=== PATIENT | female | born 1960 | race Caucasian/White ===

== ENCOUNTER 2019-02-27 17:27 | Observation (INO) | payer MEDICARE, SELFPAY ==
[2019-02-27] VITALS (9 sets, daily range): BP systolic 131–149; BP diastolic 81–87; PULSE 61–79; RESP 14–16; TEMP 36.6–36.9; O2SAT 95–97; BMI 20.1; BMI 19.7
--- NOTE | 2019-02-27 17:36 | EKG12_ITS ---
Test Reason : CP Blood Pressure : / mmHG Vent. Rate : 077 BPM Atrial Rate : 077 BPM P-R Int : 122 ms QRS Dur : 092 ms QT Int : 400 ms P-R-T Axes : 064 036 064 degrees QTc Int : 452 ms Sinus rhythm with Premature atrial complexes Possible Left atrial enlargement Nonspecific ST abnormality Abnormal ECG Confirmed by VIVIAN KOCH, EVAN ([id number]), loan expeditor ALLYN SEAMAN ([id number]) on 03/02/2019 1:14:00 PM Referred By: DILIP Confirmed By:EVAN PARK MD
--- NOTE | 2019-02-27 17:40 | RAD_ITS ---
STUDY: X-RAY CHEST REASON FOR EXAM: Female, 58 years old. Chest pain. TECHNIQUE: Single frontal view of the chest. COMPARISON: None. FINDINGS: There is no focal consolidation. Sternal cerclage wires are present from a prior sternotomy. The cardiac silhouette is within normal limits. There is a prosthetic cardiac valve in place. Normal mediastinum and jeb. Normal visualized pulmonary arteries. Normal visualized aortic arch and descending thoracic aorta. There is a levoscoliosis of the thoracic spine. Normal visualized ribs, clavicles, and shoulders. There is no demonstrated abnormality of the visualized soft tissue structures of the upper abdomen. RAD/Chest 1 View (Portable) IMPRESSION: No acute cardiopulmonary process. Electronically Signed: Mary Levine MD at 18:39 EDT Tel , Service support ,
--- NOTE | 2019-02-27 17:48 | NURSING ---
NO OLD EKGS
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
[2019-02-27 18:57] LABS: Absolute Lymphocyte Count 1.47 X10^3/ul (0.83-4.51); Absolute Neutrophil Count 3.8 X10^3/uL (2.0-7.7); Basophil# 0.02 X10^3/uL; Basophil% 0.3 % (0-1); Eosinophils% 3.2 % (0-5); Hematocrit 42.1 % (37-47); Lymphocyte # 1.47 X10^3/ul (4.0); Lymphocyte % 23.2 % (19-41); Mean Corp Hgb Conc 33.3 g/gl (32-36); Mean Corpuscular Volume 87.2 fL (81-99); Mean Platelet Vol. 11.2 fl (6.2-12.0); Monocyte% 12.6 % (0-10); Neutrophil # 3.82 X10^3/uL (2.7-7.7); Neutrophil % 60.4 % (47-70); Platelet Count 181 K/mm3 (150-450); Red Blood Count 4.83 M/mm3 (4.2-5.4); White Blood Count 6.3 K/mm3 (4.4-11.0)
[2019-02-27 18:58] LABS: POSITIVE COUNT NO; POSITIVE DIFFERENTIAL NO; POSITIVE MORPHOLOGY NO
--- NOTE | 2019-02-27 19:05 | EKG12_ITS ---
Test Reason : REPEAT Blood Pressure : / mmHG Vent. Rate : 069 BPM Atrial Rate : 069 BPM P-R Int : 130 ms QRS Dur : 090 ms QT Int : 426 ms P-R-T Axes : 063 051 076 degrees QTc Int : 456 ms Normal sinus rhythm with sinus arrhythmia Normal ECG Confirmed by VIVIAN KOCH, EVAN ([id number]), newspaper photo editor ALLYN SEAMAN ([id number]) on 03/02/2019 1:19:13 PM Referred By: DILIP Confirmed By:EVAN PARK MD
[2019-02-27] MEDS: Aspirin 81 MG TAB.CHEW 324 MG PO (19:13)
[2019-02-27] MEDS: Morphine 4 MG/ML Syringe IV (19:43)
[2019-02-27 19:58] LABS: Anion Gap 5 (5-15); BUN 9 mg/dL (7-18); BUN/Creat Ratio 9.1 RATIO (10-20); Calcium,Total 8.4 mg/dL (8.5-10.1); Chloride 109 mmol/L (98-107); Creatinine, Serum 0.99 mg/dL (0.55-1.02); EST Glomerular Filtration Rate 61 mL/min (>60); Est Glom Filt Rate - Afr Amer 74 mL/min (>60); Estimated Creatinine Clearance 54.34 ml/min; Glucose 96 mg/dL (74-106); Potassium 4.1 mmol/L (3.5-5.1); Sodium Level 140 mmol/L (136-145)
--- NOTE | 2019-02-27 20:42 | PCM.HP.STD ---
Problem List (1) Chest pain Status: Acute Qualifiers: Chest pain type: precordial pain Qualified Code(s): R07.2 - Precordial pain History of Present Illness Date of Admission: 02/27/19 Chief Complaint: Chest pain The patient is a 58 year old F seen in the emergency room at [facility] with chief complaint of chest pain in the precordial area that she describes as sharp in nature, she states that it radiated into her mid back area. It started at 3 PM today and was off and on until 4:30 PM at 4:30 PM the patient states it became steady and did not resolve until she came to the emergency room. Patient denies any radiation down her arm or up into her jaw, she denies any nausea, vomiting, or diaphoresis. Patient has a past history of coronary artery disease and had 2 stents placed in March 2018 as well as an artificial aortic valve placement at that time. Patient's gas pipe layer is Dr. Poe in [place] she also has a past history of pulmonic valve replacement. In the emergency room included a chest x-ray which was unremarkable, CBC was unremarkable, EKG showed a normal sinus rhythm with T wave inversions in leads V1 and V2 with nonspecific T wave changes in the limb leads. No old EKGs were available to compare this with. Patient's troponin is unremarkable. Patient will be placed and observation status on PCU, enzymes will be cycled, patient states that if she had to have a cardiac catheterization she would rather have it done in [place] under her gas pipe layer, patient had a stress test done in October 2018 which was negative she states. Past Medical History Allergies naproxen Allergy (Verified 02/27/19 17:30) Swelling Penicillins Allergy (Verified 02/27/19 17:30) Unknown Home Medications: Ambulatory Orders Medication Instructions Recorded Acetaminophen [Acetaminophen Extra 500 mg PO Q6H PRN 02/27/19 Strength] Albuterol Aerosols [Ventolin 2.5 mg INHALATION Q6H PRN PRN 02/27/19 Aerosols] Albuterol IH (ProAir) [Proair Hfa 2 puff INHALATION Q6H PRN PRN 02/27/19 (SP)Vent Pts] Alendronate Sodium [Fosamax] 70 mg PO Q7D@0700 02/27/19 Amitriptyline HCl [Elavil] 10 mg PO QHS 03/30/19 Atorvastatin Calcium [Lipitor] 80 mg PO QHS 02/27/19 Cholecalciferol (Vitamin D3) 2,000 unit PO DAILY 02/27/19 [Vitamin D3] Diltiazem HCl [Diltiazem 24Hr ER] 180 mg PO DAILY 02/27/19 Doxycycline 100 mg PO DAILY 02/27/19 Fluticasone 0.05% [Flonase Nasal 1 spray NASAL DAILY 02/27/19 [place]] Fluticasone/Salmeterol [Advair 1 each IH DAILY 02/27/19 250-50 Diskus] Gabapentin [Neurontin] 300 mg PO BID 02/27/19 Melatonin 10 mg PO QHS 02/27/19 Mirtazapine [Remeron] 30 mg PO QHS 02/27/19 Nitroglycerin [Nitrostat] 0.3 mg SL Q5M PRN 02/27/19 Oxybutynin [Ditropan] 10 mg PO DAILY 02/27/19 Tiotropium [place] [Spiriva] 18 mcg IH DAILY 02/27/19 Warfarin [Coumadin (PBKC)] 5 mg PO DAILY 02/27/19 Surgical History: cataract, total hip arthroplasty - X2, tonsillectomy, - - Aortic and pulmonic valve replacement, patient has mechanical aortic valve, skin grafts, coronary artery stent placement times -March 2018 Psychiatric History: No pertinent psych hx CALIBRATION ENGINEER History: No pertinent CALIBRATION ENGINEER history Lives: Alone Smoking Status: Current every day smoker Tobacco Use: Cigarettes Alcohol: None Drugs: None - *Family History Maternal History Items: Cancer - Lung and bone cancer Paternal History Items: Cancer - Bladder cancer Review of Systems Constitutional: Denies: Anorexia, Chills, Fever, Night Sweats, Malaise, Weakness, Weight Change Eyes: Denies: Conjunctivae Inflammation, Double vision, Drainage HEENT: Denies: Difficulty Swallowing, Dysphasia, Ear Pain, Eye Pain, Hearing Changes, Nasal bleeding, Nasal Congestion, Post Nasal Drip Cardiovascular: Reports: Chest Pain. Denies: Claudication, Chest Pressure, Chest Tightness, Edema, Heaviness, Orthopnea, Palpitations, Paroxysmal Noc. Dyspnea, Syncope Respiratory: Denies: Cough, Hemoptysis, Pleuritic Pain, Shortness of Breath, Shortness of breath at rest, Shortness of breath upon exertion Gastrointestinal: Denies: Abdominal Pain, Constipation, Diarrhea, Hematemesis, Hematochezia, Nausea, Melena, Vomiting Genitourinary: Denies: Dysuria, Frequency, Hematuria, Hesitancy, Urgency Gynecological: Denies: Breast symptoms Musculoskeletal: Denies: Back Pain, Foot Pain, Hand Pain, Joint stiffness, Joint swelling, Joint Tenderness Skin: Denies: Dryness, Jaundice, Pruritis, Rash Neurological: Denies: Blurred vision, Double vision, Change in Speech, Slurred speech, Difficulty swallowing, Focal weakness, Headaches, Incoordination, Numbness, Tingling Psychiatric: Denies: Anxiety, Depression, Homicidal Ideations, Suicidal Ideations Endocrine: Denies: Change in Body Habitus, Heat/ Cold Intolerance, Polydipsia, Polyuria Hematologic/ Lymphatic: Denies: Adenopathy, Anemia, Easy Bruising, Easy Bleeding, Petechiae, Purpura VTE Information - Inpt Only VTE Present on Admission: No VTE Mechan Device Prophylaxis: None VTE Pharm Prophylaxis ordered?: Yes Patient Problems: Active and Suspected Problems Chest pain (Acute) - Physical Exam General: Alert, Oriented x3, Cooperative, No apparent distress, Well developed, Well nourished HEENT: Atraumatic, PERRLA, EOMI, Normocephalic Oral: Moist Mucosa Neck: Supple, No JVD, Negative Carotid Bruits, No Nuchal Rigidity, Trachea Midline, Thyroid Normal Size and Texture Lungs: Clear to auscultation, Normal air movement, No rhonchi, No wheeze, No rales Cardiovascular: Regular rate, Regular Rhythm, No murmurs, - - A metal valvular click is noted over the patient's left sternal border and apex, occasional PACs are noted Abdomen: Bowel Sounds Present, Soft, Non Tender, Non-Distended, No hernias noted Extremities: No edema, Capillary Refill Less than 3 Seconds Skin: No rashes, No breakdown Neurological: Cranial nerves II-XII grossly intact, Neuro grossly intact, Sensory exam intact to light touch and pain, Coordination normal Psych/Mental Status: Normal Affect, Appropriate, Alert and oriented to time, place, person, mood and affect Vital Signs Temp Pulse Resp BP Pulse Ox 98.5 F 71 15 145/81 H 96 02/27/19 17:28 02/27/19 19:34 02/27/19 19:16 02/27/19 19:34 02/27/19 19:16 Oxygen Delivery Method Room Air Weight: 54.9 kg Body Mass Index (BMI) 20.1 Laboratory Tests Past 24 Hrs 02/27/19 02/27/19 18:45 19:15 WBC 6.3 RBC 4.83 Hgb 14.0 Hct 42.1 MCV 87.2 MCH 29.0 MCHC 33.3 RDW 15.0 H RDW Differential 48.0 H Plt Count 181 MPV 11.2 Immature Gran % (Auto) 0.300 Neut % (Auto) 60.4 Lymph % (Auto) 23.2 [place] % (Auto) 12.6 H Eos % (Auto) 3.2 Baso % (Auto) 0.3 Absolute Neuts (auto) 3.8 Absolute Lymphs (auto) 1.47 Total Counted Not Reportable Sodium 140 Potassium 4.1 Chloride 109 H Carbon Dioxide 26.0 Anion Gap 5 BUN 9 Creatinine 0.99 Estim Creat Clear Calc 54.34 Est GFR (MDRD) Af Amer 74 Est GFR (MDRD) Non-Af 61 BUN/Creatinine Ratio 9.1 L Glucose 96 Calcium 8.4 L Troponin I < 0.015 Assessment/Plan All Active Problems Chest pain (Acute) #1 atypical chest pain in a patient with known coronary artery disease-patient will be placed in observation status on PCU, serial enzymes will be checked, if these enzymes remain negative, patient has the option to be discharged home tomorrow (she is in favor of this) to follow-up with her gas pipe layer as an outpatient #2 coronary artery disease-2 stents were placed in March 2018 #3 valvular heart disease with pulmonic valve replacement and mechanical aortic valve #4 chronic use of warfarin due to mechanical aortic valve #5 chronic osteomyelitis of the right hip-patient takes doxycycline twice a day for this #6 chronic insomnia-patient takes gabapentin and amitriptyline for this #7 COPD-patient will be placed on albuterol aerosols as needed Code Visit OBSV E&M: 29324 Initial observation care L3
--- NOTE | 2019-02-27 20:49 | HP.PCM_ITS ---
Problem List (1) Chest pain Status: Acute Qualifiers: Chest pain type: precordial pain Qualified Code(s): R07.2 - Precordial pain History of Present Illness Date of Admission: 02/27/19 Chief Complaint: Chest pain The patient is a 58 year old F seen in the emergency room at [facility] with chief complaint of chest pain in the precordial area that she describes as sharp in nature, she states that it radiated into her mid back area. It started at 3 PM today and was off and on until 4:30 PM at 4:30 PM the patient states it became steady and did not resolve until she came to the emergency room. Patient denies any radiation down her arm or up into her jaw, she denies any nausea, vomiting, or diaphoresis. Patient has a past history of coronary artery disease and had 2 stents placed in March 2018 as well as an artificial aortic valve placement at that time. Patient's human geography instructor is Dr. Poe in [place] she also has a past history of pulmonic valve replacement. In the emergency room included a chest x-ray which was unremarkable, CBC was unremarkable, EKG showed a normal sinus rhythm with T wave inversions in leads V1 and V2 with nonspecific T wave changes in the limb leads. No old EKGs were available to compare this with. Patient's troponin is unremarkable. Patient will be placed and observation status on PCU, enzymes will be cycled, patient states that if she had to have a cardiac catheterization she would rather have it done in [place] under her human geography instructor, patient had a stress test done in October 2018 which was negative she states. Past Medical History Allergies naproxen Allergy (Verified 02/27/19 17:30) Swelling Penicillins Allergy (Verified 02/27/19 17:30) Unknown Home Medications: Ambulatory Orders Medication Instructions Recorded Acetaminophen [Acetaminophen Extra 500 mg PO Q6H PRN 02/27/19 Strength] Albuterol Aerosols [Ventolin 2.5 mg INHALATION Q6H PRN PRN 02/27/19 Aerosols] Albuterol IH (ProAir) [Proair Hfa 2 puff INHALATION Q6H PRN PRN 02/27/19 (SP)Vent Pts] Alendronate Sodium [Fosamax] 70 mg PO Q7D@0700 02/27/19 Amitriptyline HCl [Elavil] 10 mg PO QHS 03/30/19 Atorvastatin Calcium [Lipitor] 80 mg PO QHS 02/27/19 Cholecalciferol (Vitamin D3) 2,000 unit PO DAILY 02/27/19 [Vitamin D3] Diltiazem HCl [Diltiazem 24Hr ER] 180 mg PO DAILY 02/27/19 Doxycycline 100 mg PO DAILY 02/27/19 Fluticasone 0.05% [Flonase Nasal 1 spray NASAL DAILY 02/27/19 [place]] Fluticasone/Salmeterol [Advair 1 each IH DAILY 02/27/19 250-50 Diskus] Gabapentin [Neurontin] 300 mg PO BID 02/27/19 Melatonin 10 mg PO QHS 02/27/19 Mirtazapine [Remeron] 30 mg PO QHS 02/27/19 Nitroglycerin [Nitrostat] 0.3 mg SL Q5M PRN 02/27/19 Oxybutynin [Ditropan] 10 mg PO DAILY 02/27/19 Tiotropium [place] [Spiriva] 18 mcg IH DAILY 02/27/19 Warfarin [Coumadin (PBKC)] 5 mg PO DAILY 02/27/19 Surgical History: cataract, total hip arthroplasty - X2, tonsillectomy, - - Aortic and pulmonic valve replacement, patient has mechanical aortic valve, skin grafts, coronary artery stent placement times -March 2018 Psychiatric History: No pertinent psych hx OTOLARYNGOLOGIST History: No pertinent OTOLARYNGOLOGIST history Lives: Alone Smoking Status: Current every day smoker Tobacco Use: Cigarettes Alcohol: None Drugs: None - *Family History Maternal History Items: Cancer - Lung and bone cancer Paternal History Items: Cancer - Bladder cancer Review of Systems Constitutional: Denies: Anorexia, Chills, Fever, Night Sweats, Malaise, Weakness, Weight Change Eyes: Denies: Conjunctivae Inflammation, Double vision, Drainage HEENT: Denies: Difficulty Swallowing, Dysphasia, Ear Pain, Eye Pain, Hearing Changes, Nasal bleeding, Nasal Congestion, Post Nasal Drip Cardiovascular: Reports: Chest Pain. Denies: Claudication, Chest Pressure, Chest Tightness, Edema, Heaviness, Orthopnea, Palpitations, Paroxysmal Noc. Dyspnea, Syncope Respiratory: Denies: Cough, Hemoptysis, Pleuritic Pain, Shortness of Breath, Shortness of breath at rest, Shortness of breath upon exertion Gastrointestinal: Denies: Abdominal Pain, Constipation, Diarrhea, Hematemesis, Hematochezia, Nausea, Melena, Vomiting Genitourinary: Denies: Dysuria, Frequency, Hematuria, Hesitancy, Urgency Gynecological: Denies: Breast symptoms Musculoskeletal: Denies: Back Pain, Foot Pain, Hand Pain, Joint stiffness, Joint swelling, Joint Tenderness Skin: Denies: Dryness, Jaundice, Pruritis, Rash Neurological: Denies: Blurred vision, Double vision, Change in Speech, Slurred speech, Difficulty swallowing, Focal weakness, Headaches, Incoordination, Numbness, Tingling Psychiatric: Denies: Anxiety, Depression, Homicidal Ideations, Suicidal Ideations Endocrine: Denies: Change in Body Habitus, Heat/ Cold Intolerance, Polydipsia, Polyuria Hematologic/ Lymphatic: Denies: Adenopathy, Anemia, Easy Bruising, Easy Bleeding, Petechiae, Purpura VTE Information - Inpt Only VTE Present on Admission: No VTE Mechan Device Prophylaxis: None VTE Pharm Prophylaxis ordered?: Yes Patient Problems: Active and Suspected Problems Chest pain (Acute) - Physical Exam General: Alert, Oriented x3, Cooperative, No apparent distress, Well developed, Well nourished HEENT: Atraumatic, PERRLA, EOMI, Normocephalic Oral: Moist Mucosa Neck: Supple, No JVD, Negative Carotid Bruits, No Nuchal Rigidity, Trachea Midline, Thyroid Normal Size and Texture Lungs: Clear to auscultation, Normal air movement, No rhonchi, No wheeze, No rales Cardiovascular: Regular rate, Regular Rhythm, No murmurs, - - A metal valvular click is noted over the patient's left sternal border and apex, occasional PACs are noted Abdomen: Bowel Sounds Present, Soft, Non Tender, Non-Distended, No hernias noted Extremities: No edema, Capillary Refill Less than 3 Seconds Skin: No rashes, No breakdown Neurological: Cranial nerves II-XII grossly intact, Neuro grossly intact, Sensory exam intact to light touch and pain, Coordination normal Psych/Mental Status: Normal Affect, Appropriate, Alert and oriented to time, place, person, mood and affect Vital Signs Temp Pulse Resp BP Pulse Ox 98.5 F 71 15 145/81 H 96 02/27/19 17:28 02/27/19 19:34 02/27/19 19:16 02/27/19 19:34 02/27/19 19:16 Oxygen Delivery Method Room Air Weight: 54.9 kg Body Mass Index (BMI) 20.1 Laboratory Tests Past 24 Hrs 02/27/19 02/27/19 18:45 19:15 WBC 6.3 RBC 4.83 Hgb 14.0 Hct 42.1 MCV 87.2 MCH 29.0 MCHC 33.3 RDW 15.0 H RDW Differential 48.0 H Plt Count 181 MPV 11.2 Immature Gran % (Auto) 0.300 Neut % (Auto) 60.4 Lymph % (Auto) 23.2 [place] % (Auto) 12.6 H Eos % (Auto) 3.2 Baso % (Auto) 0.3 Absolute Neuts (auto) 3.8 Absolute Lymphs (auto) 1.47 Total Counted Not Reportable Sodium 140 Potassium 4.1 Chloride 109 H Carbon Dioxide 26.0 Anion Gap 5 BUN 9 Creatinine 0.99 Estim Creat Clear Calc 54.34 Est GFR (MDRD) Af Amer 74 Est GFR (MDRD) Non-Af 61 BUN/Creatinine Ratio 9.1 L Glucose 96 Calcium 8.4 L Troponin I < 0.015 Assessment/Plan All Active Problems Chest pain (Acute) #1 atypical chest pain in a patient with known coronary artery disease-patient will be placed in observation status on PCU, serial enzymes will be checked, if these enzymes remain negative, patient has the option to be discharged home tomorrow (she is in favor of this) to follow-up with her human geography instructor as an outpatient #2 coronary artery disease-2 stents were placed in March 2018 #3 valvular heart disease with pulmonic valve replacement and mechanical aortic valve #4 chronic use of warfarin due to mechanical aortic valve #5 chronic osteomyelitis of the right hip-patient takes doxycycline twice a day for this #6 chronic insomnia-patient takes gabapentin and amitriptyline for this #7 COPD-patient will be placed on albuterol aerosols as needed Code Visit OBSV E&M: 14158 Initial observation care L3
[2019-02-27] MEDS: Amitriptyline 10 MG Tablet PO (23:40)
[2019-02-27] MEDS: MELATONIN 10 MG TABLET PO (23:40)
[2019-02-27] MEDS: Mirtazapine 30 MG Tablet PO (23:41)
[2019-02-27] MEDS: Gabapentin 300 MG Capsule PO (23:41)
[2019-02-27] MEDS: Acetaminophen 325 MG Tablet 650 MG PO (23:41)
[2019-02-27] MEDS: Atorvastatin Calcium 80 MG Tablet PO (23:41)
[2019-02-28 03:07] VITALS: BP 90/54; PULSE 60; RESP 16; TEMP 36.4; O2SAT 94
[2019-02-28 03:09] VITALS: PULSE 60
[2019-02-28 05:07] VITALS: BP 94/58; PULSE 57; RESP 16; TEMP 36.4; O2SAT 94
[2019-02-28] MEDS: Acetaminophen 325 MG Tablet 650 MG PO (06:19)
[2019-02-28 07:05] VITALS: PULSE 60
[2019-02-28 09:18] VITALS: BP 110/67; PULSE 62; RESP 18; TEMP 36.3; O2SAT 95
[2019-02-28] MEDS: Gabapentin 300 MG Capsule PO (09:22)
[2019-02-28] MEDS: Tolterodine Tartrate 2 MG CAP.SA PO (09:22)
[2019-02-28] MEDS: dilTIAZem CD 180 MG Capsule PO (09:22)
[2019-02-28] MEDS: Morphine 2 MG/ML Syringe IV (09:23)
[2019-02-28] MEDS: Doxycycline 100 MG CAPSULE PO (09:23)
--- NOTE | 2019-02-28 11:11 | DCINST_ITS ---
- Discharge Diagnoses Current Active Problems: Current Active and Chronic Problems Chest pain (Acute) You will use the following diet at home:: Cardiac Discharge Activity: Return to Normal Activity Call your doctor if you observe: Shortness of breath, Dizziness, Fainting spells, Chest pain Allergies/Adverse Reactions: Allergies naproxen Allergy (Verified 02/27/19 17:30) Swelling Penicillins Allergy (Verified 02/27/19 17:30) Unknown Medications to take at Discharge Acetaminophen [Acetaminophen Extra Strength] 500 mg PO Q6H PRN 02/27/19 Albuterol Aerosols [Ventolin Aerosols] 2.5 mg INHALATION Q6H PRN PRN 02/27/19 Albuterol IH (ProAir) [Proair Hfa] 2 puff INHALATION Q6H PRN PRN 02/27/19 Alendronate Sodium [Fosamax] 70 mg PO Q7D@0700 02/27/19 Amitriptyline HCl [Elavil] 10 mg PO QHS 02/27/19 Atorvastatin Calcium [Lipitor] 80 mg PO QHS 02/27/19 Cholecalciferol (Vitamin D3) [Vitamin D3] 2,000 unit PO DAILY 02/27/19 Diltiazem HCl [Diltiazem 24Hr ER] 180 mg PO DAILY 02/27/19 Doxycycline 100 mg PO DAILY 02/27/19 Fluticasone 0.05% [Flonase Nasal [place]] 1 spray NASAL DAILY 02/27/19 Fluticasone/Salmeterol [Advair 250-50 Diskus] 1 each IH DAILY 02/27/19 Gabapentin [Neurontin] 300 mg PO BID 02/27/19 Melatonin 10 mg PO QHS 02/27/19 Mirtazapine [Remeron] 30 mg PO QHS 02/27/19 Nitroglycerin [Nitrostat] 0.3 mg SL Q5M PRN 02/27/19 Oxybutynin [Ditropan] 10 mg PO DAILY 02/27/19 Tiotropium [place] [Spiriva] 18 mcg IH DAILY 02/27/19 Warfarin [Coumadin] 5 mg PO DAILY 02/27/19 Primary Care Physician: NOT,DEFINED [NON-STAFF] - Please follow up with your Primary Care Physician in: 1 Week Test Results: Test results from this visit will be discussed in further detail at your follow- up appointment, if applicable. Please Follow Up With: Primary Welfare Interviewer When: Call Friday for soonest available appointment. Proposed Discharge Date: 02/28/19
--- NOTE | 2019-02-28 11:12 | PCM.DC.SUM ---
Discharge Date and Diagnosis Date of Admission: 02/27/19 Date of Discharge: 02/28/19 - Primary Discharge Diagnosis Active and Suspected Problems 1. Chest pain, ACS ruled out 2. CAD status post history of stents 3. Valvular heart disease status post pulmonic valve replacement and mechanical aortic valve 4. Chronic osteomyelitis of the right hip 5. Chronic insomnia 6. Chronic COPD Hospital Course and Treatment Imaging Results: Diagnostic Data Chest X-Ray 02/27/19 17:40 IMPRESSION: No acute cardiopulmonary process. Electronically Signed: Mary Levine MD at 18:39 EDT Tel , Service support , Operations: None Procedures: None Summary of Care Provided: The patient is a 58 year old F admitted 02/27/2019 due to chest pain. 1. Chest pain, ACS ruled out-chest x-ray without acute process. Troponin negative x3. EKG with nonspecific T wave changes. No NSTEMI. She had recent stress test in October which she reports was normal. She declined any further workup at this hospital. She requested discharge home and to follow up with her primary dentist in [place] next week. She was instructed to call tomorrow, Friday03/01/19 to schedule follow up with cardiology as soon as possible. Nursing reports patient complained of chest pain, stabbing in nature, 8/10 however was found to be resting comfortably in bed and fairly drowsy. She was given morphine and shortly after witnessed to be digging through the trash in her room. Suspicious for drug-seeking behavior. Recommend follow-up with primary care physician in 1 week and cardiology as soon as possible as previously noted. 2. CAD status post history of stents-continue statin, Coumadin. Not on beta-kate. 3. Valvular heart disease status post pulmonic valve replacement and mechanical aortic valve-continue Coumadin regimen. 4. Chronic osteomyelitis of the right hip-continue doxycycline regimen. 5. Chronic insomnia-continue home gabapentin and amitriptyline regimen. 6. Chronic COPD-no acute exacerbation. Continue home inhaler regimen. Patient seen and examined prior to discharge. Physical assessment as noted above. Patient is stable for discharge with follow up recommendations as noted above. This patient was seen by POLLO Orona under the supervision of Dr. Gold. - Physical Exam Vital Signs Temp Pulse Resp BP Pulse Ox 97.4 F L 62 18 110/67 95 02/28/19 09:18 02/28/19 09:18 02/28/19 09:18 02/28/19 09:18 02/28/19 09:18 Oxygen Delivery Method Room Air Weight: 118 lb 9.739 oz Body Mass Index (BMI) 19.7 Intake and Output for Last 24 Hours 02/26/19 02/27/19 02/28/19 23:59 23:59 23:59 Intake Total 120 / 120 50 / 50 Output Total 0 / 0 Balance 120 / 120 50 / 50 Laboratory Tests Past 24 Hrs 02/27/19 02/27/19 02/27/19 18:45 19:15 22:30 WBC 6.3 RBC 4.83 Hgb 14.0 Hct 42.1 MCV 87.2 MCH 29.0 MCHC 33.3 RDW 15.0 H RDW Differential 48.0 H Plt Count 181 MPV 11.2 Immature Gran % (Auto) 0.300 Neut % (Auto) 60.4 Lymph % (Auto) 23.2 [place] % (Auto) 12.6 H Eos % (Auto) 3.2 Baso % (Auto) 0.3 Absolute Neuts (auto) 3.8 Absolute Lymphs (auto) 1.47 Total Counted Not Reportable Sodium 140 Potassium 4.1 Chloride 109 H Carbon Dioxide 26.0 Anion Gap 5 BUN 9 Creatinine 0.99 Estim Creat Clear Calc 54.34 Est GFR (MDRD) Af Amer 74 Est GFR (MDRD) Non-Af 61 BUN/Creatinine Ratio 9.1 L Glucose 96 Calcium 8.4 L Troponin I < 0.015 < 0.015 02/28/19 01:13 WBC RBC Hgb Hct MCV MCH MCHC RDW RDW Differential Plt Count MPV Immature Gran % (Auto) Neut % (Auto) Lymph % (Auto) [place] % (Auto) Eos % (Auto) Baso % (Auto) Absolute Neuts (auto) Absolute Lymphs (auto) Total Counted Sodium Potassium Chloride Carbon Dioxide Anion Gap BUN Creatinine Estim Creat Clear Calc Est GFR (MDRD) Af Amer Est GFR (MDRD) Non-Af BUN/Creatinine Ratio Glucose Calcium Troponin I < 0.015 Discharge Diet: Low fat/ Low Cholesterol Discharge Activity: Return to Normal Activity Call your doctor if you observe: Shortness of breath, Dizziness, Fainting spells, Chest pain Home Medications: Medications to take at Discharge Acetaminophen [Acetaminophen Extra Strength] 500 mg PO Q6H PRN 02/27/19 Albuterol Aerosols [Ventolin Aerosols] 2.5 mg INHALATION Q6H PRN PRN 02/27/19 Albuterol IH (ProAir) [Proair Hfa] 2 puff INHALATION Q6H PRN PRN 02/27/19 Alendronate Sodium [Fosamax] 70 mg PO Q7D@0700 02/27/19 Amitriptyline HCl [Elavil] 10 mg PO QHS 02/27/19 Atorvastatin Calcium [Lipitor] 80 mg PO QHS 02/27/19 Cholecalciferol (Vitamin D3) [Vitamin D3] 2,000 unit PO DAILY 02/27/19 Diltiazem HCl [Diltiazem 24Hr ER] 180 mg PO DAILY 02/27/19 Doxycycline 100 mg PO DAILY 02/27/19 Fluticasone 0.05% [Flonase Nasal [place]] 1 spray NASAL DAILY 02/27/19 Fluticasone/Salmeterol [Advair 250-50 Diskus] 1 each IH DAILY 02/27/19 Gabapentin [Neurontin] 300 mg PO BID 02/27/19 Melatonin 10 mg PO QHS 02/27/19 Mirtazapine [Remeron] 30 mg PO QHS 02/27/19 Nitroglycerin [Nitrostat] 0.3 mg SL Q5M PRN 02/27/19 Oxybutynin [Ditropan] 10 mg PO DAILY 02/27/19 Tiotropium [place] [Spiriva] 18 mcg IH DAILY 02/27/19 Warfarin [Coumadin] 5 mg PO DAILY 02/27/19 Primary Care Physician: NOT,DEFINED [NON-STAFF] - Please follow up with your Primary Care Physician in: 1 Week Please Follow Up With: Primary Vacuum Form Operator When: Call Friday for soonest available appointment. Disposition: Home Minutes spent on discharge:: 35 Patient Condition:: Stable Medical Necessity - Tobacco Use Smoking Status: Current every day smoker Tobacco Use: Cigarettes Meaningful Use Info Meaningful Use Diagnoses (Choose all that apply): None applicable
--- NOTE | 2019-02-28 11:22 | DS.PCM_ITS ---
Discharge Date and Diagnosis Date of Admission: 02/27/19 Date of Discharge: 02/28/19 - Primary Discharge Diagnosis Active and Suspected Problems 1. Chest pain, ACS ruled out 2. CAD status post history of stents 3. Valvular heart disease status post pulmonic valve replacement and mechanical aortic valve 4. Chronic osteomyelitis of the right hip 5. Chronic insomnia 6. Chronic COPD Hospital Course and Treatment Imaging Results: Diagnostic Data Chest X-Ray 02/27/19 17:40 IMPRESSION: No acute cardiopulmonary process. Electronically Signed: Mary Levine MD at 18:39 EDT Tel , Service support , Operations: None Procedures: None Summary of Care Provided: The patient is a 58 year old F admitted 02/27/2019 due to chest pain. 1. Chest pain, ACS ruled out-chest x-ray without acute process. Troponin negative x3. EKG with nonspecific T wave changes. No NSTEMI. She had recent stress test in October which she reports was normal. She declined any further workup at this hospital. She requested discharge home and to follow up with her primary gynecological assistant in [place] next week. She was instructed to call tomorrow, Friday03/01/19 to schedule follow up with cardiology as soon as possible. Nursing reports patient complained of chest pain, stabbing in nature, 8/10 however was found to be resting comfortably in bed and fairly drowsy. She was given morphine and shortly after witnessed to be digging through the trash in her room. Suspicious for drug-seeking behavior. Recommend follow-up with primary care physician in 1 week and cardiology as soon as possible as previously noted. 2. CAD status post history of stents-continue statin, Coumadin. Not on beta- kate. 3. Valvular heart disease status post pulmonic valve replacement and mechanical aortic valve-continue Coumadin regimen. 4. Chronic osteomyelitis of the right hip-continue doxycycline regimen. 5. Chronic insomnia-continue home gabapentin and amitriptyline regimen. 6. Chronic COPD-no acute exacerbation. Continue home inhaler regimen. Patient seen and examined prior to discharge. Physical assessment as noted above. Patient is stable for discharge with follow up recommendations as noted above. This patient was seen by POLLO Orona under the supervision of Dr. Whi te. - Physical Exam Vital Signs Temp Pulse Resp BP Pulse Ox 97.4 F L 62 18 110/67 95 02/28/19 09:18 02/28/19 09:18 02/28/19 09:18 02/28/19 09:18 02/28/19 09:18 Oxygen Delivery Method Room Air Weight: 118 lb 9.739 oz Body Mass Index (BMI) 19.7 Intake and Output for Last 24 Hours 02/26/19 02/27/19 02/28/19 23:59 23:59 23:59 Intake Total 120 / 120 50 / 50 Output Total 0 / 0 Balance 120 / 120 50 / 50 Laboratory Tests Past 24 Hrs 02/27/19 02/27/19 02/27/19 18:45 19:15 22:30 WBC 6.3 RBC 4.83 Hgb 14.0 Hct 42.1 MCV 87.2 MCH 29.0 MCHC 33.3 RDW 15.0 H RDW Differential 48.0 H Plt Count 181 MPV 11.2 Immature Gran % (Auto) 0.300 Neut % (Auto) 60.4 Lymph % (Auto) 23.2 [place] % (Auto) 12.6 H Eos % (Auto) 3.2 Baso % (Auto) 0.3 Absolute Neuts (auto) 3.8 Absolute Lymphs (auto) 1.47 Total Counted Not Reportable Sodium 140 Potassium 4.1 Chloride 109 H Carbon Dioxide 26.0 Anion Gap 5 BUN 9 Creatinine 0.99 Estim Creat Clear Calc 54.34 Est GFR (MDRD) Af Amer 74 Est GFR (MDRD) Non-Af 61 BUN/Creatinine Ratio 9.1 L Glucose 96 Calcium 8.4 L Troponin I < 0.015 < 0.015 02/28/19 01:13 WBC RBC Hgb Hct MCV MCH MCHC RDW RDW Differential Plt Count MPV Immature Gran % (Auto) Neut % (Auto) Lymph % (Auto) [place] % (Auto) Eos % (Auto) Baso % (Auto) Absolute Neuts (auto) Absolute Lymphs (auto) Total Counted Sodium Potassium Chloride Carbon Dioxide Anion Gap BUN Creatinine Estim Creat Clear Calc Est GFR (MDRD) Af Amer Est GFR (MDRD) Non-Af BUN/Creatinine Ratio Glucose Calcium Troponin I < 0.015 Discharge Diet: Low fat/ Low Cholesterol Discharge Activity: Return to Normal Activity Call your doctor if you observe: Shortness of breath, Dizziness, Fainting spells, Chest pain Home Medications: Medications to take at Discharge Acetaminophen [Acetaminophen Extra Strength] 500 mg PO Q6H PRN 02/27/19 Albuterol Aerosols [Ventolin Aerosols] 2.5 mg INHALATION Q6H PRN PRN 02/27/19 Albuterol IH (ProAir) [Proair Hfa] 2 puff INHALATION Q6H PRN PRN 02/27/19 Alendronate Sodium [Fosamax] 70 mg PO Q7D@0700 02/27/19 Amitriptyline HCl [Elavil] 10 mg PO QHS 02/27/19 Atorvastatin Calcium [Lipitor] 80 mg PO QHS 02/27/19 Cholecalciferol (Vitamin D3) [Vitamin D3] 2,000 unit PO DAILY 02/27/19 Diltiazem HCl [Diltiazem 24Hr ER] 180 mg PO DAILY 02/27/19 Doxycycline 100 mg PO DAILY 02/27/19 Fluticasone 0.05% [Flonase Nasal [place]] 1 spray NASAL DAILY 02/27/19 Fluticasone/Salmeterol [Advair 250-50 Diskus] 1 each IH DAILY 02/27/19 Gabapentin [Neurontin] 300 mg PO BID 02/27/19 Melatonin 10 mg PO QHS 02/27/19 Mirtazapine [Remeron] 30 mg PO QHS 02/27/19 Nitroglycerin [Nitrostat] 0.3 mg SL Q5M PRN 02/27/19 Oxybutynin [Ditropan] 10 mg PO DAILY 02/27/19 Tiotropium [place] [Spiriva] 18 mcg IH DAILY 02/27/19 Warfarin [Coumadin] 5 mg PO DAILY 02/27/19 Primary Care Physician: NOT,DEFINED [NON-STAFF] - Please follow up with your Primary Care Physician in: 1 Week Please Follow Up With: Primary Blocker And Polisher Gold Wheel When: Call Friday for soonest available appointment. Disposition: Home Minutes spent on discharge:: 35 Patient Condition:: Stable Medical Necessity - Tobacco Use Smoking Status: Current every day smoker Tobacco Use: Cigarettes Meaningful Use Info Meaningful Use Diagnoses (Choose all that apply): None applicable
== END 2019-02-28 11:11 | disposition home or self-care (01) ==
LOC: ED 18:37 → PCU 20:48
PROVIDERS: Admitting Provider Internal Medicine; Emergency Provider Emergency Medicine; Visit Provider Family Medicine
DX: R07.89 Other chest pain (principal); J44.9 Chronic obstructive pulmonary disease, unspecified; I10 Essential (primary) hypertension; E78.00 Pure hypercholesterolemia, unspecified; I25.10 Atherosclerotic heart disease of native coronary artery without angina pectoris; M86.68 Other chronic osteomyelitis, other site; F51.04 Psychophysiologic insomnia; E78.5 Hyperlipidemia, unspecified; G89.29 Other chronic pain; F17.210 Nicotine dependence, cigarettes, uncomplicated; I25.2 Old myocardial infarction; Z95.4 Presence of other heart-valve replacement; Z76.5 Malingerer [conscious simulation]; Z95.5 Presence of coronary angioplasty implant and graft; Z79.899 Other long term (current) drug therapy; Z79.01 Long term (current) use of anticoagulants
CPT/HCPCS: 36415; 71045; 80048; 84484; 85025; 93005; 96374; 96376; 99218; 99285; 99406; A4216; G0378

== ENCOUNTER 2019-03-25 20:41 | Emergency (ER) | payer MEDICARE, SELFPAY ==
[2019-02-27 21:08] VITALS: BMI 19.7
[2019-03-25 20:42] VITALS: BP 151/84; PULSE 67; RESP 16; TEMP 36.8; O2SAT 96; BMI 20.5
--- NOTE | 2019-03-25 20:48 | EKG12_ITS ---
Test Reason : CP Blood Pressure : / mmHG Vent. Rate : 063 BPM Atrial Rate : 063 BPM P-R Int : 148 ms QRS Dur : 078 ms QT Int : 440 ms P-R-T Axes : 075 019 070 degrees QTc Int : 450 ms Normal sinus rhythm Possible Left atrial enlargement Septal infarct (cited on or before 27-FEB-2019), age undetermined Abnormal ECG Confirmed by MAEGAN KOCH, SHARON ([id number]), telegraph editor ALLYN SEAMAN ([id number]) on 03/29/2019 11:38:40 AM Referred By: SOCO Confirmed By:SHARON ISSA MD
[2019-03-25 20:58] VITALS: O2SAT 96
--- NOTE | 2019-03-25 21:15 | RAD_ITS ---
STUDY: X-RAY CHEST REASON FOR EXAM: Female, 58 years old. Chest pain. TECHNIQUE: Single AP portable view of the chest. COMPARISON: February 27, 2019. FINDINGS: The lungs are clear and expanded. There is no demonstrated pleural abnormality. Sternal cerclage wires are present from a prior sternotomy. The heart is normal in size. There appears to be a stent in the main pulmonary artery. There is evidence of cardiac valvuloplasty. Normal visualized aortic arch and descending thoracic aorta. No visualized osseous changes. There is no demonstrated abnormality of the visualized soft tissue structures of the upper abdomen. RAD/Chest 1 View (Portable) IMPRESSION: No acute cardiopulmonary findings or interval change. Electronically Signed: Mejia Minaya DO at 21:28 EDT Tel [phone], Service support ,
--- NOTE | 2019-03-25 21:21 | ED.DCSUM_ITS ---
- ER Visit Summary Date of Service: 03/25/19 Chief Complaint: Chest pain History of Present Illness: The patient is a 58 F substernal left-sided chest pain radiated back while at rest at 4 PM, 5 hours ago. No dyspnea. No nausea. No diaphoresis. Reports 2 stents placed last year [facility]. Fol lowed by Dr. Poe cardiology. Stress test October 2018 from records on discharge report. No cough. COPD history. Tobacco history. She is on warfarin history of mechanical aortic valve for the past 10 years. Reports pain is a 9 and sharp in nature. Reports admitted here a month ago for chest pain symptoms. Complains of lightheaded symptoms. No vomiting or diarrhea Physical Examination: General: Alert and oriented ?3, no acute distress HEENT: Normocephalic, atraumatic. Moist mucosa membranes Neck: supple, nontender. Cardiovascular: Regular rate and rhythm, no murmurs Respiratory: Normal breath sounds, symmetric, no distress Abdomen: Soft, nontender, nondistended Extremities: Nontender, no edema, pulses intact ?4 Neuro: no focal neurological deficits. Test Results: EKG sinus rate of 63, no ST changes. There is T wave inversion V1 V2 and aVL. Hemoglobin 13.4. Creatinine 1.09. Troponin negative. INR 2.3. Chest x-ray is negative. Emergency Department Course and Treatment: Patient cardiac work-up negative. Given morphine for symptom control. In the interim I did evaluate her admission from a month ago, there was negative serial enzymes. From discharge summary reports after being given morphine, she is found going through the trash looking for the morphine files. There was recommendation for patient to see cardiology in the hospital however she declined stating she wanted to see her travel information center supervisor in [place]. She states she did follow-up with Dr. Poe, reports to me that the re would be no recommended At this time. In addition patient is now normally self NR was therapeutic at 2.3. Another hospital for recurrent chronic chest pain seen in [place]. Work-up has been negative during multiple evaluations there. However she does have risk factors but symptoms started at 4 PM. Discussed minimum obtaining a 3-hour troponin with her reported history stating her travel information center supervisor has cleared her without needing additional cath. This to be ordered to be obtained prior to discharge. Patient heart score is 3. CRISTINO score is 2. repeat troponin is negative.Discharge with follow-up with her travel information center supervisor. Treatment Plan: [] Disposition: Discharge Impression: Atypical chest pain This note was generated with i2we dictation software. It may contain incorrect words, spelling, and punctuation that were not noted in review of the chart prior to signing ED Disposition - Plan for ED Patient: Disposition: Home or Assisted Living Diagnosis: Chest pain Instructions: ED Chest Pain Atypical Unkn Cause Referrals: [facility] Doctor,Out of [Primary Care Provider] - Additional Instructions: Follow up with Dr. Poe. Call tomorrow.
[2019-03-25 21:40] LABS: Absolute Lymphocyte Count 1.55 X10^3/ul (0.83-4.51); Absolute Neutrophil Count 4.4 X10^3/uL (2.0-7.7); Basophil# 0.03 X10^3/uL; Basophil% 0.4 % (0-1); Eosinophil# 0.27 X10^3/uL; Eosinophils% 3.9 % (0-5); Hematocrit 39.9 % (37-47); Hemoglobin 13.4 g/dl (12.0-15.0); Lymphocyte # 1.55 X10^3/ul (4.0); Lymphocyte % 22.1 % (19-41); Mean Corp Hgb Conc 33.6 g/gl (32-36); Mean Corpuscular Hgb 29.1 pg (27.0-32.0); Mean Corpuscular Volume 86.6 fL (81-99); Mean Platelet Vol. 11.1 fl (6.2-12.0); Monocyte# 0.74 X10^3/uL; Monocyte% 10.6 % (0-10); Neutrophil % 62.7 % (47-70); POSITIVE COUNT NO; POSITIVE DIFFERENTIAL NO; POSITIVE MORPHOLOGY NO; Platelet Count 228 K/mm3 (150-450); RBC Distribution Width CV 15.5 % (11.6-14.6); RBC Distribution Width SD 49.4 fl (35.1-43.9); Red Blood Count 4.61 M/mm3 (4.2-5.4)
[2019-03-25] MEDS: Morphine 4 MG/ML Syringe IV (21:54)
[2019-03-25 22:13] LABS: Anion Gap 4 (5-15); BUN 16 mg/dL (7-18); BUN/Creat Ratio 14.7 RATIO (10-20); Calcium,Total 8.7 mg/dL (8.5-10.1); Chloride 108 mmol/L (98-107); Creatinine, Serum 1.09 mg/dL (0.55-1.02); EST Glomerular Filtration Rate 55 mL/min (>60); Est Glom Filt Rate - Afr Amer 66 mL/min (>60); Estimated Creatinine Clearance 50.15 ml/min; Glucose 97 mg/dL (74-106); Potassium 4.4 mmol/L (3.5-5.1); Sodium Level 140 mmol/L (136-145)
[2019-03-25 22:14] LABS: International Normalized Ratio 2.3; Prothrombin Time (Protime)PT. 25.2 SECONDS (11.7-14.9)
[2019-03-25 22:52] VITALS: BP 156/99; PULSE 61; RESP 16; O2SAT 98
[2019-03-25 23:33] VITALS: BP 146/85; PULSE 66; RESP 16; O2SAT 95
[2019-03-26] VITALS: BP 153/93; PULSE 66; RESP 16; O2SAT 95
[2019-03-26] MEDS: oxyCODONE 5 MG Tablet PO
[2019-03-26 00:58] VITALS: BP 140/89; PULSE 63; RESP 16; O2SAT 98
== END 2019-03-26 01:02 | disposition home or self-care (01) ==
PROVIDERS: Emergency Provider Emergency Medicine
DX: R07.89 Other chest pain (principal); I10 Essential (primary) hypertension; J44.9 Chronic obstructive pulmonary disease, unspecified; Z72.0 Tobacco use; Z95.5 Presence of coronary angioplasty implant and graft; Z79.01 Long term (current) use of anticoagulants
CPT/HCPCS: 71045; 80048; 84484; 85025; 85610; 93005; 96374; 99285; A4216

== ENCOUNTER 2019-04-17 16:49 | Emergency (ER) | payer MEDICARE, SELFPAY ==
[2019-04-17 16:53] VITALS: BP 166/85; PULSE 84; RESP 19; TEMP 36.1; O2SAT 96; BMI 19.4
--- NOTE | 2019-04-17 17:03 | EKG12_ITS ---
Test Reason : CP Blood Pressure : / mmHG Vent. Rate : 074 BPM Atrial Rate : 074 BPM P-R Int : 142 ms QRS Dur : 086 ms QT Int : 392 ms P-R-T Axes : 064 034 076 degrees QTc Int : 435 ms Normal sinus rhythm Septal infarct , age undetermined Abnormal ECG Confirmed by VIVIAN KOCH, EVAN ([id number]), scientific publications editor SINDY AVILES ([id number]) on 04/19/2019 3:45:35 PM Referred By: CANDI Confirmed By:EVAN PARK MD
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
--- NOTE | 2019-04-17 17:10 | RAD_ITS ---
STUDY: X-RAY CHEST REASON FOR EXAM: Female, 58 years old. Chest pain TECHNIQUE: Frontal view of the chest COMPARISON: 03/25/2019 FINDINGS: The lungs are clear. There are no pleural effusions. There is no pneumothorax. The heart is normal in size. There are stable postsurgical changes from a sternotomy with prosthetic cardiac valves in place. The visualized osseous structures are within normal limits. RAD/Chest 1 View (Portable) IMPRESSION: No acute thoracic pathology. Electronically Signed: Mamadou Snyder, at 17:19 EDT Tel , Service support ,
[2019-04-17 17:50] VITALS: BP 139/86; PULSE 69; RESP 16; O2SAT 98
[2019-04-17 17:50] LABS: Absolute Lymphocyte Count 1.18 X10^3/ul (0.83-4.51); Absolute Neutrophil Count 4.7 X10^3/uL (2.0-7.7); Basophil# 0.02 X10^3/uL; Basophil% 0.3 % (0-1); Eosinophil# 0.17 X10^3/uL; Eosinophils% 2.5 % (0-5); Hematocrit 38.8 % (37-47); Hemoglobin 13.1 g/dl (12.0-15.0); Lymphocyte # 1.18 X10^3/ul (4.0); Lymphocyte % 17.2 % (19-41); Mean Corp Hgb Conc 33.8 g/gl (32-36); Mean Corpuscular Hgb 28.9 pg (27.0-32.0); Mean Corpuscular Volume 85.7 fL (81-99); Mean Platelet Vol. 10.8 fl (6.2-12.0); Monocyte# 0.78 X10^3/uL; Monocyte% 11.4 % (0-10); Neutrophil # 4.69 X10^3/uL (2.7-7.7); Neutrophil % 68.5 % (47-70); POSITIVE COUNT NO; POSITIVE DIFFERENTIAL NO; POSITIVE MORPHOLOGY NO; Platelet Count 248 K/mm3 (150-450); RBC Distribution Width CV 15.1 % (11.6-14.6); RBC Distribution Width SD 47.4 fl (35.1-43.9); Red Blood Count 4.53 M/mm3 (4.2-5.4); White Blood Count 6.9 K/mm3 (4.4-11.0)
[2019-04-17 17:54] LABS: International Normalized Ratio 2.5; Prothrombin Time (Protime)PT. 26.9 SECONDS (11.7-14.9)
[2019-04-17 18:00] VITALS: BP 136/86; PULSE 65; RESP 16; O2SAT 95
[2019-04-17 18:08] LABS: Anion Gap 6 (5-15); BUN 10 mg/dL (7-18); Chloride 108 mmol/L (98-107); EST Glomerular Filtration Rate 61 mL/min (>60); Est Glom Filt Rate - Afr Amer 73 mL/min (>60); Estimated Creatinine Clearance 51.83 ml/min; Glucose 99 mg/dL (74-106); Potassium 3.8 mmol/L (3.5-5.1); Sodium Level 141 mmol/L (136-145)
[2019-04-17] MEDS: Morphine 2 MG/ML Syringe IV (18:08)
[2019-04-17 20:41] VITALS: BP 144/89; PULSE 63; RESP 15; O2SAT 95
[2019-04-17 21:04] VITALS: BP 149/89; PULSE 66; RESP 14; O2SAT 96
== END 2019-04-17 21:05 | disposition home or self-care (01) ==
PROVIDERS: Emergency Provider Emergency Medicine
DX: R07.89 Other chest pain (principal); E78.00 Pure hypercholesterolemia, unspecified; I10 Essential (primary) hypertension; I25.10 Atherosclerotic heart disease of native coronary artery without angina pectoris; I25.2 Old myocardial infarction; F17.200 Nicotine dependence, unspecified, uncomplicated; Z79.01 Long term (current) use of anticoagulants; Z79.899 Other long term (current) drug therapy
CPT/HCPCS: 36415; 71045; 80048; 84484; 85025; 85610; 93005; 96374; 99285; A4216

== ENCOUNTER 2019-05-10 08:41 | Emergency (ER) | payer MEDICARE, SELFPAY ==
[2019-05-10] VITALS (7 sets, daily range): BP systolic 137–171; BP diastolic 62–89; PULSE 69–74; RESP 14–18; TEMP 36.6; O2SAT 96–99; BMI 21.9
--- NOTE | 2019-05-10 08:51 | EKG12_ITS ---
Test Reason : CP Blood Pressure : / mmHG Vent. Rate : 070 BPM Atrial Rate : 070 BPM P-R Int : 134 ms QRS Dur : 088 ms QT Int : 416 ms P-R-T Axes : 049 038 066 degrees QTc Int : 449 ms Normal sinus rhythm Nonspecific ST abnormality Septal IA, Age Undeterminent, Cannot be excluded Abnormal ECG Confirmed by MAEGAN KOCH, SHARON ([id number]), brands editor KAHLIL ALFRED ([id number]) on 05/12/2019 10:55:33 AM Referred By: GEOVANY Confirmed By:SHARON ISSA MD
--- NOTE | 2019-05-10 08:51 | RAD_ITS ---
STUDY: X-RAY CHEST REASON FOR EXAM: Female, 58 years old. Chest pain. TECHNIQUE: Single AP portable view of the chest. COMPARISON: Comparison is made with prior study dated April 17, 2019. FINDINGS: EKG leads are seen. Hyperinflation. The lungs are clear. There is no demonstrated pleural abnormality. Sternal cerclage wires are present from a prior sternotomy. Prior aortic valve replacement. A vascular stent is seen in the region of the mitral valve. Normal mediastinum and jeb. Normal visualized pulmonary arteries. Normal visualized aortic arch and descending thoracic aorta. Normal visualized thoracic spine. Normal visualized ribs, clavicles, and shoulders. There is no demonstrated abnormality of the visualized soft tissue structures of the upper abdomen. RAD/Chest 1 View (Portable) IMPRESSION: No acute abnormality is seen. Electronically Signed: Az Miner, at 9:19 EDT , Service support ,
[2019-05-10] MEDS: Ipratropium/Albuterol Sulfate 3 ML AMPUL.NEB INHALATION (09:05)
[2019-05-10] MEDS: 0.9% Normal Saline 1,000 ML 150 ML IV (09:17)
[2019-05-10] MEDS: Ondansetron 4 MG/2 ML Vial IV (09:17)
[2019-05-10] MEDS: Morphine 4 MG/ML Syringe IV ×2 (09:17→11:42)
[2019-05-10 10:43] LABS: Anion Gap 11 (5-15); BUN 11 mg/dL (7-18); BUN/Creat Ratio 13.7 RATIO (10-20); Calcium,Total 8.1 mg/dL (8.5-10.1); Chloride 113 mmol/L (98-107); EST Glomerular Filtration Rate 78 mL/min (>60); Est Glom Filt Rate - Afr Amer 94 mL/min (>60); Estimated Creatinine Clearance 69.82 ml/min; Glucose 106 mg/dL (74-106); Potassium 4.4 mmol/L (3.5-5.1); Sodium Level 141 mmol/L (136-145)
--- NOTE | 2019-05-10 10:45 | NURSING ---
TROP NEEDS REDRAWN. LAB INFORMED THEY KAHLIL IT. THEY PRINTED LABELS IN ER
[2019-05-10 11:29] LABS: Absolute Lymphocyte Count 0.72 X10^3/ul (0.83-4.51); Absolute Neutrophil Count 13.8 X10^3/uL (2.0-7.7); Basophil# 0.02 X10^3/uL; Basophil% 0.1 % (0-1); Eosinophil# 0.03 X10^3/uL; Eosinophils% 0.2 % (0-5); Hematocrit 39.3 % (37-47); Hemoglobin 12.9 g/dl (12.0-15.0); Lymphocyte # 0.72 X10^3/ul (4.0); Lymphocyte % 4.7 % (19-41); Mean Corp Hgb Conc 32.8 g/gl (32-36); Mean Corpuscular Hgb 28.9 pg (27.0-32.0); Mean Corpuscular Volume 88.1 fL (81-99); Mean Platelet Vol. 10.2 fl (6.2-12.0); Monocyte# 0.73 X10^3/uL; Monocyte% 4.7 % (0-10); Neutrophil # 13.78 X10^3/uL (2.7-7.7); Neutrophil % 89.4 % (47-70); Platelet Count 227 K/mm3 (150-450); RBC Distribution Width CV 15.6 % (11.6-14.6); RBC Distribution Width SD 49.8 fl (35.1-43.9); Red Blood Count 4.46 M/mm3 (4.2-5.4); White Blood Count 15.4 K/mm3 (4.4-11.0)
[2019-05-10 11:30] LABS: POSITIVE COUNT NO; POSITIVE DIFFERENTIAL NO; POSITIVE MORPHOLOGY NO
[2019-05-10] MEDS: proMETHazine 25 MG/ML Syringe 6.25 MG IV (11:36)
[2019-05-10 11:52] LABS: Prothrombin Time (Protime)PT. 43.8 SECONDS (11.7-14.9)
[2019-05-10 11:55] LABS: International Normalized Ratio 4.6
[2019-05-10] MEDS: Albuterol 2.5 MG/3 ML VIAL.NEB. INHALATION (12:22)
--- NOTE | 2019-05-10 13:18 | ED.VISSUMM ---
- ER Visit Summary Date of Service: 05/10/19 Chief Complaint: Chest pain History of Present Illness: The patient is a 58 F who presents with chest pain that started at 5 AM this morning. She states it woke her from sleep. She describes it as sharp on the left sternal border. She does report more shortness of breath and normal. She is underlying COPD. She states she had recent URI symptoms with wheezing and was treated with prednisone. 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 Physical Examination: Blood pressure is 151/84, otherwise vitals normal. Patient sitting upright in bed no acute distress. Head and neck examination unremarkable. Heart is regular rate and rhythm. Lung sounds with expiratory wheezes throughout. Abdomen soft nontender. Test Results: Verbal chest x-ray shows no acute abnormality. EKG is sinus at [address] depression laterally. This is unchanged compared to prior EKG from March of this year. CBC was white count of 15.4 with 89% neutrophils. This likely from her prednisone use. Chemistry studies significant for bicarb of 17. INR is supratherapeutic at 4.6. Troponin is less than 0.015. Emergency Department Course and Treatment: Patient has an allergy to aspirin therefore was not given. She was given morphine and Zofran along with a DuoNeb treatment. On repeat evaluation she is resting more comfortably. She has a small amount of remaining wheezing, but overall improved air movement throughout. She is given an additional albuterol treatment, Solu-Medrol, and a dose of Zithromax. Patient has had more than 6 hours of chest pain with negative troponin. She will be treated with a course of Zithromax as well as another steroid taper. She is advised to hold her Coumadin for the next 3 days and have her INR rechecked at the end of the week. Treatment Plan: [] Disposition: Discharge Impression: 1. COPD exacerbation 2. Atypical chest pain 3. Supratherapeutic INR This note was generated with [employer] dictation software. It may contain incorrect words, spelling, and punctuation that were not noted in review of the chart prior to signing ED Disposition - Plan for ED Patient: Disposition: Home or Assisted Living Instructions: ED COPD Flare, ED Chest Pain Atypical Unkn Cause Prescriptions: Azithromycin [Zithromax] 250 mg PO DAILY #4 tablet Prednisone 10 mg PO UD #33 tablet Referrals: [facility] Doctor,Out of [Primary Care Provider] - Additional Instructions: Hold your Coumadin for the next 3 days - have your INR rechecked later this week.
[2019-05-10] MEDS: Azithromycin 250 MG Tablet 500 MG PO (13:42)
[2019-05-10] MEDS: MethylPREDNISolone 125 MG/2 ML Vial 60 MG IV (13:42)
== END 2019-05-10 13:50 | disposition home or self-care (01) ==
PROVIDERS: Emergency Provider Emergency Medicine
DX: J44.1 Chronic obstructive pulmonary disease with (acute) exacerbation (principal); R07.89 Other chest pain; R79.1 Abnormal coagulation profile; I25.10 Atherosclerotic heart disease of native coronary artery without angina pectoris; I10 Essential (primary) hypertension; I25.2 Old myocardial infarction; E78.00 Pure hypercholesterolemia, unspecified; Z72.0 Tobacco use; Z79.51 Long term (current) use of inhaled steroids; Z79.01 Long term (current) use of anticoagulants; Z79.899 Other long term (current) drug therapy
CPT/HCPCS: 36415; 71045; 80048; 84484; 85025; 85610; 93005; 94640; 96361; 96374; 96375; 96376; 99285; J7030; A4216; J2405

== ENCOUNTER 2019-05-26 09:00 | Emergency (ER) | payer MEDICARE, SELFPAY ==
[2019-05-10 08:42] VITALS: BMI 21.9
[2019-05-26 09:01] VITALS: BP 133/84; PULSE 72; RESP 11; TEMP 36.8; O2SAT 98; BMI 20.7
--- NOTE | 2019-05-26 09:09 | EKG12_ITS ---
Test Reason : CP Blood Pressure : / mmHG Vent. Rate : 071 BPM Atrial Rate : 071 BPM P-R Int : 148 ms QRS Dur : 082 ms QT Int : 408 ms P-R-T Axes : 053 018 074 degrees QTc Int : 443 ms Normal sinus rhythm with sinus arrhythmia Septal infarct , age undetermined Abnormal ECG Confirmed by MARY KOCH, JOSE ([id number]), manager editorial KAHLIL ALFRED ([id number]) on 05/28/2019 10:37:18 AM Referred By: Confirmed By:DEV HERNANDEZ MD
--- NOTE | 2019-05-26 09:09 | CT_ITS ---
STUDY: CTA CHEST REASON FOR EXAM: Female, 58 years old. RADIATION DOSAGE (If Supplied By Facility): CTDIvol = ( 10.37 ) mGy, DLP = ( 152.31 ) mGycm TECHNIQUE: The examination was performed with the intravenous administration of 75 IV Isovue 370. Post-processing of the angiographic images was performed, with multiplanar reformation and 3D reconstruction. Individualized dose optimization techniques were used for this CT. COMPARISON: None. FINDINGS: Normal enhancement of the main pulmonary artery and right and left pulmonary arteries. Normal enhancement of the bilateral peripheral pulmonary arteries. There is no demonstrated pulmonary embolism. Normal thoracic aorta and visualized great vessels. There is no demonstrated aortic dissection. Normal heart and pericardium. Normal mediastinum. Normal hilar regions. Normal visualized trachea and bronchi except to note significant calcification of the tracheal and bronchial cartilages. The lungs are well expanded. Normal pulmonary parenchyma. Normal pleura. Normal chest wall structures. Normal osseous structures. Normal visualized upper abdomen. CT/CTA Chest W/WO Contrast IMPRESSION: Normal CTA chest examination, without a demonstrated pulmonary embolism or arterial dissection. Electronically Signed: Hannah Gaytan, at 14:13 EDT Tel , Service support ,
--- NOTE | 2019-05-26 09:12 | ED.DCSUM_ITS ---
History of Present Illness Chief Complaint: Chest Pain Informant: Patient Onset: Today, Hours - 2 Activity at onset: Sleep - it woke me up Timing: Continuous Quality: Sharp, Stabbing - but not tearing Location: Left Chest Current Severity: Moderate Maximum Severity: Moderate Worsened By: Not Worsened By: Exertion, Movement of Arm, Movement of Torso, Palpation, Breathing, Coughing Relieved By: Nothing Associated Symptoms: Lightheadedness. Negative for: Nausea, Vomiting, Diaphoresis, Dyspnea, Cough, Fever, Acid Reflux, Palpitations Narrative: Patient with known coronary disease and 2 stents along with mechanical aortic valve, a pulmonary valve replacement, on Coumadin. She has been seen here within the past month for the symptoms but testing was unremarkable. She states the pain radiates into her left upper back. No jaw, neck, arm discomfort or any other radiation. It is nonpleuritic. No recent leg pain or swelling or history of DVT/PE. When she had this discomfort before, her INR was 4.6 and she was advised to hold her Coumadin for a couple days. Prior Similar Symptoms: Yes - but unk what causing Recent Illness/Hospitalization: Yes - upper resp sx, resolved now; no hos pitalization - Past Medical History (1) Myocardial infarct Status: Chronic (2) CAD (coronary artery disease), [place] coronary artery Status: Chronic (3) COPD (chronic obstructive pulmonary disease) Status: Chronic (4) Hyperlipidemia Status: Chronic (5) HTN (hypertension) Status: Chronic Past Medical History - Allergies and Home Meds Allergies/Adverse Reactions: Allergies naproxen Allergy (Verified 05/10/19 08:45) Swelling Penicillins Allergy (Verified 05/10/19 08:45) Unknown aspirin Adverse Reaction (Verified 05/10/19 08:45) Other on warfarin ibuprofen [From Motrin] Adverse Reaction (Verified 05/10/19 08:45) Other on warfarin Primary Care Physician: [facility] Doctor,Out of [Primary Care Provider] - Surgical History: cataract, hysterectomy, total hip arthroplasty - X2, tonsillectomy, - - Aortic and pulmonic valve replacement, patient has mechanical aortic valve, skin grafts, coronary artery stent placement times 2 -March 2018 Smoking Status: Current every day smoker Drugs: None - Family History Maternal Family History: Reports: Cancer - Lung and bone cancer Paternal Family History: Reports: Cancer - Bladder cancer Review of Systems General: Denies: Chills, Fever, Sweats Eyes: Denies: Visual changes - bilaterally, Diplopia ENT: Denies: Rhinorrhea, Sore throat Cardiovascular: Reports: Chest pain. Denies: Palpitations Respiratory: Denies: Dyspnea, Cough, Dyspnea on exertion Gastrointestinal: Denies: Abdominal pain, Nausea, Vomiting, Diarrhea, Melena, Hematochezia Genitourinary: Denies: Dysuria, Hematuria, Frequency Musculoskeletal: Reports: Back pain. Denies: Swelling, Extremity Pain Skin: Denies: Rash, Wounds Neurological: Denies: Headache, Weakness, Numbness Physical Exam Vital Signs/Narrative: Vital Signs Temp Pulse Resp BP Pulse Ox 05/26/19 09:01 98.2 F 72 11 L 133/84 H 98 Inital Vital Signs reviewed: Yes General: Well nourished, Well developed, No Acute Distress Head: Normocephalic, Atraumatic Eyes: Perrl, EOMI ENT: Moist mucous membranes, No rhinorrhea Neck: Supple, Nontender Cardiovascular: Regular rate, Regular rhythm, No murmurs - but mechanical audible click present Respiratory: No distress, CTA bilaterally, Chest nontender Abdomen: Soft, Nontender, Nondistended, Normal bowel sounds Back: Nontender, Normal Inspection Extremities: Nontender, No edema. Negative for: Calf Tenderness Skin: Normal color, No rash, No Trauma Neurological: Alert, Oriented x3, Cranial nerves II-XII grossly intact, Normal Strength, Normal Sensation Psychological: Normal affect, Normal Mood Diagnostic/Tx/Re-eval Clinical Impression(s) from Imaging Studies Chest CTA 05/26/19 09:09 IMPRESSION: Normal CTA chest examination, without a demonstrated pulmonary embolism or arterial dissection. Electronically Signed: Hannah Gaytan, at 14:13 EDT Tel , Service support , - Rhythm Strip Rhythm Strip: Sinus Rhythm Rate: 71 Ectopy: None - EKG Initial EKG Interpretation: Sinus Rhythm, No Acute Injury Pattern, - - old ant-sept [place] Prior: Unchanged Treatment: Morphine Repeat Eval: Pain Free CRISTINO Risk: >/= 3RF, H/O CAD Score: 2 - Medical Decision Making Morphine helped her chest discomfort. Her initial EKG showed no evidence of acute injury or unstable angina, although she has evidence of an old [place]. Unchanged compared with old EKG. Troponin came back negative, however she states she had an abnormal CT of the chest sometime but she does not know what it showed. With her symptoms being sharp and radiating through her back, I thought it prudent to obtain CT angiography of her aorta to rule out dissection. Her stay in the ED was significantly delayed because of difficulty getting IV access for CT angiography. Eventually we were able to obtain access and performed a CT scan, and it was unremarkable, showing no dissection or pulmonary embolism. We treated her again for recurrent chest discomfort with a GI cocktail morphine, she feels well. I did a repeat troponin which was longer than a [id number], and it again was negative. She is reassured and discharged to follow-up and referred to a primary care physician. ED Disposition - Plan for ED Patient: Disposition: Home or Assisted Living Diagnosis: Atypical chest pain Instructions: CHEST PAIN, Uncertain Cause Referrals: Traci Vanegas MD [STAFF PHYSICIAN] - As soon as possible
[2019-05-26 09:54] LABS: Absolute Lymphocyte Count 0.87 X10^3/ul (0.83-4.51); Absolute Neutrophil Count 4.4 X10^3/uL (2.0-7.7); Basophil# 0.01 X10^3/uL; Basophil% 0.2 % (0-1); Eosinophil# 0.17 X10^3/uL; Eosinophils% 2.7 % (0-5); Hematocrit 37.5 % (37-47); Hemoglobin 12.4 g/dl (12.0-15.0); Lymphocyte # 0.87 X10^3/ul (4.0); Lymphocyte % 13.9 % (19-41); Mean Corp Hgb Conc 33.1 g/gl (32-36); Mean Corpuscular Hgb 28.4 pg (27.0-32.0); Mean Platelet Vol. 10.1 fl (6.2-12.0); Monocyte# 0.75 X10^3/uL; Neutrophil # 4.44 X10^3/uL (2.7-7.7); Platelet Count 264 K/mm3 (150-450); RBC Distribution Width CV 15.5 % (11.6-14.6); RBC Distribution Width SD 49.2 fl (35.1-43.9); Red Blood Count 4.36 M/mm3 (4.2-5.4); White Blood Count 6.3 K/mm3 (4.4-11.0)
[2019-05-26 09:55] LABS: POSITIVE COUNT NO; POSITIVE DIFFERENTIAL NO; POSITIVE MORPHOLOGY NO
[2019-05-26 10:00] LABS: International Normalized Ratio 3.2
[2019-05-26] MEDS: Morphine 4 MG/ML Syringe IV ×2 (10:02→12:55)
[2019-05-26 10:08] LABS: Anion Gap 2 (5-15); BUN 11 mg/dL (7-18); Calcium,Total 8.7 mg/dL (8.5-10.1); Chloride 109 mmol/L (98-107); Creatinine, Serum 0.84 mg/dL (0.55-1.02); EST Glomerular Filtration Rate 74 mL/min (>60); Est Glom Filt Rate - Afr Amer 89 mL/min (>60); Estimated Creatinine Clearance 66.14 ml/min; Glucose 98 mg/dL (74-106); Potassium 4.1 mmol/L (3.5-5.1); Sodium Level 139 mmol/L (136-145)
[2019-05-26 10:19] VITALS: BP 136/79; PULSE 69; RESP 17; O2SAT 96
[2019-05-26 13:16] VITALS: PULSE 66; RESP 17
[2019-05-26] MEDS: Ondansetron 4 MG/2 ML Vial IV (14:50)
[2019-05-26] MEDS: Mag Hydrox/Al Hydrox/Simeth 30 ML UDC PO (14:50)
[2019-05-26 15:00] VITALS: BP 113/73; PULSE 71; RESP 16; O2SAT 96
[2019-05-26 16:38] VITALS: BP 122/75; PULSE 67; RESP 12; RESP 18; O2SAT 95
== END 2019-05-26 16:41 | disposition home or self-care (01) ==
PROVIDERS: Emergency Provider Emergency Medicine
DX: R07.89 Other chest pain (principal); I25.10 Atherosclerotic heart disease of native coronary artery without angina pectoris; I25.2 Old myocardial infarction; J44.9 Chronic obstructive pulmonary disease, unspecified; I10 Essential (primary) hypertension; F17.200 Nicotine dependence, unspecified, uncomplicated; E78.5 Hyperlipidemia, unspecified; Z95.2 Presence of prosthetic heart valve; Z95.5 Presence of coronary angioplasty implant and graft; Z79.01 Long term (current) use of anticoagulants; Z79.51 Long term (current) use of inhaled steroids; Z79.899 Other long term (current) drug therapy
CPT/HCPCS: 71275; 80048; 84484; 85025; 85610; 93005; 96361; 96374; 96375; 96376; 99285; J7030; Q9967; A4216; J2405

== ENCOUNTER 2019-06-08 18:25 | Emergency (ER) | payer MEDICARE, SELFPAY ==
[2019-06-08 18:26] VITALS: BP 125/73; PULSE 81; RESP 14; TEMP 36.8; O2SAT 94; BMI 20.7
--- NOTE | 2019-06-08 18:48 | CT_ITS ---
STUDY: CT ABDOMEN AND PELVIS WITHOUT CONTRAST REASON FOR EXAM: Female, 58 years old. Left lower quadrant pain started today RADIATION DOSAGE (If Supplied By Facility): CTDIvol = ( 6.22 ) mGy, DLP = ( 275.10 ) mGycm TECHNIQUE: Transaxial images were obtained from the dome of the diaphragm to the symphysis pubis without oral contrast, and without intravenous contrast. Sagittal and coronal images were reconstructed. Individualized dose optimization techniques were used for this CT. COMPARISON: None. FINDINGS: The visualized lung bases are unremarkable. The visualized portions of the heart are within normal limits. Normal liver. Normal gallbladder and extrahepatic biliary system. Normal spleen. Normal pancreas. Normal bilateral adrenal glands. Normal right kidney. 1 mm nonobstructing left renal stone. Normal visualized stomach. Normal small intestine. Normal colon. There is non-visualization of the appendix. Normal abdominal aorta. Normal inferior vena cava. Normal retroperitoneum. Normal urinary bladder. Normal abdominal wall. Right hip arthroplasty. CT/Abdomen/Pelvis without Cont IMPRESSION: No evidence of acute intestinal pathology or acute obstructive uropathy. Electronically Signed: Francesco Aranda MD at 19:59 EDT Tel , Service support ,
--- NOTE | 2019-06-08 18:49 | ED.DCSUM_ITS ---
- ER Visit Summary Date of Service: 06/08/19 Chief Complaint: Left lower quadrant abdominal pain History of Present Illness: The patient is a 58 F who presents with left lower quadrant abdominal pain that began this morning. Patient states the pain is gradually gotten worse throughout the day. Patient describes the pain is sharp. Patient states pain is localized to the left lower quadrant. Patient states her pain is worse with any movement. Patient states she has been taking Tylenol at home with no relief. Patient denies any nausea or vomiting. Patient denies any diarrhea, melena, or hematochezia. Patient denies any dysuria or hematuria. Physical Examination: Vital signs are stable. Patient is afebrile. Patient is in no acute distress. Oral mucosa is pink and moist. Neck is supple. Trachea is midline. There is no JVD noted. Heart was regular rate and rhythm. Lungs are clear and equal bilaterally. Abdomen is soft. Bowel sounds are normal. There is left lower quadrant tenderness. There is no rebound or guarding noted. Cranial nerves II through XII are intact. There are no focal motor or sensory deficits noted. Test Results: CBC and conference of metabolic profile within normal limits. Urinalysis showed leukocyte esterase of 100 with 10-25 white blood cells. Urine culture was ordered. CT scan of the abdomen pelvis was obtained and was normal. Emergency Department Course and Treatment: Patient was given IV fluids. Patient was given morphine and Zofran. Patient felt better on reevaluation. Patient was given a prescription for Macrobid. Patient was given her first dose here. Patient was instructed to follow-up with her primary care physician in 5 to 7 days. Patient understood and was agreeable with the plan. All questions were answered. Disposition: Discharge home Impression: 1. Urinary tract infection 2. Abdominal pain This note was generated with [employer] dictation software. It may contain incorrect words, spelling, and punctuation that were not noted in review of the chart prior to signing ED Disposition - Plan for ED Patient: Disposition: Home or Assisted Living Diagnosis: Urinary tract infection, Abdominal pain in female Instructions: ABDOMINAL PAIN, Unknown Cause, (Female), Bladder Infection, Female (Adult) Prescriptions: Nitrofurantoin Macrocrystals [Macrobid] 100 mg PO Q12 #10 cap Prescription Printed Referrals: [facility] Doctor,Out of [NON-STAFF] - 5-7 Days
[2019-06-08] MEDS: 0.9% Normal Saline 1,000 ML 1000 ML IV (19:10)
[2019-06-08] MEDS: Morphine 4 MG/ML Syringe IV (19:10)
[2019-06-08] MEDS: Ondansetron 4 MG/2 ML Vial IV (19:11)
[2019-06-08 19:18] LABS: Bacteria 0 SEEN /hpf (None Seen); Mucous, Urine 0 SEEN /hpf (<or=2+); Red Blood Cells-Urine 0 SEEN /hpf (0-5)
[2019-06-08 19:21] LABS: Color, Urine Yellow (Yellow); Glucose, Dipstick Normal (Normal); Ketone-Dipstick 5 mg/dl (Negative); Leukocyte Esterase-Dipstick 100 /ul (Negative); Nitrite-Dipstick Negative (Negative); Occult Blood-Urine Negative /ul (Negative); Protein-Dipstick 15 mg/dl (Negative); Urine Bilirubin Dipstick Negative (Negative); Urine Clarity Sl. Cloudy (Clear); Urine Urobilinogen 1 mg/dl (Normal)
[2019-06-08 19:33] LABS: Squamous Epithelial Cells - UA 0-5 SEEN /hpf (5-10); White Blood Cells 10-25 SEEN /hpf (0-5)
[2019-06-08 19:34] LABS: Amorphous Sediment 1+ PHOS
[2019-06-08 19:36] LABS: AST(SGOT) 24 U/L (15-37); Absolute Lymphocyte Count 1.21 X10^3/ul (0.83-4.51); Absolute Neutrophil Count 4.2 X10^3/uL (2.0-7.7); Alanine Aminotransfer ALT/SGPT 18 U/L (13-56); Albumin, Serum 3.5 g/dL (3.2-5.0); Alkaline Phosphatase 137 U/L (45-117); Anion Gap 7 (5-15); BUN 10 mg/dL (7-18); BUN/Creat Ratio 9.4 RATIO (10-20); Basophil# 0.02 X10^3/uL; Basophil% 0.3 % (0-1); Calcium,Total 8.5 mg/dL (8.5-10.1); Chloride 105 mmol/L (98-107); Creatinine, Serum 1.06 mg/dL (0.55-1.02); EST Glomerular Filtration Rate 57 mL/min (>60); Eosinophil# 0.25 X10^3/uL; Eosinophils% 3.9 % (0-5); Est Glom Filt Rate - Afr Amer 69 mL/min (>60); Estimated Creatinine Clearance 52.41 ml/min; Globulin 3.6 g/dL (2.2-4.2); Glucose 124 mg/dL (74-106); Hemoglobin 13.9 g/dl (12.0-15.0); Lipase 65 U/L (73-393); Lymphocyte # 1.21 X10^3/ul (4.0); Lymphocyte % 18.6 % (19-41); Mean Corp Hgb Conc 33.9 g/gl (32-36); Mean Corpuscular Hgb 28.7 pg (27.0-32.0); Mean Corpuscular Volume 84.7 fL (81-99); Mean Platelet Vol. 10.5 fl (6.2-12.0); Monocyte# 0.84 X10^3/uL; Monocyte% 12.9 % (0-10); Neutrophil # 4.15 X10^3/uL (2.7-7.7); Platelet Count 275 K/mm3 (150-450); Potassium 3.7 mmol/L (3.5-5.1); Protein, Total 7.1 g/dL (6.4-8.2); RBC Distribution Width CV 14.7 % (11.6-14.6); Red Blood Count 4.84 M/mm3 (4.2-5.4); Sodium Level 139 mmol/L (136-145); White Blood Count 6.5 K/mm3 (4.4-11.0)
[2019-06-08 19:40] LABS: POSITIVE COUNT NO; POSITIVE DIFFERENTIAL NO; POSITIVE MORPHOLOGY NO
[2019-06-08 21:20] VITALS: BP 131/71; PULSE 82; RESP 14; O2SAT 97
--- NOTE | 2019-06-08 21:20 | ED.RN ---
apologized to pt for the wait.
[2019-06-08] MEDS: Nitrofurantoin Macrocrystals 100 MG Capsule PO (22:11)
[2019-06-08 22:15] VITALS: BP 135/82; PULSE 89
== END 2019-06-08 22:16 | disposition home or self-care (01) ==
PROVIDERS: Emergency Provider Emergency Medicine
DX: N39.0 Urinary tract infection, site not specified (principal); R10.32 Left lower quadrant pain; J45.909 Unspecified asthma, uncomplicated; J44.9 Chronic obstructive pulmonary disease, unspecified; I12.9 Hypertensive chronic kidney disease with stage 1 through stage 4 chronic kidney disease, or unspecified chronic kidney disease; N18.9 Chronic kidney disease, unspecified; I34.1 Nonrheumatic mitral (valve) prolapse; Z72.0 Tobacco use; Z79.51 Long term (current) use of inhaled steroids; Z79.01 Long term (current) use of anticoagulants; Z79.899 Other long term (current) drug therapy
CPT/HCPCS: 74176; 80053; 81001; 83690; 85025; 87086; 87088; 96361; 96374; 96375; 99284; J7030; A4216; J2405

== ENCOUNTER 2019-06-24 19:46 | Emergency (ER) | payer MEDICARE, SELFPAY ==
[2019-06-24 19:47] VITALS: BP 139/85; PULSE 75; RESP 20; TEMP 36.7; O2SAT 97; BMI 20.1
--- NOTE | 2019-06-24 19:54 | EKG12_ITS ---
Test Reason : CP Blood Pressure : / mmHG Vent. Rate : 074 BPM Atrial Rate : 074 BPM P-R Int : 140 ms QRS Dur : 088 ms QT Int : 412 ms P-R-T Axes : 069 034 073 degrees QTc Int : 457 ms Normal sinus rhythm Normal ECG Confirmed by MARY KOCH, JOSE ([id number]), supervising film or videotape editor ALLYN SEAMAN ([id number]) on 06/28/2019 2:09:28 PM Referred By: EDPHYSICIAN Confirmed By:DEV HERNANDEZ MD
--- NOTE | 2019-06-24 19:55 | RAD_ITS ---
STUDY: X-RAY CHEST REASON FOR EXAM: Female, 58 years old. Chest pain. TECHNIQUE: Single frontal view of the chest. COMPARISON: May 10, 2019 FINDINGS: There is no new focal consolidation. Sternal cerclage wires are present from a prior sternotomy. Cardiac silhouette is within normal limits. There is a mitral valve replacement in place. There is a stent noted within the region of the pulmonary artery. Normal mediastinum and jeb. Normal visualized pulmonary arteries. Normal visualized aortic arch and descending thoracic aorta. Normal visualized thoracic spine. Normal visualized ribs, clavicles, and shoulders. There is no demonstrated abnormality of the visualized soft tissue structures of the upper abdomen. RAD/Chest 1 View (Portable) IMPRESSION: No acute cardiopulmonary process. Electronically Signed: Mary Levine MD at 20:10 EDT Tel , Service support ,
[2019-06-24 20:04] LABS: Absolute Lymphocyte Count 1.41 X10^3/uL (0.83-4.51); Basophil# 0.03 X10^3/uL; Basophil% 0.3 % (0-1); Eosinophil# 0.21 X10^3/uL; Eosinophils% 2.2 % (0-5); Hematocrit 41.1 % (37-47); Hemoglobin 13.7 g/dL (12.0-15.0); Lymphocyte # 1.41 X10^3/ul (4.0); Lymphocyte % 14.9 % (19-41); Mean Corp Hgb Conc 33.3 g/dL (32-36); Mean Corpuscular Hgb 28.8 pg (27.0-32.0); Mean Corpuscular Volume 86.5 fL (81-99); Monocyte# 0.82 X10^3/uL; Monocyte% 8.6 % (0-10); NRBC Flagged by Analyzer 0 % (0-5); Neutrophil # 6.96 X10^3/uL (2.7-7.7); Neutrophil % 73.5 % (47-70); Platelet Count 267 K/mm3 (150-450); RBC Distribution Width CV 14.5 % (11.6-14.6); RBC Distribution Width SD 46.1 fl (35.1-43.9); Red Blood Count 4.75 M/mm3 (4.2-5.4); White Blood Count 9.5 K/mm3 (4.4-11.0)
[2019-06-24 20:11] LABS: International Normalized Ratio 2.3; Prothrombin Time (Protime)PT. 25.2 SECONDS (11.7-14.9)
[2019-06-24 20:20] LABS: Anion Gap 5 (5-15); BUN 9 mg/dL (7-18); BUN/Creat Ratio 7.4 RATIO (10-20); Calcium,Total 8.9 mg/dL (8.5-10.1); Chloride 106 mmol/L (98-107); Creatinine, Serum 1.22 mg/dL (0.55-1.02); EST Glomerular Filtration Rate 48 mL/min (>60); Est Glom Filt Rate - Afr Amer 58 mL/min (>60); Estimated Creatinine Clearance 44.17 ml/min; Glucose 108 mg/dL (74-106); Potassium 4.3 mmol/L (3.5-5.1); Sodium Level 138 mmol/L (136-145)
[2019-06-24 20:46] VITALS: BP 135/76; PULSE 75; RESP 16; O2SAT 94
[2019-06-24 21:00] VITALS: BP 138/80; PULSE 69; RESP 16; O2SAT 94
[2019-06-24] MEDS: Aspirin 325 MG Tablet PO (21:18)
[2019-06-24] MEDS: Morphine 4 MG/ML Syringe IV (21:18)
[2019-06-24] MEDS: Ondansetron 4 MG/2 ML Vial IV (21:18)
[2019-06-24 23:00] VITALS: BP 135/82; PULSE 66; RESP 12; O2SAT 94
--- NOTE | 2019-06-24 23:18 | ED.RN ---
bedside report given to bryon nj
[2019-06-25 00:13] VITALS: BP 129/81; PULSE 70; RESP 13; O2SAT 93
[2019-06-25] MEDS: Morphine 4 MG/ML Syringe IV (00:20)
--- NOTE | 2019-06-25 01:13 | ED.VISSUMM ---
- ER Visit Summary Date of Service: 06/25/19 Chief Complaint: Chest pain History of Present Illness: The patient is a 58 F presenting with chest pain. She states this started this morning. She states pain was initially intermittent and since 4 PM has been constant sharp pain. She states she tried Tylenol at home with minimal improvement. She has mild shortness of breath. She states she had a stress test October 2018 which was normal. [facility] also [facility]. She is a smoker. She denies fever or cough. Denies PE/DVT risk factors. Denies other complaints. Physical Examination: Vitals are stable. Patient is afebrile. Alert no acute distress. HEENT exam is unremarkable. Neck is supple. Lungs are clear and equal bilaterally. Heart is regular rate and rhythm. Abdomen is soft nontender nondistended. Extremities are unremarkable. Skin is warm and dry. No focal neurologic deficit. Remainder of exam is unremarkable. Emergency Department Course and Treatment: EKG is sinus rate is 74, unchanged from previous. Chest x-ray shows no acute process. CBC, chemistries unremarkable other than creatinine 1.22. INR is 2.3. Troponin is negative. Repeat troponin is also negative. Patient is resting comfortably on reevaluation. She is advised to follow-up with her primary care physician. Advised return to ED for worsening complaints. Disposition: Discharge home Impression: Atypical chest pain This note was generated with [employer] dictation software. It may contain incorrect words, spelling, and punctuation that were not noted in review of the chart prior to signing ED Disposition - Plan for ED Patient: Instructions: CHEST PAIN, Uncertain Cause Referrals: YOBANI BROWN [Other]
[2019-06-25 01:32] VITALS: BP 112/99; PULSE 78; RESP 14; O2SAT 98
== END 2019-06-25 01:33 | disposition home or self-care (01) ==
LOC: ED 20:39
PROVIDERS: Emergency Provider Emergency Medicine
DX: R07.89 Other chest pain (principal); F17.200 Nicotine dependence, unspecified, uncomplicated; I25.10 Atherosclerotic heart disease of native coronary artery without angina pectoris; I25.2 Old myocardial infarction; J45.909 Unspecified asthma, uncomplicated; J44.9 Chronic obstructive pulmonary disease, unspecified; I10 Essential (primary) hypertension; E78.00 Pure hypercholesterolemia, unspecified; Z79.51 Long term (current) use of inhaled steroids; Z79.01 Long term (current) use of anticoagulants; Z79.899 Other long term (current) drug therapy
CPT/HCPCS: 36415; 71045; 80048; 84484; 85025; 85610; 93005; 96374; 96375; 96376; 99284; A4216; J2405

== ENCOUNTER 2019-07-04 17:15 | Emergency (ER) | payer MEDICARE, SELFPAY ==
[2019-07-04 17:16] VITALS: BP 144/81; PULSE 90; RESP 18; TEMP 36.7; O2SAT 96
--- NOTE | 2019-07-04 17:36 | RAD_ITS ---
STUDY: X-RAY - PELVIS AND RIGHT HIP REASON FOR EXAM: Female, 58 years old. Trauma TECHNIQUE: 3 views of the pelvis and hip. COMPARISON: None. FINDINGS: There is a non-specific bowel gas pattern. There is heterotopic bone superior to the right hip. Normal bilateral iliac wings, sacroiliac joints and visualized sacrum. Normal bilateral superior and inferior pubic rami. Normal pubic symphysis. Normal bilateral ischial tuberosities. Status post total right hip replacement changes are noted with implants appearing in good position. There is no evidence of implant loosening or new associated fracture or dislocation. RAD/HIP, UNI W/ Pelvis 2-3 Views IMPRESSION: Status post total right hip replacement changes noted with implants appearing in good position. There is no evidence of implant loosening or new associated fracture or dislocation. There is heterotopic bone superior to the right hip. There is no evidence of fracture of the bony pelvis or left hip. Electronically Signed: Lyle Peterson MD at 18:07 EDT , Service support ,
--- NOTE | 2019-07-04 17:44 | ED.VIS.GEN ---
History of Present Illness Chief Complaint: Fall Detail of Chief Complaint: Left hip pain Informant: Patient Onset: Yesterday Timing: Waxes and wanes Current Severity: Mild Maximum Severity: Moderate Worsened by: Movement, palpation Narrative: Patient states she was trying to help her son move furniture yesterday. They had moved a dresser out of storage and she was trying to slide it up her porch steps. She lost her balance and fell striking her right lateral hip against the porch steps. She has had prior hip replacement. She is also on Coumadin because of a mechanical heart valve. She denies bruising to the area. She is able to ambulate. She denies any other injury from the fall. - Past Medical History (1) History of hypercholesterolemia Status: Chronic (2) History of hypertension Status: Chronic (3) History of myocardial infarction Status: Chronic (4) CAD (coronary artery disease), [place] coronary artery Status: Chronic (5) COPD (chronic obstructive pulmonary disease) Status: Chronic Past Medical History - Allergies and Home Meds Allergies/Adverse Reactions: Allergies naproxen Allergy (Verified 07/04/19 17:15) Swelling Penicillins Allergy (Verified 07/04/19 17:15) Unknown aspirin Adverse Reaction (Verified 07/04/19 17:15) Other on warfarin ibuprofen [From Motrin] Adverse Reaction (Verified 07/04/19 17:15) Other on warfarin Primary Care Physician: Juanita Joy,Out of [Primary Care Provider] - Surgical History: cataract, hysterectomy, total hip arthroplasty - X2, tonsillectomy, - - Aortic and pulmonic valve replacement, patient has mechanical aortic valve, skin grafts, coronary artery stent placement times 2 -March 2018 Smoking Status: Current every day smoker - Family History Maternal Family History: Reports: Cancer - Lung and bone cancer Paternal Family History: Reports: Cancer - Bladder cancer Review of Systems General: Denies: Chills, Fever Eyes: Denies: Visual changes - bilaterally ENT: Denies: Bilateral ear pain Cardiovascular: Denies: Chest pain Respiratory: Denies: Dyspnea, Cough Gastrointestinal: Denies: Abdominal pain, Nausea, Vomiting, Diarrhea Genitourinary: Denies: Dysuria Musculoskeletal: Reports: Arthralgias Skin: Denies: Rash, Wounds Neurological: Denies: Headache, Weakness Endocrine: Denies: Polyuria, Polydipsia Allergy: Denies: Uticaria Physical Exam Vital Signs/Narrative: Vital Signs Temp Pulse Resp BP Pulse Ox 07/04/19 17:16 98.0 F 90 18 144/81 H 96 Inital Vital Signs reviewed: Yes General: Well nourished Head: Normocephalic ENT: Moist mucous membranes Neck: Supple, Nontender Cardiovascular: Regular rate, Regular rhythm - Chemical heart valve click noted Respiratory: No distress, CTA bilaterally Abdomen: Soft, Nontender Back: Nontender Extremities: Tenderness - Tenderness palpation over the lateral right hip and greater trochanter. No ecchymosis or abrasions noted. Skin: Normal color Neurological: Alert, Oriented x3, Normal Strength, Normal Sensation Psychological: Normal affect Diagnostic/Tx/Re-eval Impressions Hip/Pelvis X-Ray 07/04/19 17:36 IMPRESSION: Status post total right hip replacement changes noted with implants appearing in good position. There is no evidence of implant loosening or new associated fracture or dislocation. There is heterotopic bone superior to the right hip. There is no evidence of fracture of the bony pelvis or left hip. Electronically Signed: Lyle Peterson MD at 18:07 EDT , Service support , 07/04/19 17:36 HIP, UNI W/ Pelvis 2-3 Views [RAD] Stat - Medical Decision Making Patient was given oxycodone for pain. She does have an allergy to NSAIDs and is on Coumadin. X-ray results are reviewed with her. She will be given a short course of Percocet for home. She will contact her surgeon in [place] for any further continued problems with her hip. ED Disposition - Plan for ED Patient: Disposition: Home or Assisted Living Diagnosis: Contusion, hip Instructions: CONTUSION, Lower Extremity Prescriptions: Oxycodone HCl/Acetaminophen [Percocet 5/325] 1 tablet PO Q6H PRN PRN 3 Days #12 tablet PRN Reason: Pain Referrals: [facility] Doctor,Out of [Primary Care Provider] -
[2019-07-04] MEDS: oxyCODONE 5 MG Tablet PO (17:47)
== END 2019-07-04 18:48 | disposition home or self-care (01) ==
PROVIDERS: Emergency Provider Emergency Medicine
DX: S70.02XA Contusion of left hip, initial encounter (principal); I10 Essential (primary) hypertension; I25.10 Atherosclerotic heart disease of native coronary artery without angina pectoris; J44.9 Chronic obstructive pulmonary disease, unspecified; I25.2 Old myocardial infarction; F17.200 Nicotine dependence, unspecified, uncomplicated; Z95.2 Presence of prosthetic heart valve; Z79.01 Long term (current) use of anticoagulants; X50.0XXA Overexertion from strenuous movement or load, initial encounter; X50.1XXA Overexertion from prolonged static or awkward postures, initial encounter; Y93.89 Activity, other specified; Y92.008 Other place in unspecified non-institutional (private) residence as the place of occurrence of the external cause; Y99.8 Other external cause status
CPT/HCPCS: 73502; 99283

== ENCOUNTER 2019-07-11 18:56 | Observation (INO) | payer MEDICARE, SELFPAY ==
[2019-07-11 18:57] VITALS: BP 149/80; PULSE 70; RESP 13; TEMP 37; O2SAT 97; BMI 20.5
--- NOTE | 2019-07-11 19:07 | EKG12_ITS ---
Test Reason : Blood Pressure : / mmHG Vent. Rate : 066 BPM Atrial Rate : 066 BPM P-R Int : 140 ms QRS Dur : 086 ms QT Int : 426 ms P-R-T Axes : 071 042 078 degrees QTc Int : 446 ms Normal sinus rhythm Septal ME, age undetermined, cannot be excluded Confirmed by MAEGAN KOCH, SHARON ([id number]), non linear editor ALLYN SEAMAN ([id number]) on 07/13/2019 12:59:11 PM Referred By: Stuart Sims Confirmed By:SHARON ISSA MD
--- NOTE | 2019-07-11 19:10 | RAD_ITS ---
STUDY: X-RAY CHEST REASON FOR EXAM: Female, 58 years old. Chest pain. TECHNIQUE: Single AP portable view of the chest. COMPARISON: 24 June 2019. FINDINGS: Sternotomy wires are midline. Mitral valve prosthesis in place. Likely pulmonary artery stent is also present. The lungs are clear and expanded. There is no demonstrated pleural abnormality. Normal size heart. Normal mediastinum and jeb. Normal visualized pulmonary arteries. Normal visualized aortic arch and descending thoracic aorta. Normal visualized thoracic spine. Normal visualized ribs, clavicles, and shoulders. There is no demonstrated abnormality of the visualized soft tissue structures of the upper abdomen. RAD/Chest 1 View (Portable) IMPRESSION: Stable exam with no evidence of acute cardiopulmonary process. Electronically Signed: Miguel Quigley DO at 19:22 EDT , Service support ,
[2019-07-11 19:22] LABS: Absolute Lymphocyte Count 1.35 X10^3/uL (0.83-4.51); Absolute Neutrophil Count 6.1 X10^3/uL (2.0-7.7); Basophil# 0.03 X10^3/uL; Basophil% 0.4 % (0-1); Eosinophil# 0.28 X10^3/uL; Eosinophils% 3.3 % (0-5); Hematocrit 39.7 % (37-47); Hemoglobin 13.2 g/dL (12.0-15.0); Lymphocyte # 1.35 X10^3/ul (4.0); Lymphocyte % 15.8 % (19-41); Mean Corp Hgb Conc 33.2 g/dL (32-36); Mean Corpuscular Volume 87.3 fL (81-99); Mean Platelet Vol. 10.8 fl (6.2-12.0); Monocyte# 0.76 X10^3/uL; Monocyte% 8.9 % (0-10); NRBC Flagged by Analyzer 0 % (0-5); Neutrophil # 6.08 X10^3/uL (2.7-7.7); Neutrophil % 71.1 % (47-70); Platelet Count 266 K/mm3 (150-450); RBC Distribution Width SD 48.4 fl (35.1-43.9); Red Blood Count 4.55 M/mm3 (4.2-5.4); White Blood Count 8.5 K/mm3 (4.4-11.0)
[2019-07-11 19:26] VITALS: O2SAT 98
[2019-07-11 19:27] LABS: International Normalized Ratio 2.8; Prothrombin Time (Protime)PT. 29.4 SECONDS (11.7-14.9)
--- NOTE | 2019-07-11 19:29 | ED.RN ---
PT HARD STICK.BLOOD WORK OBTAINED. UNABLE TO OBTAIN IV. DR. EVANS INFORMED. NO NEW ORDERS AT THIS TIME. WILL CONTINUE TO MONITOR.
[2019-07-11 19:42] LABS: Anion Gap 3 (5-15); BUN 13 mg/dL (7-18); BUN/Creat Ratio 12.7 RATIO (10-20); Calcium,Total 8.7 mg/dL (8.5-10.1); Chloride 108 mmol/L (98-107); Creatinine, Serum 1.02 mg/dL (0.55-1.02); EST Glomerular Filtration Rate 59 mL/min (>60); Est Glom Filt Rate - Afr Amer 72 mL/min (>60); Glucose 117 mg/dL (74-106); Potassium 4.9 mmol/L (3.5-5.1); Sodium Level 138 mmol/L (136-145)
--- NOTE | 2019-07-11 19:43 | ED.RN ---
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
[2019-07-11 20:00] VITALS: BP 143/86; PULSE 72; RESP 18; O2SAT 99
[2019-07-11] MEDS: Nitroglycerin SL (ED/IMG/CATH) 0.4 MG TABLET SUBLINGUAL (20:00)
[2019-07-11] MEDS: 0.9% Normal Saline 1,000 ML 150 ML IV (20:02)
[2019-07-11] MEDS: Morphine 4 MG/ML Syringe IV (20:02)
[2019-07-11] MEDS: Ondansetron 4 MG/2 ML Vial IV (20:02)
--- NOTE | 2019-07-11 20:12 | ED.DCSUM_ITS ---
- ER Visit Summary Date of Service: 07/11/19 Chief Complaint: [Chest pain] History of Present Illness: The patient is a 58 F [presents to the emergency room complaint chest pain at around 2 PM today. Patient states the pain is in the left side of her chest and radiates through to her back and she described as sharp. Patient states that she took a nitro series at home without any relief. Patient denies recent travel or surgery. Patient does have a history of coronary artery disease with 2 stents placed about a year ago. Patient also has a mechanical heart valve. Patient also has history of COPD as well as hypertension high cholesterol. Patient states the pain is similar to what she had when she had her heart issue that required stents.] Physical Examination: [HEENT-PERRLA, EOMI. Cranial nerves II through XII grossly intact. TMs clear. Mucous membranes moist. No adenopathy. Cardiovascular-regular rate and rhythm without murmur or ectopy Lungs-clear to auscultation, chest wall stable without crepitus or subcu emphysema Abdomen-normoactive bowel sounds, soft, nontender, no rebound or rigidity, no peritoneal signs. Extremities-intact ?4, normal range of motion, normal pulses, atraumatic] Test Results: [EKG obtained arrival shows sinus rhythm with a ventricular rate of 70 bpm with old septal infarct noted. CBC with differential was unremarkable. Troponin is less than 0.015. Chemistries unremarkable. Chest x- ray showed nothing acute.] INR was therapeutic. Emergency Department Course and Treatment: [Patient had to have an IV established in her right external jugular vein as she was a very difficult IV stick. Patient was given 4 mill grams of morphine.] Treatment Plan: [Admit for further work-up and evaluation of her chest pain] Disposition: [Admit] Impression: [Chest pain-rule out acute current syndrome] This note was generated with [facility] dictation software. It may contain incorrect words, spelling, and punctuation that were not noted in review of the chart prior to signing ED Disposition - Plan for ED Patient: Referrals: YOBANI BROWN [Other]
--- NOTE | 2019-07-11 20:16 | ED.RN ---
PT'S CHEST PAIN DOWN TO 8. BP 134/81. NEXT DOSE OF NITRO GIVEN.
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
[2019-07-11] MEDS: Clopidogrel Bisulfate 75 MG Tablet PO (20:48)
[2019-07-11 21:18] VITALS: BP 152/87; PULSE 70; RESP 18; TEMP 36.7; O2SAT 96
[2019-07-11 21:19] VITALS: BMI 19.9
[2019-07-11 21:20] VITALS: PULSE 72
--- NOTE | 2019-07-11 22:00 | EKG12_ITS ---
Test Reason : Blood Pressure : / mmHG Vent. Rate : 066 BPM Atrial Rate : 066 BPM P-R Int : 138 ms QRS Dur : 080 ms QT Int : 420 ms P-R-T Axes : 058 045 071 degrees QTc Int : 440 ms Normal sinus rhythm with sinus arrhythmia Septal CA, age undetermined, cannot be excluded Confirmed by MAEGAN KOCH, SHARON ([id number]), acquisition editor ALLYN SEAMAN ([id number]) on 07/13/2019 12:59:39 PM Referred By: Stuart Sims Confirmed By:SHARON ISSA MD
[2019-07-11] MEDS: Mirtazapine 30 MG Tablet PO (22:47)
[2019-07-11] MEDS: Amitriptyline 10 MG Tablet PO (22:47)
[2019-07-11] MEDS: MELATONIN 10 MG TABLET PO (22:47)
[2019-07-11] MEDS: Atorvastatin Calcium 80 MG Tablet PO (22:47)
[2019-07-11 23:21] VITALS: PULSE 78
[2019-07-11] MEDS: Morphine 2 MG/ML Syringe IV (23:54)
[2019-07-11] MEDS: 0.9% NaCl Peripheral Flush Adult/Peds IV (23:54)
[2019-07-12 03:00] VITALS: PULSE 67
[2019-07-12 03:15] VITALS: BP 104/63; PULSE 69; RESP 18; TEMP 36.5; O2SAT 95
[2019-07-12] MEDS: 0.9% NaCl Peripheral Flush Adult/Peds IV ×2 (03:26→09:45)
[2019-07-12] MEDS: Morphine 2 MG/ML Syringe IV ×2 (03:26→09:45)
[2019-07-12 05:30] VITALS: PULSE 68; RESP 16
[2019-07-12] MEDS: Ipratropium/Albuterol Sulfate 3 ML AMPUL.NEB INHALATION (05:30)
[2019-07-12 05:44] LABS: Cholesterol 136 mg/dL (200); High Density Lipoprotein 45 mg/dL; Triglycerides 194 mg/dL; Very Low Density Lipoprotein 39 mg/dL (5-40)
--- NOTE | 2019-07-12 05:55 | EKG12_ITS ---
Test Reason : CP Blood Pressure : / mmHG Vent. Rate : 070 BPM Atrial Rate : 070 BPM P-R Int : 148 ms QRS Dur : 078 ms QT Int : 404 ms P-R-T Axes : 061 016 064 degrees QTc Int : 436 ms Normal sinus rhythm Septal infarct , age undetermined Abnormal ECG Confirmed by MARY KOCH, JOSE ([id number]), science editor KAHLIL ALFRED ([id number]) on 07/19/2019 1:28:04 PM Referred By: Stuart Sims Confirmed By:DEV HERNANDEZ MD
--- NOTE | 2019-07-12 07:34 | PN_ITS ---
Patient Problems: Active and Suspected Problems Chest pain at rest (Acute) Subjective: The patient was seen independently and in conjunction with ANDREY Rodriguez. She is a 58-year-old female with history of hypertension, tobacco dependence, coronary artery disease with PCI and 2 coronary stents, hyperlipidemia, osteoporosis, chronic kidney disease stage III, pulmonary valve replacement, mechanical aortic valve replacement, depression and chronic anticoagulation with warfarin who presented to the emergency department at [facility] on 07/11/2019 complaining of left-sided chest pain that radiated to her back. The pain started at rest while she was watching TV but increased with exertion. She took nitroglycerin at home but it did not help. She reportedly had a stress test in October 2018 that was negative for ischemia. She was admitted to a monitored bed on PCU and serial cardiac enzymes were negative. LDL is well controlled at 52 and her HDL is 45. INR was therapeutic at 2.8. - Physical Exam Vital Signs Temp Pulse Resp BP Pulse Ox 97.7 F L 68 16 104/63 95 07/12/19 03:15 07/12/19 05:30 07/12/19 05:30 07/12/19 03:15 07/12/19 03:15 Oxygen Delivery Method Room Air Weight: 119 lb 14.903 oz Body Mass Index (BMI) 19.9 Intake and Output for Last 24 Hours 07/10/19 07/11/19 07/12/19 23:59 23:59 23:59 Intake Total 240 / 240 Balance 240 / 240 Laboratory Tests Past 24 Hrs 07/11/19 07/11/19 07/11/19 19:09 19:09 19:09 WBC 8.5 RBC 4.55 Hgb 13.2 Hct 39.7 MCV 87.3 MCH 29.0 MCHC 33.2 RDW Std Deviation 48.4 H RDW Coeff of [place] 15.0 H Plt Count 266 MPV 10.8 Immature Gran % (Auto) 0.500 Neut % (Auto) 71.1 H Lymph % (Auto) 15.8 L [place] % (Auto) 8.9 Eos % (Auto) 3.3 Baso % (Auto) 0.4 Absolute Neuts (auto) 6.1 Absolute Lymphs (auto) 1.35 Nucleated RBC % 0 PT 29.4 H INR 2.8 Sodium 138 Potassium 4.9 Chloride 108 H Carbon Dioxide 27.0 Anion Gap 3 L BUN 13 Creatinine 1.02 Estim Creat Clear Calc 53.80 Est GFR (MDRD) Af Amer 72 Est GFR (MDRD) Non-Af 59 L BUN/Creatinine Ratio 12.7 Glucose 117 H Calcium 8.7 Troponin I < 0.015 Triglycerides Cholesterol LDL Cholesterol VLDL Cholesterol HDL Cholesterol 07/11/19 07/12/19 07/12/19 22:30 01:15 05:15 WBC RBC Hgb Hct MCV MCH MCHC RDW Std Deviation RDW Coeff of [place] Plt Count MPV Immature Gran % (Auto) Neut % (Auto) Lymph % (Auto) [place] % (Auto) Eos % (Auto) Baso % (Auto) Absolute Neuts (auto) Absolute Lymphs (auto) Nucleated RBC % PT INR Sodium Potassium Chloride Carbon Dioxide Anion Gap BUN Creatinine Estim Creat Clear Calc Est GFR (MDRD) Af Amer Est GFR (MDRD) Non-Af BUN/Creatinine Ratio Glucose Calcium Troponin I < 0.015 < 0.015 < 0.015 Triglycerides 194 Cholesterol 136 LDL Cholesterol 52 VLDL Cholesterol 39 HDL Cholesterol 45 Medical Necessity - Tobacco Use Smoking Status: Current every day smoker Tobacco Use: Cigarettes Assessment/Plan All Active Problems Chest pain at rest (Acute) Chest pain (Acute)
[2019-07-12 09:45] VITALS: BP 131/83; PULSE 75; RESP 18; TEMP 36.7; O2SAT 100
[2019-07-12 09:47] VITALS: PULSE 71
[2019-07-12] MEDS: dilTIAZem CD 180 MG Capsule PO (09:52)
[2019-07-12] MEDS: Tolterodine Tartrate 2 MG CAP.SA PO (09:52)
[2019-07-12] MEDS: Gabapentin 300 MG Capsule PO (09:53)
[2019-07-12] MEDS: Clopidogrel Bisulfate 75 MG Tablet PO (09:54)
--- NOTE | 2019-07-12 10:19 | STRESSREP_ITS ---
Stress Test Report Date: 07/12/2019 Procedure: Pharmacologic stress nuclear imaging study Indications: Chest pain Consent: Per the patient Procedure: The patient underwent pharmacologic (Regadenoson) evaluation with a peak heart rate of 100 beats per minute (61 %predicted maximal heart rate) and a peak blood pressure of 128/82 mmHg. The baseline ECG demonstrated normal sinus rhythm, nonspecific ST-T changes, prior anterior VT. EKG during lexiscan infusion revealed no significant ischemic changes. EKG post infusion revealed no significant ischemic changes [There were no cardiac dysrhythmias pretest, during pharmacologic infusion, or recovery]. Patient had chest pain prior to the stress test which did not worsen with Lexiscan infusion. Patient had nausea with Lexiscan infusion. The examination was discontinued secondary to completion of protocol. Impression: 1. Lexiscan stress test test is negative for Lexiscan infusion induced EKG changes of ischemia. 2. Lexiscan stress test test is negative for Lexiscan infusion induced chest pain. 3. Results of the nuclear portion of the test is as below Myocardial perfusion imaging study: Technique: The patient was injected with [] millicuries of technetium 99m Cardiolite and subsequently rest SPECT Cardiolite nuclear imaging was obtained in the horizontal long, vertical long, and short axis views. The patient underwent pharmacologic (Regadenoson) evaluation. Please see above for details. The patient was injected with [] millicuries of technetium 99m Cardiolite and subsequently stress SPECT Cardiolite nuclear imaging was obtained in the horizontal long, vertical long, and short axis views. A gated Cardiolite study at peak stress was obtained. Interpretation: Rest and stress SPECT Cardiolite nuclear imaging status post realignment, normalization, and attenuation correction demonstrate overall normal myocardial radioisotope uptake in both the rest and stress images. Gated images reveal no significant regional wall motion abnormalities. The reported LVEF is greater than 70 %. Impression: 1. There is no evidence of significant ischemia or infarction. 2. Estimated ejection fraction is greater than 70%. This note was generated with [employer] software. It may contain incorrect words, spelling, and punctuation that were not noted in checking the note before signing.
[2019-07-12] MEDS: Acetaminophen 325 MG Tablet 650 MG PO (13:11)
--- NOTE | 2019-07-12 13:30 | DCINST_ITS ---
- Discharge Diagnoses Current Active Problems: Current Active and Chronic Problems Chest pain at rest (Acute) You will use the following diet at home:: Cardiac Your food should be the consistency of: Regular Your liquids should be the consistency of: Regular/Thin Discharge Activity: Return to Normal Activity Allergies/Adverse Reactions: Allergies naproxen Allergy (Verified 07/11/19 18:57) Swelling Penicillins Allergy (Verified 07/11/19 18:57) Unknown aspirin Adverse Reaction (Verified 07/11/19 18:57) Other on warfarin ibuprofen [From Motrin] Adverse Reaction (Verified 07/11/19 18:57) Other on warfarin Medications to take at Discharge Acetaminophen [Acetaminophen Extra Strength] 500 mg PO Q6H PRN 02/27/19 Albuterol Aerosols [Ventolin Aerosols] 2.5 mg INHALATION Q6H PRN PRN 02/27/19 Albuterol IH (ProAir) [Proair Hfa] 2 puff INHALATION Q6H PRN PRN 02/27/19 Alendronate Sodium [Fosamax] 70 mg PO Q7D@0700 02/27/19 Amitriptyline HCl [Elavil] 10 mg PO QHS 02/27/19 Atorvastatin Calcium [Lipitor] 80 mg PO QHS 02/27/19 Cholecalciferol (Vitamin D3) [Vitamin D3] 2,000 unit PO DAILY 02/27/19 Diltiazem HCl [Diltiazem 24Hr ER (Cd)] 180 mg PO DAILY 02/27/19 Fluticasone 0.05% [Flonase Nasal [place]] 1 spray NASAL PRN PRN 02/27/19 Fluticasone/Salmeterol [Advair 250-50 Diskus] 1 each IH BID 02/27/19 Gabapentin [Neurontin] 300 mg PO BID 02/27/19 Melatonin 10 mg PO QHS 02/27/19 Mirtazapine [Remeron] 30 mg PO QHS 02/27/19 Nitroglycerin [Nitrostat] 0.3 mg SL Q5M PRN 02/27/19 Oxybutynin [Ditropan] 10 mg PO DAILY 02/27/19 Tiotropium [place] [Spiriva] 18 mcg IH DAILY 02/27/19 Warfarin [Coumadin] 5 mg PO DAILY 02/27/19 Nicotine [Nicoderm Cq] 21 mg TRANSDERM. DAILY #30 patch 07/12/19 The following prescriptions were given: Nicotine [Nicoderm Cq] 21 mg TRANSDERM. DAILY #30 patch Transmission Status: Pending to [facility] Primary Care Physician: YOBANI BROWN [Other] Please follow up with your Primary Care Physician in: 1-2 weeks Test Results: Test results from this visit will be discussed in further detail at your follow- up appointment, if applicable. Please Follow Up With: Your stripper shovel operator When: 1-2 weeks Proposed Discharge Date: 07/12/19
--- NOTE | 2019-07-12 13:32 | DS.PCM_ITS ---
Discharge Date and Diagnosis - Problem List Patient Problems: Active and Suspected Problems Chest pain at rest (Acute) Date of Admission: 07/11/19 - Primary Discharge Diagnosis Active and Suspected Problems Chest pain - musculoskeletal CAD prior stents HTN HLD Ongoing tobacco abuse COPD - Secondary Discharge Diagnosis Chronic Problems History of myocardial infarction (Chronic) History of hypertension (Chronic) History of hypercholesterolemia (Chronic) History of tobacco use (Chronic) Myocardial infarct (Chronic) CAD (coronary artery disease), [place] coronary artery (Chronic) COPD (chronic obstructive pulmonary disease) (Chronic) Hyperlipidemia (Chronic) HTN (hypertension) (Chronic) Hospital Course and Treatment Imaging Results: 07/12/19 05:55 Nuclear Stress Test - Chemical [NM] AM (NON MEDS) Operations: None Procedures: Stress test Summary of Care Provided: Hospital course: The patient is a 58 year old F with past medical history of CAD with 2 prior stents, recently stented approximately [address] Poe at [facility], also with a history of SD, COPD, ongoing nicotine abuse, hypertension, hyperlipidemia, drug-seeking behavior, who presented to the emergency room with complaints of chest pain. This is the seventh presentation this year for chest pain to the emergency room. The patient did have a stress test that was negative in October of this past year. She complained of severe left-sided stabbing pain radiating to her back. She had negative troponin, negative EKG, negative chest x-ray. She was admitted to the PCU for chest pain work-up placed on telemetry. Troponin was repeated x3 which remained negative. She had no ev ents on telemetry overnight. She underwent a stress test the following morning which was negative. Despite all this she continued to have chest pain requiring morphine. We discussed with her that for definitive diagnosis she would need to undergo heart catheterization. She was not interested in pursuing this at this time. She was discharged home in stable condition and strongly advised to follow-up with her own tennis ball coverer hand in 1 to 2 weeks, she should follow-up with her PCP in 1 to 2 weeks. Also of note she does desire to quit smoking and has recently cut down to half a pack per day, and has requested a prescription for nicotine patches-I provided this to her for the initial first month of treatment. This patient was seen by Kvng Olson PA-C under the supervision of Doctor Torres. [] Patient Problems: Active and Suspected Problems Chest pain at rest (Acute) - Physical Exam General: Alert, Oriented x3, Cooperative HEENT: Atraumatic, PERRLA, EOMI, Normocephalic Neck: Supple, No JVD, Negative Carotid Bruits Lungs: Clear to auscultation, Normal air movement Cardiovascular: Regular rate, No murmurs Abdomen: Bowel Sounds Present, Soft, Non Tender Extremities: No edema, Capillary Refill Less than 3 Seconds Skin: No rashes, No breakdown Musculoskeletal: No Tenderness to Palpation of Joints or Extremities Neurological: Cranial nerves II-XII grossly intact Psych/Mental Status: Normal Affect, Appropriate Vital Signs Temp Pulse Resp BP Pulse Ox 98.1 F 71 18 131/83 H 100 07/12/19 09:45 07/12/19 09:47 07/12/19 09:45 07/12/19 09:45 07/12/19 09:45 Oxygen Delivery Method Room Air Weight: 119 lb 14.903 oz Body Mass Index (BMI) 19.9 Intake and Output for Last 24 Hours 07/10/19 07/11/19 07/12/19 23:59 23:59 23:59 Intake Total 240 / 240 0 / 0 Balance 240 / 240 0 / 0 Laboratory Tests Past 24 Hrs 07/11/19 07/11/19 07/11/19 19:09 19:09 19:09 WBC 8.5 RBC 4.55 Hgb 13.2 Hct 39.7 MCV 87.3 MCH 29.0 MCHC 33.2 RDW Std Deviation 48.4 H RDW Coeff of [place] 15.0 H Plt Count 266 MPV 10.8 Immature Gran % (Auto) 0.500 Neut % (Auto) 71.1 H Lymph % (Auto) 15.8 L [place] % (Auto) 8.9 Eos % (Auto) 3.3 Baso % (Auto) 0.4 Absolute Neuts (auto) 6.1 Absolute Lymphs (auto) 1.35 Nucleated RBC % 0 PT 29.4 H INR 2.8 Sodium 138 Potassium 4.9 Chloride 108 H Carbon Dioxide 27.0 Anion Gap 3 L BUN 13 Creatinine 1.02 Estim Creat Clear Calc 53.80 Est GFR (MDRD) Af Amer 72 Est GFR (MDRD) Non-Af 59 L BUN/Creatinine Ratio 12.7 Glucose 117 H Calcium 8.7 Troponin I < 0.015 Triglycerides Cholesterol LDL Cholesterol VLDL Cholesterol HDL Cholesterol 07/11/19 07/12/19 07/12/19 22:30 01:15 05:15 WBC RBC Hgb Hct MCV MCH MCHC RDW Std Deviation RDW Coeff of [place] Plt Count MPV Immature Gran % (Auto) Neut % (Auto) Lymph % (Auto) [place]da % (Auto) Eos % (Auto) Baso % (Auto) Absolute Neuts (auto) Absolute Lymphs (auto) Nucleated RBC % PT INR Sodium Potassium Chloride Carbon Dioxide Anion Gap BUN Creatinine Estim Creat Clear Calc Est GFR (MDRD) Af Amer Est GFR (MDRD) Non-Af BUN/Creatinine Ratio Glucose Calcium Troponin I < 0.015 < 0.015 < 0.015 Triglycerides 194 Cholesterol 136 LDL Cholesterol 52 VLDL Cholesterol 39 HDL Cholesterol 45 Discharge Diet: Low fat/ Low Cholesterol, 2000 mg Sodium Diet Discharge Activity: Return to Normal Activity Home Medications: Medications to take at Discharge Acetaminophen [Acetaminophen Extra Strength] 500 mg PO Q6H PRN 02/27/19 Albuterol Aerosols [Ventolin Aerosols] 2.5 mg INHALATION Q6H PRN PRN 02/27/19 Albuterol IH (ProAir) [Proair Hfa] 2 puff INHALATION Q6H PRN PRN 02/27/19 Alendronate Sodium [Fosamax] 70 mg PO Q7D@0700 02/27/19 Amitriptyline HCl [Elavil] 10 mg PO QHS 02/27/19 Atorvastatin Calcium [Lipitor] 80 mg PO QHS 02/27/19 Cholecalciferol (Vitamin D3) [Vitamin D3] 2,000 unit PO DAILY 02/27/19 Diltiazem HCl [Diltiazem 24Hr ER (Cd)] 180 mg PO DAILY 02/27/19 Fluticasone 0.05% [Flonase Nasal [place]] 1 spray NASAL PRN PRN 02/27/19 Fluticasone/Salmeterol [Advair 250-50 Diskus] 1 each IH BID 02/27/19 Gabapentin [Neurontin] 300 mg PO BID 02/27/19 Melatonin 10 mg PO QHS 02/27/19 Mirtazapine [Remeron] 30 mg PO QHS 02/27/19 Nitroglycerin [Nitrostat] 0.3 mg SL Q5M PRN 02/27/19 Oxybutynin [Ditropan] 10 mg PO DAILY 02/27/19 Tiotropium [place] [Spiriva] 18 mcg IH DAILY 02/27/19 Warfarin [Coumadin] 5 mg PO DAILY 02/27/19 Nicotine [Nicoderm Cq] 21 mg TRANSDERM. DAILY #30 patch 07/12/19 Following Prescrptions Were Given to Patient: Nicotine [Nicoderm Cq] 21 mg TRANSDERM. DAILY #30 patch Transmission Status: Received by [facility] Primary Care Physician: YOBANI BROWN [Other] Please follow up with your Primary Care Physician in: 1-2 weeks Please Follow Up With: Your tennis ball coverer hand When: 1-2 weeks Disposition: Home Minutes spent on discharge:: 35 Patient Condition:: Stable Medical Necessity - Tobacco Use Smoking Status: Current every day smoker Tobacco Use: Cigarettes Meaningful Use Info Meaningful Use Diagnoses (Choose all that apply): None applicable
--- NOTE | 2019-07-12 14:19 | PHA.DC.COU ---
Pharmacy Services has performed discharge medication counseling for this patient. The patient was counseled on the following discharge medications and changes in medications for homegoing review. 1. NICOTINE 21MG PATCH: Apply 1 patch topically once daily The Reason for Use, instructions for use, and potential side effects were reviewed for all new medications. The patient's questions regarding all of their medications were answered. The patient demonstrated some understanding but would benefit from further education and reinforcement.
--- NOTE | 2019-07-12 15:11 | PCM.CONS.C ---
Problem List (1) Chest pain Status: Acute Qualifiers: Chest pain type: precordial pain Qualified Code(s): R07.2 - Precordial pain Reason for Consult Date of Consultation: 07/12/19 History of Present Illness: The patient is a 58 year old F [with past medical history of coronary artery disease status post stents x2 in March 2018, mechanical aortic valve replacement about 11 years ago according to the patient coming to [facility] because of sharp left-sided chest pain. Patient also states that she had work done to her pulmonary valve in March 2018. She says it was not balloon valvuloplasty but states that it was done through her groin. She did have sternotomy about 11 years ago but not last year. Her surgery for aortic valve replacement was done at [facility]. Her stents were not done here. She has had prior admissions for this chest pain in January of this year and also May of this year. During [address] angiogram was done to rule out PE and aortic dissection. Her chest pain started at around 2:00 yesterday afternoon and was constant until this morning. Now the pain is on and off. No clear aggravating or relieving factors. She underwent stress testing this morning which was negative for ischemia. Patient has some dyspnea with exertion. Review of systems: All systems reviewed. All else is negative except that in the HPI.] Past Medical History Allergies/Adverse Reactions: Allergies naproxen Allergy (Verified 07/11/19 18:57) Swelling Penicillins Allergy (Verified 07/11/19 18:57) Unknown aspirin Adverse Reaction (Verified 07/11/19 18:57) Other on warfarin ibuprofen [From Motrin] Adverse Reaction (Verified 07/11/19 18:57) Other on warfarin Home Medications: Ambulatory Orders Medication Instructions Recorded Acetaminophen [Acetaminophen Extra 500 mg PO Q6H PRN 02/27/19 Strength] Albuterol Aerosols [Ventolin 2.5 mg INHALATION Q6H PRN PRN 02/27/19 Aerosols] Albuterol IH (ProAir) [Proair Hfa] 2 puff INHALATION Q6H PRN PRN 02/27/19 Alendronate Sodium [Fosamax] 70 mg PO Q7D@0700 02/27/19 Amitriptyline HCl [Elavil] 10 mg PO QHS 02/27/19 Atorvastatin Calcium [Lipitor] 80 mg PO QHS 02/27/19 Cholecalciferol (Vitamin D3) 2,000 unit PO DAILY 02/27/19 [Vitamin D3] Diltiazem HCl [Diltiazem 24Hr ER 180 mg PO DAILY 02/27/19 (Cd)] Fluticasone 0.05% [Flonase Nasal 1 spray NASAL PRN PRN 02/27/[address]] Fluticasone/Salmeterol [Advair 1 each IH BID 02/27/19 250-50 Diskus] Gabapentin [Neurontin] 300 mg PO BID 02/27/19 Melatonin 10 mg PO QHS 02/27/19 Mirtazapine [Remeron] 30 mg PO QHS 02/27/19 Nitroglycerin [Nitrostat] 0.3 mg SL Q5M PRN 02/27/19 Oxybutynin [Ditropan] 10 mg PO DAILY 02/27/19 Tiotropium [place] [Spiriva] 18 mcg IH DAILY 02/27/19 Warfarin [Coumadin] 5 mg PO DAILY 02/27/19 Nicotine [Nicoderm Cq] 21 mg TRANSDERM. DAILY #30 patch 07/12/19 Past Medical History (Chronic Problems): Chronic Problems History of myocardial infarction (Chronic) History of hypertension (Chronic) History of hypercholesterolemia (Chronic) History of tobacco use (Chronic) Myocardial infarct (Chronic) CAD (coronary artery disease), [place] coronary artery (Chronic) COPD (chronic obstructive pulmonary disease) (Chronic) Hyperlipidemia (Chronic) HTN (hypertension) (Chronic) Surgical History: cataract, hysterectomy, total hip arthroplasty - X2, tonsillectomy, - - Aortic and pulmonic valve replacement, patient has mechanical aortic valve, skin grafts, coronary artery stent placement times 2 -March 2018 Psychiatric History: No pertinent psych hx NEON SIGN ERECTOR History: No pertinent NEON SIGN ERECTOR history - *Family History Maternal History Items: Cancer - Lung and bone cancer Paternal History Items: Cancer - Bladder cancer Lives: With Family Smoking Status: Current every day smoker Tobacco Use: Cigarettes Objective: Vital Signs Temp Pulse Resp BP Pulse Ox 98.1 F 71 18 131/83 H 100 07/12/19 09:45 07/12/19 09:47 07/12/19 09:45 07/12/19 09:45 07/12/19 09:45 Oxygen Delivery Method Room Air Weight: 119 lb 14.903 oz Body Mass Index (BMI) 19.9 Intake and Output for Last 24 Hours 07/10/19 07/11/19 07/12/19 23:59 23:59 23:59 Intake Total 240 / 240 0 / 0 Balance 240 / 240 0 / 0 General: Awake, Alert, Oriented x 3 HEENT: Atraumatic Oral: Moist Mucosa Neck: Supple Chest Wall: Midline Sternotomy Incision Lungs: Clear to auscultation Cardiovascular: Regular Rhythm - Prosthetic valve click heard. Extremities: No edema Skin: No Rashes Psych/Mental Status: Appropriate 07/11/19 19:09: WBC 8.5, RBC 4.55, Hgb 13.2, Hct 39.7, MCV 87.3, MCH 29.0, MCHC 33.2, Plt Count 266, MPV 10.8, Immature Gran % (Auto) 0.500, Neut % (Auto) 71.1 H, Lymph % (Auto) 15.8 L, [place] % (Auto) 8.9, Eos % (Auto) 3.3, Baso % (Auto) 0.4, Absolute Neuts (auto) 6.1, Nucleated RBC % 0 07/11/19 19:09: PT 29.4 H, INR 2.8 07/11/19 19:09: Sodium 138, Potassium 4.9, Chloride 108 H, Carbon Dioxide 27.0, Anion Gap 3 L, BUN 13, Creatinine 1.02, Est GFR (MDRD) Af Amer 72, Est GFR (MDRD) Non-Af 59 L, BUN/Creatinine Ratio 12.7, Glucose 117 H, Calcium 8.7, Troponin I < 0.015 07/11/19 22:30: Troponin I < 0.015 07/12/19 01:15: Troponin I < 0.015 07/12/19 05:15: Troponin I < 0.015, Triglycerides 194, Cholesterol 136, LDL Cholesterol 52, VLDL Cholesterol 39, HDL Cholesterol 45 Rhythm: EKG: ECHO: Stress Test: Cardiac Cath: PCI: CT Surgery: Holter monitor: EPS: PPM: CXR: Chest CT Scan: Assessment/Plan 1. Chest pain: Atypical by history. However patient keeps coming back with this chest pain and states that it was similar to the chest pain she had at the time she had her stents. I discussed treatment options including coronary angiography with the patient in detail. Patient prefers to have this done by her primary supervisor ovens who is in [place]. I think this is very reasonable at this point. Her stress test was negative for significant ischemia. She can be discharged home from a cardiac standpoint. She can follow with her primary supervisor ovens. She said she will call him today and will probably be able to see him next week. 2. Status post AVR: She follows with her primary supervisor ovens for this. No evidence of significant aortic regurgitation on physical exam.
== END 2019-07-12 13:31 | disposition home or self-care (01) ==
LOC: ED 20:41 → PCU 20:49
PROVIDERS: Admitting Provider Hospitalist; Emergency Provider Emergency Medicine; Referring Provider Hospitalist; Visit Provider Internal Medicine
DX: R07.89 Other chest pain (principal); I25.10 Atherosclerotic heart disease of native coronary artery without angina pectoris; J44.9 Chronic obstructive pulmonary disease, unspecified; E78.5 Hyperlipidemia, unspecified; I12.9 Hypertensive chronic kidney disease with stage 1 through stage 4 chronic kidney disease, or unspecified chronic kidney disease; N18.3 Chronic kidney disease, stage 3 (moderate); M81.0 Age-related osteoporosis without current pathological fracture; F17.210 Nicotine dependence, cigarettes, uncomplicated; I25.2 Old myocardial infarction; N32.81 Overactive bladder; G62.9 Polyneuropathy, unspecified; R06.09 Other forms of dyspnea; F32.9 Major depressive disorder, single episode, unspecified; Z79.899 Other long term (current) drug therapy; Z79.01 Long term (current) use of anticoagulants; Z95.5 Presence of coronary angioplasty implant and graft; Z95.2 Presence of prosthetic heart valve
CPT/HCPCS: 36415; 71045; 78452; 80048; 80061; 84484; 85025; 85610; 93005; 93017; 94640; 96374; 96375; 96376; 99218; 99285; A9500; J7030; A4216; G0378; J2405; J2785

== ENCOUNTER 2019-07-29 10:39 | Emergency (ER) | payer MEDICARE, SELFPAY ==
[2019-07-29 10:39] VITALS: BP 136/86; PULSE 72; RESP 16; TEMP 36.4; O2SAT 97; BMI 20.2
--- NOTE | 2019-07-29 10:46 | EKG12_ITS ---
Test Reason : CP Blood Pressure : / mmHG Vent. Rate : 071 BPM Atrial Rate : 071 BPM P-R Int : 140 ms QRS Dur : 082 ms QT Int : 408 ms P-R-T Axes : 029 022 068 degrees QTc Int : 443 ms Sinus rhythm with marked sinus arrhythmia Septal infarct , age undetermined Abnormal ECG Confirmed by MARY KOCH, JOSE ([id number]), assignment editor KAHLIL ALFRED ([id number]) on 08/03/2019 10:27:00 AM Referred By: GO/JERSEY Confirmed By:DEV HERNANDEZ MD
--- NOTE | 2019-07-29 10:46 | RAD_ITS ---
STUDY: X-RAY CHEST REASON FOR EXAM: Female, 58 years old. Valve replacement. TECHNIQUE: Single AP portable view of the chest. COMPARISON: Comparison is made with prior study dated July 11, 2019. FINDINGS: EKG electrodes are seen. The lungs are clear and expanded. There is no demonstrated pleural abnormality. A prosthetic aortic valve is seen. A stent is seen overlying the proximal aorta. Normal mediastinum and jeb. Normal visualized pulmonary arteries. Normal visualized aortic arch and descending thoracic aorta. Normal visualized thoracic spine. Normal visualized ribs, clavicles, and shoulders. There is no demonstrated abnormality of the visualized soft tissue structures of the upper abdomen. RAD/Chest 1 View (Portable) IMPRESSION: Stable examination. Electronically Signed: Az Miner, at 11:24 EDT , Service support ,
--- NOTE | 2019-07-29 11:00 | ED.DCSUM_ITS ---
History of Present Illness Chief Complaint: Chest Pain Informant: Patient Onset: Days Current Severity: Mild Narrative: Patient complains of a sharp stabbing pain to the left pectoral area for the last few days she has a history of aortic valve replacement, history of 2 cardiac stents placed by [facility] few years ago. She is followed by Dr. Lui Lemus cardiology her cardiovascular status has been stable, she indicates the etiology of the sharp stabbing pain is unclear but reports she has been using a lot of Clorox to clean her trailer and she thought that contributed to it. She does not experience exertional chest pain she had no fever no cough no abdominal discomfort Past Medical History - Allergies and Home Meds Allergies/Adverse Reactions: Allergies naproxen Allergy (Verified 07/11/19 18:57) Swelling Penicillins Allergy (Verified 07/11/19 18:57) Unknown aspirin Adverse Reaction (Verified 07/11/19 18:57) Other on warfarin ibuprofen [From Motrin] Adverse Reaction (Verified 07/11/19 18:57) Other on warfarin Primary Care Physician: YOBANI BROWN [Other] Past Medical History: - - As above Surgical History: cataract, hysterectomy, total hip arthroplasty - X2, tonsillectomy, - - Aortic and pulmonic valve replacement, patient has mechanical aortic valve, skin grafts, coronary artery stent placement times -March 2018 Smoking Status: Current every day smoker - Family History Maternal Family History: Reports: Cancer - Lung and bone cancer Paternal Family History: Reports: Cancer - Bladder cancer Review of Systems General: Denies: Chills, Fever, Sweats Eyes: Denies: Visual changes - bilaterally, Diplopia ENT: Denies: Rhinorrhea, Sore throat Cardiovascular: Reports: Chest pain. Denies: Palpitations Respiratory: Denies: Dyspnea, Cough, Dyspnea on exertion Gastrointestinal: Denies: Abdominal pain, Nausea, Vomiting, Diarrhea, Melena, Hematochezia Genitourinary: Denies: Dysuria, Hematuria, Frequency Musculoskeletal: Denies: Back pain, Extremity Pain Skin: Denies: Rash, Wounds Neurological: Denies: Headache, Weakness, Numbness Physical Exam Vital Signs/Narrative: Vital Signs Temp Pulse Resp BP Pulse Ox 07/29/19 10:39 97.5 F L 72 16 136/86 H 97 General: Well nourished, Well developed, No Acute Distress Head: Normocephalic, Atraumatic Eyes: Perrl, EOMI ENT: Moist mucous membranes, No rhinorrhea Neck: Supple, Nontender Cardiovascular: Regular rate, Regular rhythm, No murmurs Respiratory: No distress, CTA bilaterally, Chest nontender Abdomen: Soft, Nontender, Nondistended, Normal bowel sounds Back: Nontender, Normal Inspection Extremities: Nontender, No edema Skin: Normal color, No rash Neurological: Alert, Oriented x3, Cranial nerves II-XII grossly intact, Normal Strength, Normal Sensation Psychological: Normal affect, Normal Mood Diagnostic/Tx/Re-eval - Medical Decision Making Physical exam is unremarkable she indicates the pain is a sharp stabbing pain to the left chest it seems to come and go but it has been bothering her a consistent type basis for the last few days, she has tried to avoid the Clorox activity she presents for this evaluation her cardiovascular status she indicates is been stable she has no signs of any type of a chemical pneumonitis she is not coughing she denies being short of breath she points directly to the left upper pectoral area palpation of this area and moving her arm did not result in any symptoms fact we cannot reproduce her symptoms her left upper extremity exam is entirely unremarkable pulses are symmetric bilaterally neurovascular function normal all the above screening labs pain management His EKG shows a sinus rhythm rate 71 some very subtle nonspecific changes in V2 V3 there is no obvious acute injury pattern intervals are unremarkable, her screening labs CBC chemistry troponin are all negative and generally unremarkable see those reports, the chest x-ray per radiology shows nothing acute, on reevaluation she is resting comfortably bed her symptoms are resolved we discussed the differential we discussed inpatient and outpatient management the fact that she will require further management, she does not wish to be admitted she wants to go home she would prefer to follow-up with her outpatient automotive mechanical engineer other providers she does agrees to all of her medications and return for symptoms change or intensified and she assures me she does not normally experience exertional chest pain, her cardiac status has been stable and she will return in follow-up Home stable declined admission Final impression Sharp left-sided chest pain, history of cardiac stents, history of aortic valve replacement ED Disposition - Plan for ED Patient: Diagnosis: Chest pain, CAD (coronary artery disease), [place] coronary artery Instructions: CHEST PAIN, Uncertain Cause Referrals: YOBANI BROWN [Other] Additional Instructions: Follow-up with your automotive mechanical engineer and other outpatient providers as soon as possible return for change in symptoms
[2019-07-29 11:17] LABS: Absolute Lymphocyte Count 1.04 X10^3/uL (0.83-4.51); Absolute Neutrophil Count 7.6 X10^3/uL (2.0-7.7); Basophil# 0.03 X10^3/uL; Basophil% 0.3 % (0-1); Eosinophils% 2.1 % (0-5); Hematocrit 45.4 % (37-47); Hemoglobin 14.5 g/dL (12.0-15.0); Lymphocyte # 1.04 X10^3/ul (4.0); Lymphocyte % 10.7 % (19-41); Mean Corp Hgb Conc 31.9 g/dL (32-36); Mean Corpuscular Hgb 27.9 pg (27.0-32.0); Mean Corpuscular Volume 87.5 fL (81-99); Mean Platelet Vol. 10.6 fl (6.2-12.0); Monocyte# 0.86 X10^3/uL; Monocyte% 8.8 % (0-10); NRBC Flagged by Analyzer 0 % (0-5); Neutrophil # 7.58 X10^3/uL (2.7-7.7); Neutrophil % 77.7 % (47-70); Platelet Count 263 K/mm3 (150-450); RBC Distribution Width CV 15.2 % (11.6-14.6); RBC Distribution Width SD 49.1 fl (35.1-43.9); Red Blood Count 5.19 M/mm3 (4.2-5.4); White Blood Count 9.8 K/mm3 (4.4-11.0)
[2019-07-29] MEDS: morphine 8 MG/ML Syringe IV (11:26)
[2019-07-29] MEDS: 0.9% Normal Saline 1,000 ML 150 ML IV (11:26)
[2019-07-29] MEDS: Ondansetron 4 MG/2 ML Vial IV (11:26)
[2019-07-29 11:31] VITALS: O2SAT 94
[2019-07-29 11:35] LABS: Anion Gap 8 (5-15); BUN 8 mg/dL (7-18); BUN/Creat Ratio 7.9 RATIO (10-20); Calcium,Total 9.1 mg/dL (8.5-10.1); Chloride 107 mmol/L (98-107); Creatinine, Serum 1.01 mg/dL (0.55-1.02); EST Glomerular Filtration Rate 60 mL/min (>60); Est Glom Filt Rate - Afr Amer 72 mL/min (>60); Estimated Creatinine Clearance 53.69 ml/min; Glucose 90 mg/dL (74-106); Potassium 4.2 mmol/L (3.5-5.1); Sodium Level 142 mmol/L (136-145)
[2019-07-29] MEDS: Ipratropium/Albuterol Sulfate 3 ML AMPUL.NEB INHALATION (11:43)
[2019-07-29 11:45] VITALS: PULSE 74; RESP 16
[2019-07-29 12:29] VITALS: PULSE 69; RESP 11; O2SAT 94
[2019-07-29 13:17] VITALS: PULSE 70; RESP 18
== END 2019-07-29 13:18 | disposition home or self-care (01) ==
LOC: ED 11:26
PROVIDERS: Emergency Provider Emergency Medicine
DX: R07.89 Other chest pain (principal); I25.10 Atherosclerotic heart disease of native coronary artery without angina pectoris; F17.200 Nicotine dependence, unspecified, uncomplicated; Z95.2 Presence of prosthetic heart valve; Z95.5 Presence of coronary angioplasty implant and graft; Z79.01 Long term (current) use of anticoagulants
CPT/HCPCS: 71045; 80048; 84484; 85025; 93005; 94640; 96361; 96374; 96375; 99284; J7030; J2405

== ENCOUNTER 2019-08-05 23:04 | Emergency (ER) | payer MEDICARE, SELFPAY ==
[2019-08-05 23:05] VITALS: BP 151/92; PULSE 86; RESP 17; TEMP 36.7; O2SAT 93
--- NOTE | 2019-08-05 23:24 | EKG12_ITS ---
Test Reason : SOB/PAIN Blood Pressure : / mmHG Vent. Rate : 080 BPM Atrial Rate : 080 BPM P-R Int : 136 ms QRS Dur : 068 ms QT Int : 388 ms P-R-T Axes : 049 049 072 degrees QTc Int : 447 ms Normal sinus rhythm with sinus arrhythmia Septal infarct (cited on or before 29-JUL-2019) Abnormal ECG Confirmed by ERA SAM ([id number]), desk editor KAHLIL ALFRED ([id number]) on 08/09/2019 2:33:47 PM Referred By: CANDI Confirmed By:ERA SAM
[2019-08-05 23:35] VITALS: PULSE 94; RESP 28
[2019-08-05] MEDS: Ipratropium/Albuterol Sulfate 3 ML AMPUL.NEB INHALATION (23:35)
[2019-08-05] MEDS: Albuterol 2.5 MG/3 ML VIAL.NEB. INHALATION ×2 (23:42→23:50)
[2019-08-05 23:54] VITALS: O2SAT 91
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
[2019-08-06 00:41] LABS: Absolute Lymphocyte Count 0.99 X10^3/uL (0.83-4.51); Absolute Neutrophil Count 13.8 X10^3/uL (2.0-7.7); Basophil# 0.04 X10^3/uL; Basophil% 0.2 % (0-1); Eosinophil# 0.02 X10^3/uL; Eosinophils% 0.1 % (0-5); Hematocrit 42.9 % (37-47); Hemoglobin 14.2 g/dL (12.0-15.0); Lymphocyte # 0.99 X10^3/ul (4.0); Mean Corp Hgb Conc 33.1 g/dL (32-36); Mean Corpuscular Hgb 28.6 pg (27.0-32.0); Mean Corpuscular Volume 86.5 fL (81-99); Mean Platelet Vol. 10.2 fl (6.2-12.0); Monocyte# 1.52 X10^3/uL; Monocyte% 9.2 % (0-10); NRBC Flagged by Analyzer 0 % (0-5); Neutrophil # 13.78 X10^3/uL (2.7-7.7); Neutrophil % 83.7 % (47-70); POSITIVE DIFFERENTIAL YES; Platelet Count 277 K/mm3 (150-450); RBC Distribution Width CV 15.5 % (11.6-14.6); RBC Distribution Width SD 48.8 fl (35.1-43.9); Red Blood Count 4.96 M/mm3 (4.2-5.4); White Blood Count 16.5 K/mm3 (4.4-11.0)
[2019-08-06 00:51] LABS: Differential Indicated SCAN CRITERIA MET
[2019-08-06 00:52] LABS: Anion Gap 3 (5-15); BUN 11 mg/dL (7-18); BUN/Creat Ratio 10.8 RATIO (10-20); Calcium,Total 8.3 mg/dL (8.5-10.1); Chloride 110 mmol/L (98-107); Creatinine, Serum 1.02 mg/dL (0.55-1.02); EST Glomerular Filtration Rate 59 mL/min (>60); Est Glom Filt Rate - Afr Amer 72 mL/min (>60); Estimated Creatinine Clearance 52.64 ml/min; Glucose 121 mg/dL (74-106); Potassium 4.4 mmol/L (3.5-5.1); Sodium Level 132 mmol/L (136-145)
--- NOTE | 2019-08-06 01:00 | RAD_ITS ---
STUDY: X-RAY CHEST REASON FOR EXAM: Female, 58 years old. Cough. Short of breath. Back and chest pain. TECHNIQUE: PA and lateral CXR. COMPARISON: 07/29/2019 CXR FINDINGS: No evidence of pneumonia, pulmonary edema, pneumothorax or pleural effusion. Emphysematous changes within the lungs. Cardiac silhouette, hilar and mediastinal contours with no acute findings. Previous sternotomy and evidence of remote repair of transposition of the great vessels. Degenerative osseous changes with no acute osseous abnormality. Left scoliosis lower thoracic spine. RAD/Chest PA and Lateral IMPRESSION: No acute findings. Emphysema. Chronic postsurgical changes of the heart. Electronically Signed: Lyle Lopez, at 1:26 EDT Tel , Service support ,
[2019-08-06 01:08] LABS: Differential Comment SCANNED
[2019-08-06 01:20] VITALS: BP 134/80; PULSE 89; RESP 18; O2SAT 92
[2019-08-06] MEDS: Doxycycline 100 MG CAPSULE PO (01:20)
[2019-08-06] MEDS: Ondansetron ODT 4 MG Tablet PO (01:20)
[2019-08-06 01:55] VITALS: BP 145/97; PULSE 73; RESP 22; O2SAT 95
--- NOTE | 2019-08-06 01:56 | ED.RN ---
THIS NURSE REVIEWED D/C INSTRUCTIONS WITH PT. PT VERBALIZED UNDERSTANDING OF INSTRUCTIONS. PT DENIES FURTHER NEEDS OR QUESTIONS AT THIS TIME
[2019-08-09 13:23] LABS: Pathologist Review Reviewed
== END 2019-08-06 01:56 | disposition home or self-care (01) ==
PROVIDERS: Emergency Provider Emergency Medicine
DX: J44.1 Chronic obstructive pulmonary disease with (acute) exacerbation (principal); I34.1 Nonrheumatic mitral (valve) prolapse; I25.10 Atherosclerotic heart disease of native coronary artery without angina pectoris; I10 Essential (primary) hypertension; E78.00 Pure hypercholesterolemia, unspecified; I25.2 Old myocardial infarction; F17.200 Nicotine dependence, unspecified, uncomplicated; Z95.2 Presence of prosthetic heart valve; Z79.01 Long term (current) use of anticoagulants; Z79.899 Other long term (current) drug therapy
CPT/HCPCS: 36415; 71046; 80048; 85025; 93005; 94640; 99284; A4216

== ENCOUNTER 2019-09-23 17:12 | Emergency (ER) | payer MEDICARE, SELFPAY ==
[2019-09-23 17:14] VITALS: BP 128/79; PULSE 75; RESP 16; TEMP 36.8; O2SAT 95; BMI 20.1
--- NOTE | 2019-09-23 17:38 | CT_ITS ---
STUDY: CT BRAIN WITHOUT CONTRAST REASON FOR EXAM: Female, 58 years old. Fall, on Coumadin. RADIATION DOSAGE (If Supplied By Facility): CTDIvol = ( 44.99 ) mGy, DLP = ( 779.24 ) mGycm TECHNIQUE: Transaxial CT imaging of the brain was performed without administration of intravenous contrast material. Individualized dose optimization techniques were used for this CT. COMPARISON: No relevant priors. FINDINGS: Normal soft tissue structures. Normal calvarium. Normal size ventricles and extra-axial spaces for the patient's age. Normal white matter tracts of the cerebral hemispheres. Normal basal ganglia and thalami. Normal brainstem. Normal cerebellum. There is no intracranial hemorrhage. There are no findings of an acute ischemic infarction. Normal visualized paranasal sinuses. CT/Brain/Head without Contrast IMPRESSION: Normal unenhanced CT scan of the brain. Electronically Signed: Dede Gomez MD at 18:24 EDT Tel , Service support ,
--- NOTE | 2019-09-23 17:39 | RAD_ITS ---
STUDY: X-RAY - PELVIS AND RIGHT HIP REASON FOR EXAM: Female, 58 years old. Fall, right hip pain. TECHNIQUE: 3 views of the pelvis and hip. COMPARISON: 07/04/2019. FINDINGS: Nonobstructive bowel gas pattern. Right hip replacement. Acetabular and femoral components are in situ. No fracture or dislocation. No periprosthetic fracture. No radiographic evidence of loosening. Normal bilateral iliac wings, sacroiliac joints and visualized sacrum. Normal bilateral superior and inferior pubic rami. Normal pubic symphysis. Normal bilateral ischial tuberosities. RAD/HIP, UNI W/ Pelvis 2-3 Views IMPRESSION: Normal x-ray examination of the pelvis and hip. Electronically Signed: Dede Gomez MD at 18:46 EDT Tel , Service support ,
[2019-09-23 17:49] VITALS: O2SAT 98
[2019-09-23 18:08] LABS: International Normalized Ratio 3.2; Prothrombin Time (Protime)PT. 32.8 SECONDS (11.7-14.9)
--- NOTE | 2019-09-23 18:10 | RAD_ITS ---
STUDY: X-RAY - RIGHT ELBOW REASON FOR EXAM: Female, 58 years old. Elbow pain status post fall. TECHNIQUE: 3 view(s) of the elbow. COMPARISON: None. FINDINGS: No acute fracture or dislocation. There is a well-corticated old fracture fragment anterior to the distal humerus. No elevation of the anterior or posterior fat pads. There is minimal spurring of the ulnar coronoid process. Soft tissues and bony structures are otherwise unremarkable. RAD/Elbow min 3 Views IMPRESSION: 1. No acute fracture. 2. Chronic fracture fragment anterior to the distal humerus. Electronically Signed: Dede Gomez MD at 18:42 EDT Tel , Service support ,
[2019-09-23] MEDS: HYDROcodone Bitartrate/Apap 5/325 Tablet PO (18:59)
--- NOTE | 2019-09-23 19:01 | ED.DCSUM_ITS ---
- ER Visit Summary Date of Service: 09/23/19 Chief Complaint: [Fall with head injury and right hip and right elbow injury] History of Present Illness: The patient is a 58 F [presents to the emergency department after sustaining a fall yesterday. Patient states that she was going on the porch steps when she fell and struck her head on the ground. No loss of consciousness. Patient complains of pain to her right elbow and right hip. Patient has been ambulatory. She does describe a headache. She denies any neck pain. She denies numbness or tingling in extremities. Patient has history of coronary artery disease, COPD, hypertension, high cholesterol. She has had an aortic valve placed and is on Coumadin.] Physical Examination: [HEENT-PERRLA, EOMI. Cranial nerves II through XII grossly intact. TMs clear. Mucous membranes moist. No adenopathy. No evidence of trauma to her head. No C-spine tenderness on palpation. No bony step-offs. Cardiovascular-regular rate and rhythm without murmur or ectopy Lungs-clear to auscultation, chest wall stable without crepitus or subcu emphysema Abdomen-normoactive bowel sounds, soft, nontender, no rebound or rigidity, no peritoneal signs. Extremities-intact ?4, normal range of motion, normal pulses. Right elbow- patient has some ecchymosis and bruising to the posterior olecranon. No obvious deformity. She has good range of motion flexion extension however somewhat painful. No pain with pronation and supination. Evaluation of the right hip reveals some mild diffuse tenderness over the hip joint itself. No shortening or rotational deformity noted. She is neurovascular intact distally. Test Results: [CT scan of the brain without contrast showed nothing acute. X- rays of the right elbow showed no acute fractures however she had an old fracture fragment anterior to distal humerus. X-ray of the right hip showed no fractures. His INR was 3.2.] Emergency Department Course and Treatment: [She was given a sling. Patient was given a [place] for pain.] Treatment Plan: Follow-up up with primary care physician in 5 to 7 days.] Disposition: [Discharged home in stable condition.] Impression: [Mechanical fall Closed head injury Coumadin coagulopathy Right elbow contusion Right hip contusion] This note was generated with [employer] software. It may contain incorrect words, spelling, and punctuation that were not noted in review of the chart prior to signing ED Disposition - Plan for ED Patient: Referrals: [facility],Out of [Primary Care Provider] -
[2019-09-23 19:03] VITALS: PULSE 70; RESP 15; O2SAT 98
--- NOTE | 2019-09-23 19:04 | DCINST.ED_ITS ---
ED Disposition - Plan for ED Patient: Instructions: FALL, Mechanical, HEAD INJURY, No Wake-Up (Adult), CONTUSION, Elbow, CONTUSION, Lower Extremity Prescriptions: Hydrocodone Bitart/Apap 5-325 [[place] 5MG-325MG] 1 tab PO Q4H PRN PRN 2 Days #10 tab PRN Reason: Pain Prescription Printed Referrals: [facility],Out of [Primary Care Provider] - 3-5 Days
== END 2019-09-23 19:12 | disposition home or self-care (01) ==
LOC: ED 17:56
PROVIDERS: Emergency Provider Emergency Medicine
DX: S09.90XA Unspecified injury of head, initial encounter (principal); S50.01XA Contusion of right elbow, initial encounter; S70.01XA Contusion of right hip, initial encounter; I25.10 Atherosclerotic heart disease of native coronary artery without angina pectoris; I10 Essential (primary) hypertension; E78.00 Pure hypercholesterolemia, unspecified; I25.2 Old myocardial infarction; Z95.2 Presence of prosthetic heart valve; Z79.01 Long term (current) use of anticoagulants; Z72.0 Tobacco use; Z79.899 Other long term (current) drug therapy; W10.8XXA Fall (on) (from) other stairs and steps, initial encounter; Y93.01 Activity, walking, marching and hiking; Y92.89 Other specified places as the place of occurrence of the external cause; Y99.8 Other external cause status
CPT/HCPCS: 70450; 73080; 73502; 85610; 99284; A4216

== ENCOUNTER 2019-10-18 11:57 | Observation (INO) | payer MEDICARE, SELFPAY ==
[2019-10-18] VITALS (10 sets, daily range): BP systolic 118–181; BP diastolic 72–104; PULSE 62–87; RESP 12–18; TEMP 36.4–36.8; O2SAT 95–98; BMI 19.4
--- NOTE | 2019-10-18 12:16 | EKG12_ITS ---
Test Reason : AM EKG Blood Pressure : / mmHG Vent. Rate : 066 BPM Atrial Rate : 066 BPM P-R Int : 150 ms QRS Dur : 094 ms QT Int : 436 ms P-R-T Axes : 053 037 074 degrees QTc Int : 457 ms Sinus rhythm with marked sinus arrhythmia Otherwise normal ECG When compared with ECG of 18-OCT-2019 11:58, MANUAL COMPARISON REQUIRED, DATA IS UNCONFIRMED Confirmed by ERA SAM ([id number]), book or script editor KAHLIL ALFRED ([id number]) on 10/26/2019 10:20:58 AM Referred By: Rj Ruffin Confirmed By:ERA SAM
--- NOTE | 2019-10-18 12:20 | RAD_ITS ---
STUDY: X-RAY CHEST REASON FOR EXAM: Female, 59 years old. Chest pain. TECHNIQUE: Single AP portable view of the chest. COMPARISON: Comparison is made with prior study dated August 06, 2019. FINDINGS: EKG electrodes are seen. The lungs are clear and expanded. There is no demonstrated pleural abnormality. Sternal cerclage wires are present from a prior sternotomy. Prior aortic valve replacement. Endoluminal stent grafting is seen in the left infrahilar region. Normal mediastinum and jeb. Normal visualized pulmonary arteries. There is atherosclerotic calcification of the aortic arch with tortuosity. There is a levoscoliosis of the thoracic spine. Normal visualized ribs, clavicles, and shoulders. There is no demonstrated abnormality of the visualized soft tissue structures of the upper abdomen. RAD/Chest 1 View (Portable) IMPRESSION: Stable examination. No acute abnormality is seen. Electronically Signed: Az Miner, at 12:42 EST , Service support ,
[2019-10-18] MEDS: Aspirin 81 MG TAB.CHEW 324 MG PO (12:40)
[2019-10-18 12:46] LABS: Basophil# 0.03 X10^3/uL; Basophil% 0.4 % (0-1); Eosinophil# 0.14 X10^3/uL; Eosinophils% 2.1 % (0-5); Hematocrit 41.3 % (37-47); Hemoglobin 13.6 g/dL (12.0-15.0); Lymphocyte % 14.8 % (19-41); Mean Corp Hgb Conc 32.9 g/dL (32-36); Mean Corpuscular Hgb 28.5 pg (27.0-32.0); Mean Corpuscular Volume 86.6 fL (81-99); Mean Platelet Vol. 11.3 fl (6.2-12.0); Monocyte% 8.9 % (0-10); NRBC Flagged by Analyzer 0 % (0-5); Neutrophil # 4.97 X10^3/uL (2.7-7.7); Neutrophil % 73.5 % (47-70); Platelet Count 203 K/mm3 (150-450); RBC Distribution Width CV 15.8 % (11.6-14.6); RBC Distribution Width SD 50.2 fl (35.1-43.9); Red Blood Count 4.77 M/mm3 (4.2-5.4); White Blood Count 6.8 K/mm3 (4.4-11.0)
[2019-10-18] MEDS: oxyCODONE 5 MG Tablet PO (13:34)
[2019-10-18 14:26] LABS: Anion Gap 6 (5-15); BUN 15 mg/dL (7-18); BUN/Creat Ratio 14.4 RATIO (10-20); Calcium,Total 8.2 mg/dL (8.5-10.1); Chloride 109 mmol/L (98-107); Creatinine, Serum 1.04 mg/dL (0.55-1.02); EST Glomerular Filtration Rate 58 mL/min (>60); Est Glom Filt Rate - Afr Amer 70 mL/min (>60); Estimated Creatinine Clearance 50.92 ml/min; Glucose 92 mg/dL (74-106); Potassium 4.2 mmol/L (3.5-5.1); Sodium Level 141 mmol/L (136-145)
--- NOTE | 2019-10-18 15:33 | ED.DCSUM_ITS ---
History of Present Illness Chief Complaint: Chest Pain Informant: Patient Onset: Today Current Severity: Moderate Maximum Severity: Moderate Narrative: Patient presents with chest pain. It is sharp and stabbing and started prior to arrival. She has no fever chills cough congestion. She does have a history of cardiac disease and stents she was recently admitted a few months ago but she refused catheterization when interventional cardiology saw her. She did have a normal stress test at that time. Past Medical History - Allergies and Home Meds Allergies/Adverse Reactions: Allergies naproxen Allergy (Verified 10/18/19 12:02) Swelling Penicillins Allergy (Verified 10/18/19 12:02) Unknown aspirin Adverse Reaction (Verified 10/18/19 12:02) Other on warfarin ibuprofen [From Motrin] Adverse Reaction (Verified 10/18/19 12:02) Other on warfarin Primary Care Physician: YOBANI BROWN [Other] Past Medical History: - - Hypertension hypercholesterolemia, smoker, prior [place] Surgical History: cataract, hysterectomy, total hip arthroplasty - X2, tonsill ectomy, - - Aortic and pulmonic valve replacement, patient has mechanical aortic valve, skin grafts, coronary artery stent placement times 2 -March 2018 Smoking Status: Current every day smoker - Family History Maternal Family History: Reports: Cancer - Lung and bone cancer Paternal Family History: Reports: Cancer - Bladder cancer Review of Systems General: Denies: Fever Cardiovascular: Reports: Chest pain Respiratory: Denies: Dyspnea, Cough Gastrointestinal: Denies: Abdominal pain Musculoskeletal: Denies: Myalgias Skin: Denies: Rash Neurological: Denies: Headache, Weakness Psych: Denies: Depression Endocrine: Denies: Polyuria Hematologic: Denies: Easy bruising Physical Exam Vital Signs/Narrative: Vital Signs Temp Pulse Resp BP Pulse Ox 10/18/19 15:01 62 14 122/104 H 97 10/18/19 13:34 65 12 141/87 H 98 10/18/19 12:41 97 10/18/19 11:58 98.2 F 74 15 181/102 H 98 General: Well nourished, - - Appears chronically ill Head: Normocephalic ENT: Moist mucous membranes Neck: Supple Cardiovascular: Regular rate Respiratory: No distress Abdomen: Soft, Nontender Back: Nontender, Normal Inspection Extremities: No edema Skin: Normal color Neurological: Alert, Oriented x3 Diagnostic/Tx/Re-eval - Rhythm Strip Rhythm Strip: Sinus Rhythm Rate: 74 Ectopy: None - EKG Initial EKG Interpretation: Sinus Rhythm, - - Normal [place] and QTc intervals. Nonspecific ST abnormality throughout. - Medical Decision Making Patient has a heart score of 6. She has a negative work-up but because of her prior history I will admit ED Disposition - Plan for ED Patient: Disposition: Acute Care Hospital [facility] Diagnosis: Chest pain Referrals: YOBANI BROWN [Other]
--- NOTE | 2019-10-18 16:04 | HP.PCM_ITS ---
<Kvng Olson - Last Filed: 10/18/19 16:04> Problem List (1) Chest pain Status: Acute Qualifiers: Chest pain type: precordial pain Qualified Code(s): R07.2 - Precordial pain (2) Nicotine abuse Status: Chronic (3) CAD (coronary artery disease), [place] coronary artery Status: Chronic (4) COPD (chronic obstructive pulmonary disease) Status: Chronic (5) HTN (hypertension) Status: Chronic (6) Hyperlipidemia Status: Chronic History of Present Illness Date of Admission: 10/18/19 Chief Complaint: chest pain The patient is a 59 year old F with pmhx of CAD with 2 prior stents about [address] Poe at [facility], mechanical aortic valve on warfarin, also with ongoing nicotine abuse smoking 1/2 ppd down from 3ppd, COPD, HTN, HLD, who presents to the ER with c/o chest pain that began this AM. It was a 9/10 constant left to midsternal stabbing pain that radiated into the back. No diaphoresis or SOB. She took nitro with no relief. In the ER she received oxycodone with some relief. In July of this year she was in the hospital for her 7th time in a year with chest pain described similarly. At that time she had a stress test which was negative, and Dr. Bowling discussed a heart cath with her however she declined. Since then she has been to the ER twice with complaints of chest pain. Today she reports that she wants to have a heart cath done. EKG and troponin are negative at this time and pain is still present at 7/10. [] Past Medical History Past Medical History (Chronic Problems): Chronic Problems History of myocardial infarction (Chronic) History of hypertension (Chronic) History of hypercholesterolemia (Chronic) History of tobacco use (Chronic) Myocardial infarct (Chronic) CAD (coronary artery disease), [place] coronary artery (Chronic) COPD (chronic obstructive pulmonary disease) (Chronic) Hyperlipidemia (Chronic) HTN (hypertension) (Chronic) Nicotine abuse (Chronic) Allergies naproxen Allergy (Verified 10/18/19 12:02) Swelling Penicillins Allergy (Verified 10/18/19 12:02) Unknown aspirin Adverse Reaction (Verified 10/18/19 12:02) Other on warfarin ibuprofen [From Motrin] Adverse Reaction (Verified 10/18/19 12:02) Other on warfarin Home Medications: Ambulatory Orders Medication Instructions Recorded Acetaminophen [Acetaminophen Extra 500 mg PO Q6H PRN 02/27/19 Strength] Albuterol Aerosols [Ventolin 2.5 mg INHALATION Q6H PRN PRN 02/27/19 Aerosols] Albuterol IH (ProAir) [Proair Hfa] 2 puff INHALATION Q6H PRN PRN 02/27/19 Alendronate Sodium [Fosamax] 70 mg PO BARRETO 02/27/19 Atorvastatin Calcium [Lipitor] 80 mg PO QHS 02/27/19 Cholecalciferol (Vitamin D3) 2,000 unit PO DAILY 02/27/19 [Vitamin D3] Fluticasone 0.05% [Flonase Nasal 1 spray NASAL PRN PRN 02/27/19 [place]] Fluticasone/Salmeterol [Advair 1 each IH BID 02/27/19 250-50 Diskus] Gabapentin [Neurontin] 300 mg PO BID 02/27/19 Melatonin 10 mg PO QHS 02/27/19 Mirtazapine [Remeron] 30 mg PO QHS 02/27/19 Nitroglycerin [Nitrostat] 0.3 mg SL Q5M PRN 02/27/19 Oxybutynin [Ditropan] 10 mg PO DAILY 02/27/19 Tiotropium [place] [Spiriva] 18 mcg IH DAILY 02/27/19 Warfarin [Coumadin] 5 mg PO DAILY 02/27/19 Doxycycline Hyclate 100 mg PO BID 08/06/19 Loratadine 10 mg PO DAILY 08/06/19 Amitriptyline HCl 25 mg PO QHS 10/18/19 Surgical History: cataract, hysterectomy, total hip arthroplasty - X2, tonsillectomy, - - Aortic and pulmonic valve replacement, patient has mechanical aortic valve, skin grafts, coronary artery stent placement times 2 -March 2018 Psychiatric History: No pertinent psych hx 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 Denies: Chest Pressure, Chest Tightness, Edema, Heaviness, Light Headedness, Palpitations Respiratory: Denies: Cough, Shortness of Breath, Shortness of breath at rest, Shortness of breath upon exertion, Sputum production Gastrointestinal: Denies: Abdominal Pain, Nausea, Vomiting Genitourinary: Denies: Dysuria, Hematuria, Urgency Musculoskeletal: Denies: Joint Pain, Joint Tenderness, Muscle pain Skin: Denies: Lesions, Rash, Wounds Neurological: Denies: Numbness, Tingling, Focal weakness Psychiatric: Denies: Anxiety, Depression, Homicidal Ideations, Suicidal Ideations Hematologic/ Lymphatic: Denies: Easy Bruising, Easy Bleeding VTE Information - Inpt Only VTE Present on Admission: No VTE Mechan Device Prophylaxis: None VTE Pharm Prophylaxis ordered?: Yes Patient Problems: Active and Suspected Problems Chest pain (Acute) - Physical Exam Vitals/I&O's: Vital Signs Temp Pulse Resp BP Pulse Ox 98.2 F 62 14 122/104 H 97 10/18/19 11:58 10/18/19 15:01 10/18/19 15:01 10/18/19 15:01 10/18/19 15:01 Oxygen Delivery Method Room Air Weight: 120 lb 9.486 oz Body Mass Index (BMI) 20.0 General: Alert, Oriented x3, Cooperative HEENT: Atraumatic, PERRLA, EOMI, Normocephalic Neck: Supple, No JVD, Negative Carotid Bruits Lungs: Clear to auscultation, Normal air movement Cardiovascular: Regular rate, No murmurs Abdomen: Bowel Sounds Present, Soft, Non Tender Extremities: No edema, Capillary Refill Less than 3 Seconds Skin: No rashes, No breakdown Musculoskeletal: No Tenderness to Palpation of Joints or Extremities Neurological: Cranial nerves II-XII grossly intact Psych/Mental Status: Anxious, Alert and oriented to time, place, person, mood and affect Laboratory Results 10/18/19 12:35: WBC 6.8, RBC 4.77, Hgb 13.6, Hct 41.3, MCV 86.6, MCH 28.5, MCHC 32.9, RDW Std Deviation 50.2 H, RDW Coeff of [place] 15.8 H, Plt Count 203, MPV 11.3, Immature Gran % (Auto) 0.300, Neut % (Auto) 73.5 H, Lymph % (Auto) 14.8 L, [place] % (Auto) 8.9, Eos % (Auto) 2.1, Baso % (Auto) 0.4, Absolute Neuts (auto) 5.0, Absolute Lymphs (auto) 1.00, Nucleated RBC % 0 10/18/19 12:35: Sodium Cancelled, Potassium Cancelled, Chloride Cancelled, Car bon Dioxide Cancelled, Anion Gap Cancelled, BUN Cancelled, Creatinine Cancelled, Estim Creat Clear Calc Cancelled, Est GFR (MDRD) Af Amer Cancelled, Est GFR (MDRD) Non-Af Cancelled, BUN/Creatinine Ratio Cancelled, Glucose Cancelled, Calcium Cancelled, Troponin I Cancelled 10/18/19 13:05: Sodium 141, Potassium 4.2, Chloride 109 H, Carbon Dioxide 26.0, Anion Gap 6, BUN 15, Creatinine 1.04 H, Estim Creat Clear Calc 50.92, Est GFR (MDRD) Af Amer 70, Est GFR (MDRD) Non-Af 58 L, BUN/Creatinine Ratio 14.4, Glucose 92, Calcium 8.2 L, Troponin I < 0.015 Assessment/Plan All Active Problems Chest pain at rest (Acute) Chest pain (Acute) 1. Recurrent chest pain - hx CAD/HTN/HLD 2 prior stents about [address] Poe. EKG non acute. Trop neg. CXR neg. Ongoing nicotine abuse 1/2 ppd. No relief with nitro, relieved with oxycodone. Pain stabbing in quality radiates to back. -Consult cardiology for probably cath - refused last admission after negative stress. -cycle enzymes, serial EKGs -allergic to aspirin -continue statin 2. Mechanical aortic valve - INR pending. continue warfarin 3. COPD - stable no wheezing/hypoxia. 4. Nicotine abuse - patch DVT ppx warfarin This patient was seen by Kvng Olson PA-C under the supervision of Dr. Ruffin <Rj Ruffin - Last Filed: 10/18/19 16:28> History of Present Illness The patient is a 59 year old F [] Past Medical History Allergies naproxen Allergy (Verified 10/18/19 12:02) Swelling Penicillins Allergy (Verified 10/18/19 12:02) Unknown aspirin Adverse Reaction (Verified 10/18/19 12:02) Other on warfarin ibuprofen [From Motrin] Adverse Reaction (Verified 10/18/19 12:02) Other on warfarin - Physical Exam Vitals/I&O's: Vital Signs Temp Pulse Resp BP Pulse Ox 98.2 F 62 14 122/104 H 97 10/18/19 11:58 10/18/19 15:01 10/18/19 15:01 10/18/19 15:01 10/18/19 15:01 Oxygen Delivery Method Room Air Weight: 54.7 kg Body Mass Index (BMI) 20.0 Laboratory Results 10/18/19 12:35: WBC 6.8, RBC 4.77, Hgb 13.6, Hct 41.3, MCV 86.6, MCH 28.5, MCHC 32.9, RDW Std Deviation 50.2 H, RDW Coeff of [place] 15.8 H, Plt Count 203, MPV 11.3, Immature Gran % (Auto) 0.300, Neut % (Auto) 73.5 H, Lymph % (Auto) 14.8 L, [place] % (Auto) 8.9, Eos % (Auto) 2.1, Baso % (Auto) 0.4, Absolute Neuts (auto) 5.0, Absolute Lymphs (auto) 1.00, Nucleated RBC % 0 10/18/19 12:35: Sodium Cancelled, Potassium Cancelled, Chloride Cancelled, Carbon Dioxide Cancelled, Anion Gap Cancelled, BUN Cancelled, Creatinine Cancelled, Estim Creat Clear Calc Cancelled, Est GFR (MDRD) Af Amer Cancelled, Est GFR (MDRD) Non-Af Cancelled, BUN/Creatinine Ratio Cancelled, Glucose Cancelled, Calcium Cancelled, Troponin I Cancelled 10/18/19 12:35: PT Pending, INR Pending 10/18/19 13:05: Sodium 141, Potassium 4.2, Chloride 109 H, Carbon Dioxide 26.0, Anion Gap 6, BUN 15, Creatinine 1.04 H, Estim Creat Clear Calc 50.92, Est GFR (MDRD) Af Amer 70, Est GFR (MDRD) Non-Af 58 L, BUN/Creatinine Ratio 14.4, Glucose 92, Calcium 8.2 L, Troponin I < 0.015 Assessment/Plan This patient was seen in conjunction with Kvng Wesley PA-C . I have independently interviewed and examined the patient and reviewed pertinent historical, laboratory, and other data. Please refer to Kvng Olson PA-C note for details of this patient's presentation, findings, and recommendations. I have reviewed Kvng Olson PA-C note and concur with documented findings. In brief, patient is a 59-year-old lady with history of coronary artery disease with previous stent placement admitted with exertional chest pain. Patient had a similar presentation in July 2019 underwent a nuclear stress test which was negative for stress-induced ischemia however given the recurrent nature of his symptoms she was offered a left heart catheterization which she apparently refused. She is however agreeable to undergo the procedure at this time if so determined by cardiology Physical Examination: GENERAL: cooperative HEENT: Atraumatic; EYES; Anicteric, Normal Conjunctiva NECK; supple, normal thyroid, RESPIRATORY: Diminished to auscultation CARDIOVASCULAR: Regular S1 S2, GI: soft, normoactive bowel sounds, : No Renal angle tenderness; EXTREMITIES: No edema, no clubbing, MUSCULOSKELETAL: no muscle waisting NEURO: Awake; no lateralizing signs. SKIN: No Rash PSYCH; Flat affect Assessment: 1. Unstable angina 2. Coronary artery disease with previous stent placement 3. Mechanical aortic valve on systemic anticoagulation with Coumadin 4. Dyslipidemia 5. Essential hypertension 6. COPD 7. Tobacco dependence 8. DVT prophylaxis patient is already on systemic anticoagulation with Coumadin Recommendations: 1. I have discussed the results of my overview and impressions with the patient 2. Options for management were reviewed Code Visit OBSV E&M: 00029 Initial observation care L3
[2019-10-18 17:19] LABS: International Normalized Ratio 2.4; Prothrombin Time (Protime)PT. 26.1 SECONDS (11.7-14.9)
[2019-10-18] MEDS: oxyCODONE 5 MG Tablet 10 MG PO (17:45)
[2019-10-18] MEDS: guaiFENesin 10 ML UDC (200MG/10ML) 20 ML PO (17:46)
[2019-10-18] MEDS: Acetaminophen 325 MG Tablet 650 MG PO (17:46)
--- NOTE | 2019-10-18 18:57 | CON.PCM_ITS ---
Reason for Consult Date of Consultation: 10/18/19 Reason for Consultation: Chest pain History of Present Illness: The patient is a 59 year old F with a past medical history significant for coronary artery disease status post previous angioplasty and stenting in March 2018 at [facility]. She also has a history of hypertension, aortic valve replacement with a mechanical valve over 11 years ago. She has had numerous admissions to the hospital with chest pain which she describes as sharp nonradiating but similar to what she had when she had a previous stent. She was last seen last month by 1 of my colleagues. At that time she underwent stress testing which was negative for ischemia. It was however determined that because of her recurrent presentation she should consider a coronary angiogram. She preferred to have this done at [facility] elsewhere but now comes back with this discomfort and is agreeable to having it done here. [] Past Medical History Allergies/Adverse Reactions: Allergies naproxen Allergy (Verified 10/18/19 12:02) Swelling Penicillins Allergy (Verified 10/18/19 12:02) Unknown aspirin Adverse Reaction (Verified 10/18/19 12:02) Other on warfarin ibuprofen [From Motrin] Adverse Reaction (Verified 10/18/19 12:02) Other on warfarin Home Medications: Ambulatory Orders Medication Instructions Recorded Acetaminophen [Acetaminophen Extra 500 mg PO Q6H PRN 02/27/19 Strength] Albuterol Aerosols [Ventolin 2.5 mg INHALATION Q6H PRN PRN 02/27/19 Aerosols] Albuterol IH (ProAir) [Proair Hfa] 2 puff INHALATION Q6H PRN PRN 02/27/19 Alendronate Sodium [Fosamax] 70 mg PO BARRETO 02/27/19 Atorvastatin Calcium [Lipitor] 80 mg PO QHS 02/27/19 Cholecalciferol (Vitamin D3) 2,000 unit PO DAILY 02/27/19 [Vitamin D3] Fluticasone 0.05% [Flonase Nasal 1 spray NASAL PRN PRN 02/27/19 [place]] Fluticasone/Salmeterol [Advair 1 each IH BID 02/27/19 250-50 Diskus] Gabapentin [Neurontin] 300 mg PO BID 02/27/19 Melatonin 10 mg PO QHS 02/27/19 Mirtazapine [Remeron] 30 mg PO QHS 02/27/19 Nitroglycerin [Nitrostat] 0.3 mg SL Q5M PRN 02/27/19 Oxybutynin [Ditropan] 10 mg PO DAILY 02/27/19 Tiotropium [place] [Spiriva] 18 mcg IH DAILY 02/27/19 Warfarin [Coumadin] 5 mg PO DAILY 02/27/19 Doxycycline Hyclate 100 mg PO BID 08/06/19 Loratadine 10 mg PO DAILY 08/06/19 Amitriptyline HCl 25 mg PO QHS 10/18/19 Past Medical History (Chronic Problems): Chronic Problems History of myocardial infarction (Chronic) History of hypertension (Chronic) History of hypercholesterolemia (Chronic) History of tobacco use (Chronic) Myocardial infarct (Chronic) CAD (coronary artery disease), [place] coronary artery (Chronic) COPD (chronic obstructive pulmonary disease) (Chronic) Hyperlipidemia (Chronic) HTN (hypertension) (Chronic) Nicotine abuse (Chronic) Surgical History: cataract, hysterectomy, total hip arthroplasty - X2, tonsillectomy, - - Aortic and pulmonic valve replacement, patient has mechanical aortic valve, skin grafts, coronary artery stent placement times -March 2018 Psychiatric History: No pertinent psych hx ONCOLOGIST History: No pertinent ONCOLOGIST history - *Family History Maternal History Items: Cancer - Lung and bone cancer Paternal History Items: Cancer - Bladder cancer Lives: Alone Smoking Status: Current every day smoker Tobacco Use: Cigarettes Alcohol: None Drugs: None Review of Systems - Review of Systems General: Denies: Fever, Night Sweats, Fatigue HEENT: Denies: Vision Change Cardiovascular: Reports: Chest Discomfort, Chest Discomfort at Rest. Denies: Shortness of Breath, Orthopnea, PND, Peripheral Edema, Palpitations, Lightheadedness, Dizziness, Near Syncope, Syncope Respiratory: Denies: Cough, Sputum Production, Hemoptysis Gastrointestinal: Denies: Hematemesis, Hematochezia, Melena Genitourinary: Denies: Dysuria, Hematuria Skin: Denies: Rash Psychiatric: Reports: Anxiety Endocrine: Denies: Heat Intolerance Hematologic/ Lymphatic: Denies: Lymph Node Enlargement Subjectve: Middle-aged lady in no distress Objective: Vital Signs Temp Pulse Resp BP Pulse Ox 98.1 F 65 18 149/83 H 97 10/18/19 17:21 10/18/19 18:21 10/18/19 17:21 10/18/19 17:21 10/18/19 17:21 Oxygen Delivery Method Room Air Weight: 116 lb 13.52 oz Body Mass Index (BMI) 19.4 General: Awake, Alert, Oriented x 3 HEENT: PERRL, EOMI, Sclera Non Icteric Neck: Supple, Good ROM, No Lymph Node Enlargement Lungs: Clear to auscultation Cardiovascular: Regular Rhythm, Normal S1, Normal S2, No Rubs, No Gallops, [place] Prosthetic S1 Vascular: No Carotid Bruits, Normal Femoral Pulses, Normal Radial Pulses, Normal Dorsalis Pedal Pulse, Normal Posterior Tibial Pulses Abdomen: Bowel Sounds Present, Soft, Non Tender, No HSM, No Organomegaly Extremities: No Cyanosis, No Clubbing, No edema Musculoskeletal: No Erythema Skin: No Rashes Lymphatic: No Lymph Node Enlargement Neurological: No Focal Motor or Sensory Deficit Psych/Mental Status: Appropriate 10/18/19 12:35: WBC 6.8, RBC 4.77, Hgb 13.6, Hct 41.3, MCV 86.6, MCH 28.5, MCHC 32.9, Plt Count 203, MPV 11.3, Immature Gran % (Auto) 0.300, Neut % (Auto) 73.5 H, Lymph % (Auto) 14.8 L, [place] % (Auto) 8.9, Eos % (Auto) 2.1, Baso % (Auto) 0.4, Absolute Neuts (auto) 5.0, Nucleated RBC % 0 10/18/19 12:35: Sodium Cancelled, Potassium Cancelled, Chloride Cancelled, Carbon Dioxide Cancelled, Anion Gap Cancelled, BUN Cancelled, Creatinine Cancelled, Est GFR (MDRD) Af Amer Cancelled, Est GFR (MDRD) Non-Af Cancelled, BUN/Creatinine Ratio Cancelled, Glucose Cancelled, Calcium Cancelled, Troponin I Cancelled 10/18/19 12:35: PT 26.1 H, INR 2.4 10/18/19 13:05: Sodium 141, Potassium 4.2, Chloride 109 H, Carbon Dioxide 26.0, Anion Gap 6, BUN 15, Creatinine 1.04 H, Est GFR (MDRD) Af Amer 70, Est GFR (MDRD) Non-Af 58 L, BUN/Creatinine Ratio 14.4, Glucose 92, Calcium 8.2 L, Troponin I < 0.015 10/18/19 17:00: Troponin I < 0.015 Rhythm: EKG: Normal sinus rhythm with no acute changes ECHO: Stress Test: Cardiac Cath: PCI: CT Surgery: Holter monitor: EPS: PPM: CXR: Chest CT Scan: Assessment/Plan 1. Chest pain * She presents with recurrent atypical chest pain. She has been evaluated with a stress test recently as well as a CT scan both of which have not demonstrated any significant abnormalities. * At this time as per her previous discussion it may be prudent to assess her coronary anatomy and definitively exclude coronary artery disease. Due to her skin lesions and bobby it may be prudent to approach this from the groin. We discussed this further with my colleague. * Would recommend holding Coumadin tonight * 2. Post aortic valve replacement * Would recommend echocardiogram to assess aortic valve integrity. * Would recommend antibiotic prophylaxis * Continue Coumadin on discharge with a target INR of 2.5-3.5 * * Thank you for allowing me to participate in the care of your patient. Please don't hesitate to call if any issues arise
[2019-10-18] MEDS: Ondansetron 4 MG/2 ML Vial IV (18:59)
[2019-10-18] MEDS: 0.9% Saline Lock 10 ML Syringe IV ×2 (18:59→20:37)
--- NOTE | 2019-10-18 19:03 | ECHOD_ITS ---
Reason For Study: CAD/ASHD Procedure This was a 2D Doppler, Color Flow transthoracic echocardiogram. The study was technically difficult. Exam performed portable in patient room. Left Ventricle Normal LV size. Left ventricular systolic function is normal. The estimated ejection fraction is 60 %. No regional wall motion abnormalities noted. Right Ventricle Normal RV size. Normal systolic function. Atria Normal left atrium. Normal right atrium. Mitral Valve Normal mitral valve. Mild (1+) mitral valve insufficiency. Tricuspid Valve Normal tricuspid valve. Mild (1+) tricuspid valve insufficiency. Pulmonary artery systolic pressure is 38 mmHg. Aortic Valve The aortic valve is not well visualized. Peak aortic valve gradient 20 mmHg. Mean aortic valve gradient 10 mmHg. Mild (1+) aortic valve insufficiency. Pulmonic Valve Normal pulmonic valve. Great Vessels Normal aortic root. The pulmonary artery is normal size. Normal inferior vena cava. Pericardium/Pleural No pericardial effusion. MMode/2D Measurements & Calculations LVIDd: 3.0 cm IVSd: 1.3 cm LVOT diam: 2.0 cm LVIDs: 2.0 cm LVPWd: 1.1 cm LVOT area: 3.2 cm2 RVDd: 3.3 cm FS: 32.6 % LAV(MOD-bp): 38.8 ml LA A4 area: 15.0 cm2 RA A4 area: 14.1 cm2 LAV(MOD-bp) Indexed: 24.7 ml/m2 LAV(MOD-sp2): 43.9 ml LAV(MOD-sp4): 31.9 ml Time Measurements MV dec time: 0.25 sec Doppler Measurements & Calculations MV E max miguel: 89.8 cm/sec Lat Peak E' Miguel: 9.1 cm/sec Med Peak E' Miguel: 5.4 cm/sec MV A max miguel: 70.6 cm/sec E/E' lat: 9.9 E/E' med: 16.8 MV E/A: 1.3 MV V2 max: 100.2 cm/sec MV P1/2t max miguel: 102.1 cm/sec Ao V2 max: 225.4 cm/sec MV max P.0 mmHg MV P1/2t: 143.4 msec Ao max P.3 mmHg MV V2 mean: 57.6 cm/sec MV dec slope: 208.5 cm/sec2 Ao V2 mean: 149.9 cm/sec MV mean P.6 mmHg MVA(P1/2t): 1.5 cm2 Ao mean P.4 mmHg MV V2 VTI: 35.6 cm Ao V2 VTI: 43.2 cm MVA(VTI): 2.0 cm2 JULIANE(I,D): 1.6 cm2 JULIANE(V,D): 1.7 cm2 AI max miguel: 457.2 cm/sec LV V1 max: 115.6 cm/sec MR max miguel: 489.2 cm/sec AI max P.6 mmHg LV V1 max P.3 mmHg MR max P.7 mmHg LV V1 mean P.3 mmHg AI dec slope: 257.8 cm/sec2 LV V1 mean: 69.1 cm/sec AI P1/2t: 519.4 msec LV V1 VTI: 21.8 cm SV(LVOT): 70.8 ml PA V2 max: 172.1 cm/sec TR max miguel: 293.0 cm/sec TR max P.3 mmHg Interpretation Summary Normal LV size. Left ventricular systolic function is normal. The estimated ejection fraction is 60 %. Mild (1+) tricuspid valve insufficiency. Mild (1+) mitral valve insufficiency. Mild (1+) aortic valve insufficiency. Ordering Physician: Alberto Camacho Referring Physician: Rj Ruffin Performed By: Mina Childs RCS
[2019-10-18] MEDS: proMETHazine 25 MG/ML Syringe IM (21:39)
[2019-10-18] MEDS: Gabapentin 300 MG Capsule PO (21:44)
[2019-10-18] MEDS: Atorvastatin Calcium 80 MG Tablet PO (21:44)
[2019-10-18] MEDS: Amitriptyline 10 MG Tablet PO (21:45)
[2019-10-18] MEDS: Mirtazapine 30 MG Tablet PO (21:45)
[2019-10-19] VITALS (16 sets, daily range): BP systolic 97–142; BP diastolic 54–82; PULSE 57–74; RESP 12–18; TEMP 36.4–37; O2SAT 90–98
[2019-10-19] MEDS: oxyCODONE 5 MG Tablet 10 MG PO ×3 (01:50→23:58)
[2019-10-19 05:44] LABS: Absolute Lymphocyte Count 1.33 X10^3/uL (0.83-4.51); Absolute Neutrophil Count 5.5 X10^3/uL (2.0-7.7); Basophil# 0.04 X10^3/uL; Basophil% 0.5 % (0-1); Eosinophil# 0.18 X10^3/uL; Eosinophils% 2.3 % (0-5); Hematocrit 42.4 % (37-47); Hemoglobin 13.6 g/dL (12.0-15.0); Lymphocyte # 1.33 X10^3/ul (4.0); Lymphocyte % 17.3 % (19-41); Mean Corp Hgb Conc 32.1 g/dL (32-36); Mean Corpuscular Hgb 28.1 pg (27.0-32.0); Mean Corpuscular Volume 87.6 fL (81-99); Mean Platelet Vol. 11.4 fl (6.2-12.0); Monocyte# 0.66 X10^3/uL; Monocyte% 8.6 % (0-10); NRBC Flagged by Analyzer 0 % (0-5); Neutrophil # 5.47 X10^3/uL (2.7-7.7); Platelet Count 206 K/mm3 (150-450); RBC Distribution Width CV 15.9 % (11.6-14.6); RBC Distribution Width SD 50.6 fl (35.1-43.9); Red Blood Count 4.84 M/mm3 (4.2-5.4); White Blood Count 7.7 K/mm3 (4.4-11.0)
--- NOTE | 2019-10-19 05:55 | EKG12_ITS ---
Test Reason : CP Blood Pressure : / mmHG Vent. Rate : 074 BPM Atrial Rate : 074 BPM P-R Int : 150 ms QRS Dur : 092 ms QT Int : 408 ms P-R-T Axes : 026 017 070 degrees QTc Int : 452 ms Sinus rhythm with Premature atrial complexes Nonspecific ST abnormality Abnormal ECG Confirmed by VIVIAN KOCH, EVAN ([id number]), book editor SINDY AVILES ([id number]) on 11/01/2019 1:54:25 PM Referred By: Rj Ruffin Confirmed By:EVAN PARK MD
[2019-10-19 06:27] LABS: Anion Gap 6 (5-15); BUN 14 mg/dL (7-18); BUN/Creat Ratio 15.8 RATIO (10-20); Calcium,Total 8.3 mg/dL (8.5-10.1); Chloride 105 mmol/L (98-107); Creatinine, Serum 0.89 mg/dL (0.55-1.02); EST Glomerular Filtration Rate 69 mL/min (>60); Est Glom Filt Rate - Afr Amer 84 mL/min (>60); Estimated Creatinine Clearance 57.65 ml/min; Glucose 100 mg/dL (74-106); International Normalized Ratio 2.5; Potassium 3.7 mmol/L (3.5-5.1); Prothrombin Time (Protime)PT. 26.7 SECONDS (11.7-14.9); Sodium Level 139 mmol/L (136-145)
[2019-10-19] MEDS: Budesonide Respules 0.5 MG/2 ML AMPUL.NEB. INHALATION (06:42)
[2019-10-19] MEDS: Ipratropium/Albuterol Sulfate 3 ML AMPUL.NEB 2.5 ML INHALATION (06:42)
--- NOTE | 2019-10-19 09:33 | CASEMGMT ---
According to the [facility] website, the following are in-network tertiary facilities: [facility], [place], [facility], [facility], [facility], and . [place] [facility] [facility]
[2019-10-19] MEDS: 0.9% Saline Lock 10 ML Syringe IV ×2 (10:00→21:09)
[2019-10-19] MEDS: Ondansetron 4 MG/2 ML Vial IV (10:00)
[2019-10-19] MEDS: Loratadine 10 MG Tablet PO (10:11)
[2019-10-19] MEDS: Gabapentin 300 MG Capsule PO ×2 (10:11→21:05)
[2019-10-19] MEDS: Tolterodine Tartrate 2 MG CAP.SA PO (10:11)
[2019-10-19] MEDS: dilTIAZem CD 180 MG Capsule PO (10:11)
[2019-10-19] MEDS: Acetaminophen 325 MG Tablet 650 MG PO ×2 (10:17→16:20)
--- NOTE | 2019-10-19 10:53 | PN_ITS ---
<Kvng Olson - Last Filed: 10/19/19 10:53> Patient Problems: Active and Suspected Problems Chest pain (Acute) Subjective: Ongoing chest pain. 8/10 sharp pain mid to left sternal radiating into back and left shoulder. No SOB/palp/LH/dizziness. No significant improvement since last night. - Physical Exam Vitals/I&O's: Vital Signs Temp Pulse Resp BP Pulse Ox 97.6 F L 74 16 142/82 H 92 10/19/19 10:09 10/19/19 10:09 10/19/19 10:09 10/19/19 10:09 10/19/19 10:09 Oxygen Delivery Method Room Air Weight: 116 lb 13.52 oz Body Mass Index (BMI) 19.4 Intake and Output for Last 24 Hours 10/17/19 10/18/19 10/19/19 23:59 23:59 23:59 Intake Total 220 / 220 40 / 40 Balance 220 / 220 40 / 40 General: Alert, Oriented x3, Cooperative HEENT: Atraumatic, PERRLA, EOMI, Normocephalic Neck: Supple, No JVD, Negative Carotid Bruits Lungs: Clear to auscultation, Normal air movement Cardiovascular: Regular rate, Murmur - 3/6 systolic murmur best heard at LSB 2nd ICS. Abdomen: Bowel Sounds Present, Soft, Non Tender Extremities: No edema, Capillary Refill Less than 3 Seconds Skin: No rashes, No breakdown Musculoskeletal: No Tenderness to Palpation of Joints or Extremities Neurological: Cranial nerves II-XII grossly intact Psych/Mental Status: Normal Affect, Appropriate, Alert and oriented to time, place, person, mood and affect Laboratory Results 10/18/19 12:35: WBC 6.8, RBC 4.77, Hgb 13.6, Hct 41.3, MCV 86.6, MCH 28.5, MCHC 32.9, RDW Std Deviation 50.2 H, RDW Coeff of [place] 15.8 H, Plt Count 203, MPV 11.3, Immature Gran % (Auto) 0.300, Neut % (Auto) 73.5 H, Lymph % (Auto) 14.8 L, [place] % (Auto) 8.9, Eos % (Auto) 2.1, Baso % (Auto) 0.4, Absolute Neuts (auto) 5.0, Absolute Lymphs (auto) 1.00, Nucleated RBC % 0 10/18/19 12:35: Sodium Cancelled, Potassium Cancelled, Chloride Cancelled, Carbon Dioxide Cancelled, Anion Gap Cancelled, BUN Cancelled, Creatinine Cancelled, Estim Creat Clear Calc Cancelled, Est GFR (MDRD) Af Amer Cancelled, Est GFR (MDRD) Non-Af Cancelled, BUN/Creatinine Ratio Cancelled, Glucose Cancelled, Calcium Cancelled, Troponin I Cancelled 10/18/19 12:35: PT 26.1 H, INR 2.4 10/18/19 13:05: Sodium 141, Potassium 4.2, Chloride 109 H, Carbon Dioxide 26.0, Anion Gap 6, BUN 15, Creatinine 1.04 H, Estim Creat Clear Calc 50.92, Est GFR (MDRD) Af Amer 70, Est GFR (MDRD) Non-Af 58 L, BUN/Creatinine Ratio 14.4, Glucose 92, Calcium 8.2 L, Troponin I < 0.015 10/18/19 17:00: Troponin I < 0.015 10/18/19 20:45: Troponin I < 0.015 10/19/19 05:10: WBC 7.7, RBC 4.84, Hgb 13.6, Hct 42.4, MCV 87.6, MCH 28.1, MCHC 32.1, RDW Std Deviation 50.6 H, RDW Coeff of [place] 15.9 H, Plt Count 206, MPV 11.4, Immature Gran % (Auto) 0.300, Neut % (Auto) 71.0 H, Lymph % (Auto) 17.3 L, [place] % (Auto) 8.6, Eos % (Auto) 2.3, Baso % (Auto) 0.5, Absolute Neuts (auto) 5.5, Absolute Lymphs (auto) 1.33, Nucleated RBC % 0 10/19/19 05:10: PT 26.7 H, INR 2.5 10/19/19 05:10: Sodium 139, Potassium 3.7, Chloride 105, Carbon Dioxide 28.0, Anion Gap 6, BUN 14, Creatinine 0.89, Estim Creat Clear Calc 57.65, Est GFR (MDRD) Af Amer 84, Est GFR (MDRD) Non-Af 69, BUN/Creatinine Ratio 15.8, Glucose 100, Calcium 8.3 L Current Medications Acetaminophen (Tylenol) 650 mg PO Q6H PRN PRN PRN Reason: Pain Score 1-3/Temp > 100.7 F Last Admin: 10/19/19 10:17 Dose: 650 mg Documented by: Al Hydroxide/Mg Hydroxide (Mylanta Ii) 30 ml PO Q6H PRN PRN PRN Reason: Gastric Burning Albuterol Sulfate (Ventolin Aerosols) 2.5 mg INHALATION Q6H PRN PRN PRN Reason: SOB &/OR WHEEZING Albuterol/Ipratropium (Duoneb) 2.5 ml INHALATION Q6HWA.RT [facility] Last Admin: 10/19/19 06:42 Dose: 2.5 ml Documented by: Amitriptyline HCl (Elavil) 10 mg PO QHS [facility] Last Admin: 10/18/19 21:45 Dose: 10 mg Documented by: Atorvastatin Calcium (Lipitor) 80 mg PO QHS [facility] Last Admin: 10/18/19 21:44 Dose: 80 mg Documented by: Budesonide (Pulmicort Aerosol) 0.5 mg INHALATION Q12H.RT [facility] Last Admin: 10/19/19 06:42 Dose: 0.5 mg Documented by: Cholecalciferol (Vitamin D) 2,000 unit PO DAILY [facility] Last Admin: 10/19/19 10:11 Dose: 2,000 unit Documented by: Diltiazem HCl (Cardizem Cd) 180 mg PO DAILY [facility] Last Admin: 10/19/19 10:11 Dose: 180 mg Documented by: Fluticasone Propionate (Flonase Nasal [place]) 1 spray NASAL DAILY PRN PRN PRN Reason: ALLERGIES Gabapentin (Neurontin) 300 mg PO BID [facility] Last Admin: 10/19/19 10:11 Dose: 300 mg Documented by: Guaifenesin (Robitussin) 20 ml PO Q4H PRN PRN PRN Reason: COUGH Last Admin: 10/18/19 17:46 Dose: 20 ml Documented by: Sodium Chloride () 250 mls @ 15 mls/hr IV .[id number] PRN PRN Reason: Saline Flush Loratadine (Claritin) 10 mg PO DAILY [facility] Last Admin: 10/19/19 10:11 Dose: 10 mg Documented by: Melatonin (Melatonin) 3 mg PO QHS PRN PRN PRN Reason: INSOMNIA Mirtazapine (Remeron) 30 mg PO QHS [facility] Last Admin: 10/18/19 21:45 Dose: 30 mg Documented by: Nitroglycerin (Nitrostat) 0.4 mg SUBLINGUAL Q5M PRN PRN Reason: CARDIAC/CHEST PAIN Ondansetron HCl (Zofran) 4 mg IV Q8H PRN PRN PRN Reason: NAUSEA/VOMITING Last Admin: 10/19/19 10:00 Dose: 4 mg Documented by: Oxycodone HCl (Oxyir) 5 mg PO Q4H PRN PRN PRN Reason: Pain Score 4-6/10 Oxycodone HCl (Oxyir) 10 mg PO Q4H PRN PRN PRN Reason: Pain Score 6-10/10 Last Admin: 10/19/19 08:19 Dose: 10 mg Documented by: Promethazine HCl (Phenergan) 25 mg IM Q6H PRN PRN PRN Reason: Breakthrough Nausea/Vomiting Last Admin: 10/18/19 21:39 Dose: 25 mg Documented by: Senna/Docusate Sodium (Senokot-S, Judy-Colace) 2 tablet PO BID PRN PRN PRN Reason: Constipation Sodium Chloride () 10 - 40 ml IV UD PRN PRN Reason: SALINE FLUSH Last Admin: 10/19/19 10:00 Dose: 10 ml Documented by: Tolterodine Tartrate (Detrol La) 2 mg PO DAILY [facility] Last Admin: 10/19/19 10:11 Dose: 2 mg Documented by: Medical Necessity - Tobacco Use Smoking Status: Current every day smoker Tobacco Use: Cigarettes Assessment/Plan All Active Problems Chest pain at rest (Acute) Chest pain (Acute) 1. Recurrent chest pain - hx CAD/HTN/HLD 2 prior stents about 1 [address] Dr[address] Marquis Quintanilla. Follows normally with Dr. Poe in [place]. EKG non acute. Trop neg. CXR neg. Ongoing nicotine abuse 1/2 ppd. No relief with nitro, relieved with oxycodone. Pain stabbing in quality radiates to back. -Consult cardiology for probably cath - refused last admission after negative stress. -trop negx3. EKG today with sinus arrhythmia. tele sinus arrhythmia. Echo with EF60% no wall abnormalities. 1+TVI/MVI/SOPHY. -allergic to aspirin -continue statin -continue cardizem. 2. Mechanical aortic valve - inr goal 2.5-3.5 3. COPD - stable no wheezing/hypoxia. albuterol, budesonide 4. Nicotine abuse - patch DVT ppx: warfarin (hold for cath) This patient was seen by Kvng Olson PA-C under the supervision of Dr. Ruffin <Rj Ruffin - Last Filed: 10/19/19 15:09> - Physical Exam Vitals/I&O's: Vital Signs Temp Pulse Resp BP Pulse Ox 98.5 F 73 14 97/54 L 93 10/19/19 14:54 10/19/19 14:54 10/19/19 14:54 10/19/19 14:54 10/19/19 14:54 Oxygen Delivery Method Room Air Weight: 53 kg Body Mass Index (BMI) 19.4 Intake and Output for Last 24 Hours 10/17/19 10/18/19 10/19/19 23:59 23:59 23:59 Intake Total 220 / 220 397 / 397 Output Total 150 / 150 Balance 220 / 220 247 / 247 Laboratory Results 10/18/19 12:35: PT 26.1 H, INR 2.4 10/18/19 17:00: Troponin I < 0.015 10/18/19 20:45: Troponin I < 0.015 10/19/19 05:10: WBC 7.7, RBC 4.84, Hgb 13.6, Hct 42.4, MCV 87.6, MCH 28.1, MCHC 32.1, RDW Std Deviation 50.6 H, RDW Coeff of [place] 15.9 H, Plt Count 206, MPV 11.4, Immature Gran % (Auto) 0.300, Neut % (Auto) 71.0 H, Lymph % (Auto) 17.3 L, [place] % (Auto) 8.6, Eos % (Auto) 2.3, Baso % (Auto) 0.5, Absolute Neuts (auto) 5.5, Absolute Lymphs (auto) 1.33, Nucleated RBC % 0 10/19/19 05:10: PT 26.7 H, INR 2.5 10/19/19 05:10: Sodium 139, Potassium 3.7, Chloride 105, Carbon Dioxide 28.0, Anion Gap 6, BUN 14, Creatinine 0.89, Estim Creat Clear Calc 57.65, Est GFR (MDRD) Af Amer 84, Est GFR (MDRD) Non-Af 69, BUN/Creatinine Ratio 15.8, Glucose 100, Calcium 8.3 L Current Medications Acetaminophen (Tylenol) 650 mg PO Q6H PRN PRN PRN Reason: Pain Score 1-3/Temp > 100.7 F Last Admin: 10/19/19 10:17 Dose: 650 mg Documented by: Al Hydroxide/Mg Hydroxide (Mylanta Ii) 30 ml PO Q6H PRN PRN PRN Reason: Gastric Burning Albuterol Sulfate (Ventolin Aerosols) 2.5 mg INHALATION Q6H PRN PRN PRN Reason: SOB &/OR WHEEZING Albuterol/Ipratropium (Duoneb) 2.5 ml INHALATION Q6HWA.RT [facility] Last Admin: 10/19/19 06:42 Dose: 2.5 ml Documented by: Amitriptyline HCl (Elavil) 10 mg PO QHS [facility] Last Admin: 10/18/19 21:45 Dose: 10 mg Documented by: Atorvastatin Calcium (Lipitor) 80 mg PO QHS [facility] Last Admin: 10/18/19 21:44 Dose: 80 mg Documented by: Budesonide (Pulmicort Aerosol) 0.5 mg INHALATION Q12H.RT [facility] Last Admin: 10/19/19 06:42 Dose: 0.5 mg Documented by: Cholecalciferol (Vitamin D) 2,000 unit PO DAILY [facility] Last Admin: 10/19/19 10:11 Dose: 2,000 unit Documented by: Diltiazem HCl (Cardizem Cd) 180 mg PO DAILY [facility] Last Admin: 10/19/19 10:11 Dose: 180 mg Documented by: Fluticasone Propionate (Flonase Nasal [place]) 1 spray NASAL DAILY PRN PRN PRN Reason: ALLERGIES Gabapentin (Neurontin) 300 mg PO BID [facility] Last Admin: 10/19/19 10:11 Dose: 300 mg Documented by: Guaifenesin (Robitussin) 20 ml PO Q4H PRN PRN PRN Reason: COUGH Last Admin: 10/18/19 17:46 Dose: 20 ml Documented by: Sodium Chloride () 250 mls @ 15 mls/hr IV .[id number] PRN PRN Reason: Saline Flush Loratadine (Claritin) 10 mg PO DAILY [facility] Last Admin: 10/19/19 10:11 Dose: 10 mg Documented by: Melatonin (Melatonin) 3 mg PO QHS PRN PRN PRN Reason: INSOMNIA Mirtazapine (Remeron) 30 mg PO QHS [facility] Last Admin: 10/18/19 21:45 Dose: 30 mg Documented by: Nitroglycerin (Nitrostat) 0.4 mg SUBLINGUAL Q5M PRN PRN Reason: CARDIAC/CHEST PAIN Ondansetron HCl (Zofran) 4 mg IV Q8H PRN PRN PRN Reason: NAUSEA/VOMITING Last Admin: 10/19/19 10:00 Dose: 4 mg Documented by: Oxycodone HCl (Oxyir) 5 mg PO Q4H PRN PRN PRN Reason: Pain Score 4-6/10 Oxycodone HCl (Oxyir) 10 mg PO Q4H PRN PRN PRN Reason: Pain Score 6-10/10 Last Admin: 10/19/19 08:19 Dose: 10 mg Documented by: Promethazine HCl (Phenergan) 25 mg IM Q6H PRN PRN PRN Reason: Breakthrough Nausea/Vomiting Last Admin: 10/19/19 10:54 Dose: 25 mg Documented by: Senna/Docusate Sodium (Senokot-S, Judy-Colace) 2 tablet PO BID PRN PRN PRN Reason: Constipation Sodium Chloride () 10 - 40 ml IV UD PRN PRN Reason: SALINE FLUSH Last Admin: 10/19/19 10:00 Dose: 10 ml Documented by: Tolterodine Tartrate (Detrol La) 2 mg PO DAILY [facility] Last Admin: 10/19/19 10:11 Dose: 2 mg Documented by: Assessment/Plan This patient was seen in conjunction with Kvng Olson PA-C . I have independently interviewed and examined the patient and reviewed pertinent historical, laboratory, and other data. Please refer to Kvng Olson PA-C note for details of this patient's presentation, findings, and recommendations. I have reviewed Kvng Olson PA-C note and concur with documented findings. In brief, patient is a 59-year-old lady with history of coronary artery disease with previous stent placement admitted with exertional chest pain. Patient had a similar presentation in July 2019 underwent a nuclear stress test which was negative for stress-induced ischemia however given the recurrent nature of his symptoms she was offered a left heart catheterization which she apparently refused. She is however agreeable to undergo the procedure at this time if so determined by cardiology 10/19/2019: Patient seen still complains of significant chest discomfort. Patient has been seen in consultation by cardiology plan is for patient to undergo left heart catheterization on 10/20/2019. Patient is on Coumadin with therapeutic INR was discussed with cardiology regarding possible bridging since patient has a mechanical valve Physical Examination: GENERAL: cooperative HEENT: Atraumatic; EYES; Anicteric, Normal Conjunctiva NECK; supple, normal thyroid, RESPIRATORY: Diminished to auscultation CARDIOVASCULAR: Regular S1 S2, GI: soft, normoactive bowel sounds, : No Renal angle tenderness; EXTREMITIES: No edema, no clubbing, MUSCULOSKELETAL: no muscle waisting NEURO: Awake; no lateralizing signs. SKIN: No Rash PSYCH; Flat affect Assessment: 1. Unstable angina 2. Coronary artery disease with previous stent placement 3. Mechanical aortic valve on systemic anticoagulation with Coumadin 4. Dyslipidemia 5. Essential hypertension 6. COPD 7. Tobacco dependence 8. DVT prophylaxis patient is already on systemic anticoagulation with Coumadin Recommendations: 1. I have discussed the results of my overview and impressions with the patient 2. Options for management were reviewed Code Visit OBSV E&M: 11904 Subsequent observation care L3
[2019-10-19] MEDS: proMETHazine 25 MG/ML Syringe IM (10:54)
--- NOTE | 2019-10-19 17:28 | PCM.PN.CARD ---
Subjectve: Patient still has chest pain. Cardiac enzymes have been negative. INR was 2.5 today. Objective: Vital Signs Temp Pulse Resp BP Pulse Ox 98.5 F 71 14 98/58 L 93 10/19/19 14:54 10/19/19 16:17 10/19/19 14:54 10/19/19 16:17 10/19/19 14:54 Oxygen Delivery Method Room Air Weight: 116 lb 13.52 oz Body Mass Index (BMI) 19.4 Intake and Output for Last 24 Hours 10/17/19 10/18/19 10/19/19 23:59 23:59 23:59 Intake Total 220 / 220 397 / 397 Output Total 150 / 150 Balance 220 / 220 247 / 247 General: Awake, Alert, Oriented x 3 HEENT: Atraumatic Oral: Moist Mucosa Neck: Supple Lungs: Clear to auscultation Cardiovascular: Regular Rhythm Abdomen: Soft Extremities: No edema Skin: No Rashes Psych/Mental Status: Appropriate 10/18/19 17:00: Troponin I < 0.015 10/18/19 20:45: Troponin I < 0.015 10/19/19 05:10: WBC 7.7, RBC 4.84, Hgb 13.6, Hct 42.4, MCV 87.6, MCH 28.1, MCHC 32.1, Plt Count 206, MPV 11.4, Immature Gran % (Auto) 0.300, Neut % (Auto) 71.0 H, Lymph % (Auto) 17.3 L, [place] % (Auto) 8.6, Eos % (Auto) 2.3, Baso % (Auto) 0.5, Absolute Neuts (auto) 5.5, Nucleated RBC % 0 10/19/19 05:10: PT 26.7 H, INR 2.5 10/19/19 05:10: Sodium 139, Potassium 3.7, Chloride 105, Carbon Dioxide 28.0, Anion Gap 6, BUN 14, Creatinine 0.89, Est GFR (MDRD) Af Amer 84, Est GFR (MDRD) Non-Af 69, BUN/Creatinine Ratio 15.8, Glucose 100, Calcium 8.3 L Rhythm: EKG: ECHO: Stress Test: Cardiac Cath: PCI: CT Surgery: Holter monitor: EPS: PPM: CXR: Chest CT Scan: Medical Necessity - Tobacco Use Smoking Status: Current every day smoker Tobacco Use: Cigarettes Assessment/Plan 1. Chest pain: Patient has had recurrent admissions for chest pain. After last admission we had recommended coronary angiography. She was supposed to get it done by her primary certified hearing instrument dispenser in [place] but has not had it done yet. She is agreeable to undergoing coronary angiography this admission. We will continue to hold the Coumadin and when the INR is less than 1.7 we will proceed with coronary angiography. When the INR is less than 2 we can start her on IV heparin. 2. Status post aortic valve replacement: Patient has a mechanical aortic valve. Echo reviewed. Appears to be functioning well.
[2019-10-19] MEDS: oxyCODONE 5 MG Tablet PO (18:42)
[2019-10-19] MEDS: Mirtazapine 30 MG Tablet PO (21:05)
[2019-10-19] MEDS: Amitriptyline 10 MG Tablet PO (21:05)
[2019-10-19] MEDS: Atorvastatin Calcium 80 MG Tablet PO (21:06)
[2019-10-19] MEDS: MELATONIN 3 MG TABLET PO (21:09)
[2019-10-20] VITALS (15 sets, daily range): BP systolic 112–120; BP diastolic 64–81; PULSE 70–125; RESP 12–18; TEMP 36.6–37.4; O2SAT 82–96
[2019-10-20 05:24] LABS: International Normalized Ratio 1.8; Prothrombin Time (Protime)PT. 21.2 SECONDS (11.7-14.9)
[2019-10-20 05:27] LABS: Anion Gap 6 (5-15); BUN 15 mg/dL (7-18); BUN/Creat Ratio 14.4 RATIO (10-20); Chloride 105 mmol/L (98-107); Creatinine, Serum 1.04 mg/dL (0.55-1.02); EST Glomerular Filtration Rate 58 mL/min (>60); Est Glom Filt Rate - Afr Amer 70 mL/min (>60); Estimated Creatinine Clearance 49.33 ml/min; Glucose 99 mg/dL (74-106); Potassium 4.2 mmol/L (3.5-5.1); Sodium Level 140 mmol/L (136-145)
[2019-10-20] MEDS: Ipratropium/Albuterol Sulfate 3 ML AMPUL.NEB 2.5 ML INHALATION ×3 (07:11→20:00)
[2019-10-20] MEDS: Budesonide Respules 0.5 MG/2 ML AMPUL.NEB. INHALATION ×2 (07:11→20:01)
[2019-10-20] MEDS: oxyCODONE 5 MG Tablet 10 MG PO ×2 (07:53→15:17)
--- NOTE | 2019-10-20 07:55 | CPS ---
pt placed back on 2 lpm...91%. nurse aware of change
[2019-10-20] MEDS: Loratadine 10 MG Tablet PO (09:49)
[2019-10-20] MEDS: Gabapentin 300 MG Capsule PO ×2 (09:49→20:59)
[2019-10-20] MEDS: dilTIAZem CD 180 MG Capsule PO (09:49)
[2019-10-20] MEDS: Tolterodine Tartrate 2 MG CAP.SA PO (09:49)
[2019-10-20 10:36] LABS: Partial Thromboplast Time 39.9 Seconds (24.1-36.2)
--- NOTE | 2019-10-20 10:40 | CASEMGMT ---
This RN CM to room with MUSE form at this time, explanation done-pt voices understanding, and pt signed MUSE form at this time. Original to chart and copy to pt at this time. Pt voices no further questions/concern/needs at this time. SStaten BEATRIZ CM
[2019-10-20] MEDS: Heparin Injection (Vial) 5,000 UNIT/ML VIAL 4000 UNIT IV (10:45)
[2019-10-20] MEDS: HEPARIN/D5w 25,000 UNITS 25,000 UNITS/250 ML IV.SOLN. 8 UNITS IV (10:46)
--- NOTE | 2019-10-20 11:55 | PN_ITS ---
<Kvng Olson - Last Filed: 10/20/19 11:55> Patient Problems: Active and Suspected Problems Chest pain (Acute) Subjective: Pain improved today to 5/10. Still mid/left sternal radiating to back. No SOB/nausea/diaphoresis. Pt agreeable to heart cath. - Physical Exam Vitals/I&O's: Vital Signs Temp Pulse Resp BP Pulse Ox 99.3 F H 83 16 112/64 96 10/20/19 09:44 10/20/19 11:00 10/20/19 09:44 10/20/19 09:44 10/20/19 09:44 Oxygen Flow Rate (L/min) 2 Oxygen Delivery Method Room Air Weight: 116 lb 13.52 oz Body Mass Index (BMI) 19.4 Intake and Output for Last 24 Hours 10/18/19 10/19/19 10/20/19 23:59 23:59 23:59 Intake Total 220 / 220 1597 / 1597 Output Total 150 / 150 Balance 220 / 220 1447 / 1447 General: Alert, Oriented x3, Cooperative HEENT: Atraumatic, PERRLA, EOMI, Normocephalic Neck: Supple, No JVD, Negative Carotid Bruits Lungs: Clear to auscultation, Normal air movement Cardiovascular: Regular rate, Murmur - 3/6 systolic LSB 2nd ICS Abdomen: Bowel Sounds Present, Soft, Non Tender Extremities: No edema, Capillary Refill Less than 3 Seconds Skin: No rashes, No breakdown Musculoskeletal: No Tenderness to Palpation of Joints or Extremities Neurological: Cranial nerves II-XII grossly intact Psych/Mental Status: Normal Affect, Appropriate, Alert and oriented to time, place, person, mood and affect Laboratory Results 10/20/19 05:00: PT 21.2 H, INR 1.8 10/20/19 05:00: Sodium 140, Potassium 4.2, Chloride 105, Carbon Dioxide 29.0, Anion Gap 6, BUN 15, Creatinine 1.04 H, Estim Creat Clear Calc 49.33, Est GFR (MDRD) Af Amer 70, Est GFR (MDRD) Non-Af 58 L, BUN/Creatinine Ratio 14.4, Glucose 99, Calcium 8.0 L 10/20/19 10:11: APTT 39.9 H Current Medications Acetaminophen (Tylenol) 650 mg PO Q6H PRN PRN PRN Reason: Pain Score 1-3/Temp > 100.7 F Last Admin: 10/19/19 16:20 Dose: 650 mg Documented by: Al Hydroxide/Mg Hydroxide (Mylanta Ii) 30 ml PO Q6H PRN PRN PRN Reason: Gastric Burning Albuterol Sulfate (Ventolin Aerosols) 2.5 mg INHALATION Q6H PRN PRN PRN Reason: SOB &/OR WHEEZING Albuterol/Ipratropium (Duoneb) 2.5 ml INHALATION Q6HWA.RT [facility], [facility] Last Admin: 10/20/19 07:11 Dose: 2.5 ml Documented by: Amitriptyline HCl (Elavil) 10 mg PO QHS [facility], [facility] Last Admin: 10/19/19 21:05 Dose: 10 mg Documented by: Atorvastatin Calcium (Lipitor) 80 mg PO QHS [facility], [facility] Last Admin: 10/19/19 21:06 Dose: 80 mg Documented by: Budesonide (Pulmicort Aerosol) 0.5 mg INHALATION Q12H.RT [facility], [facility] Last Admin: 10/20/19 07:11 Dose: 0.5 mg Documented by: Cholecalciferol (Vitamin D) 2,000 unit PO DAILY [facility], [facility] Last Admin: 10/20/19 09:49 Dose: 2,000 unit Documented by: Diltiazem HCl (Cardizem Cd) 180 mg PO DAILY [facility], [facility] Last Admin: 10/20/19 09:49 Dose: 180 mg Documented by: Fluticasone Propionate (Flonase Nasal [place]) 1 spray NASAL DAILY PRN PRN PRN Reason: ALLERGIES Gabapentin (Neurontin) 300 mg PO BID [facility], [facility] Last Admin: 10/20/19 09:49 Dose: 300 mg Documented by: Guaifenesin (Robitussin) 20 ml PO Q4H PRN PRN PRN Reason: COUGH Last Admin: 10/18/19 17:46 Dose: 20 ml Documented by: Heparin Sodium (Porcine) (Heparin Na) 0 unit IV UD PRN; Protocol Sodium Chloride () 250 mls @ 15 mls/hr IV .[id number] PRN PRN Reason: Saline Flush Heparin Sodium/Dextrose () 25,000 units in 250 mls @ 8 mls/hr IV .[id number] [facility], [facility]; Protocol Last Admin: 10/20/19 10:46 Dose: 800 units/hr, 8 mls/hr Documented by: Loratadine (Claritin) 10 mg PO DAILY [facility] Last Admin: 10/20/19 09:49 Dose: 10 mg Documented by: Melatonin (Melatonin) 3 mg PO QHS PRN PRN PRN Reason: INSOMNIA Last Admin: 10/19/19 21:09 Dose: 3 mg Documented by: Mirtazapine (Remeron) 30 mg PO QHS [facility] Last Admin: 10/19/19 21:05 Dose: 30 mg Documented by: Nitroglycerin (Nitrostat) 0.4 mg SUBLINGUAL Q5M PRN PRN Reason: CARDIAC/CHEST PAIN Ondansetron HCl (Zofran) 4 mg IV Q8H PRN PRN PRN Reason: NAUSEA/VOMITING Last Admin: 10/19/19 10:00 Dose: 4 mg Documented by: Oxycodone HCl (Oxyir) 5 mg PO Q4H PRN PRN PRN Reason: Pain Score 4-6/10 Last Admin: 10/19/19 18:42 Dose: 5 mg Documented by: Oxycodone HCl (Oxyir) 10 mg PO Q4H PRN PRN PRN Reason: Pain Score 6-10/10 Last Admin: 10/20/19 07:53 Dose: 10 mg Documented by: Promethazine HCl (Phenergan) 25 mg IM Q6H PRN PRN PRN Reason: Breakthrough Nausea/Vomiting Last Admin: 10/19/19 10:54 Dose: 25 mg Documented by: Senna/Docusate Sodium (Senokot-S, Judy-Colace) 2 tablet PO BID PRN PRN PRN Reason: Constipation Sodium Chloride () 10 - 40 ml IV UD PRN PRN Reason: SALINE FLUSH Last Admin: 10/19/19 21:09 Dose: 10 ml Documented by: Tolterodine Tartrate (Detrol La) 2 mg PO DAILY [facility] Last Admin: 10/20/19 09:49 Dose: 2 mg Documented by: Medical Necessity - Tobacco Use Smoking Status: Current every day smoker Tobacco Use: Cigarettes Assessment/Plan All Active Problems Chest pain at rest (Acute) Chest pain (Acute) 1. Recurrent chest pain - hx CAD/HTN/HLD 2 prior stents about 1 [address] ago [address] with Dr. Marquis Quintanilla. Follows normally with Dr. Poe in [place]. EKG non acute. Trop neg. CXR neg. Ongoing nicotine abuse 1/2 ppd. No relief with nitro, relieved with oxycodone. Pain stabbing in quality radiates to back. -Cardiology following -Cath today -Heparin bridge for aortic valve -trop negx3. EKG today with sinus arrhythmia. tele sinus arrhythmia. Echo with EF60% no wall abnormalities. 1+TVI/MVI/SOPHY. -allergic to aspirin -continue statin -continue cardizem. 2. Mechanical aortic valve - held for cath, heparin drip. 3. COPD - stable no wheezing/hypoxia. albuterol, budesonide 4. Nicotine abuse - patch DVT ppx: heparin dirp This patient was seen by Kvng Olson PA-C under the supervision of Dr. Ruffin <Rj Ruffin - Last Filed: 10/20/19 14:24> - Physical Exam Vitals/I&O's: Vital Signs Temp Pulse Resp BP Pulse Ox 99.3 F H 74 16 112/64 87 10/20/19 09:44 10/20/19 13:05 10/20/19 13:05 10/20/19 09:44 10/20/19 13:05 Oxygen Flow Rate (L/min) 2 Oxygen Delivery Method Room Air Weight: 53 kg Body Mass Index (BMI) 19.4 Intake and Output for Last 24 Hours 10/18/19 10/19/19 10/20/19 23:59 23:59 23:59 Intake Total 220 / 220 1597 / 1597 60 / 60 Output Total 150 / 150 Balance 220 / 220 1447 / 1447 60 / 60 Laboratory Results 10/20/19 05:00: PT 21.2 H, INR 1.8 10/20/19 05:00: Sodium 140, Potassium 4.2, Chloride 105, Carbon Dioxide 29.0, Anion Gap 6, BUN 15, Creatinine 1.04 H, Estim Creat Clear Calc 49.33, Est GFR (MDRD) Af Amer 70, Est GFR (MDRD) Non-Af 58 L, BUN/Creatinine Ratio 14.4, Glucose 99, Calcium 8.0 L 10/20/19 10:11: APTT 39.9 H Current Medications Acetaminophen (Tylenol) 650 mg PO Q6H PRN PRN PRN Reason: Pain Score 1-3/Temp > 100.7 F Last Admin: 10/19/19 16:20 Dose: 650 mg Documented by: Al Hydroxide/Mg Hydroxide (Mylanta Ii) 30 ml PO Q6H PRN PRN PRN Reason: Gastric Burning Albuterol Sulfate (Ventolin Aerosols) 2.5 mg INHALATION Q6H PRN PRN PRN Reason: SOB &/OR WHEEZING Albuterol/Ipratropium (Duoneb) 2.5 ml INHALATION Q6HWA.RT [facility], [facility] Last Admin: 10/20/19 13:05 Dose: 2.5 ml Documented by: Amitriptyline HCl (Elavil) 10 mg PO QHS [facility] Last Admin: 10/19/19 21:05 Dose: 10 mg Documented by: Atorvastatin Calcium (Lipitor) 80 mg PO QHS [facility] Last Admin: 10/19/19 21:06 Dose: 80 mg Documented by: Budesonide (Pulmicort Aerosol) 0.5 mg INHALATION Q12H.RT [facility] Last Admin: 10/20/19 07:11 Dose: 0.5 mg Documented by: Cholecalciferol (Vitamin D) 2,000 unit PO DAILY [facility] Last Admin: 10/20/19 09:49 Dose: 2,000 unit Documented by: Diltiazem HCl (Cardizem Cd) 180 mg PO DAILY [facility] Last Admin: 10/20/19 09:49 Dose: 180 mg Documented by: Fluticasone Propionate (Flonase Nasal [place]) 1 spray NASAL DAILY PRN PRN PRN Reason: ALLERGIES Gabapentin (Neurontin) 300 mg PO BID [facility] Last Admin: 10/20/19 09:49 Dose: 300 mg Documented by: Guaifenesin (Robitussin) 20 ml PO Q4H PRN PRN PRN Reason: COUGH Last Admin: 10/18/19 17:46 Dose: 20 ml Documented by: Heparin Sodium (Porcine) (Heparin Na) 0 unit IV UD PRN; Protocol Sodium Chloride () 250 mls @ 15 mls/hr IV .[id number] PRN PRN Reason: Saline Flush Heparin Sodium/Dextrose () 25,000 units in 250 mls @ 8 mls/hr IV .[id number] [facility], [facility]; Protocol Last Admin: 10/20/19 10:46 Dose: 800 units/hr, 8 mls/hr Documented by: Loratadine (Claritin) 10 mg PO DAILY [facility] Last Admin: 10/20/19 09:49 Dose: 10 mg Documented by: Melatonin (Melatonin) 3 mg PO QHS PRN PRN PRN Reason: INSOMNIA Last Admin: 10/19/19 21:09 Dose: 3 mg Documented by: Mirtazapine (Remeron) 30 mg PO QHS [facility] Last Admin: 10/19/19 21:05 Dose: 30 mg Documented by: Nitroglycerin (Nitrostat) 0.4 mg SUBLINGUAL Q5M PRN PRN Reason: CARDIAC/CHEST PAIN Ondansetron HCl (Zofran) 4 mg IV Q8H PRN PRN PRN Reason: NAUSEA/VOMITING Last Admin: 10/19/19 10:00 Dose: 4 mg Documented by: Oxycodone HCl (Oxyir) 5 mg PO Q4H PRN PRN PRN Reason: Pain Score 4-6/10 Last Admin: 10/19/19 18:42 Dose: 5 mg Documented by: Oxycodone HCl (Oxyir) 10 mg PO Q4H PRN PRN PRN Reason: Pain Score 6-10/10 Last Admin: 10/20/19 07:53 Dose: 10 mg Documented by: Promethazine HCl (Phenergan) 25 mg IM Q6H PRN PRN PRN Reason: Breakthrough Nausea/Vomiting Last Admin: 10/19/19 10:54 Dose: 25 mg Documented by: Senna/Docusate Sodium (Senokot-S, Judy-Colace) 2 tablet PO BID PRN PRN PRN Reason: Constipation Sodium Chloride () 10 - 40 ml IV UD PRN PRN Reason: SALINE FLUSH Last Admin: 10/19/19 21:09 Dose: 10 ml Documented by: Tolterodine Tartrate (Detrol La) 2 mg PO DAILY [facility] Last Admin: 10/20/19 09:49 Dose: 2 mg Documented by: Assessment/Plan This patient was seen in conjunction with Kvng Olson PA-C . I have independently interviewed and examined the patient and reviewed pertinent h istorical, laboratory, and other data. Please refer to Kvng Olson PA-C note for details of this patient's presentation, findings, and recommendations. I have reviewed Kvng Olson PA-C note and concur with documented findings. In brief, patient is a 59-year-old lady with history of coronary artery disease with previous stent placement admitted with exertional chest pain. Patient had a similar presentation in July 2019 underwent a nuclear stress test which was negative for stress-induced ischemia however given the recurrent nature of his symptoms she was offered a left heart catheterization which she apparently refused. She is however agreeable to undergo the procedure at this time if so determined by cardiology 10/19/2019: Patient seen still complains of significant chest discomfort. Patient has been seen in consultation by cardiology plan is for patient to undergo left heart catheterization on 10/20/2019. Patient is on Coumadin with therapeutic INR was discussed with cardiology regarding possible bridging since patient has a mechanical valve ?10/20/2019 patient scheduled to undergo left heart catheterization as part of evaluation of her recurring chest pain. Patient was started on heparin drip to bridge given the fact that patient is on systemic anticoagulation for mechanical valve. Physical Examination: GENERAL: cooperative HEENT: Atraumatic; EYES; Anicteric, Normal Conjunctiva NECK; supple, normal thyroid, RESPIRATORY: Diminished to auscultation CARDIOVASCULAR: Regular S1 S2, GI: soft, normoactive bowel sounds, : No Renal angle tenderness; EXTREMITIES: No edema, no clubbing, MUSCULOSKELETAL: no muscle waisting NEURO: Awake; no lateralizing signs. SKIN: No Rash PSYCH; Flat affect Assessment: 1. Unstable angina 2. Coronary artery disease with previous stent placement 3. Mechanical aortic valve on systemic anticoagulation with Coumadin 4. Dyslipidemia 5. Essential hypertension 6. COPD 7. Tobacco dependence 8. DVT prophylaxis patient is already on systemic anticoagulation with Coumadin Recommendations: 1. I have discussed the results of my overview and impressions with the patient 2. Options for management were reviewed Code Visit OBSV E&M: 76802 Subsequent observation care L3
--- NOTE | 2019-10-20 16:59 | PCM.PN.CARD ---
Subjectve: Patient continues to have chest pain. INR is 1.8 today. Objective: Vital Signs Temp Pulse Resp BP Pulse Ox 98.8 F 77 18 112/72 93 10/20/19 15:16 10/20/19 15:16 10/20/19 15:16 10/20/19 15:16 10/20/19 15:16 Oxygen Flow Rate (L/min) 2 Oxygen Delivery Method Nasal Cannula Weight: 116 lb 13.52 oz Body Mass Index (BMI) 19.4 Intake and Output for Last 24 Hours 10/18/19 10/19/19 10/20/19 23:59 23:59 23:59 Intake Total 220 / 220 1597 / 1597 60 / 60 Output Total 150 / 150 Balance 220 / 220 1447 / 1447 60 / 60 General: Awake, Alert, Oriented x 3 HEENT: Atraumatic Oral: Moist Mucosa Neck: Supple Lungs: Clear to auscultation Cardiovascular: Regular Rhythm Abdomen: Soft Extremities: No edema Skin: No Rashes Psych/Mental Status: Appropriate 10/20/19 05:00: PT 21.2 H, INR 1.8 10/20/19 05:00: Sodium 140, Potassium 4.2, Chloride 105, Carbon Dioxide 29.0, Anion Gap 6, BUN 15, Creatinine 1.04 H, Est GFR (MDRD) Af Amer 70, Est GFR (MDRD) Non-Af 58 L, BUN/Creatinine Ratio 14.4, Glucose 99, Calcium 8.0 L 10/20/19 10:11: APTT 39.9 H Rhythm: EKG: ECHO: Stress Test: Cardiac Cath: PCI: CT Surgery: Holter monitor: EPS: PPM: CXR: Chest CT Scan: Medical Necessity - Tobacco Use Smoking Status: Current every day smoker Tobacco Use: Cigarettes Assessment/Plan 1. Chest pain: Patient has had recurrent admissions for chest pain. After last admission we had recommended coronary angiography. 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 She is agreeable to undergoing coronary angiography this admission. We will continue to hold the Coumadin and when the INR is less than 1.7 we will proceed with coronary angiography. Continue heparin. 2. Status post aortic valve replacement: Patient has a mechanical aortic valve. Echo reviewed. Appears to be functioning well.
[2019-10-20 17:45] LABS: Partial Thromboplast Time 236.1 Seconds (24.1-36.2)
[2019-10-20] MEDS: Mirtazapine 30 MG Tablet PO (20:58)
[2019-10-20] MEDS: Atorvastatin Calcium 80 MG Tablet PO (20:58)
[2019-10-20] MEDS: Amitriptyline 10 MG Tablet PO (20:58)
[2019-10-21] VITALS (13 sets, daily range): BP systolic 103–130; BP diastolic 68–80; PULSE 66–72; RESP 14–17; TEMP 36.4–36.8; O2SAT 91–98
[2019-10-21 01:28] LABS: Partial Thromboplast Time 41.8 Seconds (24.1-36.2)
[2019-10-21] MEDS: Heparin Injection (Vial) 5,000 UNIT/ML VIAL IV (01:47)
--- NOTE | 2019-10-21 05:30 | EKG12_ITS ---
Test Reason : AM Blood Pressure : / mmHG Vent. Rate : 067 BPM Atrial Rate : 067 BPM P-R Int : 140 ms QRS Dur : 094 ms QT Int : 414 ms P-R-T Axes : 067 019 077 degrees QTc Int : 437 ms Poor data quality, interpretation may be adversely affected Normal sinus rhythm Possible Left atrial enlargement Incomplete right bundle branch block Septal infarct , age undetermined Abnormal ECG Confirmed by VIVIAN KOCH, EVAN ([id number]), desk editor KAHLIL ALFRED ([id number]) on 10/25/2019 10:00:38 AM Referred By: Rj Ruffin Confirmed By:EVAN PARK MD
[2019-10-21] MEDS: dilTIAZem CD 180 MG Capsule PO (07:12)
[2019-10-21] MEDS: Budesonide Respules 0.5 MG/2 ML AMPUL.NEB. INHALATION (07:25)
[2019-10-21] MEDS: Ipratropium/Albuterol Sulfate 3 ML AMPUL.NEB 2.5 ML INHALATION (07:25)
[2019-10-21 08:43] LABS: International Normalized Ratio 1.2; Prothrombin Time (Protime)PT. 14.9 SECONDS (11.7-14.9)
--- NOTE | 2019-10-21 10:35 | PCM.PN.CARD ---
Subjectve: Patient underwent coronary angiography which revealed no significant CAD. No coronary stents were noted. There is a stent in the main pulmonary artery. Objective: Vital Signs Temp Pulse Resp BP Pulse Ox 97.6 F L 72 16 118/80 94 10/21/19 08:36 10/21/19 08:36 10/21/19 08:36 10/21/19 08:36 10/21/19 08:36 Oxygen Flow Rate (L/min) 2 Oxygen Delivery Method Room Air Weight: 116 lb 13.52 oz Body Mass Index (BMI) 19.4 Intake and Output for Last 24 Hours 10/19/19 10/20/19 10/21/19 23:59 23:59 23:59 Intake Total 1597 / 1597 336.53 / 336.53 29.83 / 29.83 Output Total 150 / 150 Balance 1447 / 1447 336.53 / 336.53 29.83 / 29.83 General: Awake, Alert, Oriented x 3 HEENT: Atraumatic Oral: Moist Mucosa Neck: Supple Lungs: Clear to auscultation Cardiovascular: Regular Rhythm Abdomen: Soft Extremities: No edema Skin: No Rashes Psych/Mental Status: Appropriate 10/20/19 10:11: APTT 39.9 H 10/20/19 16:55: APTT 236.1 H* 10/21/19 00:45: APTT 41.8 H 10/21/19 08:19: PT 14.9, INR 1.2, APTT 79.0 H Rhythm: EKG: ECHO: Stress Test: Cardiac Cath: PCI: CT Surgery: Holter monitor: EPS: PPM: CXR: Chest CT Scan: Medical Necessity - Tobacco Use Smoking Status: Current every day smoker Tobacco Use: Cigarettes Assessment/Plan 1. Chest pain: Chest pain does not appear to be related to her coronary arteries. There was no significant CAD on angiography with only mild luminal irregularities. No coronary artery stents were seen. She does have a stent in the main pulmonary artery. Patient can follow-up with her primary machine iii coremaker in [place]. 2. Status post aortic valve replacement: Patient has a mechanical aortic valve. Echo reviewed. Appears to be functioning well. Explained to the patient that ideally she should be in hospital with IV heparin until her INR is over 2. Low molecular weight heparin injections as an outpatient was also discussed with the patient. I did explain to the patient that IV heparin is preferable. Patient has had Lovenox to bridge in the past and has done well with that. Patient prefers to go that route which I think is reasonable. From a cardiac standpoint patient could be discharged home on therapeutic dose of Lovenox and Coumadin. She should continue her Lovenox till her INR is therapeutic.
[2019-10-21] MEDS: oxyCODONE 5 MG Tablet 10 MG PO (10:45)
[2019-10-21] MEDS: Gabapentin 300 MG Capsule PO (10:46)
[2019-10-21] MEDS: Loratadine 10 MG Tablet PO (10:46)
[2019-10-21] MEDS: Tolterodine Tartrate 2 MG CAP.SA PO (10:46)
[2019-10-21] MEDS: 0.9% Normal Saline 1,000 ML 100 ML IV (10:50)
--- NOTE | 2019-10-21 10:52 | CL.D_ITS ---
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 No coronary stents seen. Stent seen in the main pulmonary artery. RECOMMENDATIONS DESCRIPTION OF PROCEDURE The patient arrived to the procedure lab. The risks and benefits of the procedure as well as a full d escription of our services here and current unavailability of surgical backup were fully explained to the patient and/or their significant other prior to the catheterization. The Timeout was completed, verifying the correct patient and procedure. The patient's procedural site was prepped and draped in the usual fashion. Local anesthetic was given subcutaneously to right radial region with Lidocaine 2% . Using a modified Seldinger technique, arterial access was obtained via the right radial artery, a 6 Fr sheath was inserted. Left Coronary Artery selective angiography was performed in multiple views u sing a 5 Fr. JL3.5 catheter. Right Coronary Artery selective angiography was then performed in multip le views using a 5 Fr. JR 4 catheter.The arterial sheath was pulled and a TR Band was applied for hem ostasis air inserted 12cc CORONARY ANGIOGRAPHY DOMINANCE: Left Dominant No coronary stents seen. Stent noted in the main pulmonary artery. LEFT MAIN: Mild luminal irregularities LEFT ANTERIOR DESCENDING ARTERY: Mild luminal irregularities CIRCUMFLEX ARTERY: Mild luminal irregularities RIGHT CORONARY ARTERY: Mild luminal irregularities COMPLICATIONS No Complications PROCEDURE MEDICATIONS Oxygen: 2 L/min via nasal cannula Heparin given IA 10/21/2019 09:57:35 Verapamil 2.5mg, Ntg 100mcgs, 3000 units of Heparin given IA 10/21/2019 09:57:35 SUMMARY OF HEMODYNAMIC DATA Time AIR REST ECG 09:32:37 AO 99/65 (80) SA 09:59:28 Signed By Ariana Bowling MD On 10/21/2019 10:52:02 Ariana Bowling MD
[2019-10-21 11:13] LABS: Absolute Lymphocyte Count 1.19 X10^3/uL (0.83-4.51); Absolute Neutrophil Count 5.8 X10^3/uL (2.0-7.7); Basophil# 0.04 X10^3/uL; Basophil% 0.5 % (0-1); Eosinophil# 0.15 X10^3/uL; Eosinophils% 1.9 % (0-5); Hemoglobin 13.9 g/dL (12.0-15.0); Lymphocyte # 1.19 X10^3/ul (4.0); Mean Corp Hgb Conc 32.3 g/dL (32-36); Mean Corpuscular Hgb 28.6 pg (27.0-32.0); Mean Corpuscular Volume 88.5 fL (81-99); Monocyte# 0.77 X10^3/uL; Monocyte% 9.7 % (0-10); NRBC Flagged by Analyzer 0 % (0-5); Neutrophil # 5.75 X10^3/uL (2.7-7.7); Neutrophil % 72.5 % (47-70); Platelet Count 182 K/mm3 (150-450); RBC Distribution Width CV 15.2 % (11.6-14.6); RBC Distribution Width SD 49.4 fl (35.1-43.9); Red Blood Count 4.86 M/mm3 (4.2-5.4); White Blood Count 7.9 K/mm3 (4.4-11.0)
--- NOTE | 2019-10-21 11:55 | DCINST_ITS ---
- Discharge Diagnoses Current Active Problems: Current Active and Chronic Problems Nicotine abuse (Chronic) Chest pain (Acute) Reason(s) for Visit for Discharge Instructions: Chest pain You will use the following diet at home:: Cardiac Your food should be the consistency of: Regular Your liquids should be the consistency of: Regular/Thin Additional Instructions: Continue on Lovenox and warfarin. Check your INR with your doctor within 3 days. 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 Allergies/Adverse Reactions: Allergies naproxen Allergy (Verified 10/18/19 12:02) Swelling Penicillins Allergy (Verified 10/18/19 12:02) Unknown aspirin Adverse Reaction (Verified 10/18/19 12:02) Other on warfarin ibuprofen [From Motrin] Adverse Reaction (Verified 10/18/19 12:02) Other on warfarin Medications to take at Discharge Acetaminophen [Acetaminophen Extra Strength] 500 mg PO Q6H PRN 02/27/19 Albuterol Aerosols [Ventolin Aerosols] 2.5 mg INHALATION Q6H PRN PRN 02/27/19 Albuterol IH (ProAir) [Proair Hfa] 2 puff INHALATION Q6H PRN PRN 02/27/19 Alendronate Sodium [Fosamax] 70 mg PO BARRETO 02/27/19 Atorvastatin Calcium [Lipitor] 80 mg PO QHS 02/27/19 Cholecalciferol (Vitamin D3) [Vitamin D3] 2,000 unit PO DAILY 02/27/19 Fluticasone 0.05% [Flonase Nasal [place]] 1 spray NASAL PRN PRN 02/27/19 Fluticasone/Salmeterol [Advair 250-50 Diskus] 1 each IH BID 02/27/19 Gabapentin [Neurontin] 300 mg PO BID 02/27/19 Melatonin 10 mg PO QHS 02/27/19 Mirtazapine [Remeron] 30 mg PO QHS 02/27/19 Nitroglycerin [Nitrostat] 0.3 mg SL Q5M PRN 02/27/19 Oxybutynin [Ditropan] 10 mg PO DAILY 02/27/19 Tiotropium [place] [Spiriva] 18 mcg IH DAILY 02/27/19 Warfarin [Coumadin] 5 mg PO DAILY 02/27/19 Loratadine 10 mg PO DAILY 08/06/19 Amitriptyline HCl 25 mg PO QHS 10/18/19 Enoxaparin Sodium [Lovenox] 50 mg SQ BID 7 Days #14 ml 10/21/19 The following prescriptions were given: Enoxaparin Sodium [Lovenox] 50 mg SQ BID 7 Days #14 ml Transmission Status: Pending to [facility] Primary Care Physician: YOBANI BROWN [Other] Please follow up with your Primary Care Physician in: within 1-2 weeks Test Results: Test results from this visit will be discussed in further detail at your follow- up appointment, if applicable. Proposed Discharge Date: 10/21/19
--- NOTE | 2019-10-21 11:58 | PCM.DC.SUM ---
Discharge Date and Diagnosis Date of Admission: 10/18/19 Date of Discharge: 10/21/19 - Primary Discharge Diagnosis Active and Suspected Problems Recurrent chest pain - Secondary Discharge Diagnosis Chronic Problems History of myocardial infarction (Chronic) History of hypertension (Chronic) History of hypercholesterolemia (Chronic) History of tobacco use (Chronic) Myocardial infarct (Chronic) CAD (coronary artery disease), [place] coronary artery (Chronic) COPD (chronic obstructive pulmonary disease) (Chronic) Hyperlipidemia (Chronic) HTN (hypertension) (Chronic) Nicotine abuse (Chronic) Hospital Course and Treatment Imaging Results: Clinical Impression(s) from Imaging Studies Chest X-Ray 10/18/19 12:20 IMPRESSION: Stable examination. No acute abnormality is seen. Electronically Signed: Az Miner, at 12:42 EST , Service support , Cardiology Operations: None Procedures: 2-D Echocardiogram, Cardiac catheterization Summary of Care Provided: The patient is a 59 year old F past medical history of CAD status post stent who comes in with complaints of chest pain. Patient had a previous stress test that was negative. She however complains of recurrent chest pain and was admitted to the telemetry unit. Patient underwent cardiac cath on 10/20/19 with negative findings. She remained asymptomatic and was discharged on Lovenox bridge with her Coumadin until her INR is therapeutic in the light of her mechanical aortic valve. She was strongly advised to quit smoking. Subjective: On the day of discharge, patient was seen and examined. Denied any new complaints. Denies any dizziness or chest pain or shortness of breath. Objective: Physical exam: General: Alert, Oriented x3, Cooperative, appears cachetic HEENT: Atraumatic, PERRLA, EOMI, Normocephalic Neck: Supple, No JVD, Negative Carotid Bruits Lungs: Clear to auscultation, Normal air movement Cardiovascular: Regular rate, Murmur - 3/6 systolic LSB 2nd ICS Abdomen: Bowel Sounds Present, Soft, Non Tender Extremities: No edema, Capillary Refill Less than 3 Seconds Skin: No rashes, No breakdown Musculoskeletal: No Tenderness to Palpation of Joints or Extremities Neurological: Cranial nerves II-XII grossly intact Psych/Mental Status: Normal Affect, Appropriate, Alert and oriented to time, place, person, mood and affect - Physical Exam Vitals/I&O's: Vital Signs Temp Pulse Resp BP Pulse Ox 97.5 F L 67 17 111/68 91 10/21/19 11:45 10/21/19 11:45 10/21/19 11:45 10/21/19 11:45 10/21/19 11:45 Oxygen Flow Rate (L/min) 2 Oxygen Delivery Method Room Air Weight: 53 kg Body Mass Index (BMI) 19.4 Intake and Output for Last 24 Hours 10/19/19 10/20/19 10/21/19 23:59 23:59 23:59 Intake Total 1597 / 1597 336.53 / 336.53 29.83 / 29.83 Output Total 150 / 150 Balance 1447 / 1447 336.53 / 336.53 29.83 / 29.83 Laboratory Results 10/20/19 16:55: APTT 236.1 H* 10/21/19 00:45: APTT 41.8 H 10/21/19 08:19: PT 14.9, INR 1.2, APTT 79.0 H 10/21/19 11:00: WBC 7.9, RBC 4.86, Hgb 13.9, Hct 43.0, MCV 88.5, MCH 28.6, MCHC 32.3, RDW Std Deviation 49.4 H, RDW Coeff of [place] 15.2 H, Plt Count 182, MPV 11.0, Immature Gran % (Auto) 0.400, Neut % (Auto) 72.5 H, Lymph % (Auto) 15.0 L, [place] % (Auto) 9.7, Eos % (Auto) 1.9, Baso % (Auto) 0.5, Absolute Neuts (auto) 5.8, Absolute Lymphs (auto) 1.19, Nucleated RBC % 0 Current Medications Acetaminophen (Tylenol) 650 mg PO Q6H PRN PRN PRN Reason: Pain Score 1-3/Temp > 100.7 F Last Admin: 10/19/19 16:20 Dose: 650 mg Documented by: Al Hydroxide/Mg Hydroxide (Mylanta Ii) 30 ml PO Q6H PRN PRN PRN Reason: Gastric Burning Albuterol Sulfate (Ventolin Aerosols) 2.5 mg INHALATION Q6H PRN PRN PRN Reason: SOB &/OR WHEEZING Albuterol/Ipratropium (Duoneb) 2.5 ml INHALATION Q6HWA.RT [facility] Last Admin: 10/21/19 07:25 Dose: 2.5 ml Documented by: Amitriptyline HCl (Elavil) 10 mg PO QHS [facility] Last Admin: 10/20/19 20:58 Dose: 10 mg Documented by: Atorvastatin Calcium (Lipitor) 80 mg PO QHS [facility] Last Admin: 10/20/19 20:58 Dose: 80 mg Documented by: Budesonide (Pulmicort Aerosol) 0.5 mg INHALATION Q12H.RT [facility] Last Admin: 10/21/19 07:25 Dose: 0.5 mg Documented by: Cholecalciferol (Vitamin D) 2,000 unit PO DAILY [facility] Last Admin: 10/21/19 10:47 Dose: 2,000 unit Documented by: Diltiazem HCl (Cardizem Cd) 180 mg PO DAILY [facility] Last Admin: 10/21/19 07:12 Dose: 180 mg Documented by: Fluticasone Propionate (Flonase Nasal [place]) 1 spray NASAL DAILY PRN PRN PRN Reason: ALLERGIES Gabapentin (Neurontin) 300 mg PO BID [facility] Last Admin: 10/21/19 10:46 Dose: 300 mg Documented by: Guaifenesin (Robitussin) 20 ml PO Q4H PRN PRN PRN Reason: COUGH Last Admin: 10/18/19 17:46 Dose: 20 ml Documented by: Heparin Sodium (Porcine) (Heparin Na) 0 unit IV UD PRN; Protocol Last Admin: 10/21/19 01:47 Dose: 1,000 unit Documented by: Sodium Chloride () 250 mls @ 15 mls/hr IV .[id number] PRN PRN Reason: Saline Flush Heparin Sodium/Dextrose () 25,000 units in 250 mls @ 8 mls/hr IV .[id number] [facility]; Protocol Last Titration: 10/21/19 01:48 Dose: 600 units/hr, 6 mls/hr Documented by: Sodium Chloride () 1,000 mls @ 0 mls/hr IV .Q0M JAYE Sodium Chloride () 1,000 mls @ 100 mls/hr IV .Q10H [facility] Last Admin: 10/21/19 10:50 Dose: 100 mls/hr Documented by: Loratadine (Claritin) 10 mg PO DAILY [facility] Last Admin: 10/21/19 10:46 Dose: 10 mg Documented by: Melatonin (Melatonin) 3 mg PO QHS PRN PRN PRN Reason: INSOMNIA Last Admin: 10/19/19 21:09 Dose: 3 mg Documented by: Mirtazapine (Remeron) 30 mg PO QHS [facility] Last Admin: 10/20/19 20:58 Dose: 30 mg Documented by: Nitroglycerin (Nitrostat) 0.4 mg SUBLINGUAL Q5M PRN PRN Reason: CARDIAC/CHEST PAIN Ondansetron HCl (Zofran) 4 mg IV Q8H PRN PRN PRN Reason: NAUSEA/VOMITING Last Admin: 10/19/19 10:00 Dose: 4 mg Documented by: Oxycodone HCl (Oxyir) 5 mg PO Q4H PRN PRN PRN Reason: Pain Score 4-6/10 Last Admin: 10/19/19 18:42 Dose: 5 mg Documented by: Oxycodone HCl (Oxyir) 10 mg PO Q4H PRN PRN PRN Reason: Pain Score 6-10/10 Last Admin: 10/21/19 10:45 Dose: 10 mg Documented by: Promethazine HCl (Phenergan) 25 mg IM Q6H PRN PRN PRN Reason: Breakthrough Nausea/Vomiting Last Admin: 10/19/19 10:54 Dose: 25 mg Documented by: Senna/Docusate Sodium (Senokot-S, Judy-Colace) 2 tablet PO BID PRN PRN PRN Reason: Constipation Sodium Chloride () 10 - 40 ml IV UD PRN PRN Reason: SALINE FLUSH Last Admin: 10/19/19 21:09 Dose: 10 ml Documented by: Tolterodine Tartrate (Detrol La) 2 mg PO DAILY [facility] Last Admin: 10/21/19 10:46 Dose: 2 mg Documented by: Discharge Diet: Low fat/ Low Cholesterol, 2000 mg Sodium Diet Discharge Activity: Return to Normal Activity Home Medications: Medications to take at Discharge Acetaminophen [Acetaminophen Extra Strength] 500 mg PO Q6H PRN 02/27/19 Albuterol Aerosols [Ventolin Aerosols] 2.5 mg INHALATION Q6H PRN PRN 02/27/19 Albuterol IH (ProAir) [Proair Hfa] 2 puff INHALATION Q6H PRN PRN 02/27/19 Alendronate Sodium [Fosamax] 70 mg PO BARRETO 02/27/19 Atorvastatin Calcium [Lipitor] 80 mg PO QHS 02/27/19 Cholecalciferol (Vitamin D3) [Vitamin D3] 2,000 unit PO DAILY 02/27/19 Fluticasone 0.05% [Flonase Nasal [place]] 1 spray NASAL PRN PRN 02/27/19 Fluticasone/Salmeterol [Advair 250-50 Diskus] 1 each IH BID 02/27/19 Gabapentin [Neurontin] 300 mg PO BID 02/27/19 Melatonin 10 mg PO QHS 02/27/19 Mirtazapine [Remeron] 30 mg PO QHS 02/27/19 Nitroglycerin [Nitrostat] 0.3 mg SL Q5M PRN 02/27/19 Oxybutynin [Ditropan] 10 mg PO DAILY 02/27/19 Tiotropium [place] [Spiriva] 18 mcg IH DAILY 02/27/19 Warfarin [Coumadin] 5 mg PO DAILY 02/27/19 Loratadine 10 mg PO DAILY 08/06/19 Amitriptyline HCl 25 mg PO QHS 10/18/19 Enoxaparin Sodium [Lovenox] 50 mg SQ BID 7 Days #14 ml 10/21/19 Following Prescrptions Were Given to Patient: Enoxaparin Sodium [Lovenox] 50 mg SQ BID 7 Days #14 ml Transmission Status: Received by [facility] Primary Care Physician: YOBANI BROWN [Other] Please follow up with your Primary Care Physician in: within 1-2 weeks Disposition: Home Minutes spent on discharge:: 40 Patient Condition:: Stable Medical Necessity - Tobacco Use Smoking Status: Current every day smoker Tobacco Use: Cigarettes Meaningful Use Info Meaningful Use Diagnoses (Choose all that apply): None applicable Code Visit OBSV E&M: 02964 Observation care discharge
--- NOTE | 2019-10-21 12:04 | PHA.DC.MC ---
Pharmacy Service has performed discharge medication reconciliation and counseling for this patient. The patient's discharge medication list was reviewed for discrepancies and discrepancies were resolved. The patient was counseled on the following discharge medications and changes in medications for homegoing were reviewed. 1. ENOXAPARIN The Reason for Use, instructions for use, and potential side effects were reviewed for all new medications. The patient's questions regarding all of their medications were answered. The patient was able to verbally demonstrate an understanding of their discharge medications. The patient demonstrated some understanding but would benefit from further education and reinforcement. The patient was not able to adequately demonstrate understanding. Home Medications Acetaminophen [Acetaminophen Extra Strength] 500 mg PO Q6H PRN 02/27/19 Albuterol Aerosols [Ventolin Aerosols] 2.5 mg INHALATION Q6H PRN PRN 02/27/19 Albuterol IH (ProAir) [Proair Hfa] 2 puff INHALATION Q6H PRN PRN 02/27/19 Alendronate Sodium [Fosamax] 70 mg PO BARRETO 02/27/19 Atorvastatin Calcium [Lipitor] 80 mg PO QHS 02/27/19 Cholecalciferol (Vitamin D3) [Vitamin D3] 2,000 unit PO DAILY 02/27/19 Fluticasone 0.05% [Flonase Nasal [place]] 1 spray NASAL PRN PRN 02/27/19 Fluticasone/Salmeterol [Advair 250-50 Diskus] 1 each IH BID 02/27/19 Gabapentin [Neurontin] 300 mg PO BID 02/27/19 Melatonin 10 mg PO QHS 02/27/19 Mirtazapine [Remeron] 30 mg PO QHS 02/27/19 Nitroglycerin [Nitrostat] 0.3 mg SL Q5M PRN 02/27/19 Oxybutynin [Ditropan] 10 mg PO DAILY 02/27/19 Tiotropium [place] [Spiriva] 18 mcg IH DAILY 02/27/19 Warfarin [Coumadin] 5 mg PO DAILY 02/27/19 Loratadine 10 mg PO DAILY 08/06/19 Amitriptyline HCl 25 mg PO QHS 10/18/19 Enoxaparin Sodium [Lovenox] 50 mg SQ BID 7 Days #14 ml 10/21/19
--- NOTE | 2019-10-21 13:00 | CASEMGMT ---
Pt to be sent home on Lovenox at discharge and med e-scribed to [facility] previously. Call to [facility] and per tech, pt's co-pay is $1.25 at this time. La HENDERSON CM
== END 2019-10-21 11:32 | disposition home or self-care (01) ==
LOC: ED 15:37 → PCU 16:19
PROVIDERS: Internal Medicine Cardiovascular Disease; Physician Assistant; Admitting Provider Internal Medicine; Emergency Provider Emergency Medicine; Referring Provider Internal Medicine; Visit Provider Internal Medicine
DX: R07.89 Other chest pain (principal); I25.110 Atherosclerotic heart disease of native coronary artery with unstable angina pectoris; I10 Essential (primary) hypertension; I25.2 Old myocardial infarction; F17.210 Nicotine dependence, cigarettes, uncomplicated; J44.9 Chronic obstructive pulmonary disease, unspecified; E78.5 Hyperlipidemia, unspecified; Z95.2 Presence of prosthetic heart valve; Z95.5 Presence of coronary angioplasty implant and graft; Z79.899 Other long term (current) drug therapy; Z79.01 Long term (current) use of anticoagulants
CPT/HCPCS: 36415; 71045; 80048; 84484; 85025; 85610; 85730; 93005; 93306; 93454; 94640; 96361; 96365; 96366; 96375; 96376; 99218; 99251; 99285; J7030; J7040; Q9957; Q9967; A4216; C1769; C1894; G0378; G0463; J2405

== ENCOUNTER 2019-11-03 18:08 | Emergency (ER) | payer MEDICARE, SELFPAY ==
[2019-11-03] VITALS (7 sets, daily range): BP systolic 102–186; BP diastolic 82–94; PULSE 63–77; RESP 15–19; TEMP 36.5; O2SAT 94–98
--- NOTE | 2019-11-03 18:29 | EKG12_ITS ---
Test Reason : CP Blood Pressure : / mmHG Vent. Rate : 070 BPM Atrial Rate : 070 BPM P-R Int : 142 ms QRS Dur : 090 ms QT Int : 420 ms P-R-T Axes : 031 012 064 degrees QTc Int : 453 ms Normal sinus rhythm with sinus arrhythmia Septal infarct , age undetermined Abnormal ECG Confirmed by MARY KOCH, JOSE ([id number]), editor publications SINDY AVILES ([id number]) on 11/07/2019 9:54:40 AM Referred By: MICHELLE PARSON Confirmed By:DEV HERNANDEZ MD
[2019-11-03] MEDS: Aspirin 81 MG TAB.CHEW 324 MG PO (18:39)
[2019-11-03] MEDS: Nitroglycerin SL (ED/IMG/CATH) 0.4 MG TABLET SUBLINGUAL ×3 (18:46→19:07)
--- NOTE | 2019-11-03 18:49 | RAD_ITS ---
STUDY: X-RAY CHEST REASON FOR EXAM: Female, 59 years old. Chest pain. TECHNIQUE: Single AP portable view of the chest. COMPARISON: None. FINDINGS: The lungs are clear and expanded. There is no demonstrated pleural abnormality. Sternal cerclage wires are present from a prior sternotomy. There is valve replacement and pulmonary artery stent. Normal mediastinum and jeb. Normal visualized pulmonary arteries. Normal visualized aortic arch and descending thoracic aorta. There is a levoscoliosis of the thoracic spine. Normal visualized ribs, clavicles, and shoulders. There is no demonstrated abnormality of the visualized soft tissue structures of the upper abdomen. RAD/Chest 1 View (Portable) IMPRESSION: No acute cardiopulmonary disease. Electronically Signed: Wilder Almodovar MD at 19:26 EST , Service support ,
[2019-11-03 18:55] LABS: Absolute Lymphocyte Count 1.44 X10^3/uL (0.83-4.51); Basophil# 0.04 X10^3/uL; Basophil% 0.6 % (0-1); Eosinophils% 3.1 % (0-5); Hemoglobin 13.6 g/dL (12.0-15.0); Lymphocyte # 1.44 X10^3/ul (4.0); Lymphocyte % 22.4 % (19-41); Mean Corp Hgb Conc 33.2 g/dL (32-36); Mean Corpuscular Hgb 29.1 pg (27.0-32.0); Mean Corpuscular Volume 87.6 fL (81-99); Mean Platelet Vol. 11.2 fl (6.2-12.0); Monocyte# 0.75 X10^3/uL; Monocyte% 11.7 % (0-10); NRBC Flagged by Analyzer 0 % (0-5); Neutrophil # 3.98 X10^3/uL (2.7-7.7); Neutrophil % 61.9 % (47-70); Platelet Count 264 K/mm3 (150-450); RBC Distribution Width CV 15.9 % (11.6-14.6); RBC Distribution Width SD 51.3 fl (35.1-43.9); Red Blood Count 4.68 M/mm3 (4.2-5.4); White Blood Count 6.4 K/mm3 (4.4-11.0)
[2019-11-03 19:03] LABS: International Normalized Ratio 1.7; Prothrombin Time (Protime)PT. 19.4 SECONDS (11.7-14.9)
[2019-11-03 19:10] LABS: Anion Gap 5 (5-15); BUN 22 mg/dL (7-18); BUN/Creat Ratio 17.6 RATIO (10-20); Calcium,Total 8.7 mg/dL (8.5-10.1); Chloride 108 mmol/L (98-107); Creatinine, Serum 1.25 mg/dL (0.55-1.02); EST Glomerular Filtration Rate 47 mL/min (>60); Est Glom Filt Rate - Afr Amer 57 mL/min (>60); Estimated Creatinine Clearance 42.28 ml/min; Glucose 98 mg/dL (74-106); Potassium 4.2 mmol/L (3.5-5.1); Sodium Level 139 mmol/L (136-145)
[2019-11-03] MEDS: Acetaminophen 325 MG Tablet 650 MG PO (19:33)
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
--- NOTE | 2019-11-03 21:30 | EKG12_ITS ---
Test Reason : REPEAT Blood Pressure : / mmHG Vent. Rate : 069 BPM Atrial Rate : 069 BPM P-R Int : 140 ms QRS Dur : 094 ms QT Int : 444 ms P-R-T Axes : 028 016 072 degrees QTc Int : 475 ms Normal sinus rhythm Normal ECG Confirmed by MARY KOCH, JOSE ([id number]), research editor SINDY AVILES ([id number]) on 11/07/2019 9:54:18 AM Referred By: REJI Confirmed By:DEV HERNANDEZ MD
== END 2019-11-03 22:57 | disposition home or self-care (01) ==
PROVIDERS: Emergency Provider Emergency Medicine
DX: R07.89 Other chest pain (principal); I10 Essential (primary) hypertension; E78.00 Pure hypercholesterolemia, unspecified; I25.10 Atherosclerotic heart disease of native coronary artery without angina pectoris; J44.9 Chronic obstructive pulmonary disease, unspecified; I25.2 Old myocardial infarction; F17.200 Nicotine dependence, unspecified, uncomplicated; Z79.01 Long term (current) use of anticoagulants; Z79.51 Long term (current) use of inhaled steroids; Z79.899 Other long term (current) drug therapy
CPT/HCPCS: 71045; 80048; 84484; 85025; 85610; 93005; 99285; A4216

== ENCOUNTER 2019-12-14 18:23 | Emergency (ER) | payer MEDICARE, SELFPAY ==
[2019-12-14 18:24] VITALS: BP 166/107; PULSE 101; RESP 16; TEMP 36.2; O2SAT 98; BMI 20.1
--- NOTE | 2019-12-14 18:53 | EKG12_ITS ---
Test Reason : CP Blood Pressure : / mmHG Vent. Rate : 102 BPM Atrial Rate : 102 BPM P-R Int : 128 ms QRS Dur : 080 ms QT Int : 344 ms P-R-T Axes : 046 031 052 degrees QTc Int : 448 ms Sinus tachycardia Nonspecific ST abnormality Abnormal ECG Confirmed by MARY KOCH, JOSE ([id number]), order editor KAHLIL ALFRED ([id number]) on 12/17/2019 9:58:51 AM Referred By: AC Confirmed By:DEV HERNANDEZ MD
[2019-12-14] MEDS: Ipratropium/Albuterol Sulfate 3 ML AMPUL.NEB INHALATION (19:05)
[2019-12-14 19:06] VITALS: PULSE 87; RESP 18
--- NOTE | 2019-12-14 19:12 | RAD_ITS ---
STUDY: X-RAY CHEST REASON FOR EXAM: Female, 59 years old. chest pain TECHNIQUE: Frontal and lateral views of the chest were performed COMPARISON: For November 19, 2019 FINDINGS: Sternotomy wires are present. There is a metallic ring but probably in the aortic valve position. There is a metallic stent framework presumably in the pulmonary artery. The lungs are clear and expanded. There is no demonstrated pleural abnormality. Normal size heart. Normal mediastinum and jeb. Normal visualized pulmonary arteries. Normal visualized aortic arch and descending thoracic aorta. Normal visualized thoracic spine. Normal visualized ribs, clavicles, and shoulders. There is mild scoliosis. There is no demonstrated abnormality of the visualized soft tissue structures of the upper abdomen. Appearance is similar to priors. RAD/Chest PA and Lateral IMPRESSION: No acute findings or change since prior. Electronically Signed: Kenton Mcgowan, at 19:33 EST Tel , Service support ,
[2019-12-14 19:15] LABS: Absolute Neutrophil Count 10.4 X10^3/uL (2.0-7.7); Basophil# 0.01 X10^3/uL; Basophil% 0.1 % (0-1); Eosinophil# 0.21 X10^3/uL; Eosinophils% 1.6 % (0-5); Hematocrit 34.8 % (37-47); Hemoglobin 11.3 g/dL (12.0-15.0); Lymphocyte % 8.9 % (19-41); Mean Corp Hgb Conc 32.5 g/dL (32-36); Mean Corpuscular Hgb 28.8 pg (27.0-32.0); Mean Corpuscular Volume 88.5 fL (81-99); Mean Platelet Vol. 10.1 fl (6.2-12.0); Monocyte# 1.53 X10^3/uL; Monocyte% 11.4 % (0-10); NRBC Flagged by Analyzer 0 % (0-5); Neutrophil # 10.39 X10^3/uL (2.7-7.7); Neutrophil % 77.4 % (47-70); POSITIVE DIFFERENTIAL YES; Platelet Count 300 K/mm3 (150-450); RBC Distribution Width CV 16.4 % (11.6-14.6); RBC Distribution Width SD 53.7 fl (35.1-43.9); Red Blood Count 3.93 M/mm3 (4.2-5.4); White Blood Count 13.4 K/mm3 (4.4-11.0)
[2019-12-14 19:17] LABS: Differential Indicated SCAN CRITERIA MET
[2019-12-14] MEDS: Morphine 4 MG/ML Syringe IV (19:28)
[2019-12-14 19:31] LABS: Anion Gap 3 (5-15); BUN 12 mg/dL (7-18); BUN/Creat Ratio 15.9 RATIO (10-20); Calcium,Total 8.9 mg/dL (8.5-10.1); Chloride 112 mmol/L (98-107); Creatinine, Serum 0.75 mg/dL (0.55-1.02); EST Glomerular Filtration Rate 84 mL/min (>60); Est Glom Filt Rate - Afr Amer 102 mL/min (>60); Estimated Creatinine Clearance 70.84 ml/min; Glucose 111 mg/dL (74-106); Potassium 3.7 mmol/L (3.5-5.1); Sodium Level 140 mmol/L (136-145)
[2019-12-14 19:39] LABS: Differential Comment SCANNED
[2019-12-14] MEDS: Ondansetron 4 MG/2 ML Vial IV (19:46)
[2019-12-14 20:22] VITALS: BP 165/104; PULSE 91; RESP 26
--- NOTE | 2019-12-14 20:38 | ED.DCSUM_ITS ---
- ER Visit Summary Date of Service: 12/14/19 Chief Complaint: Chest pain History of Present Illness: The patient is a 59 F who presents with chest pain that began today. Patient states the pain is over the left side of her chest. Patient describes it as sharp. Patient states nothing seems to help it. Edgar low admits to a cough. Patient denies any nausea or vomiting. Patient denies any diaphoresis. Patient states the pain is worse with movement. Patient denies any shortness of breath. Patient does admit to occasional palpitations. Patient denies any fevers or chills. Patient states the pain is been constant for the past 3 hours. Physical Examination: Vital signs are stable. Patient is afebrile. Patient is in no acute distress. Oral mucosa is pink and moist. Neck is supple. Trachea is midline. There is no JVD. Heart was regular rate and rhythm. Lungs are daren ar and equal bilaterally. Abdomen is soft. Bowel sounds are normal. There is no tenderness. Cranial nerves II through XII are intact. There are no focal motor or sensory deficits noted. Extremities are intact. There is no calf tenderness or edema. Test Results: EKG showed sinus rhythm with a rate of 102. There are nonspecific ST-T wave changes which are unchanged compared to previous EKG dated 11/03/2019. CBC shows a mild leukocytosis of 13.4. Hemoglobin was 11.3 and hematocrit 34.8. Basic metabolic profile was normal. Troponin was normal. PA and lateral chest x-ray was obtained. There is no acute cardiopulmonary process. Emergency Department Course and Treatment: Patient has a history of allergy to aspirin. Patient was given a dose of morphine here. Patient felt better on reevaluation. Patient felt better and wants to go home. Patient was instructed to follow-up with her primary care physician in 5 to 7 days. Patient understood and was agreeable with the plan. All questions were answered. Disposition: Discharge home Impression: Chest pain This note was generated with [employer] dictation software. It may contain incorrect words, spelling, and punctuation that were not noted in review of the chart prior to signing ED Disposition - Plan for ED Patient: Disposition: Home or Assisted Living Diagnosis: Chest pain Instructions: CHEST PAIN, Uncertain Cause Referrals: YOBANI BROWN [Other] - 5-7 Days
[2019-12-14 20:50] VITALS: BP 165/100; PULSE 85; O2SAT 96
[2019-12-15 10:34] LABS: Pathologist Review Reviewed
== END 2019-12-14 21:02 | disposition home or self-care (01) ==
PROVIDERS: Emergency Provider Emergency Medicine
DX: R07.9 Chest pain, unspecified (principal); J44.9 Chronic obstructive pulmonary disease, unspecified; I10 Essential (primary) hypertension; E78.00 Pure hypercholesterolemia, unspecified; Q25.6 Stenosis of pulmonary artery; Z72.0 Tobacco use; Z79.51 Long term (current) use of inhaled steroids; Z79.01 Long term (current) use of anticoagulants; Z79.899 Other long term (current) drug therapy
CPT/HCPCS: 36415; 71046; 80048; 84484; 85025; 93005; 94640; 96374; 96375; 99284; A4216; J2405

== ENCOUNTER 2019-12-15 16:07 | Emergency (ER) | payer MEDICARE, MEDICAID, SELFPAY ==
[2019-12-14 18:24] VITALS: BMI 20.1
[2019-12-15 16:08] VITALS: BP 116/83; PULSE 114; RESP 16; TEMP 37.6; O2SAT 97; BMI 20.1
--- NOTE | 2019-12-15 16:23 | RAD_ITS ---
STUDY: X-RAY - LEFT HAND REASON FOR EXAM: Female, 59 year old. Patient states no injury, pain, swelling or bruising. TECHNIQUE: 3 view(s) of the hand. COMPARISON: None. FINDINGS: Normal radiocarpal articulation. Normal distal radioulnar joint. Normal visualized carpal bones. There is degenerative joint disease of the scaphotrapezium / trapezoid articulation. The remainder of the carpal articulations are normal. There is degenerative arthrosis of the carpometacarpal (CMC) articulation of the thumb. Normal second through fifth carpometacarpal joints. Normal metacarpi. Normal metacarpophalangeal joint of the thumb. There is degenerative arthrosis of the interphalangeal joint of the thumb with articular joint space narrowing. Normal proximal and distal phalanges of the thumb. Normal metacarpophalangeal joints of the second through fifth fingers. There is diffuse articular joint space narrowing of the proximal and distal interphalangeal joints of the second through fifth fingers, but without erosive changes or periarticular soft tissue swelling. Normal phalanges of the second through fifth fingers. There is diffuse soft tissue swelling about the palm are dorsal to the base of the hand. RAD/Hand Min 3 Views IMPRESSION: 1. Marked soft tissue swelling about the hand without visualized fracture or dislocation. 2. Mild degenerative changes. Electronically Signed: Mejia Minaya DO at 18:38 EST Tel [phone], Service support ,
--- NOTE | 2019-12-15 16:23 | RAD_ITS ---
STUDY: X-RAY - LEFT ELBOW REASON FOR EXAM: Female, 59 years old. Pain with swelling and bruising. No known injury. TECHNIQUE: 3 view(s) of the elbow. A true lateral view was not obtained. COMPARISON: None. FINDINGS: Small elbow joint effusion with posterior lipohemarthrosis. No displaced fracture is identified. Nondisplaced fracture cannot be excluded. Normal radiocapitellar and ulnotrochlear articulations. Diffuse soft tissue swelling. RAD/Elbow min 3 Views IMPRESSION: Diffuse soft tissue swelling with lipohemarthrosis of the elbow joint compatible with fracture, of which the radial head would be the most likely. No displaced fracture is present. Electronically Signed: Shawn Cooper MD at 17:48 EST , Service support ,
[2019-12-15] MEDS: Morphine 4 MG/ML Syringe IV ×2 (17:17→20:53)
[2019-12-15] MEDS: 0.9% Normal Saline 1,000 ML 150 ML IV (17:17)
[2019-12-15 17:22] LABS: Absolute Lymphocyte Count 0.98 X10^3/uL (0.83-4.51); Absolute Neutrophil Count 15.9 X10^3/uL (2.0-7.7); Basophil# 0.03 X10^3/uL; Basophil% 0.2 % (0-1); Eosinophil# 0.06 X10^3/uL; Eosinophils% 0.3 % (0-5); Hematocrit 34.7 % (37-47); Hemoglobin 11.4 g/dL (12.0-15.0); Lymphocyte # 0.98 X10^3/ul (4.0); Lymphocyte % 5.1 % (19-41); Mean Corp Hgb Conc 32.9 g/dL (32-36); Mean Corpuscular Hgb 29.2 pg (27.0-32.0); Mean Platelet Vol. 10.3 fl (6.2-12.0); Monocyte# 2.12 X10^3/uL; NRBC Flagged by Analyzer 0 % (0-5); Neutrophil # 15.91 X10^3/uL (2.7-7.7); Neutrophil % 82.6 % (47-70); POSITIVE DIFFERENTIAL YES; Platelet Count 345 K/mm3 (150-450); RBC Distribution Width CV 16.2 % (11.6-14.6); RBC Distribution Width SD 53.1 fl (35.1-43.9); White Blood Count 19.3 K/mm3 (4.4-11.0)
[2019-12-15 17:32] LABS: Differential Indicated SCAN CRITERIA MET
[2019-12-15 17:33] LABS: Prothrombin Time (Protime)PT. 112.1 SECONDS (11.7-14.9)
[2019-12-15 17:43] LABS: International Normalized Ratio 14.8
[2019-12-15 17:50] LABS: Anion Gap 5 (5-15); BUN 8 mg/dL (7-18); BUN/Creat Ratio 10.5 RATIO (10-20); Calcium,Total 8.5 mg/dL (8.5-10.1); Chloride 103 mmol/L (98-107); Creatinine, Serum 0.76 mg/dL (0.55-1.02); Differential Comment SCANNED; EST Glomerular Filtration Rate 83 mL/min (>60); Erythrocyte Sedimentation Rate 63 mm/hr (0-30); Est Glom Filt Rate - Afr Amer 100 mL/min (>60); Estimated Creatinine Clearance 69.91 ml/min; Glucose 112 mg/dL (74-106); Sodium Level 135 mmol/L (136-145)
[2019-12-15 17:56] LABS: Lactic Acid 1.1 mmol/L (0.4-1.9)
[2019-12-15 18:05] VITALS: BP 121/89; PULSE 91; RESP 15
[2019-12-15] MEDS: Ondansetron 4 MG/2 ML Vial IV (18:40)
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
--- NOTE | 2019-12-15 18:50 | ED.DCSUM_ITS ---
- ER Visit Summary Date of Service: 12/15/19 Chief Complaint: [Left arm pain and swelling] History of Present Illness: The patient is a 59 F [presents to the emergency department with complaint of swelling to her left hand that started today. Patient noticed some bluish discoloration to the hand. Patient states that she woke up with left elbow pain 5 days ago and was seen by her primary care physician. Patient had x-rays but because the amount of pain she was having could not determine if there was any type of fracture. Patient was placed in a long-arm splint. Patient states that she is been having a lot of pain and the swelling in the hand just started today after waking up from a nap. She denies any injury to her arm. Patient was seen in this emergency department last evening for complaint of chest pain. Patient is right-hand dominant. Patient has history of coronary artery disease, high cholesterol, hypertension, and COPD. Patient has an aortic mechanical valve and is currently on Coumadin. Patient denies any fevers or chills.] Physical Examination: [HEENT-PERRLA, EOMI. Cranial nerves II through XII grossly intact. TMs clear. Mucous membranes moist. No adenopathy. Cardiovascular-regular rate and rhythm with a 3 out of 6 ejection murmur. Lungs-clear to auscultation, chest wall stable without crepitus or subcu emphysema Abdomen-normoactive bowel sounds, soft, nontender, no rebound or rigidity, no peritoneal signs. Extremities-intact ?4, normal range of motion, normal pulses, atraumatic. Left arm-patient came in with a long-arm splint in place that I removed. Evaluation of the elbow does reveal diffuse tenderness and bogginess to the left olecranon bursa with surrounding erythema. Patient has pain with range of motion flexion extension of the arm at the elbow. Patient also has diffuse edema to the dorsum of the hand and some ecchymosis and bruising noted to the hand dorsal aspect. She is neurovascular intact.] Test Results: [CBC with differential obtained showed a white count of 19, hemoglobin 11, hematocrit 35, platelets 345. Chemistries unremarkable. INR was 14. Sed rate was 63 and C-reactive protein was 149. X-rays of the left elbow showed elevated fat pad with no obvious fracture noted there was concern for possibility of an occult fracture of the radial head. X-rays of the left hand showed soft tissue swelling but no fractures.] Emergency Department Course and Treatment: [Patient had blood cultures ordered and was started on clindamycin IV. Case was discussed with hospitalist will evaluate patient for admission. At this point I suspect likely bursitis and cellulitis however will need to rule out septic joint.] Treatment Plan: [Admit for IV antibiotics and orthopedic consultation.] Disposition: [Admit] Impression: [Left elbow cellulitis/bursitis-rule out septic joint Coumadin coagulopathy with supratherapeutic INR] This note was generated with [employer] dictation software. It may contain incorrect words, spelling, and punctuation that were not noted in review of the chart prior to signing ED Disposition - Plan for ED Patient: Referrals: YOBANI BROWN [Other]
--- NOTE | 2019-12-15 18:56 | CT_ITS ---
STUDY: CT LEFT UPPER EXTREMITY WITHOUT CONTRAST REASON FOR EXAM: Female, 59 years old. Unexplained swelling and bruising of the left elbow and forearm extending into the hand. Pain radiating around the elbow. RADIATION DOSAGE (If Supplied By Facility): CTDIvol = ( 24.58 ) mGy, DLP = ( 1199.80 ) mGycm TECHNIQUE: Transaxial CT imaging of the left upper extremity from just above the elbow to the hand was performed. Sagittal and coronal images were reconstructed. Individualized dose optimization techniques were used for this CT. COMPARISON: Elbow, December 15, 2019. FINDINGS: Normal visualized humerus. No obvious fracture of the radius or ulna. Normal radiocapitellar and ulnotrochlear articulations. Soft tissues are otherwise unremarkable. The radial and ulnar shafts are intact and unremarkable. The wrist is unremarkable. Normal metacarpals. There is a joint effusion and region of the elbow with elevated fat pads suggesting occult fracture, most likely the radial head. CT/Extremity Upper without Contra IMPRESSION: Joint effusion about the elbow, most suggestive of a cold radial head fracture. No visualized fracture or dislocation is noted. Electronically Signed: Mejia Minaya DO at 19:41 EST Tel [phone], Service support ,
[2019-12-15 19:52] VITALS: BMI 20.1
[2019-12-15 20:14] VITALS: PULSE 90; RESP 15
--- NOTE | 2019-12-15 20:14 | NURSING ---
DR BRUSH STATES OK TO ADMIT PATIENT AND TO HOLD OFF ON 2ND DOSE OF VITAMIN K FOR NOW.
[2019-12-15 20:46] VITALS: BP 120/88; PULSE 88; RESP 15
[2019-12-16 12:48] LABS: Pathologist Review Reviewed
== END 2019-12-15 21:29 | disposition short-term general hospital (02) ==
LOC: ED 16:40 → MS3 19:19
PROVIDERS: Emergency Provider Emergency Medicine; Visit Provider Student in an Organized Health Care Education/Training Program
DX: L03.114 Cellulitis of left upper limb (principal); M71.9 Bursopathy, unspecified; I25.10 Atherosclerotic heart disease of native coronary artery without angina pectoris; I10 Essential (primary) hypertension; J44.9 Chronic obstructive pulmonary disease, unspecified; I25.2 Old myocardial infarction; F17.210 Nicotine dependence, cigarettes, uncomplicated; E78.5 Hyperlipidemia, unspecified; Z95.2 Presence of prosthetic heart valve; Z79.01 Long term (current) use of anticoagulants; Z79.51 Long term (current) use of inhaled steroids; Z79.899 Other long term (current) drug therapy
CPT/HCPCS: 36415; 73080; 73130; 73200; 80048; 83605; 85025; 85610; 85652; 86140; 87040; 96361; 96365; 96367; 96375; 96376; 99285; J7030; A4216; J2405; J3490

== ENCOUNTER 2019-12-24 13:55 | Emergency (ER) | payer MEDICARE, MEDICAID, SELFPAY ==
[2019-12-24 13:57] VITALS: BP 143/88; PULSE 96; RESP 17; TEMP 36.3; O2SAT 98; BMI 17.4
--- NOTE | 2019-12-24 14:25 | EKG12_ITS ---
Test Reason : CP Blood Pressure : / mmHG Vent. Rate : 083 BPM Atrial Rate : 083 BPM P-R Int : 114 ms QRS Dur : 090 ms QT Int : 398 ms P-R-T Axes : 039 019 069 degrees QTc Int : 467 ms Sinus rhythm with marked sinus arrhythmia Otherwise normal ECG Confirmed by VIVIAN KOCH, EVAN ([id number]), rewrite editor KAHLIL ALFRED ([id number]) on 12/27/2019 12:13:25 PM Referred By: JERARDO Confirmed By:EVAN PARK MD
--- NOTE | 2019-12-24 14:26 | RAD_ITS ---
STUDY: X-RAY CHEST REASON FOR EXAM: Female, 59 years old. CHEST PAIN, HX OF [place] AND STENTS TECHNIQUE: Single AP portable view of the chest. COMPARISON: Comparison is made with prior study dated June 13, 2020. FINDINGS: EKG electrodes are seen. The lungs are clear and expanded. There is no demonstrated pleural abnormality. Sternal cerclage wires are present from a prior sternotomy. Prior aortic valve replacement. A stent is seen overlying the left heart border. This may be within the pulmonary artery. Normal mediastinum and jeb. Normal visualized pulmonary arteries. Normal visualized aortic arch and descending thoracic aorta. Normal visualized thoracic spine. Normal visualized ribs, clavicles, and shoulders. There is no demonstrated abnormality of the visualized soft tissue structures of the upper abdomen. RAD/Chest 1 View (Portable) IMPRESSION: No acute abnormality is seen. Electronically Signed: Az Miner, at 14:58 EST , Service support ,
--- NOTE | 2019-12-24 14:43 | CT_ITS ---
STUDY: CT CHEST WITH CONTRAST REASON FOR EXAM: Female, 59 years old. CHEST PAIN AND POSSIBLE MASS. Hx of [place], CABG, stents, HTN and COPD RADIATION DOSAGE (If Supplied By Facility): CTDIvol = ( 8.73 ) mGy, DLP = ( 147.97 ) mGycm TECHNIQUE: Transaxial imaging was performed following intravenous administration of IV 75mL [id number]-[id number]. Multiplanar coronal and sagittal images were reformatted. Individualized dose optimization techniques were used for this CT. COMPARISON: Comparison is made with prior study dated May 26, 2019. FINDINGS: Hyperinflation. No focal abnormality is seen. No evidence of mass lesion. There is no demonstrated pleural abnormality. Sternal cerclage wires and vascular clips are present from a prior sternotomy and coronary artery bypass graft procedure (CABG). The stent is seen in the left pulmonary artery. There is evidence of a prosthetic aortic valve. Normal mediastinum. Normal hilar regions. Normal enhanced pulmonary arteries. Normal aorta arch and descending thoracic aorta. Levoscoliosis. There is no demonstrated abnormality of the visualized upper abdomen. CT/Chest WITH Contrast IMPRESSION: Hyperinflation. No acute abnormality is seen. Electronically Signed: Az Miner, at 15:40 EST , Service support ,
[2019-12-24 14:54] LABS: Absolute Lymphocyte Count 1.63 X10^3/uL (0.83-4.51); Absolute Neutrophil Count 5.9 X10^3/uL (2.0-7.7); Basophil# 0.04 X10^3/uL; Basophil% 0.4 % (0-1); Eosinophil# 0.25 X10^3/uL; Eosinophils% 2.8 % (0-5); Hematocrit 31.7 % (37-47); Hemoglobin 10.1 g/dL (12.0-15.0); Lymphocyte # 1.63 X10^3/ul (4.0); Lymphocyte % 18.1 % (19-41); Mean Corp Hgb Conc 31.9 g/dL (32-36); Mean Corpuscular Hgb 29.2 pg (27.0-32.0); Mean Corpuscular Volume 91.6 fL (81-99); Mean Platelet Vol. 9.8 fl (6.2-12.0); Monocyte# 0.83 X10^3/uL; Monocyte% 9.2 % (0-10); NRBC Flagged by Analyzer 0 % (0-5); Neutrophil # 5.89 X10^3/uL (2.7-7.7); Neutrophil % 65.4 % (47-70); Platelet Count 511 K/mm3 (150-450); RBC Distribution Width CV 16.4 % (11.6-14.6); RBC Distribution Width SD 54.1 fl (35.1-43.9); Red Blood Count 3.46 M/mm3 (4.2-5.4)
[2019-12-24 15:09] LABS: International Normalized Ratio 2.9; Prothrombin Time (Protime)PT. 30.8 SECONDS (11.7-14.9)
[2019-12-24] MEDS: Ondansetron 4 MG/2 ML Vial IV (15:09)
[2019-12-24] MEDS: Morphine 4 MG/ML Syringe IV (15:09)
[2019-12-24 15:10] VITALS: PULSE 82; RESP 19; O2SAT 100
[2019-12-24] MEDS: 0.9% Normal Saline 1,000 ML 150 ML IV (15:10)
[2019-12-24 15:12] LABS: Anion Gap 5 (5-15); BUN 13 mg/dL (7-18); BUN/Creat Ratio 12.5 RATIO (10-20); Calcium,Total 8.6 mg/dL (8.5-10.1); Chloride 106 mmol/L (98-107); Creatinine, Serum 1.04 mg/dL (0.55-1.02); EST Glomerular Filtration Rate 58 mL/min (>60); Est Glom Filt Rate - Afr Amer 70 mL/min (>60); Estimated Creatinine Clearance 44.21 ml/min; Glucose 99 mg/dL (74-106); Potassium 4.1 mmol/L (3.5-5.1); Sodium Level 138 mmol/L (136-145)
[2019-12-24 15:55] VITALS: BP 135/80; PULSE 77; RESP 14; O2SAT 94
--- NOTE | 2019-12-24 16:04 | ED.VIS.GEN ---
History of Present Illness Chief Complaint: Chest Pain Informant: Patient Onset: Today Context: Gradual Onset Timing: Waxes and wanes Narrative: Patient presents with left-sided chest pain. She states she noted a knot in her left breast recently. It is recently increased in size and has become more painful. Patient states the left-sided chest pain she is feeling today seems to radiate from this area. Patient does have cardiac history. She does have stents. - Past Medical History (1) CAD (coronary artery disease), [place] coronary artery Status: Chronic (2) COPD (chronic obstructive pulmonary disease) Status: Chronic (3) HTN (hypertension) Status: Chronic (4) History of myocardial infarction Status: Chronic (5) Hyperlipidemia Status: Chronic Past Medical History - Allergies and Home Meds Allergies/Adverse Reactions: Allergies naproxen Allergy (Verified 12/24/19 13:56) Swelling Penicillins Allergy (Verified 12/24/19 13:56) Unknown aspirin Adverse Reaction (Verified 12/24/19 13:56) Other on warfarin ibuprofen [From Motrin] Adverse Reaction (Verified 12/24/19 13:56) Other on warfarin Primary Care Physician: YOBANI BROWN [Other] Prior records reviewed: Yes Surgical History: cataract, hysterectomy, total hip arthroplasty - X2, tonsillectomy, - - Aortic and pulmonic valve replacement, patient has mechanical aortic valve, skin grafts, coronary artery stent placement times -March 2018 Smoking Status: Current every day smoker - Family History Maternal Family History: Reports: Cancer - Lung and bone cancer Paternal Family History: Reports: Cancer - Bladder cancer Review of Systems General: Denies: Chills, Fever Eyes: Denies: Visual changes - bilaterally ENT: Denies: Bilateral ear pain Cardiovascular: Reports: Chest pain. Denies: Palpitations, Heart racing Respiratory: Denies: Dyspnea, Cough Gastrointestinal: Denies: Abdominal pain, Nausea, Vomiting, Diarrhea Genitourinary: Denies: Dysuria Musculoskeletal: Denies: Extremity Pain Skin: Denies: Rash Allergy: Denies: Uticaria Physical Exam Vital Signs/Narrative: Vital Signs Temp Pulse Resp BP Pulse Ox 12/24/19 15:55 77 14 135/80 H 94 12/24/19 15:10 82 19 H 100 12/24/19 13:57 97.4 F L 96 17 143/88 H 98 Inital Vital Signs reviewed: Yes General: Well nourished, Well developed ENT: Moist mucous membranes Neck: Supple Cardiovascular: Regular rate, Regular rhythm Respiratory: No distress, CTA bilaterally, - - Patient has reproducible tenderness along the left lateral breast. She has a history of extensive bobby to the left upper arm and left lateral chest with scar tissue. Abdomen: Soft, Nontender Skin: - - Patient does have a small focal area of swelling and pain on the left breast over the scar tissue. There is no erythema or warmth. Neurological: Alert, Oriented x3 Psychological: Normal affect Diagnostic/Tx/Re-eval Impressions Chest X-Ray 12/24/19 14:26 IMPRESSION: No acute abnormality is seen. Electronically Signed: Az Miner, at 14:58 EST , Service support , Chest CT 12/24/19 14:43 IMPRESSION: Hyperinflation. No acute abnormality is seen. Electronically Signed: Az Miner, at 15:40 EST , Service support , 12/24/19 14:26 Chest 1 View (Portable) [RAD] Stat 12/24/19 14:43 CT Chest [Chest WITH Contrast] [CT] Stat Laboratory Results 12/24/19 12/24/19 12/24/19 14:47 14:47 14:47 WBC 9.0 RBC 3.46 L Hgb 10.1 L Hct 31.7 L MCV 91.6 MCH 29.2 MCHC 31.9 L RDW Std Deviation 54.1 H RDW Coeff of [place] 16.4 H Plt Count 511 H MPV 9.8 Immature Gran % (Auto) 4.100 H Neut % (Auto) 65.4 Lymph % (Auto) 18.1 L [place] % (Auto) 9.2 Eos % (Auto) 2.8 Baso % (Auto) 0.4 Absolute Neuts (auto) 5.9 Absolute Lymphs (auto) 1.63 Nucleated RBC % 0 PT 30.8 H INR 2.9 Sodium 138 Potassium 4.1 Chloride 106 Carbon Dioxide 27.0 Anion Gap 5 BUN 13 Creatinine 1.04 H Estim Creat Clear Calc 44.21 Est GFR (MDRD) Af Amer 70 Est GFR (MDRD) Non-Af 58 L BUN/Creatinine Ratio 12.5 Glucose 99 Calcium 8.6 Troponin I < 0.015 - EKG Initial EKG Interpretation: Sinus Rhythm - Sinus 83 with no acute ischemia. - Medical Decision Making Patient received morphine and Zofran for pain. She has an allergy to aspirin. Patient symptoms all seem to originate from the chest wall. There are no acute findings noted on the CT of the chest. No evidence of a focal abscess or mass. I did encourage close follow with her primary care physician as she may require ultrasound of this area. Patient is comfortable with discharge to home at this time. ED Disposition - Plan for ED Patient: Disposition: Home or Assisted Living Diagnosis: Chest wall pain Instructions: Chest Wall Contusion Referrals: YOBANI BROWN [Other] - As soon as possible
[2019-12-24 16:18] VITALS: BP 100/75; PULSE 76; RESP 18; O2SAT 98
== END 2019-12-24 16:20 | disposition home or self-care (01) ==
PROVIDERS: Emergency Provider Emergency Medicine
DX: R07.89 Other chest pain (principal); I25.10 Atherosclerotic heart disease of native coronary artery without angina pectoris; J44.9 Chronic obstructive pulmonary disease, unspecified; I10 Essential (primary) hypertension; E78.5 Hyperlipidemia, unspecified; I25.2 Old myocardial infarction; F17.200 Nicotine dependence, unspecified, uncomplicated; Z95.5 Presence of coronary angioplasty implant and graft; Z79.51 Long term (current) use of inhaled steroids; Z79.899 Other long term (current) drug therapy
CPT/HCPCS: 71045; 71260; 80048; 84484; 85025; 85610; 93005; 96361; 96374; 96375; 99285; J7030; Q9967; A4216; J2405

== ENCOUNTER 2020-01-06 17:39 | Observation (INO) | payer MEDICARE, MEDICAID, SELFPAY ==
[2020-01-06] VITALS (8 sets, daily range): BP systolic 137–155; BP diastolic 72–97; PULSE 70–81; RESP 12–18; TEMP 36.4–36.5; O2SAT 93–95; BMI 19.0; BMI 17.6
--- NOTE | 2020-01-06 18:25 | RAD_ITS ---
STUDY: X-RAY CHEST REASON FOR EXAM: Female, 59 years old. LEFT-SIDED CHEST PAIN THAT STARTED THIS AM. HX COPD. TECHNIQUE: Single AP portable view of the chest. COMPARISON: 12/24/2019 FINDINGS: There is hyperinflation of the lungs consistent with chronic obstructive lung disease (COPD). Lungs are clear. There is no demonstrated pleural abnormality. Normal size heart. Sternal wires are stable. Normal mediastinum and jeb. Normal visualized pulmonary arteries. Normal visualized aortic arch and descending thoracic aorta. Aortic stent graft is noted. Normal visualized thoracic spine. Normal visualized ribs, clavicles, and shoulders. There is no demonstrated abnormality of the visualized soft tissue structures of the upper abdomen. RAD/Chest 1 View (Portable) IMPRESSION: No acute findings. COPD. Electronically Signed: Hussain Wilcox DO at 19:14 EST Tel , Service support ,
--- NOTE | 2020-01-06 18:25 | EKG12_ITS ---
Test Reason : Blood Pressure : / mmHG Vent. Rate : 076 BPM Atrial Rate : 076 BPM P-R Int : 126 ms QRS Dur : 090 ms QT Int : 404 ms P-R-T Axes : 072 027 076 degrees QTc Int : 454 ms Normal sinus rhythm with sinus arrhythmia Normal ECG Confirmed by MARY KOCH, JOSE ([id number]), editor map SINDY AVILES ([id number]) on 01/10/2020 10:29:01 AM Referred By: MIKE Confirmed By:DEV HERNANDEZ MD
[2020-01-06] MEDS: Ondansetron 4 MG/2 ML Vial IV ×2 (18:34→23:12)
[2020-01-06] MEDS: Morphine 4 MG/ML Syringe IV ×2 (18:34→20:53)
[2020-01-06 18:41] LABS: Absolute Lymphocyte Count 1.35 X10^3/uL (0.83-4.51); Basophil% 1.1 % (0-1); Eosinophil# 0.39 X10^3/uL; Eosinophils% 4.3 % (0-5); Hematocrit 32.2 % (37-47); Hemoglobin 10.3 g/dL (12.0-15.0); Lymphocyte # 1.35 X10^3/ul (4.0); Lymphocyte % 14.9 % (19-41); Mean Corpuscular Hgb 29.3 pg (27.0-32.0); Mean Corpuscular Volume 91.7 fL (81-99); Mean Platelet Vol. 9.8 fl (6.2-12.0); Monocyte# 1.05 X10^3/uL; Monocyte% 11.6 % (0-10); NRBC Flagged by Analyzer 0 % (0-5); Neutrophil # 6.04 X10^3/uL (2.7-7.7); Neutrophil % 66.3 % (47-70); Platelet Count 371 K/mm3 (150-450); RBC Distribution Width CV 17.5 % (11.6-14.6); RBC Distribution Width SD 58.6 fl (35.1-43.9); Red Blood Count 3.51 M/mm3 (4.2-5.4); White Blood Count 9.1 K/mm3 (4.4-11.0)
[2020-01-06 19:02] LABS: Anion Gap 2 (5-15); BUN 10 mg/dL (7-18); BUN/Creat Ratio 12.3 RATIO (10-20); Calcium,Total 8.7 mg/dL (8.5-10.1); Chloride 109 mmol/L (98-107); Creatinine, Serum 0.81 mg/dL (0.55-1.02); EST Glomerular Filtration Rate 77 mL/min (>60); Est Glom Filt Rate - Afr Amer 93 mL/min (>60); Estimated Creatinine Clearance 62.03 ml/min; Glucose 112 mg/dL (74-106); Potassium 3.7 mmol/L (3.5-5.1); Sodium Level 140 mmol/L (136-145)
--- NOTE | 2020-01-06 20:47 | ED.RN ---
THIS NURSE SPOKE WITH LAB ABOUT THE PT/INR TEST THAT IS PENDING. LAB SAID THEY WERE FIXING THE PROBLEM. PT REQUESTED MORE PAIN MEDICATION. DR. JESUS MADE AWARE. MD ORDERING MORE MEDICATION. WILL MEDICATE AND CONTINUE TO MONITOR PT.
[2020-01-06 20:49] LABS: International Normalized Ratio 1.5; Prothrombin Time (Protime)PT. 17.8 SECONDS (11.7-14.9)
--- NOTE | 2020-01-06 21:01 | PCM.HP.STD ---
Problem List (1) Chest pain at rest Status: Acute (2) CAD (coronary artery disease), [place] coronary artery Status: Chronic (3) COPD (chronic obstructive pulmonary disease) Status: Chronic (4) HTN (hypertension) Status: Chronic (5) History of hypercholesterolemia Status: Chronic (6) History of hypertension Status: Chronic (7) History of myocardial infarction Status: Chronic (8) History of tobacco use Status: Chronic (9) Hyperlipidemia Status: Chronic (10) Nicotine abuse Status: Chronic History of Present Illness Date of Admission: 01/06/20 Chief Complaint: CHEST PAIN The patient is a 59 year old F with a significant history of CAD status post 2 coronary stent; porcine pulmonic valve replacement; mechanical aortic valve replacement; COPD; hypertension; asthma; hyperlipidemia; and emphysema; who presents at the emergency department with excruciating chest pain that started several hours prior to presentation to emergency department. Her chest pain started about 8 AM on the day of presentation and patient came to emergency department around 5:30 PM on the same day. She describes her chest pain as sharp and stabbing. Chest pain was initially episodic but it became constant later in the day. Chest pain aggravated with mild exertion. She denies any ameliorating factors. She took 3 tablets of nitroglycerin at home without any relief. Patient was given 4 baby aspirin by the paramedics before he was brought to the emergency department. Associated with her symptoms is nausea without vomiting. Also she had lightheadedness. Her pain radiated to her back. At the emergency department troponin was negative and EKG was negative. Her last stress test was in October 2018 at [facility]. The last stress test was negative. Her coronary stent was placed at the [facility] in March 2018. Her stent was placed at the time that she had valve replacement. Past Medical History Past Medical History (Chronic Problems): Chronic Problems History of myocardial infarction (Chronic) History of hypertension (Chronic) History of hypercholesterolemia (Chronic) History of tobacco use (Chronic) CAD (coronary artery disease), [place] coronary artery (Chronic) COPD (chronic obstructive pulmonary disease) (Chronic) Hyperlipidemia (Chronic) HTN (hypertension) (Chronic) Nicotine abuse (Chronic) Allergies naproxen Allergy (Verified 12/24/19 13:56) Swelling Penicillins Allergy (Verified 12/24/19 13:56) Unknown aspirin Adverse Reaction (Verified 12/24/19 13:56) Other on warfarin ibuprofen [From Motrin] Adverse Reaction (Verified 12/24/19 13:56) Other on warfarin Home Medications: Ambulatory Orders Medication Instructions Recorded Albuterol Aerosols [Ventolin 2.5 mg INHALATION Q6H PRN PRN 02/27/19 Aerosols] Albuterol IH (ProAir) [Proair Hfa] 2 puff INHALATION Q6H PRN PRN 02/27/19 Alendronate Sodium [Fosamax] 70 mg PO BARRETO 02/27/19 Atorvastatin Calcium [Lipitor] 80 mg PO DAILY 02/27/19 Cholecalciferol (Vitamin D3) 2,000 unit PO DAILY 02/27/19 [Vitamin D3] Fluticasone 0.05% [Flonase Nasal 1 spray NASAL DAILY PRN PRN 02/27/19 [place]] Fluticasone/Salmeterol [Advair 1 each IH BID 02/27/19 250-50 Diskus] Gabapentin [Neurontin] 300 mg PO BID 02/27/19 Melatonin 10 mg PO QHS 02/27/19 Mirtazapine [Remeron] 30 mg PO QHS 02/27/19 Nitroglycerin [Nitrostat] 0.3 mg SL Q5M PRN 02/27/19 Tiotropium [place] [Spiriva] 18 mcg IH DAILY 02/27/19 Warfarin [Coumadin] 5 mg PO DAILY 02/27/19 Amitriptyline HCl 25 mg PO QHS 10/18/19 Oxybutynin Chloride [Oxybutynin 10 mg PO DAILY 12/15/19 Chloride ER] Diltiazem HCl [Cartia Xt] 180 mg PO DAILY 01/06/20 Doxycycline Hyclate 100 mg PO BID 01/06/20 Hydroxyzine HCl 25 mg PO Q8H PRN 01/06/20 Surgical History: angioplasty, cataract, hysterectomy, total hip arthroplasty - X2, tonsillectomy, - - Aortic and pulmonic valve replacement, patient has mechanical aortic valve, skin grafts, coronary artery stent placement times 2 -March 2018 Psychiatric History: No pertinent psych hx 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 Her paternal grandmother from a heart attack at about age 69. Review of Systems Constitutional: Denies: Chills, Fever, Weight Change HEENT: Denies: Head Aches, Sinus Congestion, Sinus Drainage Cardiovascular: Reports: Chest Pain. Denies: Palpitations Respiratory: Reports: Shortness of Breath - Chronic. Denies: Cough, Shortness of breath at rest, Sputum production Gastrointestinal: Denies: Abdominal Pain, Nausea, Vomiting Genitourinary: Denies: Dysuria Musculoskeletal: Reports: Back Pain. Denies: Joint Pain, Joint Tenderness Skin: Denies: Rash, Wounds Neurological: Denies: Numbness, Tingling, Focal weakness Psychiatric: Denies: Anxiety, Depression, Homicidal Ideations, Suicidal Ideations Hematologic/ Lymphatic: Denies: Easy Bruising, Easy Bleeding VTE Information - Inpt Only VTE Present on Admission: No VTE Mechan Device Prophylaxis: None VTE Pharm Prophylaxis ordered?: No Reason prophylaxis not ordered:: Treatment Not Indicated - On Coumadin and Lovenox for mechanical aortic valve. - Physical Exam Vitals/I&O's: Vital Signs Temp Pulse Resp BP Pulse Ox 97.7 F L 71 12 137/97 H 93 01/06/20 17:39 01/06/20 20:00 01/06/20 20:00 01/06/20 20:00 01/06/20 20:00 Oxygen Flow Rate (L/min) 2 Oxygen Delivery Method Nasal Cannula Weight: 51.9 kg Body Mass Index (BMI) 19.0 General: Alert, Oriented x3, Cooperative HEENT: Atraumatic, PERRLA, EOMI, Normocephalic Neck: Supple, No JVD, Negative Carotid Bruits Lungs: Clear to auscultation, Normal air movement Cardiovascular: Regular rate, Murmur, - - Mechanical click sound Abdomen: Bowel Sounds Present, Soft, Non Tender Extremities: No edema, Capillary Refill Less than 3 Seconds Skin: - - Inconsistency in the skin from skin grafts. Musculoskeletal: No Tenderness to Palpation of Joints or Extremities Neurological: Cranial nerves II-XII grossly intact Psych/Mental Status: Normal Affect, Appropriate Laboratory Results 01/06/20 18:21: WBC 9.1, RBC 3.51 L, Hgb 10.3 L, Hct 32.2 L, MCV 91.7, MCH 29.3, MCHC 32.0, RDW Std Deviation 58.6 H, RDW Coeff of [place] 17.5 H, Plt Count 371, MPV 9.8, Immature Gran % (Auto) 1.800 H, Neut % (Auto) 66.3, Lymph % (Auto) 14.9 L, [place] % (Auto) 11.6 H, Eos % (Auto) 4.3, Baso % (Auto) 1.1 H, Absolute Neuts (auto) 6.0, Absolute Lymphs (auto) 1.35, Nucleated RBC % 0 01/06/20 18:21: PT 17.8 H, INR 1.5 01/06/20 18:21: Sodium 140, Potassium 3.7, Chloride 109 H, Carbon Dioxide 29.0, Anion Gap 2 L, BUN 10, Creatinine 0.81, Estim Creat Clear Calc 62.03, Est GFR (MDRD) Af Amer 93, Est GFR (MDRD) Non-Af 77, BUN/Creatinine Ratio 12.3, Glucose 112 H, Calcium 8.7, Troponin I < 0.015 Assessment/Plan All Active Problems Chest pain at rest (Acute) Chest pain (Acute) The patient is a 59 year old F with a significant history of CAD status post 2 coronary stent; porcine pulmonic valve replacement; mechanical aortic valve replacement; COPD; hypertension; asthma; hyperlipidemia; and emphysema; who presents emergency department with excruciating chest pain. Chest pain Place on a monitored bed at PCU CXR independently reviewed confirms no acute cardiopulmonary process; But with hyperinflation consistent with a history of COPD. EKG independently reviewed confirms sinus rhythm ASA 81 mg p.o. daily SL NTG 0.4 mg prn as needed for chest pain Morphine as needed for pain We will check lipid panel. Statin: High-intensity statin continued First troponin at the emergency department was unremarkable. Serial cardiac enzymes Stat EKG as needed for chest pain Chemical stress test in the AM if the cardiac enzymes are negative. Patient reported that she is unable to to do a treadmill stress test because she gets short of breath with activities. Her last stress test was a chemical onr Mechanical aortic valve On presentation her INR was 1.5. She reported that she had already taken Coumadin on the day of presentation. Will give extra dose of Coumadin and will bridge with Lovenox x1 dose. Will do stress test for chest pain. Consider further Lovenox after stress test. Hypertension Blood pressure on presentation was not within goal Cardizem continued Trend blood pressure and adjust blood pressure medication Asthma/COPD/emphysema Stable Home inhalers continued. Severe protein calorie malnutrition BMI of 17.6 Ensure Enlive ordered. Nutritional consult. Counseled. Tobacco abuse Counseled Nicotine patch ordered. DVT prophylaxis Not Indicated. Coumadin and Lovenox for mechanical aortic valve management. Code Visit Inpatient E&M: 49812 Init Hosp L3 OBSV E&M: 71301 Initial observation care L2
--- NOTE | 2020-01-06 21:06 | ED.VISSUMM ---
- ER Visit Summary Date of Service: 01/06/20 Chief Complaint: Chest pain History of Present Illness: The patient is a 59 F who presents with chest pain that started today around 8 AM when she was watching TV. It was intermittent and then has been consistent and constant since 3 PM. It radiates to her back. No other associated symptoms. She has a history of coronary disease with stents. Last coronary stenting was 2 years ago. Last stress test was 1 year ago. She follows with Dr. Poe in [place]. She also has a mechanical heart valve and is on Coumadin. Her INR goal is 2.5-3.5. Physical Examination: Afebrile vital signs unremarkable. Alert and oriented. No acute distress. Skin unremarkable. Heart regular. Lungs clear. Abdomen soft. Extremities nontender. Test Results: EKG showed sinus rhythm at a rate of 76. Hemoglobin 10.3. Chloride 109, glucose 112, INR 1.5, troponin normal. Chest x-ray shows chronic changes, COPD. Emergency Department Course and Treatment: Patient was given aspirin by EMS. She received morphine and Zofran here. She was placed on the monitor. Work-up showed anemia and subtherapeutic INR level. Patient has remained stable. Given her history, hospitalist was contacted for admission. Treatment Plan: As above Disposition: PCU observation Impression: 1. Chest pain 2. Anemia 3. Subtherapeutic INR This note was generated with [employer] dictation software. It may contain incorrect words, spelling, and punctuation that were not noted in review of the chart prior to signing ED Disposition - Plan for ED Patient: Referrals: YOBANI BROWN [Other]
--- NOTE | 2020-01-06 21:41 | EKG12_ITS ---
Test Reason : AM EKG Blood Pressure : / mmHG Vent. Rate : 070 BPM Atrial Rate : 070 BPM P-R Int : 138 ms QRS Dur : 084 ms QT Int : 418 ms P-R-T Axes : 050 011 075 degrees QTc Int : 451 ms Normal sinus rhythm with sinus arrhythmia Septal infarct , age undetermined Abnormal ECG When compared with ECG of 06-JAN-2020 22:09, MANUAL COMPARISON REQUIRED, DATA IS UNCONFIRMED Confirmed by MARY KOCH, JOSE ([id number]), web editor KAHLIL ALFRED ([id number]) on 01/10/2020 11:11:03 AM Referred By: GARRY Confirmed By:DEV HERNANDEZ MD
[2020-01-06] MEDS: Enoxaparin 60 MG/0.6 ML Syringe 50 MG SC (23:03)
[2020-01-06] MEDS: Atorvastatin Calcium 80 MG Tablet PO (23:03)
[2020-01-06] MEDS: 0.9% Saline Lock 10 ML Syringe IV (23:12)
--- NOTE | 2020-01-06 23:21 | NURSING ---
Pt took hs meds, felt sick afterwards and threw up small amount. Pt noted to only throw up 5 of the pills taken, able to identify which pills and pharmacy to send new doses. Pt given zofran and feels that she can take the other pills when they come up from pharmacy.
[2020-01-06] MEDS: Amitriptyline 25 MG Tablet PO (23:28)
[2020-01-06] MEDS: Mirtazapine 30 MG Tablet PO (23:28)
[2020-01-06] MEDS: Doxycycline 100 MG CAPSULE PO (23:28)
[2020-01-06] MEDS: Gabapentin 300 MG Capsule PO (23:28)
[2020-01-06] MEDS: MELATONIN 10 MG TABLET PO (23:28)
[2020-01-07] VITALS (9 sets, daily range): BP systolic 93–111; BP diastolic 59–68; PULSE 75–89; RESP 14–18; TEMP 36.4–36.8; O2SAT 90–97
[2020-01-07] MEDS: Morphine 2 MG/ML Syringe IV ×3 (00:07→11:01)
[2020-01-07] MEDS: 0.9% Saline Lock 10 ML Syringe IV ×3 (00:07→11:01)
[2020-01-07] MEDS: Aspirin E.C. 81 MG Tablet PO (05:10)
--- NOTE | 2020-01-07 05:55 | EKG12_ITS ---
Test Reason : CP ADMISSION Blood Pressure : / mmHG Vent. Rate : 067 BPM Atrial Rate : 067 BPM P-R Int : 140 ms QRS Dur : 086 ms QT Int : 442 ms P-R-T Axes : 081 037 071 degrees QTc Int : 467 ms Normal sinus rhythm with sinus arrhythmia Normal ECG When compared with ECG of 06-JAN-2020 17:54, MANUAL COMPARISON REQUIRED, DATA IS UNCONFIRMED Confirmed by MARY KOCH, JOSE ([id number]), video editor KAHLIL ALFRED ([id number]) on 01/10/2020 11:11:24 AM Referred By: GARRY Confirmed By:DEV HERNANDEZ MD
[2020-01-07 06:13] LABS: Absolute Lymphocyte Count 1.22 X10^3/uL (0.83-4.51); Absolute Neutrophil Count 5.4 X10^3/uL (2.0-7.7); Basophil# 0.08 X10^3/uL; Eosinophil# 0.28 X10^3/uL; Eosinophils% 3.5 % (0-5); Hematocrit 31.7 % (37-47); Lymphocyte # 1.22 X10^3/ul (4.0); Lymphocyte % 15.3 % (19-41); Mean Corp Hgb Conc 31.5 g/dL (32-36); Mean Corpuscular Hgb 29.5 pg (27.0-32.0); Mean Corpuscular Volume 93.5 fL (81-99); Mean Platelet Vol. 9.9 fl (6.2-12.0); Monocyte# 0.88 X10^3/uL; Monocyte% 11.1 % (0-10); NRBC Flagged by Analyzer 0 % (0-5); Neutrophil # 5.37 X10^3/uL (2.7-7.7); Neutrophil % 67.5 % (47-70); Platelet Count 317 K/mm3 (150-450); RBC Distribution Width CV 17.5 % (11.6-14.6); RBC Distribution Width SD 59.6 fl (35.1-43.9); Red Blood Count 3.39 M/mm3 (4.2-5.4)
[2020-01-07 06:20] LABS: International Normalized Ratio 1.6; Prothrombin Time (Protime)PT. 19.2 SECONDS (11.7-14.9)
[2020-01-07 06:40] LABS: Anion Gap 3 (5-15); BUN 10 mg/dL (7-18); BUN/Creat Ratio 14.2 RATIO (10-20); Calcium,Total 8.2 mg/dL (8.5-10.1); Chloride 109 mmol/L (98-107); Cholesterol 129 mg/dL (200); EST Glomerular Filtration Rate 91 mL/min (>60); Est Glom Filt Rate - Afr Amer 110 mL/min (>60); Estimated Creatinine Clearance 66.38 ml/min; Glucose 103 mg/dL (74-106); High Density Lipoprotein 41 mg/dL; Potassium 4.1 mmol/L (3.5-5.1); Sodium Level 140 mmol/L (136-145); Triglycerides 222 mg/dL; Very Low Density Lipoprotein 44 mg/dL (5-40)
[2020-01-07] MEDS: Ipratropium/Albuterol Sulfate 3 ML AMPUL.NEB INHALATION ×2 (07:04→12:05)
[2020-01-07] MEDS: Budesonide Respules 0.5 MG/2 ML AMPUL.NEB. INHALATION (07:05)
[2020-01-07] MEDS: Tolterodine Tartrate 2 MG CAP.SA PO (09:55)
[2020-01-07] MEDS: Gabapentin 300 MG Capsule PO (09:55)
[2020-01-07] MEDS: Doxycycline 100 MG CAPSULE PO (09:55)
[2020-01-07] MEDS: dilTIAZem CD 180 MG Capsule PO (09:55)
[2020-01-07] MEDS: Acetaminophen 325 MG Tablet 650 MG PO (09:56)
--- NOTE | 2020-01-07 11:38 | STRESSREP_ITS ---
Stress Test Report Date: 01/07/2020 Procedure: Pharmacologic stress nuclear imaging study Indications: Chest pain Consent: Per the patient Procedure: The patient underwent pharmacologic (Regadenoson) evaluation with a peak heart rate of 96 beats per minute (59% predicted maximal heart rate) and a peak blood pressure of 104/58 mmHg. The baseline ECG demonstrated normal sinus rhythm, possible prior anteroseptal MS. EKG during lexiscan infusion revealed no significant ischemic changes. EKG post infusion revealed acute ischemic changes [There were no cardiac dysrhythmias pretest, during pharmacologic infusion, or recovery]. [There was no complaint of chest discomfort during pharmacologic infusion or recovery]. The examination was discontinued secondary to completion of protocol. Impression: 1. Lexiscan stress test test is negative for Lexiscan infusion induced EKG changes of ischemia. 2. Lexiscan stress test test is negative for Lexiscan infusion induced chest pain. 3. Results of the nuclear portion of the test is as below Myocardial perfusion imaging study: Technique: The patient was injected with 10.8 millicuries of technetium 99m Cardiolite and subsequently rest SPECT Cardiolite nuclear imaging was obtained in the horizontal long, vertical long, and short axis views. The patient underwent pharmacologic (Regadenoson) evaluation. Please see above for details. The patient was injected with 33 millicuries of technetium 99m Cardiolite and subsequently stress SPECT Cardiolite nuclear imaging was obtained in the horizontal long, vertical long, and short axis views. A gated Cardiolite study at peak stress was obtained. Interpretation: Rest and stress SPECT Cardiolite nuclear imaging status post realignment, normalization, and attenuation correction demonstrate normal myocardial radioisotope uptake. Gated images reveal no significant regional wall motion abnormalities. The reported LVEF is greater than 70 %. Impression: 1. There is no evidence of significant ischemia or infarction. 2. Estimated ejection fraction is greater than 70%. This note was generated with [employer] software. It may contain incorrect words, spelling, and punctuation that were not noted in checking the note before signing.
--- NOTE | 2020-01-07 11:56 | DCINST_ITS ---
You will use the following diet at home:: Cardiac Your food should be the consistency of: Regular Discharge Activity: Return to Normal Activity Weight Bearing Status: Weight bearing as tolerated Call your doctor if you observe: Fever of 101 or Higher, Shortness of breath, Dizziness, Fainting spells, Chest pain, Increased palpitations (irregular heartbeat), Uncontrolled pain Additional Instructions: Use Lovenox injections twice a day as prescribed. Do blood work of pro time and INR this coming Friday and then follow-up with your PCP. Allergies/Adverse Reactions: Allergies naproxen Allergy (Verified 12/24/19 13:56) Swelling Penicillins Allergy (Verified 12/24/19 13:56) Unknown aspirin Adverse Reaction (Verified 12/24/19 13:56) Other on warfarin ibuprofen [From Motrin] Adverse Reaction (Verified 12/24/19 13:56) Other on warfarin Medications to take at Discharge Albuterol Aerosols [Ventolin Aerosols] 2.5 mg INHALATION Q6H PRN PRN 02/27/19 Albuterol IH (ProAir) [Proair Hfa] 2 puff INHALATION Q6H PRN PRN 02/27/19 Alendronate Sodium [Fosamax] 70 mg PO BARRETO 02/27/19 Atorvastatin Calcium [Lipitor] 80 mg PO DAILY 02/27/19 Cholecalciferol (Vitamin D3) [Vitamin D3] 2,000 unit PO DAILY 02/27/19 Fluticasone 0.05% [Flonase Nasal [place]] 1 spray NASAL DAILY PRN PRN 02/27/19 Fluticasone/Salmeterol [Advair 250-50 Diskus] 1 each IH BID 02/27/19 Gabapentin [Neurontin] 300 mg PO BID 02/27/19 Melatonin 10 mg PO QHS 02/27/19 Mirtazapine [Remeron] 30 mg PO QHS 02/27/19 Nitroglycerin [Nitrostat] 0.3 mg SL Q5M PRN 02/27/19 Tiotropium [place] [Spiriva] 18 mcg IH DAILY 02/27/19 Warfarin [Coumadin] 5 mg PO DAILY 02/27/19 Amitriptyline HCl 25 mg PO QHS 10/18/19 Oxybutynin Chloride [Oxybutynin Chloride ER] 10 mg PO DAILY 12/15/19 Diltiazem HCl [Cartia Xt] 180 mg PO DAILY 01/06/20 Doxycycline Hyclate 100 mg PO BID 01/06/20 Hydroxyzine HCl 25 mg PO Q8H PRN 01/06/20 Enoxaparin [Lovenox] 50 mg SUBCUT Q12@0600,1800 #6 syringe 01/07/20 The following prescriptions were given: Enoxaparin [Lovenox] 50 mg SUBCUT Q12@0600,1800 #6 syringe Transmission Status: Pending to [address] Orders to be completed after discharge: Prothrombin Time w/INR Time Frame: 01/10/20, Facility: [facility], Location: Laboratory Primary Care Physician: YOBANI BROWN [Other] Please follow up with your Primary Care Physician in: 1 WEEK. Test Results: Test results from this visit will be discussed in further detail at your follow- up appointment, if applicable.
--- NOTE | 2020-01-07 12:06 | DS.PCM_ITS ---
Discharge Date and Diagnosis Date of Admission: 01/06/20 Date of Discharge: 01/07/20 - Primary Discharge Diagnosis Chest pain, ACS ruled out, stress test is negative. - Secondary Discharge Diagnosis Chronic Problems History of myocardial infarction (Chronic) History of tobacco use (Chronic) CAD (coronary artery disease), [place] coronary artery (Chronic) COPD (chronic obstructive pulmonary disease) (Chronic) Hyperlipidemia (Chronic) HTN (hypertension) (Chronic) Nicotine abuse (Chronic) Hospital Course and Treatment Imaging Results: 01/07/20 05:55 Nuclear Stress Test - Chemical [NM] AM (NON MEDS) Clinical Impression(s) from Imaging Studies Chest X-Ray 01/06/20 18:25 IMPRESSION: No acute findings. COPD. Electronically Signed: Hussain Wilcox DO at 19:14 EST Tel , Service support , Operations: None Procedures: EKG, Stress test Summary of Care Provided: Patient seen and examined on the day of discharge and continues to be discharged home. This morning, she complained of chest pain and physical morphine. At this time, her pain improved. Vital signs are stable. Stress test came back negative. The patient is a 59 year old F patient presented to the emergency room because of chest pain and she was admitted for evaluation. Her EKG revealed normal sinus rhythm without evidence of acute ischemic changes. Her troponin was negative x3. Chest x-ray showed no acute findings. Routine blood work was remarkable for chronic anemia which has been stable, otherwise unremarkable. Vital signs were stable. This patient has history of mechanical aortic valve replacement, she has been on Coumadin and her INR was 1.5, subtherapeutic. She was given 1 dose of therapeutic Lovenox. She underwent nuclear stress test that reported as negative without evidence of stress-induced myocardial ischemia, ejection fraction was 70%. ACS ruled out. Her symptoms likely due to musculoskeletal pain. Patient discharged home in a stable condition, discharged on therapeutic Lovenox 50 mg subcu twice daily for bridging along with Coumadin, order given to repeat INR on Friday, January 10, 2020, instructed to follow-up with her PCP regarding next Coumadin dose, continued on her previous home medications without any changes, recommended follow-up with PCP in 1 week. - Physical Exam Vitals/I&O's: Vital Signs Temp Pulse Resp BP Pulse Ox 97.8 F 81 15 111/65 95 01/07/20 09:35 01/07/20 11:10 01/07/20 09:35 01/07/20 09:35 01/07/20 09:35 Oxygen Flow Rate (L/min) 2 Oxygen Delivery Method Room Air Weight: 105 lb 13.15 oz Body Mass Index (BMI) 17.6 Intake and Output for Last 24 Hours 01/05/20 01/06/20 01/07/20 23:59 23:59 23:59 Intake Total 240 / 240 50 / 50 Output Total 50 / 50 Balance 190 / 190 50 / 50 General: Alert, Oriented x3, Cooperative, No apparent distress HEENT: Atraumatic, PERRLA, EOMI Oral: Moist Mucosa, No Gingival or Mucosal Lesions/ Ulcerations Neck: Supple, No JVD, Negative Carotid Bruits, Trachea Midline, Thyroid Normal Size and Texture Lungs: Clear to auscultation, Normal air movement, No rhonchi, No wheeze, No rales Cardiovascular: Regular rate, Normal S1, Normal S2, PMI Normal, - - Mechanical click. Abdomen: Bowel Sounds Present, Soft, Non Tender, Non-Distended, No Hepato- splenomegaly Extremities: No clubbing, No cyanosis, No edema Skin: No rashes, No breakdown Lymphatic: No Cervical, Supraclavicular, or Inguinal Adenopathy Neurological: Cranial nerves II-XII grossly intact, Motor Exam 5/5 strength throughout Psych/Mental Status: Normal Affect, Appropriate Laboratory Results 01/06/20 18:21: WBC 9.1, RBC 3.51 L, Hgb 10.3 L, Hct 32.2 L, MCV 91.7, MCH 29.3, MCHC 32.0, RDW Std Deviation 58.6 H, RDW Coeff of [place] 17.5 H, Plt Count 371, MPV 9.8, Immature Gran % (Auto) 1.800 H, Neut % (Auto) 66.3, Lymph % (Auto) 14.9 L, [place] % (Auto) 11.6 H, Eos % (Auto) 4.3, Baso % (Auto) 1.1 H, Absolute Neuts (auto) 6.0, Absolute Lymphs (auto) 1.35, Nucleated RBC % 0 01/06/20 18:21: PT 17.8 H, INR 1.5 01/06/20 18:21: Sodium 140, Potassium 3.7, Chloride 109 H, Carbon Dioxide 29.0, Anion Gap 2 L, BUN 10, Creatinine 0.81, Estim Creat Clear Calc 62.03, Est GFR (MDRD) Af Amer 93, Est GFR (MDRD) Non-Af 77, BUN/Creatinine Ratio 12.3, Glucose 112 H, Calcium 8.7, Troponin I < 0.015 01/06/20 21:56: Troponin I < 0.015 01/07/20 01:50: Troponin I < 0.015 01/07/20 05:25: Sodium 140, Potassium 4.1, Chloride 109 H, Carbon Dioxide 28.0, Anion Gap 3 L, BUN 10, Creatinine 0.70, Estim Creat Clear Calc 66.38, Est GFR (MDRD) Af Amer 110, Est GFR (MDRD) Non-Af 91, BUN/Creatinine Ratio 14.2, Glucose 103, Calcium 8.2 L, Triglycerides 222 H, Cholesterol 129, LDL Cholesterol 44, VLDL Cholesterol 44 H, HDL Cholesterol 41 01/07/20 05:25: WBC 8.0, RBC 3.39 L, Hgb 10.0 L, Hct 31.7 L, MCV 93.5, MCH 29.5, MCHC 31.5 L, RDW Std Deviation 59.6 H, RDW Coeff of [place] 17.5 H, Plt Count 317, MPV 9.9, Immature Gran % (Auto) 1.600 H, Neut % (Auto) 67.5, Lymph % (Auto) 15.3 L, [place] % (Auto) 11.1 H, Eos % (Auto) 3.5, Baso % (Auto) 1.0, Absolute Neuts (auto) 5.4, Absolute Lymphs (auto) 1.22, Nucleated RBC % 0 01/07/20 05:25: PT 19.2 H, INR 1.6 Current Medications Acetaminophen (Tylenol) 650 mg PO Q6H PRN PRN PRN Reason: Pain Score 1-10/Temp > 100.7 F Last Admin: 01/07/20 09:56 Dose: 650 mg Documented by: Albuterol Sulfate (Ventolin Aerosols) 2.5 mg INHALATION Q2H PRN PRN PRN Reason: sob/wheezing Albuterol/Ipratropium (Duoneb) 3 ml INHALATION Q6HWA.RT [facility] Last Admin: 01/07/20 12:05 Dose: 3 ml Documented by: Alendronate Sodium (Fosamax) 70 mg PO Barreto@0600 [facility] Amitriptyline HCl (Elavil) 25 mg PO QHS [facility] Last Admin: 01/06/20 23:28 Dose: 25 mg Documented by: Aspirin (Ecotrin) 81 mg PO DAILY@0800 [facility] Last Admin: 01/07/20 05:10 Dose: 81 mg Documented by: Atorvastatin Calcium (Lipitor) 80 mg PO DAILY@2200 [facility] Last Admin: 01/06/20 23:03 Dose: 80 mg Documented by: Budesonide (Pulmicort Aerosol) 0.5 mg INHALATION Q12H.RT [facility] Last Admin: 01/07/20 07:05 Dose: 0.5 mg Documented by: Cholecalciferol (Vitamin D) 2,000 unit PO DAILY [facility] Last Admin: 01/07/20 09:56 Dose: 2,000 unit Documented by: Diltiazem HCl (Cardizem Cd) 180 mg PO DAILY [facility] Last Admin: 01/07/20 09:55 Dose: 180 mg Documented by: Doxycycline Monohydrate (Doxycycline) 100 mg PO BID [facility] Last Admin: 01/07/20 09:55 Dose: 100 mg Documented by: Fluticasone Propionate (Flonase Nasal [place]) 1 spray NASAL DAILY PRN PRN PRN Reason: ALLERGIES Gabapentin (Neurontin) 300 mg PO BID [facility] Last Admin: 01/07/20 09:55 Dose: 300 mg Documented by: Glucagon () 1 mg IM .X1 PRN PRN Reason: Hypoglycemia Hydroxyzine Pamoate (Vistaril Pamoate Capsule) 25 mg PO Q8H PRN PRN PRN Reason: itching Dextrose (Dextrose 10%-Water) 250 mls @ 999 mls/hr IV .Q16M PRN; Protocol PRN Reason: HYPOGLYCEMIA Melatonin (Melatonin) 10 mg PO QHS [facility] Last Admin: 01/06/20 23:28 Dose: 10 mg Documented by: Mirtazapine (Remeron) 30 mg PO QHS [facility] Last Admin: 01/06/20 23:28 Dose: 30 mg Documented by: Morphine Sulfate () 2 mg IV Q3H PRN PRN PRN Reason: Pain Score 6-10/10 Last Admin: 01/07/20 11:01 Dose: 2 mg Documented by: Nicotine (Nicoderm Cq (Pbkc)) 14 mg TRANSDERM. DAILY [facility] Last Admin: 01/06/20 22:48 Dose: Not Given Documented by: Nitroglycerin (Nitrostat) 0.4 mg SUBLINGUAL Q5M PRN PRN Reason: CARDIAC/CHEST PAIN Nutritional Formula (Lactose Free) (Ensure Enlive) 120 ml PO 4X/DAY [facility] Last Admin: 01/07/20 09:57 Dose: 120 ml Documented by: Ondansetron HCl (Zofran) 4 mg IV Q8H PRN PRN PRN Reason: NAUSEA/VOMITING Last Admin: 01/06/20 23:12 Dose: 4 mg Documented by: Sodium Chloride () 10 - 40 ml IV UD PRN PRN Reason: SALINE FLUSH Last Admin: 01/07/20 11:01 Dose: 10 ml Documented by: Tolterodine Tartrate (Detrol La) 2 mg PO DAILY [facility] Last Admin: 01/07/20 09:55 Dose: 2 mg Documented by: Discharge Activity: Return to Normal Activity Weight Bearing Status: Weight bearing as tolerated Call your doctor if you observe: Fever of 101 or Higher, Shortness of breath, Dizziness, Fainting spells, Chest pain, Increased palpitations (irregular heartbeat), Uncontrolled pain Home Medications: Medications to take at Discharge Albuterol Aerosols [Ventolin Aerosols] 2.5 mg INHALATION Q6H PRN PRN 02/27/19 Albuterol IH (ProAir) [Proair Hfa] 2 puff INHALATION Q6H PRN PRN 02/27/19 Alendronate Sodium [Fosamax] 70 mg PO BARRETO 02/27/19 Atorvastatin Calcium [Lipitor] 80 mg PO DAILY 02/27/19 Cholecalciferol (Vitamin D3) [Vitamin D3] 2,000 unit PO DAILY 02/27/19 Fluticasone 0.05% [Flonase Nasal [place]] 1 spray NASAL DAILY PRN PRN 02/27/19 Fluticasone/Salmeterol [Advair 250-50 Diskus] 1 each IH BID 02/27/19 Gabapentin [Neurontin] 300 mg PO BID 02/27/19 Melatonin 10 mg PO QHS 02/27/19 Mirtazapine [Remeron] 30 mg PO QHS 02/27/19 Nitroglycerin [Nitrostat] 0.3 mg SL Q5M PRN 02/27/19 Tiotropium [place] [Spiriva] 18 mcg IH DAILY 02/27/19 Warfarin [Coumadin] 5 mg PO DAILY 02/27/19 Amitriptyline HCl 25 mg PO QHS 10/18/19 Oxybutynin Chloride [Oxybutynin Chloride ER] 10 mg PO DAILY 12/15/19 Diltiazem HCl [Cartia Xt] 180 mg PO DAILY 01/06/20 Doxycycline Hyclate 100 mg PO BID 01/06/20 Hydroxyzine HCl 25 mg PO Q8H PRN 01/06/20 Enoxaparin [Lovenox] 50 mg SUBCUT Q12@0600,1800 #6 syringe 01/07/20 Following Prescrptions Were Given to Patient: Enoxaparin [Lovenox] 50 mg SUBCUT Q12@0600,1800 #6 syringe Transmission Status: Received by [facility] [address] Orders: Prothrombin Time w/INR Time Frame: 01/10/20, Facility: [facility], Location: Laboratory Primary Care Physician: YOBANI BROWN [Other] Please follow up with your Primary Care Physician in: 1 WEEK. Disposition: Home Minutes spent on discharge:: 26 Patient Condition:: Stable Medical Necessity - Tobacco Use Smoking Status: Current every day smoker Meaningful Use Info Meaningful Use Diagnoses (Choose all that apply): None applicable Code Visit OBSV E&M: 36415 Observation care discharge
--- NOTE | 2020-01-07 13:46 | NURSING ---
Discharge teaching completed. Patient voices understanding of same.
== END 2020-01-07 11:57 | disposition home or self-care (01) ==
LOC: ED 18:46 → PCU 23:27
PROVIDERS: Admitting Provider Hospitalist; Emergency Provider Emergency Medicine; Visit Provider Hospitalist
DX: R07.89 Other chest pain (principal); I25.2 Old myocardial infarction; I25.10 Atherosclerotic heart disease of native coronary artery without angina pectoris; J44.9 Chronic obstructive pulmonary disease, unspecified; E78.5 Hyperlipidemia, unspecified; I10 Essential (primary) hypertension; M86.60 Other chronic osteomyelitis, unspecified site; E43 Unspecified severe protein-calorie malnutrition; Z79.899 Other long term (current) drug therapy; Z79.01 Long term (current) use of anticoagulants; Z87.891 Personal history of nicotine dependence; Z68.1 Body mass index [BMI] 19.9 or less, adult; Z95.5 Presence of coronary angioplasty implant and graft
CPT/HCPCS: 36415; 71045; 78452; 80048; 80061; 84484; 85025; 85610; 93005; 93017; 94640; 96372; 96374; 96375; 96376; 97802; 99218; 99285; 99406; A9500; A4216; G0378; J2405; J2785

== ENCOUNTER 2020-01-14 14:50 | Emergency (ER) | payer MEDICARE, MEDICAID, SELFPAY ==
[2020-01-06 21:45] VITALS: BMI 17.6
[2020-01-14 14:51] VITALS: BP 123/77; PULSE 76; RESP 15; TEMP 36.8; O2SAT 97; BMI 18.1
--- NOTE | 2020-01-14 15:07 | ED.DCSUM_ITS ---
History of Present Illness Chief Complaint: Fall Informant: Patient Occurred: Yesterday Mechanism/Context: Injury Onset: Yesterday Narrative: Patient is a 59-year-old female with history of mechanical valve on chronic Co umadin therapy presenting with left elbow pain. Patient slipped on her front porch yesterday and when trying to catch herself hit her left elbow on the railing. She states she had elbow pain since then. She especially has elbow pain when she tries to move the joint. She is not have associated swelling. She notes that she has some tingling in her second through fourth fingers but does not have any associated weakness. She is been taking Tylenol at home with no relief of the pain. She has appointment to see her orthopedist in [place] next week. This is a follow-up appointment from prior hemarthrosis of the same elbow when patient had a supratherapeutic INR. She states her last INR was about a week and half ago was actually slightly subtherapeutic. Does not have any associated swelling of her elbow. She denies any other complaints or injuries. She did not actually fall. Past Medical History - Allergies and Home Meds Allergies/Adverse Reactions: Allergies naproxen Allergy (Verified 01/14/20 14:51) Swelling Penicillins Allergy (Verified 01/14/20 14:51) Unknown aspirin Adverse Reaction (Verified 01/14/20 14:51) Other on warfarin ibuprofen [From Motrin] Adverse Reaction (Verified 01/14/20 14:51) Other on warfarin Primary Care Physician: [facility] Doctor,Out of [Primary Care Provider] - Past Medical History: - - History of PR, coronary artery disease, COPD, hyperlipidemia, hypertension Surgical History: angioplasty, cataract, hysterectomy, total hip arthroplasty - X2, tonsillectomy, - - Aortic and pulmonic valve replacement, patient has mechanical aortic valve, skin grafts, coronary artery stent placement times 2 - March 2018 Smoking Status: Current every day smoker - Family History Paternal Family History: Reports: Cancer - Bladder cancer, Heart Disease - Her paternal grandfather from heart attack between the ages of 57 and 58. Her paternal grandmother from a heart attack at about age 69. Maternal Family History: Reports: Cancer - Lung and bone cancer Review of Systems General: Denies: Chills, Fever, Sweats Eyes: Denies: Visual changes - bilaterally, Diplopia ENT: Denies: Rhinorrhea, Sore throat Cardiovascular: Denies: Chest pain, Palpitations Respiratory: Denies: Dyspnea, Cough, Dyspnea on exertion Musculoskeletal: Reports: Extremity Pain - left elbow . Denies: Back pain Skin: Denies: Rash, Wounds Neurological: Reports: Parasthesia - left 2-4th fingers . Denies: Headache, Weakness, Numbness Physical Exam Vital Signs/Narrative: Vital Signs Temp Pulse Resp BP Pulse Ox 01/14/20 14:51 98.3 F 76 15 123/77 H 97 Inital Vital Signs reviewed: Yes Left Shoulder: Negative for: Contusion, Deformity, Edema, Hematoma, Limited ROM Left Humerus: Negative for: Contusion, Deformity, Edema, Limited ROM Left Elbow: Limited ROM - secondary to pain with pronation/supination. ROM intact with passive ROM in all planes, - - Tenderness palpation of the olecranon as well as medial/lateral epicondyles. Negative for: Contusion, Deformity, Edema, Hematoma Left Forearm: Negative for: Contusion, Deformity, Edema, Hematoma, Limited ROM Left Wrist: Negative for: Abrasion, Contusion, Deformity, Edema, Hematoma, Limited ROM Left Hand: -. Negative for: Abrasion, Contusion, Deformity, Edema, Hematoma, Limited ROM General: Well nourished, Well developed Head: Normocephalic, Atraumatic Eyes: Perrl, EOMI ENT: No Trauma, Moist Mucous Membranes Neck: Nontender, Full ROM Cardiovascular: Regular rate, Regular rhythm, - - Brisk capillary refill Respiratory: No distress, CTA bilaterally, Chest nontender Back: Nontender Skin: Normal color, No rash, - - Guarding of the upper extremities consistent with patient's prior bobby. Negative for: Trauma Neurological: Alert, Oriented x3, Cranial nerves II-XII grossly intact, Normal Strength, Normal Sensation Psychological: Normal affect Diagnostic/Tx/Re-eval Clinical Impression(s) from Imaging Studies Elbow X-Ray 01/14/20 15:20 IMPRESSION: Small joint effusion. No fracture is seen at this time. If symptoms persist, a repeat examination in 7-10 days is recommended. Electronically Signed: Az Miner, at 15:38 EST , Service support , - Medical Decision Making Patient is evaluated for pain in her left elbow secondary to an injury that occurred yesterday. She does not have a significant joint effusion on physical exam. She does have pain with range of motion of the elbow. X-ray does not show any acute fracture. There is a very small effusion. Patient is counseled on the risk of an occult fracture and need for repeat x-ray in 7 to 10 days if she still having pain. She is given a one-time dose of [place] for pain control in the emergency room. Patient is counseled that she will not be discharged home with prescription for Randolph as she does not have an acute fracture today. She will continue Tylenol and ice as needed. Patient is agreeable with this. Patient has a follow-up appointment with orthopedist next week. She is otherwise well-appearing and I do not think an INR or other evaluations indicated at this time. Patient is neuro vastly intact. Patient is counseled on signs and symptoms requiring return to the emergency room. Patient verbalizes agreement and understand this plan. Patient discharged home in stable and improved condition. ED Disposition - Plan for ED Patient: Disposition: Home or Assisted Living Diagnosis: Left elbow contusion Instructions: CONTUSION, Elbow Referrals: [facility] Doctor,Out of [Primary Care Provider] - Additional Instructions: Please follow-up with your orthopedist as scheduled next week. You might require repeat x-rays if you continue to have pain. There is no signs of an acute fracture today. Return the emergency room with any worsening symptoms. Use ice and Tylenol as needed for pain at home.
[2020-01-14] MEDS: HYDROcodone Bitartrate/Apap 5/325 Tablet PO (15:12)
--- NOTE | 2020-01-14 15:20 | RAD_ITS ---
STUDY: X-RAY - LEFT ELBOW REASON FOR EXAM: Female, 59 years old. PAIN S/P FALL YESTERDAY TECHNIQUE: 3 view(s) of the elbow. COMPARISON: None. FINDINGS: Normal visualized humerus, radius and ulna. Normal radiocapitellar and ulnotrochlear articulations. Small joint effusion. RAD/Elbow min 3 Views IMPRESSION: Small joint effusion. No fracture is seen at this time. If symptoms persist, a repeat examination in 7-10 days is recommended. Electronically Signed: Az Miner, at 15:38 EST , Service support ,
--- NOTE | 2020-01-14 15:40 | NURSING ---
this rn walked into room. pt noted to be putting hospital supplies from drawers in room into her bag. when asked about it pt initially denied and then states that she already had the supplies. g bryon law and officer wale padilla.
[2020-01-14 16:22] VITALS: BP 145/83
== END 2020-01-14 16:23 | disposition home or self-care (01) ==
PROVIDERS: Emergency Provider Emergency Medicine
DX: S50.02XA Contusion of left elbow, initial encounter (principal); I25.2 Old myocardial infarction; I10 Essential (primary) hypertension; J44.9 Chronic obstructive pulmonary disease, unspecified; F17.200 Nicotine dependence, unspecified, uncomplicated; Z79.01 Long term (current) use of anticoagulants; W01.198A Fall on same level from slipping, tripping and stumbling with subsequent striking against other object, initial encounter; Y93.01 Activity, walking, marching and hiking; Y92.008 Other place in unspecified non-institutional (private) residence as the place of occurrence of the external cause; Y99.8 Other external cause status
CPT/HCPCS: 73080; 99281

== ENCOUNTER 2020-01-21 18:03 | Emergency (ER) | payer MEDICARE, MEDICAID, SELFPAY ==
[2020-01-21 18:03] VITALS: BP 146/78; PULSE 78; RESP 19; TEMP 36.6; O2SAT 99; BMI 18.1
--- NOTE | 2020-01-21 18:18 | CT_ITS ---
STUDY: CTA CHEST REASON FOR EXAM: Female, 59 years old. CP X 2 HOURS THAT RADIATES TO BACK RADIATION DOSAGE (If Supplied By Facility): CTDIvol = ( 5.66 ) mGy, DLP = ( 111.33 ) mGycm TECHNIQUE: The examination was performed with the intravenous administration of 100 CC ISOVUE 370. Post-processing of the angiographic images was performed, with multiplanar reformation and 3D reconstruction. Individualized dose optimization techniques were used for this CT. COMPARISON: None. FINDINGS: Normal enhancement of the main pulmonary artery and right and left pulmonary arteries. Normal enhancement of the bilateral peripheral pulmonary arteries. There is no demonstrated pulmonary embolism. Normal thoracic aorta and visualized great vessels. There is no demonstrated aortic dissection. Normal heart and pericardium. Normal mediastinum. Normal hilar regions. Normal visualized trachea and bronchi. The lungs are well expanded. Normal pulmonary parenchyma. Left upper lobe calcified granuloma. Normal pleura. Normal chest wall structures. Vertebral scoliosis. Normal visualized upper abdomen. CT/CTA Chest W/WO Contrast IMPRESSION: No demonstrated pulmonary embolism or arterial dissection. Electronically Signed: Arthur Kunz DO at 19:54 EST Tel [phone], Service support ,
--- NOTE | 2020-01-21 18:18 | EKG12_ITS ---
Test Reason : CP Blood Pressure : / mmHG Vent. Rate : 074 BPM Atrial Rate : 074 BPM P-R Int : 136 ms QRS Dur : 090 ms QT Int : 406 ms P-R-T Axes : 063 036 075 degrees QTc Int : 450 ms Normal sinus rhythm with sinus arrhythmia Possible Left atrial enlargement Borderline ECG Confirmed by MARY KOCH, JOSE ([id number]), mapping editor ALLYN SEAMAN ([id number]) on 01/24/2020 2:09:40 PM Referred By: EDIL Confirmed By:DEV HERNANDEZ MD
[2020-01-21 18:47] LABS: Absolute Lymphocyte Count 1.31 X10^3/uL (0.83-4.51); Absolute Neutrophil Count 4.4 X10^3/uL (2.0-7.7); Basophil# 0.03 X10^3/uL; Basophil% 0.4 % (0-1); Eosinophil# 0.48 X10^3/uL; Eosinophils% 6.8 % (0-5); Hematocrit 38.2 % (37-47); Hemoglobin 12.1 g/dL (12.0-15.0); Lymphocyte # 1.31 X10^3/ul (4.0); Lymphocyte % 18.7 % (19-41); Mean Corp Hgb Conc 31.7 g/dL (32-36); Mean Corpuscular Hgb 28.3 pg (27.0-32.0); Mean Corpuscular Volume 89.3 fL (81-99); Mean Platelet Vol. 10.9 fl (6.2-12.0); Monocyte# 0.79 X10^3/uL; Monocyte% 11.3 % (0-10); NRBC Flagged by Analyzer 0 % (0-5); Neutrophil # 4.38 X10^3/uL (2.7-7.7); Neutrophil % 62.4 % (47-70); Platelet Count 293 K/mm3 (150-450); RBC Distribution Width CV 16.3 % (11.6-14.6); RBC Distribution Width SD 53.4 fl (35.1-43.9); Red Blood Count 4.28 M/mm3 (4.2-5.4)
[2020-01-21 18:55] LABS: International Normalized Ratio 1.8; Prothrombin Time (Protime)PT. 20.4 SECONDS (11.7-14.9)
[2020-01-21 19:03] VITALS: BP 137/74; PULSE 71; RESP 16; O2SAT 98
[2020-01-21 19:04] LABS: Anion Gap 4 (5-15); BUN 15 mg/dL (7-18); BUN/Creat Ratio 16.1 RATIO (10-20); Calcium,Total 9.2 mg/dL (8.5-10.1); Chloride 108 mmol/L (98-107); Creatinine, Serum 0.93 mg/dL (0.55-1.02); EST Glomerular Filtration Rate 66 mL/min (>60); Est Glom Filt Rate - Afr Amer 80 mL/min (>60); Estimated Creatinine Clearance 51.42 ml/min; Glucose 99 mg/dL (74-106); Potassium 3.9 mmol/L (3.5-5.1); Sodium Level 139 mmol/L (136-145)
[2020-01-21] MEDS: Acetaminophen 500 MG Tablet 1000 MG PO (19:10)
[2020-01-21] MEDS: 0.9% Normal Saline 1,000 ML 150 ML IV (19:10)
--- NOTE | 2020-01-21 20:17 | ED.VISSUMM ---
- ER Visit Summary Date of Service: 01/21/20 Chief Complaint: Chest pain History of Present Illness: The patient is a [address] Poe and Dr. Brown at [facility]. She reports that she is lived here for a year, but has not established a primary care physician or dip lube operator in the area. Patient reports that she has chest pain that began approximately 2 hours ago while she is at rest. Is a sharp, stabbing pain with radiation to her left arm to her mid back and to the left upper quadrant. Pain is 9 out of 10 severity. Is worsened by exertion. She taken Tylenol on nitro without relief. She denies any associated nausea, vomiting, diaphoresis, shortness of breath. Physical Examination: Vitals: Stable. Afebrile. General: Well-nourished and well-developed. Head: Normocephalic atraumatic. Neck: Supple, no lymphadenopathy. No JVD. Nontender. Cardiovascular: Regular rate and rhythm. 2 out of 6 systolic murmur and a mechanical valve click. Respiratory: No respiratory distress. Clear to auscultation bilaterally. Abdominal: Soft, nontender, nondistended, normal bowel sounds. No guarding, rebound, or peritoneal signs. Back: Nontender. Extremities: Nontender, no edema. Skin: Normal color, no rash. Neurologic: Alert and oriented ?3. Cranial nerves II through XII are intact. Normal strength and sensation. Psych: Normal affect. Test Results: EKG is sinus arrhythmia 74 with no acute changes. Troponin is negative. INR is 1.8. Chem-7 shows a chloride of 108. CBC shows lymphocytes of 19, monocytes of 11, eosinophils of 7. Clinical Impression(s) from Imaging Studies Chest CTA 01/21/20 18:18 IMPRESSION: No demonstrated pulmonary embolism or arterial dissection. Electronically Signed: Arthur Kunz DO at 19:54 EST Tel [phone], Service support , Emergency Department Course and Treatment: Reviewing the chart shows patient actually had a heart catheterization in October 2019 that shows no coronary artery disease. She was admitted to the hospital 2 weeks ago and had a stress test that was negative. She failed to mention either of these things to me. She was treated with Tylenol here for pain. In my opinion she is seeking opiate-based medications. Treatment Plan: I discussed the patient that her INR is subtherapeutic at 1.8. She does have an aortic valve replacement. She is instructed to contact the Coumadin clinic at [facility] for further instructions on her warfarin dosing. She is also instructed to take a extra dose of warfarin tonight. This is 3 mg. She will be discharged with instructions to follow-up with Dr. Bowling to establish a local dip lube operator. Return to the emergency department for any worsening symptoms. Disposition: To home in improved and stable condition. Impression: 1. Atypical chest pain. 2. Subtherapeutic INR. This note was generated with [employer] dictation software. It may contain incorrect words, spelling, and punctuation that were not noted in review of the chart prior to signing ED Disposition - Plan for ED Patient: Disposition: Home or Assisted Living Instructions: CHEST PAIN, Uncertain Cause Referrals: YOBANI BROWN [Other] - 1-2 Days if not improving Aurora Bowling MD [STAFF PHYSICIAN] - 1-2 Weeks
[2020-01-21 20:18] VITALS: BP 143/79; PULSE 74; RESP 17; O2SAT 99
== END 2020-01-21 20:52 | disposition home or self-care (01) ==
PROVIDERS: Emergency Provider Emergency Medicine
DX: R07.89 Other chest pain (principal); R79.1 Abnormal coagulation profile; I25.10 Atherosclerotic heart disease of native coronary artery without angina pectoris; I25.2 Old myocardial infarction; J44.9 Chronic obstructive pulmonary disease, unspecified; Z72.0 Tobacco use; Z95.2 Presence of prosthetic heart valve; Z79.01 Long term (current) use of anticoagulants
CPT/HCPCS: 71275; 80048; 84484; 85025; 85610; 93005; 96360; 96361; 99285; J7030; Q9967; A4216

== ENCOUNTER 2020-02-28 17:15 | Emergency (ER) | payer MEDICARE, MEDICAID, SELFPAY ==
[2020-02-28 17:17] VITALS: BP 153/92; PULSE 79; RESP 20; TEMP 36.7; O2SAT 98; BMI 18.0
--- NOTE | 2020-02-28 17:47 | ED.VIS.LOWEX ---
History of Present Illness Chief Complaint: Lower Extremity Injury Informant: Patient Occurred: Today - couple hrs [employer] Context: Sudden Onset - when stood up out of bed Timing: Continuous Quality of Pain: Aching Location: right hip/groin Current Severity: Moderate Maximum Severity: Severe Worsened by: walking/trying to WB, moving Relieved by: remaining still Associated Symptoms: Negative for: Parasthesia, Weakness, Loss of Funtion Narrative: Patient states she had a total hip arthroplasty remotely for a fracture. She stood up in bed today and had significant pain in that hip, feeling like it locked up, and she has been having pain with trying to weight-bear and walk ever since although she is able. She denies any numbness distally. No fevers. No traumatic injury. No recent illness. - Past Medical History (1) CAD (coronary artery disease), tolowa dee-ni' coronary artery Status: Chronic (2) COPD (chronic obstructive pulmonary disease) Status: Chronic (3) HTN (hypertension) Status: Chronic (4) History of myocardial infarction Status: Chronic (5) History of tobacco use Status: Chronic (6) Hyperlipidemia Status: Chronic Past Medical History - Allergies and Home Meds Allergies/Adverse Reactions: Allergies naproxen Allergy (Verified 02/28/20 17:17) SWELLING SOB N/V Penicillins Allergy (Verified 02/28/20 17:17) PT UNSURE OF REACTION aspirin Adverse Reaction (Verified 02/28/20 17:17) BLOOD THINNERS on warfarin ibuprofen [From Motrin] Adverse Reaction (Verified 02/28/20 17:17) BLOOD THINNERS on warfarin Primary Care Physician: [facility] Doctor,Out of [NON-STAFF] - Surgical History: angioplasty, cataract, hysterectomy, total hip arthroplasty - X2, tonsillectomy, - - Aortic and pulmonic valve replacement, patient has mechanical aortic valve, skin grafts, coronary artery stent placement times 2 -March 2018 Lives: Alone Smoking Status: Current every day smoker - Family History Paternal Family History: Reports: Cancer - Bladder cancer, Heart Disease - Her paternal grandfather from heart attack between the ages of 57 and 58. Her paternal grandmother from a heart attack at about age 69. Maternal Family History: Reports: Cancer - Lung and bone cancer Review of Systems General: Denies: Chills, Fever, Sweats Eyes: Denies: Visual changes - bilaterally, Diplopia ENT: Denies: Rhinorrhea, Sore throat Cardiovascular: Denies: Chest pain, Palpitations Respiratory: Denies: Dyspnea, Cough, Dyspnea on exertion Gastrointestinal: Denies: Abdominal pain, Nausea, Vomiting, Diarrhea, Melena, Hematochezia Genitourinary: Denies: Dysuria, Hematuria, Frequency Musculoskeletal: Reports: Extremity Pain. Denies: Back pain Skin: Denies: Rash, Wounds Neurological: Denies: Headache, Weakness, Numbness Physical Exam Vital Signs/Narrative: Vital Signs Temp Pulse Resp BP Pulse Ox 02/28/20 17:17 98.0 F 79 20 H 153/92 H 98 Inital Vital Signs reviewed: Yes - Extremity Exam Left Hip: Limited ROM - But full range intact with passive assistance from the examiner, - - Tender at the right greater trochanter. Skin is normal, well-healed surgical scar. Painful flexion, internal and external rotation. No length discrepancy between the 2 lower extremities. Passive range of motion is easy. General: Well nourished, Well developed, Unkempt, - - NAD Head: Normocephalic, Atraumatic Eyes: Perrl, EOMI ENT: No Trauma, Moist Mucous Membranes Neck: Nontender, Full ROM Cardiovascular: Regular rate, Regular rhythm, No murmurs Respiratory: No distress, CTA bilaterally, Chest nontender Abdomen: Soft, Nontender, Nondistended, Normal bowel sounds Skin: Normal color, No rash, No Trauma Neurological: Alert, Oriented x3, Cranial nerves II-XII grossly intact, Normal Strength, Normal Sensation Psychological: Normal affect, Normal Mood Diagnostic/Tx/Re-eval Clinical Impression(s) from Imaging Studies Hip/Pelvis X-Ray 02/28/20 18:05 IMPRESSION: No acute osseous injury is evident. Electronically Signed: Francesco Aranda MD at 18:29 EDT Tel , Service support , - Medical Decision Making X-rays are normal. This show quite a bit of chronic arthritic abnormalities, but it appears identical to her prior x-ray in August last year. Patient was given an oxycodone which helped her pain. She will be given crutches to help her ambulate safely and advised to follow-up with orthopedics if her pain persist. She is comfortable with that plan I advised [id number] medications if needed for pain, rest, ice. Given her excellent range of motion of the right hip, do not suspect a septic joint here. More likely a soft tissue injury/pain. ED Disposition - Plan for ED Patient: Disposition: Home or Assisted Living Diagnosis: Acute right hip pain Instructions: ED Sprain Hip Referrals: Mamadou Ruano MD [STAFF PHYSICIAN] - 1 Week if not improving Additional Instructions: Or may see Robert Lyon.
[2020-02-28] MEDS: oxyCODONE 5 MG Tablet PO (17:59)
--- NOTE | 2020-02-28 18:05 | RAD_ITS ---
STUDY: X-RAY - PELVIS AND RIGHT HIP REASON FOR EXAM: Female, 59 years old. patient had a fall, right hip pain TECHNIQUE: 2 views of the pelvis and hip. COMPARISON: 09/23/2019 FINDINGS: There is a non-specific bowel gas pattern. Normal visualized soft tissue structures. Normal bilateral iliac wings, sacroiliac joints and visualized sacrum. Normal bilateral superior and inferior pubic rami. Normal pubic symphysis. Normal bilateral ischial tuberosities. Right hip arthroplasty with normal alignment. Remote right femoral deformity. RAD/HIP, UNI W/ Pelvis 2-3 Views IMPRESSION: No acute osseous injury is evident. Electronically Signed: Francesco Aranda MD at 18:29 EDT Tel , Service support ,
[2020-02-28 19:26] VITALS: BP 147/86; PULSE 65; RESP 17; O2SAT 99
== END 2020-02-28 19:28 | disposition home or self-care (01) ==
PROVIDERS: Emergency Provider Emergency Medicine
DX: M25.551 Pain in right hip (principal); Z96.641 Presence of right artificial hip joint; I25.10 Atherosclerotic heart disease of native coronary artery without angina pectoris; J44.9 Chronic obstructive pulmonary disease, unspecified; I10 Essential (primary) hypertension; I25.2 Old myocardial infarction; E78.5 Hyperlipidemia, unspecified; F17.200 Nicotine dependence, unspecified, uncomplicated; Z79.51 Long term (current) use of inhaled steroids; Z79.01 Long term (current) use of anticoagulants; Z79.899 Other long term (current) drug therapy
CPT/HCPCS: 73502; 99283

== ENCOUNTER 2020-03-18 15:38 | Emergency (ER) | payer MEDICARE, MEDICAID, SELFPAY ==
[2020-03-18 15:39] VITALS: BP 128/70; PULSE 76; RESP 16; TEMP 36.3; O2SAT 96; BMI 18.3
--- NOTE | 2020-03-18 15:47 | CT_ITS ---
STUDY: CT BRAIN WITHOUT CONTRAST REASON FOR EXAM: Female, 59 years old. Frontal headache x 3 days, some confusion per family, hx hypertension, [place]. RADIATION DOSAGE (If Supplied By Facility): CTDIvol = ( 44.99 ) mGy, DLP = ( 745.49 ) mGycm TECHNIQUE: Transaxial CT imaging of the brain was performed without administration of intravenous contrast material. Individualized dose optimization techniques were used for this CT. COMPARISON: 09/23/2019 FINDINGS: Normal soft tissue structures. Normal calvarium. Bilateral lens replacements. Normal size ventricles and extra-axial spaces for the patient''s age. There are areas of decreased attenuation within the white matter tracts of the supratentorial brain, consistent with microvascular disease changes. Normal age-related changes of the basal ganglia. Normal brainstem. Normal cerebellum. There is no intracranial hemorrhage. There are no findings of an acute ischemic infarction. Normal visualized paranasal sinuses. CT/Brain/Head without Contrast IMPRESSION: No CT evidence of acute infarct or hemorrhage. If there is clinical concern for hyperacute ischemia that is not evident by CT, MRI should be considered if possible. Electronically Signed: Francesco Aranda MD at 17:18 EDT Tel , Service support ,
--- NOTE | 2020-03-18 15:48 | EKG12_ITS ---
Test Reason : Blood Pressure : / mmHG Vent. Rate : 070 BPM Atrial Rate : 070 BPM P-R Int : 148 ms QRS Dur : 072 ms QT Int : 422 ms P-R-T Axes : 076 044 074 degrees QTc Int : 455 ms Normal sinus rhythm Possible Left atrial enlargement Septal infarct , age undetermined Abnormal ECG Confirmed by VIVIAN KOCH, EVAN ([id number]), index editor SINDY AVILES ([id number]) on 03/21/2020 9:03:54 AM Referred By: Confirmed By:EVAN PARK MD
--- NOTE | 2020-03-18 16:43 | ED.VIS.GEN ---
History of Present Illness Chief Complaint: Headache Narrative: 59-year-old female presents with 3 days of mild headache. She has a history of chronic headaches and this does not feel dissimilar. It was not sudden or severe in onset. It is not the worst headache of her life. She has no associated fever, chills, or neck pain. Her thought that she was transiently confused this morning but she now feels back at baseline. She denies any slurred speech, facial droop, or any other complaints. She states that she was just still sleepy and had not completely woke up yet. Denies any recent infection. She also reports chest pain when she signed in however she tells me that she has chronic chest pain and it is unchanged. It is not exertional nor is it pleuritic. She has no associated diaphoresis or dyspnea. Prior similar symptoms: Yes Capacity - Capacity Assessment Tool Can the patient make a choice & communicate that choice?: Yes Past Medical History - Allergies and Home Meds Allergies/Adverse Reactions: Allergies naproxen Allergy (Verified 02/28/20 17:17) SWELLING SOB N/V Penicillins Allergy (Verified 02/28/20 17:17) PT UNSURE OF REACTION aspirin Adverse Reaction (Verified 02/28/20 17:17) BLOOD THINNERS on warfarin ibuprofen [From Motrin] Adverse Reaction (Verified 02/28/20 17:17) BLOOD THINNERS on warfarin Primary Care Physician: Juanita Doctor,Out of [NON-STAFF] - Prior records reviewed: No Surgical History: angioplasty, cataract, hysterectomy, total hip arthroplasty - X2, tonsillectomy, - - Aortic and pulmonic valve replacement, patient has mechanical aortic valve, skin grafts, coronary artery stent placement times 2 -March 2018 Smoking Status: Current every day smoker - Family History Paternal Family History: Reports: Cancer - Bladder cancer, Heart Disease - Her paternal grandfather from heart attack between the ages of 57 and 58. Her paternal grandmother from a heart attack at about age 69. Maternal Family History: Reports: Cancer - Lung and bone cancer Review of Systems General: Denies: Chills, Fever, Sweats Eyes: Denies: Visual changes - bilaterally, Diplopia ENT: Denies: Rhinorrhea, Sore throat Cardiovascular: Denies: Chest pain, Palpitations Respiratory: Denies: Dyspnea, Cough, Dyspnea on exertion Gastrointestinal: Denies: Abdominal pain, Nausea, Vomiting, Diarrhea, Melena, Hematochezia Genitourinary: Denies: Dysuria, Hematuria, Frequency Musculoskeletal: Denies: Back pain, Extremity Pain Skin: Denies: Rash, Wounds Neurological: Reports: Headache. Denies: Weakness, Parasthesia, Numbness Psych: Denies: Suicidal thoughts Physical Exam Vital Signs/Narrative: Vital Signs Temp Pulse Resp BP Pulse Ox 03/18/20 15:39 97.4 F L 76 16 128/70 H 96 General: Well nourished, Well developed, No Acute Distress Head: Normocephalic, Atraumatic Eyes: Perrl, EOMI ENT: Moist mucous membranes, No rhinorrhea Neck: Supple, Nontender Cardiovascular: Regular rate, Regular rhythm, No murmurs Respiratory: No distress, CTA bilaterally, Chest nontender Abdomen: Soft, Nontender, Nondistended, Normal bowel sounds Back: Nontender, Normal Inspection Extremities: Nontender, No edema Skin: Normal color, No rash Neurological: Alert, Oriented x3, Cranial nerves II-XII grossly intact, Normal Strength, Normal Sensation Psychological: Normal affect, Normal Mood Diagnostic/Tx/Re-eval - Rhythm Strip Rhythm Strip: Sinus Rhythm Rate: 70 Ectopy: None - Medical Decision Making EKG is unremarkable. CT brain is negative. She is not confused and she does not feel that she ever was confused. No stroke or strokelike symptoms and she is also on Coumadin which would make an ischemic stroke much less likely. Her INR is 2.7 here. She did not want other blood test performed because she is a very hard stick for blood and assures me that her chest pain is chronic. I know her well from taking care of her at other hospitals and I have personally seen her for chest multiple times. Her work-up is typically unremarkable and she reports that it is usually from anxiety when she gets in a fight with her . She denies suicidal thoughts or ideation at this time. Her NIH score is 0 and she is not in any distress whatsoever. CT brain is also negative. She looks quite well. She feels comfortable going home and feels safe in her home. At this time I do not feel she will benefit from hospitalization and feel that she can safely be discharged with close follow-up. Return precautions were explained. ED Disposition - Plan for ED Patient: Disposition: Home or Assisted Living Diagnosis: Chronic pain, Headache Instructions: ED Chronic Pain, ED Headache Unspecified Referrals: [facility] Doctor,Out of [NON-STAFF] -
== END 2020-03-18 17:35 | disposition home or self-care (01) ==
PROVIDERS: Emergency Provider Emergency Medicine
DX: R51 Headache (principal); G89.29 Other chronic pain; Z79.01 Long term (current) use of anticoagulants
CPT/HCPCS: 36416; 70450; 85610; 93005; 99282

== ENCOUNTER 2020-06-25 17:14 | Emergency (ER) | payer MEDICARE, MEDICAID, SELFPAY ==
[2020-06-25 17:15] VITALS: BP 122/76; PULSE 84; RESP 18; TEMP 36.5; O2SAT 95; BMI 18.4
--- NOTE | 2020-06-25 17:30 | RAD_ITS ---
STUDY: X-RAY CHEST REASON FOR EXAM: Female, 59 years old. Sudden onset cp at 1500 with intermittent numbness of left arm -- HX OF HTN, AR x2, COPD, ASTHMA, EMPHYSEMA TECHNIQUE: Frontal view COMPARISON: 01-06-20 FINDINGS: The lungs are hyperaerated. There is no demonstrated pleural abnormality. Normal size heart. Stable valvular stent and prosthetic valve. Normal mediastinum and jeb. Normal visualized pulmonary arteries. Calcified aortic arch and descending thoracic aorta. Scoliosis of the thoracic spine. Normal visualized ribs, clavicles, and shoulders. There is no demonstrated abnormality of the visualized soft tissue structures of the upper abdomen. RAD/Chest 1 View (Portable) IMPRESSION: Hyperaeration. Electronically Signed: Arthur Kunz DO at 18:19 EDT Tel [phone], Service support ,
--- NOTE | 2020-06-25 17:33 | EKG12_ITS ---
Test Reason : CP Blood Pressure : / mmHG Vent. Rate : 080 BPM Atrial Rate : 080 BPM P-R Int : 130 ms QRS Dur : 094 ms QT Int : 396 ms P-R-T Axes : 040 026 073 degrees QTc Int : 456 ms Normal sinus rhythm with sinus arrhythmia Possible Left atrial enlargement Borderline ECG Confirmed by VIVIAN KOCH, EVAN ([id number]), graphics editor SINDY AVILES ([id number]) on 06/26/2020 1:28:07 PM Referred By: PALLAVI/JERARDO Confirmed By:EVAN PARK MD
--- NOTE | 2020-06-25 17:34 | ED.VISSUMM ---
- ER Visit Summary Date of Service: 06/25/20 Chief Complaint: Chest pain History of Present Illness: The patient is a 59 F who presents with chest pain that began approximately 2-1/2 hours prior to arrival. Patient states she was watching TV and doing light housework when the pain began. Patient describes the pain is sharp. Patient states it radiates to her left arm. Patient admits to some numbness and tingling in her left arm. Patient states her pain is worse with exertion. Patient states nothing makes it better. Patient admits to some shortness of breath. Patient admits to some palpitations. Patient denies any nausea or vomiting. Patient denies any diaphoresis. Patient denies any fevers or chills. Patient denies any lightheadedness or dizziness. Physical Examination: Vital signs are stable. Patient is afebrile. Patient is in no acute distress. Oral mucosa is pink and moist. Neck is supple. Trachea is midline. There is no JVD. Heart was regular rate and rhythm. Lungs are clear and equal bilaterally. There is adequate respiratory effort. Abdomen is soft. Bowel sounds are normal. There is no tenderness. There is no rebound or guarding noted. Cranial nerves II through XII are intact. There are no focal motor or sensory deficits. Test Results: EKG showed a normal sinus rhythm with a rate of 80. There are no acute ST or T wave changes. Portable chest x-ray was obtained. There are chronic changes consistent with COPD. There is no acute cardiopulmonary process. This was interpreted by the radiologist and reviewed by myself. CBC and basic metabolic profile within normal limits. Troponin was normal. Emergency Department Course and Treatment: Patient was given aspirin and sublingual nitroglycerin. Patient had no improvement of her pain with sublingual nitroglycerin. Patient was given a dose of morphine. Patient is feeling better on reevaluation. Patient was instructed to follow-up with her primary care physician in 5 to 7 days. Patient understood and was agreeable with the plan. All questions were answered. Disposition: Discharge Home Impression: Chest pain This note was generated with [employer] software. It may contain incorrect words, spelling, and punctuation that were not noted in review of the chart prior to signing ED Disposition - Plan for ED Patient: Disposition: Home or Assisted Living Diagnosis: Chest pain Instructions: ED Chest Pain Atypical Unkn Cause Referrals: YOBANI BROWN [Other] - 5-7 Days
[2020-06-25] MEDS: Aspirin 81 MG TAB.CHEW 324 MG PO (17:43)
[2020-06-25 17:44] VITALS: BP 134/85; PULSE 80
[2020-06-25] MEDS: Nitroglycerin SL (ED/IMG/CATH) 0.4 MG TABLET SUBLINGUAL ×2 (17:44→18:09)
[2020-06-25 17:45] VITALS: O2SAT 96
[2020-06-25 18:09] VITALS: BP 131/84; PULSE 70
[2020-06-25 18:23] LABS: Basophil# 0.03 X10^3/uL; Basophil% 0.4 % (0-1); Eosinophil# 0.18 X10^3/uL; Eosinophils% 2.5 % (0-5); Hematocrit 36.4 % (37-47); Mean Corpuscular Hgb 28.2 pg (27.0-32.0); Mean Corpuscular Volume 85.6 fL (81-99); Mean Platelet Vol. 10.6 fl (6.2-12.0); Monocyte# 0.67 X10^3/uL; Monocyte% 9.5 % (0-10); NRBC Flagged by Analyzer 0 % (0-5); Neutrophil # 4.97 X10^3/uL (2.7-7.7); Neutrophil % 70.5 % (47-70); Platelet Count 249 K/mm3 (150-450); RBC Distribution Width CV 16.8 % (11.6-14.6); RBC Distribution Width SD 51.6 fl (35.1-43.9); Red Blood Count 4.25 M/mm3 (4.2-5.4); White Blood Count 7.1 K/mm3 (4.4-11.0)
[2020-06-25 18:40] LABS: Anion Gap 3 (5-15); BUN 16 mg/dL (7-18); BUN/Creat Ratio 16.6 RATIO (10-20); Calcium,Total 8.7 mg/dL (8.5-10.1); Chloride 109 mmol/L (98-107); Creatinine, Serum 0.96 mg/dL (0.55-1.02); EST Glomerular Filtration Rate 63 mL/min (>60); Est Glom Filt Rate - Afr Amer 76 mL/min (>60); Estimated Creatinine Clearance 50.82 ml/min; Glucose 121 mg/dL (74-106); Potassium 3.9 mmol/L (3.5-5.1); Sodium Level 138 mmol/L (136-145)
[2020-06-25 19:42] VITALS: BP 129/94
== END 2020-06-25 19:43 | disposition home or self-care (01) ==
PROVIDERS: Emergency Provider Emergency Medicine
DX: R07.9 Chest pain, unspecified (principal); J44.9 Chronic obstructive pulmonary disease, unspecified; I10 Essential (primary) hypertension; Z72.0 Tobacco use; Z79.51 Long term (current) use of inhaled steroids; Z79.899 Other long term (current) drug therapy
CPT/HCPCS: 71045; 80048; 84484; 85025; 93005; 99284

== ENCOUNTER 2020-07-23 14:21 | Emergency (ER) | payer MEDICARE, MEDICAID, SELFPAY ==
[2020-07-23 14:22] VITALS: BP 147/71; PULSE 84; RESP 16; TEMP 36.5; O2SAT 94; BMI 19.8
--- NOTE | 2020-07-23 14:42 | ED.VIS.BACK ---
History of Present Illness Informant: Patient Onset: Yesterday Context: Sudden Onset Chronic pain exacerbated by: Twisting Injury: Twisting Timing: Continuous Quality: Sharp Location: Lumbar Current Severity: Severe Maximum Severity: Severe Worsened by: improves with: Movement, Ambulation, Bending Relieved by: Remaining Still Associated Symptoms: Radiation to Right Leg Narrative: 59-year-old female history of chronic back pain who is currently anticoagulated on Coumadin secondary to a heart valve replacement presents to the emergency department with acute on chronic back pain. [place] She states yesterday she stepped in a pothole getting her mail at the trailer park and felt a sharp pain in her right lower back. This has exacerbated her chronic back pain. Pain radiates down her right leg which is consistent with her chronic pain. She has not lost control of her bowel or bladder. She has not had any difficulties urinating and denies constipation. She denies fevers. She denies weakness or paresthesias of her upper or lower extremities. No abdominal pain or vomiting. Prior similar symptoms: Yes, With Prior Back Pain Recent Illness/Hospitalization: No <Phillip Lugo - Last Filed: 07/23/20 14:42> <Minh Valencia - Last Filed: 07/23/20 17:57> Chief Complaint: Back Past Medical History Prior records reviewed: Yes Past Medical History: - - Hypertension hyperlipidemia heart valve replacement Surgical History: angioplasty, cataract, hysterectomy, total hip arthroplasty - X2, tonsillectomy, - - Aortic and pulmonic valve replacement, patient has mechanical aortic valve, skin grafts, coronary artery stent placement times -March 2018 Smoking Status: Current every day smoker Alcohol: Occasional Drugs: None - Family History Paternal Family History: Reports: Cancer - Bladder cancer, Heart Disease - Her paternal grandfather from heart attack between the ages of 57 and 58. Her paternal grandmother from a heart attack at about age 69. Maternal Family History: Reports: Cancer - Lung and bone cancer <Phillip Lugo - Last Filed: 07/23/20 14:42> <Minh Valencia - Last Filed: 07/23/20 17:57> - Allergies and Home Meds Allergies/Adverse Reactions: Allergies naproxen Allergy (Verified 07/23/20 14:24) SWELLING SOB N/V Penicillins Allergy (Verified 07/23/20 14:24) PT UNSURE OF REACTION aspirin Adverse Reaction (Verified 07/23/20 14:24) BLOOD THINNERS on warfarin ibuprofen [From Motrin] Adverse Reaction (Verified 07/23/20 14:24) BLOOD THINNERS on warfarin Primary Care Physician: YOBANI BROWN [Other] Review of Systems All systems negative except as indicated General: Denies: Chills, Fever, Sweats Eyes: Denies: Visual changes - bilaterally, Diplopia ENT: Denies: Rhinorrhea, Sore throat Cardiovascular: Denies: Chest pain, Palpitations Respiratory: Denies: Dyspnea, Cough, Dyspnea on exertion Gastrointestinal: Denies: Abdominal pain, Nausea, Vomiting, Diarrhea, Melena, Hematochezia Genitourinary: Denies: Dysuria, Hematuria, Frequency Musculoskeletal: Reports: Back pain. Denies: Swelling, Extremity Pain Skin: Denies: Rash, Wounds Neurological: Denies: Headache, Weakness, Numbness <Phillip Lugo - Last Filed: 07/23/20 14:42> Physical Exam Vital Signs/Narrative: Vital Signs Temp Pulse Resp BP Pulse Ox 07/23/20 14:22 97.7 F L 84 16 147/71 H 94 Inital Vital Signs reviewed: Yes General: Well nourished, Well developed Head: Normocephalic, Atraumatic Eyes: Perrl, EOMI ENT: Moist mucous membranes, No rhinorrhea Neck: Supple, Nontender Cardiovascular: Regular rate, Regular rhythm, No murmurs Respiratory: No distress, CTA bilaterally, Chest nontender Abdomen: Soft, Nontender, Nondistended, Normal bowel sounds Back: Normal Inspection, Paraspinal Tenderness, - - Right-sided lumbar paraspinal pain on palpation. No midline tenderness. Positive straight leg raise on right and negative on left. 5 out of 5 strength testing of both lower extremities. Normal lower extremity pulses sensation and reflexes. She is able to ambulate. Extremeties: Nontender, No edema Skin: Normal color, No rash Neuro: Alert, Oriented, Normal Strength, Normal Sensation, Normal DTR, Normal Gait Psychological: Normal affect <Phillip Lugo Last Filed: 07/23/20 14:42> Vital Signs/Narrative: Vital Signs Temp Pulse Resp BP Pulse Ox 07/23/20 14:22 97.7 F L 84 16 147/71 H 94 <iMnh Valencia - Last Filed: 07/23/20 17:57> Diagnostic/Tx/Re-eval - Medical Decision Making Patient has chronic back pain. I did a [facility] report. Patient has multiple prescriptions from multiple providers or multiple emergency departments. She is on Coumadin and cannot take anti-inflammatories. I offered her a dose of Tylenol she refused. Discussed with her at this time we do not feel comfortable prescribing her further narcotics as she has gotten multiple prescriptions from multiple providers for multiple emergency departments. She was given 1 [place] in the emergency department I offered her a prescription for Tylenol or Lidoderm patches and she declines I advised her to rest and ice and follow-up closely with her primary care and internal medicine clinic [facility] <Phillip Lugo - Last Filed: 07/23/20 14:42> - Medical Decision Making This is a 59-year-old female who presents with chronic back pain. I did see the patient with the physician legal document assistant. Patient has had multiple prescriptions from multiple providers. She was advised that it would not be appropriate to provide further narcotic prescriptions from the emergency department for chronic pain. She was advised to follow-up with her primary care provider. Patient was discharged. <Minh Valencia - Last Filed: 07/23/20 17:57> ED Disposition <Phillip Lugo - Last Filed: 07/23/20 14:42> <Minh Valencia - Last Filed: 07/23/20 17:57> - Plan for ED Patient: Disposition: Home or Assisted Living Diagnosis: Acute lumbar myofascial strain, Chronic back pain Instructions: ED Back Pain Acute or Chronic Referrals: YOBANI BROWN [Other]
[2020-07-23] MEDS: HYDROcodone Bitartrate/Apap 5/325 Tablet PO (14:47)
== END 2020-07-23 15:08 | disposition home or self-care (01) ==
LOC: ED 15:06
PROVIDERS: Emergency Provider Physician Assistant Medical
DX: S39.012A Strain of muscle, fascia and tendon of lower back, initial encounter (principal); G89.29 Other chronic pain; Z95.2 Presence of prosthetic heart valve; Z79.01 Long term (current) use of anticoagulants; I10 Essential (primary) hypertension; F17.200 Nicotine dependence, unspecified, uncomplicated; E78.5 Hyperlipidemia, unspecified; X58.XXXA Exposure to other specified factors, initial encounter; Y93.01 Activity, walking, marching and hiking; Y92.028 Other place in mobile home as the place of occurrence of the external cause; Y99.8 Other external cause status
CPT/HCPCS: 99283

== ENCOUNTER 2020-08-09 16:49 | Emergency (ER) | payer MEDICARE, MEDICAID, SELFPAY ==
[2020-08-09 16:50] VITALS: BP 149/95; PULSE 83; RESP 19; TEMP 36.6; O2SAT 96; BMI 19.8
--- NOTE | 2020-08-09 17:00 | EKG12_ITS ---
Test Reason : CP Blood Pressure : / mmHG Vent. Rate : 074 BPM Atrial Rate : 074 BPM P-R Int : 148 ms QRS Dur : 076 ms QT Int : 406 ms P-R-T Axes : 026 021 074 degrees QTc Int : 450 ms Normal sinus rhythm Septal infarct , age undetermined Abnormal ECG Confirmed by VIVIAN KOCH, EVAN ([id number]), clinical editor ALLYN SEAMAN ([id number]) on 08/14/2020 12:52:41 PM Referred By: GIOVANNA Confirmed By:EVAN PARK MD
--- NOTE | 2020-08-09 17:01 | ED.DCSUM_ITS ---
- ER Visit Summary Date of Service: 08/09/20 Chief Complaint: [Chest pain] History of Present Illness: The patient is a 59 F [presents the emergency department chest pain is started proximately noon. Patient states the pain intermittent initially but now continuous for the last 2 hours. She describes it as sharp and stabbing and radiating to her back. She has some mild numbness and tingling in her left arm. She states she has had similar pains like this multiple times in the past and gets it about once a month. Patient states that she had a heart catheterization at the end of last year in 2018 which did not show anything significant. Patient also had a stress test in January of this year which was unremarkable. Patient currently on Coumadin for history of a mechanical heart valve. Patient denies recent travel or surgery. She denies fever or cough. She currently rates her pain a 9 out of 10. Patient did take Tylenol and nitroglycerin at home and did not get any relief of her pain. Patient has history of hypertension, high cholesterol, anemia, COPD, and chronic kidney disease.] Physical Examination: [HEENT-PERRLA, EOMI. Cranial nerves II through XII grossly intact. TMs clear. Mucous membranes moist. No adenopathy. Cardiovascular-regular rate and rhythm without murmur or ectopy. Patient has some mild tenderness over the left anterior chest wall that somewhat reproduces her pain. Lungs-clear to auscultation, chest wall stable without crepitus or subcu emphysema Abdomen-normoactive bowel sounds, soft, nontender, no rebound or rigidity, no peritoneal signs. Extremities-intact ?4, normal range of motion, normal pulses, atraumatic] Test Results: [EKG obtained arrival shows sinus rhythm with a ventricular rate of 74 bpm with old septal infarct noted.] CBC with differential showed a white of 9.4, hemoglobin 12, hematocrit 38, placed to 68. Chemistries unremarkable. Glucose was 165. INR was 3.3. Troponin less than 0.015. Emergency Department Course and Treatment: [IV line was tablets on arrival. Patient placed on campus monitor.] Patient was medicated with 4 mg of morphine and 4 mg of Zofran she had good pain relief with that. Treatment Plan: [Patient will be discharged to home and advised to follow-up with her primary care physician in 3 to 5 days. My suspicion for cardiac disease is low given that she had a unremarkable heart cath October 2019 and stress test in January of this year that was unremarkable. Her chest pain sounds atypical.] Disposition: [Discharged home in stable condition] Impression: [Chest pain-etiology uncertain] This note was generated with [employer] dictation software. It may contain incorrect words, spelling, and punctuation that were not noted in review of the chart prior to signing ED Disposition - Plan for ED Patient: Referrals: NOT,DEFINED [NON-STAFF] -
[2020-08-09] MEDS: 0.9% Normal Saline 1,000 ML 150 ML IV (17:08)
[2020-08-09] MEDS: Ondansetron 4 MG/2 ML Vial IV (17:09)
[2020-08-09] MEDS: Morphine 4 MG/ML Syringe IV (17:10)
[2020-08-09 17:13] VITALS: O2SAT 95
[2020-08-09 17:15] LABS: Absolute Lymphocyte Count 0.59 X10^3/uL (0.83-4.51); Absolute Neutrophil Count 8.4 X10^3/uL (2.0-7.7); Basophil# 0.02 X10^3/uL; Basophil% 0.2 % (0-1); Hematocrit 37.9 % (37-47); Hemoglobin 12.1 g/dL (12.0-15.0); Lymphocyte # 0.59 X10^3/ul (4.0); Lymphocyte % 6.3 % (19-41); Mean Corp Hgb Conc 31.9 g/dL (32-36); Mean Corpuscular Hgb 27.7 pg (27.0-32.0); Mean Corpuscular Volume 86.7 fL (81-99); Monocyte# 0.31 X10^3/uL; Monocyte% 3.3 % (0-10); NRBC Flagged by Analyzer 0 % (0-5); Neutrophil # 8.39 X10^3/uL (2.7-7.7); Neutrophil % 89.5 % (47-70); POSITIVE DIFFERENTIAL YES; Platelet Count 268 K/mm3 (150-450); RBC Distribution Width SD 53.6 fl (35.1-43.9); Red Blood Count 4.37 M/mm3 (4.2-5.4); White Blood Count 9.4 K/mm3 (4.4-11.0)
--- NOTE | 2020-08-09 17:15 | RAD_ITS ---
STUDY: X-RAY CHEST REASON FOR EXAM: Female, 59 years old. CHRONIC INTERMITTENT CP, STARTED AT NOON TECHNIQUE: AP portable COMPARISON: 06/25/2020 FINDINGS: The lungs are clear and expanded. There is no demonstrated pleural abnormality. Postsurgical change status post median sternotomy and valvular stent as well as prosthetic valve placement Normal size heart. Normal mediastinum and jeb. Normal visualized pulmonary arteries. Normal visualized aortic arch and descending thoracic aorta. Dorsal spine demonstrates scoliosis and degenerative change. Normal visualized ribs, clavicles, and shoulders. There is no demonstrated abnormality of the visualized soft tissue structures of the upper abdomen. No significant change since prior exam RAD/Chest 1 View (Portable) IMPRESSION: Postsurgical changes. No acute disease Electronically Signed: Manish Landa MD at 17:33 EDT , Service support ,
[2020-08-09 17:16] LABS: Differential Indicated SCAN CRITERIA MET
[2020-08-09 17:20] LABS: International Normalized Ratio 3.3; Prothrombin Time (Protime)PT. 33.3 SECONDS (11.7-14.9)
[2020-08-09 17:30] LABS: Anion Gap 6 (5-15); BUN 10 mg/dL (7-18); BUN/Creat Ratio 8.8 RATIO (10-20); Calcium,Total 8.7 mg/dL (8.5-10.1); Chloride 105 mmol/L (98-107); Creatinine, Serum 1.14 mg/dL (0.55-1.02); EST Glomerular Filtration Rate 52 mL/min (>60); Est Glom Filt Rate - Afr Amer 63 mL/min (>60); Estimated Creatinine Clearance 46.03 ml/min; Glucose 165 mg/dL (74-106); Potassium 4.3 mmol/L (3.5-5.1); Sodium Level 137 mmol/L (136-145)
--- NOTE | 2020-08-09 18:23 | DCINST.ED_ITS ---
ED Disposition - Plan for ED Patient: Instructions: ED Chest Pain Atypical Unkn Cause Prescriptions: Hydrocodone Bitart/Apap 5-325 [[place] 5MG-325MG] 1 tab PO Q4H PRN PRN 2 Days #10 tab PRN Reason: Pain Prescription Printed Referrals: NOT,DEFINED [NON-STAFF] - 3-5 Days
[2020-08-09 18:31] VITALS: BP 138/81; PULSE 69; RESP 15; O2SAT 97
== END 2020-08-09 18:42 | disposition home or self-care (01) ==
PROVIDERS: Emergency Provider Emergency Medicine
DX: R07.9 Chest pain, unspecified (principal); J44.9 Chronic obstructive pulmonary disease, unspecified; E78.00 Pure hypercholesterolemia, unspecified; I12.9 Hypertensive chronic kidney disease with stage 1 through stage 4 chronic kidney disease, or unspecified chronic kidney disease; N18.9 Chronic kidney disease, unspecified; D63.1 Anemia in chronic kidney disease; I25.10 Atherosclerotic heart disease of native coronary artery without angina pectoris; I25.2 Old myocardial infarction; Z72.0 Tobacco use; Z95.2 Presence of prosthetic heart valve; Z79.01 Long term (current) use of anticoagulants; Z79.51 Long term (current) use of inhaled steroids; Z79.899 Other long term (current) drug therapy
CPT/HCPCS: 71045; 80048; 84484; 85025; 85610; 93005; 96361; 96374; 96375; 99284; J7030; A4216; J2405

== ENCOUNTER 2020-09-08 14:39 | Emergency (ER) | payer MEDICARE, MEDICAID, SELFPAY ==
[2020-09-08 14:40] VITALS: BP 137/79; PULSE 56; RESP 18; TEMP 37.1; O2SAT 97; BMI 20.1
--- NOTE | 2020-09-08 15:08 | EKG12_ITS ---
Test Reason : CP Blood Pressure : / mmHG Vent. Rate : 054 BPM Atrial Rate : 054 BPM P-R Int : 150 ms QRS Dur : 084 ms QT Int : 456 ms P-R-T Axes : 066 012 070 degrees QTc Int : 432 ms Sinus bradycardia Otherwise normal ECG Confirmed by MARY KOCH, JOSE ([id number]), makeup editor ALLYN SEAMAN ([id number]) on 09/13/2020 11:16:03 AM Referred By: PALLAVI Confirmed By:DEV HERNANDEZ MD
--- NOTE | 2020-09-08 15:09 | ED.VISSUMM ---
- ER Visit Summary Date of Service: 09/08/20 Chief Complaint: Chest pain History of Present Illness: The patient is a 59 F who presents with chest pain that began this morning. Patient states the pain woke her up out of her sleep. Patient describes the pain is sharp. Patient states the pain is over the left parasternal area. Patient states the pain is worse with movement. Patient states the pain initially was intermittent but now has been constant for the past 1 hour. Patient admits to some shortness of breath and lightheadedness with this. Patient denies any nausea or vomiting. Patient denies any diaphoresis. Patient denies any cough or fevers. Physical Examination: Vital signs are stable. Patient is afebrile. Patient is in no acute distress. Oral mucosa is pink and moist. Neck is supple. Trachea is midline. There is no JVD noted. Heart was regular rate and rhythm. There is a grade 3/6 murmur at the left upper sternal border consistent with mechanical heart valve. Lungs are clear and equal bilaterally. Abdomen is soft. Bowel sounds are normal. There is no tenderness. There is no rebound or guarding noted. Skin is warm dry. Cranial nerves II through XII are intact. There are no focal motor or sensory deficits noted. Extremities are intact. There is no calf tenderness or edema. Test Results: EKG shows sinus bradycardia with a rate of 54. There are no acute ST or T wave changes. Portable chest x-ray is obtained. There is no acute cardiopulmonary process. CBC and basic metabolic profile were obtained and were essentially within normal limits. Creatinine was slightly elevated 1.37 but this is chronic. Troponin was normal. Emergency Department Course and Treatment: Patient was given a dose of morphine here. Patient states she is unable to take aspirin due to allergy. Patient felt better on reevaluation. Patient was instructed to follow-up with her primary care physician in 5 to 7 days. Patient has a HEART score of 3. Patient was advised that this is low risk for acute cardiac event. Patient was advised that this may be musculoskeletal in nature. Patient understood and was agreeable with the plan. All questions were answered. Disposition: Discharge home Impression: 1. Chest pain This note was generated with [employer] software. It may contain incorrect words, spelling, and punctuation that were not noted in review of the chart prior to signing ED Disposition - Plan for ED Patient: Disposition: Home or Assisted Living Diagnosis: Chest pain of uncertain etiology Instructions: ED Chest Pain Atypical Unkn Cause Referrals: [facility],Out of [NON-STAFF] - 5-7 Days
[2020-09-08 15:21] VITALS: O2SAT 100
[2020-09-08] MEDS: Morphine 4 MG/ML Syringe 2 MG IV (15:28)
--- NOTE | 2020-09-08 15:30 | RAD_ITS ---
STUDY: X-RAY CHEST REASON FOR EXAM: Female, 59 years old. CHEST PAIN SINCE THIS A.M. -- HX OF HTN, [place] x2, STENT, ASTHMA, COPD, EMPHYSEMA TECHNIQUE: Frontal view of the chest COMPARISON: August 09 2020 FINDINGS: Lungs are clear. There is no pneumothorax, pulmonary edema or pleural effusions. Cardiac silhouette is normal. There is remote sternotomy with an aortic valve metallic prosthesis and right ventricular outflow tract stent. There is mild levoscoliosis of the thoracolumbar spine with remainder of the skeleton normal. Appearance is stable since prior. RAD/Chest 1 View (Portable) IMPRESSION: No acute findings, stable exam. Aortic valve prosthesis. Electronically Signed: Kenton Mcgowan, at 15:50 EDT Tel , Service support ,
--- NOTE | 2020-09-08 15:38 | NURSING ---
CBCD, PURPLE TOP, IS TOO SHORT
[2020-09-08 16:14] LABS: Anion Gap 7 (5-15); BUN 18 mg/dL (7-18); BUN/Creat Ratio 13.1 RATIO (10-20); Calcium,Total 8.3 mg/dL (8.5-10.1); Chloride 111 mmol/L (98-107); Creatinine, Serum 1.37 mg/dL (0.55-1.02); EST Glomerular Filtration Rate 42 mL/min (>60); Est Glom Filt Rate - Afr Amer 51 mL/min (>60); Estimated Creatinine Clearance 38.79 ml/min; Glucose 99 mg/dL (74-106); Potassium 4.4 mmol/L (3.5-5.1); Sodium Level 140 mmol/L (136-145)
[2020-09-08 16:15] LABS: Absolute Lymphocyte Count 1.13 X10^3/uL (0.83-4.51); Basophil# 0.03 X10^3/uL; Basophil% 0.5 % (0-1); Eosinophil# 0.22 X10^3/uL; Eosinophils% 3.7 % (0-5); Hematocrit 37.9 % (37-47); Hemoglobin 11.8 g/dL (12.0-15.0); Lymphocyte # 1.13 X10^3/ul (4.0); Mean Corp Hgb Conc 31.1 g/dL (32-36); Mean Corpuscular Hgb 27.7 pg (27.0-32.0); Mean Platelet Vol. 11.3 fl (6.2-12.0); Monocyte% 10.1 % (0-10); NRBC Flagged by Analyzer 0 % (0-5); Neutrophil # 3.96 X10^3/uL (2.7-7.7); Neutrophil % 66.5 % (47-70); Platelet Count 230 K/mm3 (150-450); RBC Distribution Width CV 15.9 % (11.6-14.6); Red Blood Count 4.26 M/mm3 (4.2-5.4)
[2020-09-08 16:58] VITALS: BP 132/80; PULSE 70; RESP 14; O2SAT 97
== END 2020-09-08 17:07 | disposition home or self-care (01) ==
PROVIDERS: Emergency Provider Emergency Medicine
DX: R07.9 Chest pain, unspecified (principal); I25.2 Old myocardial infarction; J44.9 Chronic obstructive pulmonary disease, unspecified; I10 Essential (primary) hypertension; E78.00 Pure hypercholesterolemia, unspecified; Z72.0 Tobacco use; Z79.01 Long term (current) use of anticoagulants; Z79.51 Long term (current) use of inhaled steroids; Z79.899 Other long term (current) drug therapy
CPT/HCPCS: 71045; 80048; 84484; 85025; 93005; 96374; 99285; A4216

== ENCOUNTER 2020-10-10 15:58 | Emergency (ER) | payer MEDICARE, MEDICAID, SELFPAY ==
[2020-10-10] VITALS (7 sets, daily range): BP systolic 115–136; BP diastolic 73–93; PULSE 64–75; RESP 16; TEMP 36.1; O2SAT 95–97
--- NOTE | 2020-10-10 16:26 | RAD_ITS ---
STUDY: X-RAY CHEST REASON FOR EXAM: Female, 60 years old. CHEST PAIN TECHNIQUE: Single frontal view of the chest. COMPARISON: 09/08/2020 FINDINGS: Median sternotomy wires. The lungs are clear and expanded. There is no demonstrated pleural abnormality. Normal size heart. Normal mediastinum and jeb. Normal visualized pulmonary arteries. Postoperative aortic changes. Normal visualized thoracic spine. Normal visualized ribs, clavicles, and shoulders. There is no demonstrated abnormality of the visualized soft tissue structures of the upper abdomen. RAD/Chest 1 View (Portable) IMPRESSION: No acute pulmonary findings. Electronically Signed: Francesco Aranda MD at 17:10 EST Tel , Service support ,
--- NOTE | 2020-10-10 16:26 | EKG12_ITS ---
Test Reason : Blood Pressure : / mmHG Vent. Rate : 066 BPM Atrial Rate : 066 BPM P-R Int : 140 ms QRS Dur : 086 ms QT Int : 424 ms P-R-T Axes : 073 031 071 degrees QTc Int : 444 ms Normal sinus rhythm Septal infarct , age undetermined Abnormal ECG Confirmed by MARY KOCH, JOSE ([id number]), non linear editor KAHLIL ALFRED ([id number]) on 10/16/2020 1:00:07 PM Referred By: REUBEN Confirmed By:DEV HERNANDEZ MD
--- NOTE | 2020-10-10 16:26 | ED.VIS.GEN ---
History of Present Illness Chief Complaint: Chest Pain Informant: Patient Narrative: 60-year-old female with past medical history of coronary artery disease and hypertension presents with concern for chest pain. States is been present over the past 4-1/2 hours. Worsening over the past 1 hour. States it is retrosternal and aching. Admits to some mild shortness of breath but denies any nausea, vomiting, diaphoresis. Patient states that she does have a history of mechanical valve and is on Coumadin. Has been compliant with her anticoagulation. Past Medical History - Allergies and Home Meds Allergies/Adverse Reactions: Allergies naproxen Allergy (Verified 10/10/20 16:00) SWELLING SOB N/V Penicillins Allergy (Verified 10/10/20 16:00) PT UNSURE OF REACTION aspirin Adverse Reaction (Verified 10/10/20 16:00) BLOOD THINNERS on warfarin ibuprofen [From Motrin] Adverse Reaction (Verified 10/10/20 16:00) BLOOD THINNERS on warfarin Primary Care Physician: Care Physician,No Primary [NON-STAFF] - Past Medical History: - - HTN, CAD, HLD, COPD Surgical History: angioplasty, cataract, hysterectomy, total hip arthroplasty - X2, tonsillectomy, - - Aortic and pulmonic valve replacement, patient has mechanical aortic valve, skin grafts, coronary artery stent placement times 2 -March 2018 Smoking Status: Current every day smoker - Family History Paternal Family History: Reports: Cancer - Bladder cancer, Heart Disease - Her paternal grandfather from heart attack between the ages of 57 and 58. Her paternal grandmother from a heart attack at about age 69. Maternal Family History: Reports: Cancer - Lung and bone cancer Review of Systems General: Denies: Chills, Fever, Sweats Eyes: Denies: Visual changes - bilaterally, Diplopia ENT: Denies: Rhinorrhea, Sore throat Cardiovascular: Reports: Chest pain. Denies: Palpitations Respiratory: Reports: Dyspnea. Denies: Cough, Dyspnea on exertion Gastrointestinal: Denies: Abdominal pain, Nausea, Vomiting, Diarrhea, Melena, Hematochezia Genitourinary: Denies: Dysuria, Hematuria, Frequency Musculoskeletal: Denies: Back pain, Extremity Pain Skin: Denies: Rash, Wounds Neurological: Denies: Headache, Weakness, Numbness Physical Exam Vital Signs/Narrative: Vital Signs Temp Pulse Resp BP Pulse Ox 10/10/20 15:59 97 F L 75 16 129/93 H 95 Inital Vital Signs reviewed: Yes General: Well nourished, Well developed, No Acute Distress Head: Normocephalic, Atraumatic Eyes: Perrl, EOMI ENT: Moist mucous membranes, No rhinorrhea Neck: Supple, Nontender Cardiovascular: Regular rate, Regular rhythm, No murmurs Respiratory: No distress, CTA bilaterally, Chest nontender Abdomen: Soft, Nontender, Nondistended, Normal bowel sounds Back: Nontender, Normal Inspection Extremities: Nontender, No edema Skin: Normal color, No rash, - - Diffuse skin changes secondary to bobby as a child Neurological: Alert, Oriented x3, Cranial nerves II-XII grossly intact, Normal Strength, Normal Sensation Psychological: Normal affect, Normal Mood Diagnostic/Tx/Re-eval Chest X-Ray - ED: 1 View, Read by ED Physician, Read by Radiologist, Chronic Changes Clinical Impression(s) from Imaging Studies Chest X-Ray 10/10/20 16:26 IMPRESSION: No acute pulmonary findings. Electronically Signed: Francesco Aranda MD at 17:10 EST Tel , Service support , Laboratory Data 10/10/20 10/10/20 10/10/20 16:47 16:47 19:30 WBC 7.8 RBC 4.47 Hgb 12.5 Hct 38.9 MCV 87.0 MCH 28.0 MCHC 32.1 RDW Std Deviation 55.1 H RDW Coeff of [place] 17.2 H Plt Count 248 MPV 10.9 Immature Gran % (Auto) 0.500 Neut % (Auto) 72.0 H Lymph % (Auto) 13.6 L [place] % (Auto) 11.0 H Eos % (Auto) 2.4 Baso % (Auto) 0.5 Absolute Neuts (auto) 5.6 Absolute Lymphs (auto) 1.07 Nucleated RBC % 0 Sodium 139 Potassium 4.5 Chloride 107 Carbon Dioxide 31.0 Anion Gap 1 L BUN 14 Creatinine 1.12 H Estim Creat Clear Calc 46.47 Est GFR (MDRD) Af Amer 64 Est GFR (MDRD) Non-Af 53 L BUN/Creatinine Ratio 12.5 Glucose 108 H Calcium 9.3 Magnesium 2.2 Troponin I < 0.015 < 0.015 - Rhythm Strip Rhythm Strip: Sinus Rhythm Rate: 66 Ectopy: None - EKG Initial EKG Interpretation: Sinus Rhythm - This rhythm at 66 bpm. [place] interval 140 ms. QTC of [address] changes. Anterior Q waves. Inversion in aVL. - Medical Decision Making Appears well nontoxic. Vital signs within normal limits. EKG shows no acute ischemia. 2 troponin by 3 hours. Other lab work within normal limits. Patient will be discharged home and asked to follow-up with her primary care provider for possible outpatient stress testing. Patient agreeable and discharged home in stable condition. Impression: 1. Atypical chest pain ED Disposition - Plan for ED Patient: Disposition: Home or Assisted Living Instructions: ED Chest Pain Atypical Unkn Cause Referrals: Laura Dixon MD [STAFF PHYSICIAN] - 2 Days
[2020-10-10] MEDS: Nitroglycerin SL (ED/IMG/CATH) 0.4 MG TABLET SUBLINGUAL ×3 (16:56→17:34)
[2020-10-10 16:57] LABS: Absolute Lymphocyte Count 1.07 X10^3/uL (0.83-4.51); Absolute Neutrophil Count 5.6 X10^3/uL (2.0-7.7); Basophil# 0.04 X10^3/uL; Basophil% 0.5 % (0-1); Eosinophil# 0.19 X10^3/uL; Eosinophils% 2.4 % (0-5); Hematocrit 38.9 % (37-47); Hemoglobin 12.5 g/dL (12.0-15.0); Lymphocyte # 1.07 X10^3/ul (4.0); Lymphocyte % 13.6 % (19-41); Mean Corp Hgb Conc 32.1 g/dL (32-36); Mean Platelet Vol. 10.9 fl (6.2-12.0); Monocyte# 0.86 X10^3/uL; NRBC Flagged by Analyzer 0 % (0-5); Neutrophil # 5.64 X10^3/uL (2.7-7.7); Platelet Count 248 K/mm3 (150-450); RBC Distribution Width CV 17.2 % (11.6-14.6); RBC Distribution Width SD 55.1 fl (35.1-43.9); Red Blood Count 4.47 M/mm3 (4.2-5.4); White Blood Count 7.8 K/mm3 (4.4-11.0)
[2020-10-10 17:27] LABS: Anion Gap 1 (5-15); BUN 14 mg/dL (7-18); BUN/Creat Ratio 12.5 RATIO (10-20); Calcium,Total 9.3 mg/dL (8.5-10.1); Chloride 107 mmol/L (98-107); Creatinine, Serum 1.12 mg/dL (0.55-1.02); EST Glomerular Filtration Rate 53 mL/min (>60); Est Glom Filt Rate - Afr Amer 64 mL/min (>60); Estimated Creatinine Clearance 46.47 ml/min; Glucose 108 mg/dL (74-106); Magnesium 2.2 mg/dL (1.6-2.6); Potassium 4.5 mmol/L (3.5-5.1); Sodium Level 139 mmol/L (136-145)
--- NOTE | 2020-10-28 18:49 | CM.ED ---
Social Work Patient ED Care Plan approved. Telephone call to patient, no answer. voicemail left requesting return phone call. ED Care Plan and resources mailed to patient. Rosalia GILLESPIE, SORAIDAS
== END 2020-10-10 20:55 | disposition home or self-care (01) ==
PROVIDERS: Emergency Provider Emergency Medicine
DX: R07.89 Other chest pain (principal); I10 Essential (primary) hypertension; I25.10 Atherosclerotic heart disease of native coronary artery without angina pectoris; E78.5 Hyperlipidemia, unspecified; J44.9 Chronic obstructive pulmonary disease, unspecified; F17.200 Nicotine dependence, unspecified, uncomplicated; Z79.01 Long term (current) use of anticoagulants; Z79.51 Long term (current) use of inhaled steroids; Z79.899 Other long term (current) drug therapy
CPT/HCPCS: 71045; 80048; 83735; 84484; 85025; 93005; 99285; A4216